=== PATIENT | female | born 1930 | race Caucasian/White ===

== ENCOUNTER 2016-09-09 14:30 | Emergency (ER) | payer BC, OTHER ==
--- NOTE | 2016-09-09 14:43 | PDOC ---
History of Present Illness - General History Source: Patient Exam Limitations: No Limitations - History of Present Illness Initial Comments: 09/09/16 16:03 The patient is a 85 year old female, with a significant past medical history of [facility] aortic valvue (2 stents placed in 05/2016), hypertension, hyperlipidemia, 6 months of dyspnea under the treatment of a news photographer and packager machine at [facility], and chronic cough with flare up of bronchitis periodically and chronic leg swelling, who presents to the emergency department with her with an exacerbation of her shortness of breath and chronic cough. The patient reports that she came into the ED today because she was concerned about her shortness of breath. She reports that she is experiencing shortness of breath at rest and a moist sounding non-productive cough. She denies chest pain, headache and dizziness. She denies fever, chills, nausea , vomit, diarrhea and constipation. She denies any history of asthma, or blood clots in her lungs or legs. The patient and her state that over the past 6 months she has had a weight loss of 20 pounds. Allergies:penicillins, quinidine Past surgical history: 2 stents placed in May <Kendra Anne - Last Filed: 09/09/16 17:11> <Eric Hernandez - Last Filed: 09/09/16 19:10> - General Chief Complaint: Respiratory Stated Complaint: COUGH Time Seen by Provider: 09/09/16 14:43 Past History <Kendra Anne - Last Filed: 09/09/16 17:11> <Eric Hernandez - Last Filed: 09/09/16 19:10> - Past Medical History Allergies/Adverse Reactions: Allergies Allergy/AdvReac Type Severity Reaction Status Date / Time Penicillins Allergy Verified 09/09/16 14:41 quinidine Allergy Verified 09/09/16 14:41 Home Medications: Ambulatory Orders Aspirin [Aspirin EC] 81 mg PO DAILY 09/09/16 Atorvastatin Ca [Lipitor] 40 mg PO HS 09/09/16 Famotidine [Pepcid] 20 mg PO DAILY 09/09/16 Furosemide [Lasix -] 40 mg PO DAILY 09/09/16 Levothyroxine [Synthroid -] 112 mcg PO DAILY 09/09/16 Losartan Potassium 50 mg PO DAILY 09/09/16 Metformin HCl 500 mg PO BID 09/09/16 Metoprolol Succinate [Toprol Xl -] 75 mg PO BID 09/09/16 Potassium Chloride [K-Dur -] 10 meq PO DAILY 09/09/16 Prasugrel Hydrochloride [Effient -] 5 mg PO DAILY 09/09/16 Warfarin Sodium [Coumadin] 2.5 mg PO ASDIR 09/09/16 Review of Systems - Review of Systems Able to Perform ROS?: Yes Comments:: 09/09/16 16:04 CONSTITUTIONAL: Absent: Fever, Chills, Diaphoresis, Generalized Weakness, Malaise, Loss of Appetite HEENT: Absent: Rhinorrhea, Nasal Congestion, Throat Pain, Throat Swelling, Difficulty Swallowing, Mouth Swelling, Ear Pain, Eye Pain, Visual Changes CARDIOVASCULAR: Absent: Chest Pain, Syncope, Palpitations, Irregular Heart Rate, Lightheadedness , Peripheral Edema RESPIRATORY: +Cough. +Shortness of breath. Absent: Wheezing, Stridor, Hemoptysis GASTROINTESTINAL: Absent: Abdominal pain, Abdominal Distension, Nausea, Vomiting, Diarrhea, Constipation, Melena, Hematochezia GENITOURINARY: Absent: Dysuria, Frequency, Urgency, Hesitancy, Flank Pain, Genital Pain MUSCULOSKELETAL: Absent: Myalgia, Arthralgia, Joint Swelling, Back pain, Neck Pain SKIN: Absent: Rash, Itching, PalloR HEMEATOLOGIC/IMMUNOLOGIC: Absent: Easy Bleeding, Easy Bruising, Lymphadenopathy, Frequent infections ENDOCRINE: Absent: Unexplained Weight Gain, Unexplained Weight Loss, Heat Intolerance, Cold Intolerance NEUROLOGIC: Absent: Headache, Focal Weakness, Paresthesias, Vertigo, Lightheadedness, Unsteady Gait, Seizure, Mental Status Changes, Incontinence PSYCHIATRIC: Absent: Anxiety, Depression <Kendra Anne - Last Filed: 09/09/16 17:11> *Physical Exam - Vital Signs Last Vital Signs Temp Pulse Resp BP Pulse Ox 99.7 F H 123 H 22 106/60 96 09/09/16 15:36 09/09/16 15:36 09/09/16 15:36 09/09/16 15:36 09/09/16 15:36 - Physical Exam Comments: 09/09/16 16:04 GENERAL: The patient is awake, alert, and fully oriented, in no acute distress. HEAD: Normal with no signs of trauma. EYES: Pupils equal, round and reactive to light, extraocular movements intact, sclera anicteric, conjunctiva clear. ENT: Ears normal, nares patent, oropharynx clear without exudates. Moist mucous membranes. NECK: Normal range of motion, supple without lymphadenopathy, JVD, or masses. LUNGS:+Bilateral crackles fpc up/ No wheezes. HEART: +Irregularly irregular tachycardic. No murmur, rub or gallop. ABDOMEN: Soft, nontender, normoactive bowel sounds. No guarding, no rebound. No masses. EXTREMITIES: Normal range of motion, no edema. No clubbing or cyanosis. No cords , erythema, or tenderness. NEUROLOGICAL: Cranial nerves II through XII grossly intact. Normal speech, normal gait. PSYCH: Normal mood, normal affect. SKIN: Warm, Dry, normal turgor, no rashes or lesions noted. <Kendra Anne - Last Filed: 09/09/16 17:11> Heart Score/ECG Review - ECG Impressions Comment:: 09/09/16 15:51 Abnormal EKG: Atrial Fibrillation with rapid ventricular response. Rate 143. Left bundle branch block. In comparison with EKG done on 02/03/2010 the Atrial Fibrillation and left bundle branch are new. <Kendra Anne - Last Filed: 09/09/16 17:11> ED Treatment Course - LABORATORY CBC & Chemistry Diagram: 09/09/16 15:14 09/09/16 15:14 - ADDITIONAL ORDERS Additional order review: Laboratory Results 09/09/16 15:14 Creatine Kinase 40 - Medications Given in the ED: ED Medications Discontinued Medications Generic Name Dose Route Start Last Admin Trade Name Alilson PRN Reason Stop Dose Admin Diltiazem HCl 10 mg 09/09/16 15:16 09/09/16 15:25 Cardizem Injection - IVPUSH 09/09/16 15:17 10 mg ONCE ONE Administration <Kendra Anne - Last Filed: 09/09/16 17:11> - LABORATORY CBC & Chemistry Diagram: 09/09/16 15:14 09/09/16 15:14 <Eric Hernandez - Last Filed: 09/09/16 19:10> Medical Decision Making - Medical Decision Making 09/09/16 16:[address] Sarkis Copeland at [phone], Dr. Crockett is well control instructor. Awaiting call back. 09/09/16 17:[address] Crockett who is covering for Dr. Copeland. The Patient [facility] be [facility] on Telemetry. <Kendra Anne - Last Filed: 09/09/16 17:11> - Critical Care Time Total Critical Care Time (minutes): 45 (AF RVR) Critical Care Statement: The care of this patient involved high complexity decision making to prevent further life threatening deterioration of the patient 's condition and/or to evalute & treat vital organ system(s) failure or risk of failure. - Medical Decision Making 09/09/16 17:57 Patient with history of hypertension and [facility] aortic valve replacement. She has been having chronic symptoms of cough and dyspnea for several months. She underwent an extensive workup at [facility] with both cardiology and pulmonary. She comes in now complaining of progressive shortness of breath, now at rest. She also continues to have a moist cough. She denies fever. On examination, she has a low-grade temperature, and tachypnea as well as a very moist sounding cough. On the monitor there is atrial fibrillation with a left bundle randall block, rapid ventricular response at 150 initially, coming down after IV and by mouth Cardizem. Lungs have crackles bilaterally, approximately one fpc up. Laboratory studies reviewed: White blood cell count is notable for elevation to 17.1. INR is 2.1 on Coumadin for the prosthetic valve. Creatinine is notable at 1.5, increased from prior baseline. Glucose is increased to 264. VBG is notable for no acidosis. Troponin is negative at 0.03. Chest x-ray reviewed by me on a preliminary basis shows increased interstitial markings, right greater than left, possibly consistent with atypical pneumonia versus pulmonary congestion. Patient treated for atrial fibrillation with rapid ventricular response. She already took metoprolol 75 mg at home. She was given 3 doses of IV Cardizem in the emergency Department and then given oral Cardizem. She is already anticoagulated on Coumadin. Patient also with likely pneumonia given low-grade fever and significant leukocytosis. Given her history of ALLERGY to both penicillin and cephalosporins, she has been started on Levaquin. Blood cultures and urine culture were sent prior to antibiotics. Patient endorsed to Dr. Crockett for admission. Dr. Steiner contacted for cardiology consultation and he will evaluate the patient. Patient will be transported by ALS from the [place] emergency department to the telemetry unit at [facility]. Laboratory Results - last 24 hr 09/09/16 09/09/16 09/09/16 15:14 15:14 15:14 WBC 17.1 H D RBC 4.51 Hgb 13.0 Hct 38.3 MCV 84.9 MCHC 34.0 RDW 13.3 Plt Count 248 D MPV 9.7 Neutrophils % Y Lymphocytes % Y INR 2.07 H D PTT (Actin FS) 29.6 VBG pH POC VBG pCO2 POC VBG pO2 Mixed VBG HCO3 Sodium 137 Potassium 4.0 Chloride 100 Carbon Dioxide 24 Anion Gap 13 BUN 23 H Creatinine 1.5 H D Creat Clearance w eGFR 33.16 Random Glucose 264 H D Calcium 9.6 Magnesium 1.6 L Total Bilirubin 1.5 H D AST 40 D ALT 25 Alkaline Phosphatase 122 H D Creatine Kinase Troponin I Total Protein 6.6 Albumin 3.2 L 09/09/16 09/09/16 15:14 15:30 WBC RBC Hgb Hct MCV MCHC RDW Plt Count MPV Neutrophils % Lymphocytes % INR PTT (Actin FS) VBG pH 7.45 H POC VBG pCO2 38.5 POC VBG pO2 89.4 H Mixed VBG HCO3 26.2 H Sodium Potassium Chloride Carbon Dioxide Anion Gap BUN Creatinine Creat Clearance w eGFR Random Glucose Calcium Magnesium Total Bilirubin AST ALT Alkaline Phosphatase Creatine Kinase 40 Troponin I 0.03 Total Protein Albumin 09/09/16 19:10 The scribe's documentation has been prepared under my direction and personally reviewed by me in its entirety. I have confirmed that the note above accurately reflects all work, treatment, procedures, and medical decision- making performed by me. <Eric Hernandez - Last Filed: 09/09/16 19:10> *DC/Admit/Observation/Transfer - Attestations Scribe Attestion: 09/09/16 16:04 Documentation prepared by ALANA Holley, acting as medical microbiologist for Eric Hernandez MD. <Kendra Anne - Last Filed: 09/09/16 17:11> - Discharge Dispostion Admit: Yes <Eric Hernandez - Last Filed: 09/09/16 19:10> Diagnosis at time of Disposition: Atrial fibrillation with rapid ventricular response, Atypical pneumonia - Discharge Dispostion Condition at time of disposition: Guarded
[2016-09-09 14:54] VITALS: BMI 32.4
[2016-09-09] MEDS ORDERED: dilTIAZem HCL 50 MG/10 ML - 10 ML VIAL IVPUSH ONE ×3 (15:16→16:52)
[2016-09-09] MEDS ORDERED: dilTIAZem HCL 50 MG/10 ML - 10 ML VIAL ONE (15:20)
[2016-09-09 15:31] LABS: MCH 28.8 pg (25.7-33.7); MEAN CELL VOLUME 84.9 fl (80-96); MEAN PLT VOLUME 9.7 fl (7.5-11.1); PLATELET COUNT 248 K/MM3 (134-434); RDW 13.3 % (11.6-15.6); WHITE BLOOD COUNT 17.1 K/mm3 (4.0-10.8)
[2016-09-09 15:48] LABS: ACTIVATED PTT 29.6 SECONDS (24.0-38.9)
[2016-09-09 15:50] LABS: ALBUMIN 3.2 g/dl (3.5-5.0); ALK PHOS 122 U/L (32-92); ANION GAP 13 (8-16); BILIRUBIN,TOTAL 1.5 mg/dl (0.2-1.0); CALCIUM 9.6 mg/dl (8.4-10.2); CO2 24 mmol/L (22-28); CREATININE 1.5 mg/dl (0.6-1.3); GLUCOSE,RANDOM 264 mg/dl (74-106); MAGNESIUM 1.6 mg/dL (1.8-2.4); SGOT/AST 40 U/L (10-42); SGPT/ALT 25 U/L (10-40); TOT PROT 6.6 g/dl (6.4-8.3)
[2016-09-09 15:52] LABS: INR 2.07 (0.82-1.09); PROTHROMBIN TIME (PATIENT) 22.8 SEC (10.2-13.0)
[2016-09-09] MEDS ORDERED: dilTIAZem HCL 30 MG TABLET (FP) PO ONE (16:11)
[2016-09-09] MEDS ORDERED: dilTIAZem HCL 30 MG TABLET (FP) ONE (16:12)
[2016-09-09 16:19] LABS: VENOUS BLOOD GAS HCO3 26.2 meq/L (19-25); VENOUS PH 7.45 (7.32-7.42)
[2016-09-09 16:51] LABS: TROPONIN I (DFP) 0.03 ng/ml (0.03-0.50)
[2016-09-09] MEDS ORDERED: ACETAMINOPHEN 325 MG TABLET (FP) PO ONE (16:52)
[2016-09-09] MEDS ORDERED: ACETAMINOPHEN 325 MG TABLET (FP) ONE (16:53)
[2016-09-09] MEDS ORDERED: LEVOFLOXACIN 500 MG IVPB 100 ML IVPB ONE ×2 (17:12→17:14)
[2016-09-09 17:32] LABS: URINE APPEARANCE Clear; URINE BILIRUBIN 1+ (NEGATIVE); URINE GLUCOSE (UA) Negative (NEGATIVE); URINE KETONE Trace (NEGATIVE); URINE NITRITE Negative (NEGATIVE); URINE UROBILINOGEN 1.0 E.U/dl (0.2-1.0)
[2016-09-09 19:09] VITALS: BP 105/64; TEMP 97.7
[2016-09-09 19:16] LABS: URINE BLOOD 1+ (NEGATIVE); URINE COLOR YELLOW; URINE LEUK ESTERASE 1+ (NEGATIVE); URINE PROTEIN 2+ (NEGATIVE)
[2016-09-09 20:11] VITALS: PULSE 107
[2016-09-09] MEDS ORDERED: ATORVASTATIN CA 40 MG TABLET (FP) PO SCH (22:00)
[2016-09-09 23:15] LABS: URINE BACTERIA 3+ /hpf (NEGATIVE); YEAST MODERATE
[2016-09-09 23:22] LABS: PLATELET ESTIMATE ADEQUATE (NORMAL)
[2016-09-10] MEDS ORDERED: dilTIAZem HCL 30 MG TABLET (FP) PO SCH
[2016-09-10] MEDS ORDERED: metFORMIN HCL 500 MG TABLET (FP) PO SCH (07:00)
[2016-09-10] MEDS ORDERED: LEVOTHYROXINE NA 112 MCG TABLET (FP) PO SCH (07:00)
[2016-09-10] MEDS ORDERED: LOSARTAN POTASSIUM 50 MG TABLET (FP) PO SCH (10:00)
[2016-09-10] MEDS ORDERED: PRASUGREL HCL 5 MG TAB PO SCH (10:00)
[2016-09-10] MEDS ORDERED: LEVOFLOXACIN 250 MG IVPB 50 ML IVPB SCH (10:00)
[2016-09-10] MEDS ORDERED: ASPIRIN COATED 81 MG TABLET.EC PO SCH (10:00)
[2016-09-10] MEDS ORDERED: FAMOTIDINE 20 MG TABLET PO SCH (10:00)
[2016-09-10 11:25] LABS: TROPONIN I < 0.02 ng/ml (0.00-0.05)
[2016-09-10] MEDS ORDERED: WARFARIN NA 2.5 MG TABLET (FP) PO SCH (18:00)
--- NOTE | 2016-09-11 18:19 | EKG ---
Test Reason : Blood Pressure : / mmHG Vent. Rate : 104 BPM Atrial Rate : 104 BPM P-R Int : 180 ms QRS Dur : 126 ms QT Int : 396 ms P-R-T Axes : 044 -47 091 degrees QTc Int : 520 ms SINUS TACHYCARDIA WITH PREMATURE ATRIAL COMPLEXES LEFT AXIS DEVIATION LEFT BUNDLE BRANCH BLOCK WHEN COMPARED WITH ECG OF 09-SEP-2016 14:53, SR more apparent Confirmed by MD SERGIO, LEXII ([id number]) on 09/11/2016 6:18:50 PM Referred By: SAIRA SHERWOOD Confirmed By:LEXII HILL MD
--- NOTE | 2016-09-11 18:21 | EKG ---
Test Reason : Blood Pressure : / mmHG Vent. Rate : 143 BPM Atrial Rate : 131 BPM P-R Int : 000 ms QRS Dur : 124 ms QT Int : 336 ms P-R-T Axes : 000 -49 116 degrees QTc Int : 518 ms UNDETERMINED RHYTHM -. apparent afib initially -. SR at end LEFT AXIS DEVIATION LEFT BUNDLE BRANCH BLOCK WHEN COMPARED WITH ECG OF 24-NOV-2009 19:27, SR not evident Confirmed by MD SERGIO, LEXII ([id number]) on 09/11/2016 6:20:39 PM Referred By: SAIRA SHERWOOD Confirmed By:LEXII HILL MD
== END 2016-09-09 19:55 | disposition home or self-care (01) ==
LOC: FER 14:30
PROC: 3E03329 Introduction of Other Anti-infective into Peripheral Vein, Percutaneous Approach (ICD-10-PCS; principal; 2016-09-09)
PROC: 3E033GC Introduction of Other Therapeutic Substance into Peripheral Vein, Percutaneous Approach (ICD-10-PCS; 2016-09-09)
DX: I48.91 Unspecified atrial fibrillation (principal); J18.9 Pneumonia, unspecified organism; Z95.5 Presence of coronary angioplasty implant and graft; I10 Essential (primary) hypertension; E78.5 Hyperlipidemia, unspecified
CPT/HCPCS: 36415; 71010-TC; 80053; 81003; 81015; 82550; 82803; 83605; 83735; 83880; 84443; 84480; 84484; 85025; 85610; 85730; 87040; 87077; 87086; 93005; 99285-25

== ENCOUNTER 2016-09-09 18:39 | Inpatient (IN) | payer BC, OTHER ==
[2016-09-09] MEDS ORDERED: ALBUTEROL SO4 0.083% IH SOL 2.5 MG/3 ML VIAL.NEB. NEB PRN (21:06)
[2016-09-09] MEDS ORDERED: guaiFENesin/D-M SUGAR-FREE/ACLHOL-FREE 118 ML BOTTLE PO PRN (21:06)
--- NOTE | 2016-09-09 21:32 | HP ---
Admitting History and Physical - Admission Chief Complaint: cough, shortness of breath History of Present Illness: 85 yo female, presents to ED with 1 week of feeling very poorly, with increased cough and shortness of breath. Feels weak, though no fevers. Prior to the past week, patient had been feeling not that well for past year. She has a history of an aortic valve replacement 20 years ago and has been following with a gericare aide teacher (Dr Cardenas at [facility]), with recent cath in 05/2016 with 2 cardiac stents placed. Patient notes that she had episode of "flash pulmonary edema" at that time following the procedure and was treated for CHF then. Notes that she has continued to feel poorly (same as she was prior to cath), seeing exhibit display representative for a chronic dry cough and exertional dyspnea. Notes that she was not given an inhaler previously. Currently no chest pain, but was in afib in 150's upon presentation to [facility] ED earlier today. CXR showed some infiltrative changes, so given Levaquin to cover for pneumonia/ bronchitis and cardizem for the afib History Source: Patient, Family Member Limitations to Obtaining History: No Limitations - Past Medical History Cardiovascular: Yes: Aortic Stenosis, CAD, CHF Endocrine: Yes: Diabetes Mellitus, Hypothyroidism - Past Surgical History Past Surgical History: Yes: Valve Replacement (Aortic valve replacement ([facility])) Additional Past Surgical History: s/p PTCA with 3 cardiac stents - Smoking History Smoking history: Never smoked - Alcohol/Substance Use Hx Alcohol Use: No - Social History Occupation: Retired 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) Home Medications - Allergies Allergies/Adverse Reactions: Allergies Allergy/AdvReac Type Severity Reaction Status Date / Time Penicillins Allergy Verified 09/09/16 14:41 quinidine Allergy Verified 09/09/16 14:41 - Home Medications Home Medications: Ambulatory Orders Aspirin [Aspirin EC] 81 mg PO DAILY 09/09/16 Atorvastatin Ca [Lipitor] 40 mg PO HS 09/09/16 Famotidine [Pepcid] 20 mg PO DAILY 09/09/16 Furosemide [Lasix -] 40 mg PO DAILY 09/09/16 Levothyroxine [Synthroid -] 112 mcg PO DAILY 09/09/16 Losartan Potassium 50 mg PO DAILY 09/09/16 Metformin HCl 500 mg PO BID 06/10/17 Metoprolol Succinate [Toprol Xl -] 75 mg PO BID 09/09/16 Potassium Chloride [K-Dur -] 10 meq PO DAILY 09/09/16 Prasugrel Hydrochloride [Effient -] 5 mg PO DAILY 09/09/16 Warfarin Sodium [Coumadin] 2.5 mg PO ASDIR 09/09/16 Family Disease History - Family Disease History Family Disease History: Heart Disease: Mother Review of Systems - Review of Systems Constitutional: reports: Loss of Appetite, Unintentional Wgt. Loss (20 lbs over past year). denies: Chills Eyes: reports: No Symptoms HENT: denies: Difficult Swallowing, Epistaxis Neck: denies: Stiffness, Tenderness Gastrointestinal: reports: Constipation. denies: Abdominal Pain, Dysphagia, Melena, Nausea, Vomiting Genitourinary: denies: Burning, Discharge, Dysuria Physical Examination Constitutional: Yes: No Distress, Calm Eyes: Yes: Conjunctiva Clear, EOM Intact, PERRL HENT: Yes: Atraumatic, Normocephalic Neck: Yes: Supple, Trachea Midline Cardiovascular: Yes: Pulse Irregular, Murmur, S1, S2 Respiratory: Yes: Rales, Rhonchi (bilaterally), Wheezes Gastrointestinal: Yes: Normal Bowel Sounds, Soft. No: Distention, Tenderness Edema: Yes Edema: LLE: Trace, RLE: Trace Neurological: Yes: Alert, Oriented Labs: (labs present from admission to [facility] ED from today -WBC 17,100, Creatinine 1.5, TSH 0.08) Imaging - Results Chest X-ray: Image Reviewed ((attached to ED visit from today -interstitial edema, prior sternotomy with wires, cardiomegaly)) Problem List - Problems (1) Atrial fibrillation with rapid ventricular response Assessment/Plan: -new onset afib -given cardizem IV with rate slowing -will start on PO cardizem -already on AC due to heart valve (INR therapeutic) -cardio to consult Code(s): I48.91 - UNSPECIFIED ATRIAL FIBRILLATION (2) Atypical pneumonia Assessment/Plan: -appears to be a bronchial process, based on exam of lungs (Crackles and rhonchi present), may be a combination of CHF with a bronchopneumonia or possibly underlying interstitial lung disease (will check CT chest) Code(s): J18.9 - PNEUMONIA, UNSPECIFIED ORGANISM (3) Coronary artery disease Assessment/Plan: -cont ASA, Bblocker on hold while starting cardizem, on statin Code(s): I25.10 - ATHSCL HEART DISEASE OF [place] CORONARY ARTERY W/O ANG PCTRS (4) Diabetes mellitus Assessment/Plan: -hold metformin given renal insufficiency, start RISS Code(s): E11.9 - TYPE 2 DIABETES MELLITUS WITHOUT COMPLICATIONS (5) History of aortic valve replacement Assessment/Plan: -cont coumadin Code(s): Z95.2 - PRESENCE OF PROSTHETIC HEART VALVE (6) Hypothyroid Assessment/Plan: TSH low -repeat with T4 and T3 to see if needs to adjust dose of Levothyroxine Code(s): E03.9 - HYPOTHYROIDISM, UNSPECIFIED (7) Hyperlipidemia Assessment/Plan: -on statin Code(s): E78.5 - HYPERLIPIDEMIA, UNSPECIFIED (8) Cough present for greater than 3 weeks Assessment/Plan: -cough appears chronic, but worsened -to get CT chest and pulm consult Code(s): R05 - COUGH
[2016-09-09] MEDS ORDERED: ALBUTEROL SO4 0.083% IH SOL 2.5 MG/3 ML VIAL.NEB. NEB ONE (21:49)
[2016-09-09] MEDS ORDERED: metFORMIN HCL 500 MG TABLET (FP) PO SCH (22:00)
[2016-09-09 22:30] LABS: TROPONIN I < 0.02 ng/ml (0.00-0.05)
[2016-09-09] MEDS: FUROSEMIDE 40 MG/4 ML INJECTABLE VIAL IVPUSH ONE ×2 (22:35→22:39)
[2016-09-09] MEDS: ATORVASTATIN CA 40 MG TABLET (FP) PO SCH (22:39)
[2016-09-09] MEDS: DOCUSATE SODIUM 100 MG CAPSULE (FP) PO SCH (22:40)
[2016-09-09] MEDS: INSULIN SLIDING SCALE (NOVOLOG) 1 VIAL SQ SCH (22:41)
[2016-09-09] MEDS: SENNOSIDES 8.6MG TABLET (FP) PO SCH (22:41)
[2016-09-09] MEDS ORDERED: WARFARIN NA 2.5 MG TABLET (FP) PO ONE (23:15)
[2016-09-09] MEDS: dilTIAZem HCL 30 MG TABLET (FP) PO SCH (23:21)
[2016-09-09] MEDS: ALBUTEROL SO4 0.083% IH SOL 2.5 MG/3 ML VIAL.NEB. NEB SCH (23:34)
[2016-09-10] MEDS: ALBUTEROL SO4 0.083% IH SOL 2.5 MG/3 ML VIAL.NEB. NEB SCH ×5 (06:02→23:22)
[2016-09-10] MEDS: dilTIAZem HCL 30 MG TABLET (FP) PO SCH ×3 (06:02→19:15)
[2016-09-10] MEDS: LEVOTHYROXINE NA 112 MCG TABLET (FP) PO SCH (06:02)
[2016-09-10] MEDS: INSULIN SLIDING SCALE (NOVOLOG) 1 VIAL SQ SCH ×4 (06:06→22:46)
[2016-09-10 07:42] LABS: INR 2.47 (0.82-1.09); PROTHROMBIN TIME (PATIENT) 27.7 SEC (9.98-11.88)
[2016-09-10 08:37] LABS: TROPONIN I < 0.02 ng/ml (0.00-0.05)
[2016-09-10] MEDS: RANITIDINE HCL 150 MG TABLET (FP) PO SCH (09:17)
[2016-09-10] MEDS: ASPIRIN COATED 81 MG TABLET.EC PO SCH (09:17)
[2016-09-10] MEDS: LOSARTAN POTASSIUM 50 MG TABLET (FP) PO SCH (09:17)
[2016-09-10] MEDS: PRASUGREL HCL 5 MG TAB PO SCH (09:22)
[2016-09-10] MEDS: LEVOFLOXACIN 250 MG IVPB 50 ML IVPB SCH (09:23)
[2016-09-10] MEDS ORDERED: FUROSEMIDE 40 MG/4 ML INJECTABLE VIAL IVPUSH SCH (10:00)
--- NOTE | 2016-09-10 10:01 | PN ---
Progress Note, Physician History of Present Illness: Patient feeling about the same as last night. Still with dyspnea on exertion. Denies any chest pain. Cough still present - Current Medication List Current Medications: Active Medications Albuterol Sulfate (Ventolin 0.083% Nebulizer Soln -) 1 amp NEB Q4H PRN PRN Reason: SHORT OF BREATH/WHEEZING Albuterol Sulfate (Ventolin 0.083% Nebulizer Soln -) 1 amp NEB QIDR [facility] Last Admin: 09/10/16 06:02 Dose: 1 amp Aspirin (Ecotrin -) 81 mg PO DAILY [facility] Last Admin: 09/10/16 09:17 Dose: 81 mg Atorvastatin Calcium (Lipitor -) 40 mg PO HS [facility] Last Admin: 09/09/16 22:39 Dose: 40 mg Diltiazem HCl (Cardizem -) 30 mg PO Q6HPO [facility] Last Admin: 09/10/16 06:02 Dose: 30 mg Docusate Sodium (Colace -) 300 mg PO HS [facility] Last Admin: 09/09/16 22:40 Dose: Not Given Furosemide (Lasix Injection -) 40 mg IVPUSH DAILY [facility] Last Admin: 09/10/16 09:17 Dose: 40 mg Guaifenesin (Diabetic Tussin Dm -) 10 ml PO Q6H PRN PRN Reason: COUGH Levofloxacin (Levaquin 250 Mg Premixed Ivpb -) 50 mls @ 50 mls/hr IVPB DAILY [facility] Last Admin: 09/10/16 09:23 Dose: 50 mls/hr Insulin Aspart (Novolog Vial Sliding Scale -) 1 vial SQ ACHS SASHA PRN Reason: Protocol Last Admin: 09/10/16 06:06 Dose: Not Given Levothyroxine Sodium (Synthroid -) 112 mcg PO AM [facility] Last Admin: 09/10/16 06:02 Dose: 112 mcg Losartan Potassium (Cozaar -) 50 mg PO DAILY [facility] Last Admin: 09/10/16 09:17 Dose: 50 mg Prasugrel (Effient -) 5 mg PO DAILY [facility] Last Admin: 09/10/16 09:22 Dose: 5 mg Ranitidine HCl (Zantac -) 150 mg PO DAILY [facility] Last Admin: 09/10/16 09:17 Dose: 150 mg Senna (Senna -) 2 tab PO HS [facility] Last Admin: 09/09/16 22:41 Dose: Not Given Warfarin Sodium (Coumadin -) 2.5 mg PO [id number]@1800 SASHA Warfarin Sodium (Coumadin -) 5 mg PO MoWeFr@1800 SASHA - Objective Vital Signs: Vital Signs Temperature 98 F 09/10/16 09:00 Pulse Rate 106 H 09/10/16 09:00 Respiratory Rate 20 09/10/16 09:00 Blood Pressure 122/66 09/10/16 09:00 O2 Sat by Pulse Oximetry (%) 99 09/10/16 09:00 Constitutional: Yes: No Distress, Calm Neck: Yes: Supple, Trachea Midline Cardiovascular: Yes: Pulse Irregular, Murmur, S1, S2 Respiratory: Yes: Regular, Rales, Rhonchi. No: Wheezes Gastrointestinal: Yes: Normal Bowel Sounds, Soft. No: Distention, Tenderness Edema: No Neurological: Yes: Alert, Oriented Labs: INR, PTT INR 2.47 (0.82-1.09) H 09/10/16 05:42 Problem List - Problems (1) Atrial fibrillation with rapid ventricular response Code(s): I48.91 - UNSPECIFIED ATRIAL FIBRILLATION (2) Atypical pneumonia Code(s): J18.9 - PNEUMONIA, UNSPECIFIED ORGANISM (3) Coronary artery disease Code(s): I25.10 - ATHSCL HEART DISEASE OF [place] CORONARY ARTERY W/O ANG PCTRS (4) Diabetes mellitus Code(s): E11.9 - TYPE 2 DIABETES MELLITUS WITHOUT COMPLICATIONS (5) History of aortic valve replacement Code(s): Z95.2 - PRESENCE OF PROSTHETIC HEART VALVE (6) Hypothyroid Code(s): E03.9 - HYPOTHYROIDISM, UNSPECIFIED (7) Hyperlipidemia Code(s): E78.5 - HYPERLIPIDEMIA, UNSPECIFIED (8) Cough present for greater than 3 weeks Code(s): R05 - COUGH Assessment/Plan Current Active Problems New Onset Afib with RVR Coronary artery disease (Acute) Bronchopneumonia CHF Cough present for greater than 3 weeks (Acute) Diabetes mellitus (Acute) History of aortic valve replacement (Acute) Hyperlipidemia (Acute) Hypothyroid (Acute) Diabetes mellitus -cardio to consult -on cardizem for rate control, coumadin for AC -repeat EKG -on levaquin/ Nebs for bronchopneumonia/ reactive airway disease -to get CT chest/ pulm eval -CHF (may be due to Afib currently) -on Lasix
--- NOTE | 2016-09-10 10:14 | CON.CARD ---
Consult Consult Specialty:: cardiology Referred by:: oswald Reason for Consultation:: sob, afib - History of Present Illness Chief Complaint: sob History of Present Illness: 85 yo female, presents to ED with worsening shortness of breath. Feels weak, generalized. also chronic dry cough--ongoing for 6+ months, not positional or exertional in nature. has had chronic sob with activity, but could walk around a small room at home without feeling breathless. recently prior to presenting to ER the sob worsened with any activity. was very severe on DOA, again with exertion--called [address] mahoney export packer and a pulmonary doc (both at [facility]) for long time for these sx's. s/p aortic valve replacement 20 years ago and has been following with a export packer (Dr Mahoney at [facility]). had cath with him 05/2016 with 2 stents placed. Patient reports episode of "flash pulmonary edema" following the cath--at that time BP went to 240 and echo showed LVEF 20%, vs normal prior. few days later EF was normal on rpt echo, and remains normal on office echo with erich. CXR in ER apparently showed some infiltrative changes, so given Levaquin-- report not available. she feels well at rest, only notes sob if gets up and does something. no orthopnea. no cp doesn't weigh herself regularly at home the labs and CXR reportedly done in ER at [facility] are not in pt's [facility] record here and cannot be reviewed--rpt labs ordered. - Past Medical History Cardio/Vascular: Yes: Aortic Stenosis, CAD, CHF Endocrine: Yes: Diabetes Mellitus, Hypothyroidism - Past Surgical History Past Surgical History: Yes: Valve Replacement (Aortic valve replacement ([facility])) - Alcohol/Substance Use Hx Alcohol Use: No - Smoking History Smoking history: Never smoked - Social History Occupation: Retired Home Medications - Allergies Allergies/Adverse Reactions: Allergies Allergy/AdvReac Type Severity Reaction Status Date / Time Penicillins Allergy Verified 09/09/16 14:41 quinidine Allergy Verified 09/09/16 14:41 - Home Medications Home Medications: Ambulatory Orders Aspirin [Aspirin EC] 81 mg PO DAILY 09/09/16 Atorvastatin Ca [Lipitor] 40 mg PO HS 09/09/16 Famotidine [Pepcid] 20 mg PO DAILY 09/09/16 Furosemide [Lasix -] 40 mg PO DAILY 09/09/16 Levothyroxine [Synthroid -] 112 mcg PO DAILY 09/09/16 Losartan Potassium 50 mg PO DAILY 09/09/16 Metformin HCl 500 mg PO BID 09/09/16 Metoprolol Succinate [Toprol Xl -] 75 mg PO BID 09/09/16 Potassium Chloride [K-Dur -] 10 meq PO DAILY 09/09/16 Prasugrel Hydrochloride [Effient -] 5 mg PO DAILY 09/09/16 Warfarin Sodium [Coumadin] 2.5 mg PO ASDIR 09/09/16 Family Disease History - Family Disease History Family Disease History: Heart Disease: Mother Review of Systems - Review of Systems Constitutional: denies: Chills, Fever Eyes: denies: Eye Pain HENT: denies: Nasal Congestion Neck: denies: Stiffness Cardiovascular: denies: Palpitations Respiratory: denies: Orthopnea, PND Gastrointestinal: denies: Diarrhea, Rectal Bleeding Genitourinary: denies: Burning, Hematuria Musculoskeletal: denies: Muscle Pain Integumentary: denies: Rash Neurological: denies: Numbness, Seizure, Syncope Endocrine: denies: Excessive Sweating Hematology/Lymphatic: denies: Excessive Bleeding Vital Signs: Vital Signs Temperature 98 F 09/10/16 09:00 Pulse Rate 106 H 09/10/16 09:00 Respiratory Rate 20 09/10/16 09:00 Blood Pressure 122/66 09/10/16 09:00 O2 Sat by Pulse Oximetry (%) 99 09/10/16 09:00 Constitutional: Yes: Well Nourished, No Distress Eyes: No: Sclera Icterus HENT: No: Nasal Congestion Neck: No: Decreased ROM Respiratory: Yes: CTA Bilaterally, Rales (lower 1/3 bilateral). No: Accessory Muscle Use, Wheezes Gastrointestinal: Yes: Normal Bowel Sounds. No: Distention, Hepatomegaly, Palpable Mass, Tenderness Cardiovascular: Yes: Regular Rate and Rhythm JVD: No Carotid Bruit: No PMI: Non-Displaced Heart Sounds: Yes: S1, S2. No: Gallop Murmur: No: Systolic Murmur, Diastolic Murmur Musculoskeletal: Yes: Other (No kyphosis) Extremities: No: Cold, Cyanosis Edema: No Peripheral Pulses: 2+ Left Carotid, 2+ Right Carotid, 2+ Left Doralis Pedis, 2+ Right Dorsalis Pedis Integumentary: No: Jaundice Neurological: Yes: Alert, Oriented (x3) Psychiatric: No: Agitated - Other Data Labs, Other Data: INR, PTT INR 2.47 (0.82-1.09) H 09/10/16 05:42 Troponin, BNP 09/09/16 09/10/16 21:40 05:42 Troponin I < 0.02 < 0.02 Troponin, BNP 09/09/16 09/10/16 21:40 05:42 Troponin I < 0.02 < 0.02 ekg x3: LBBB. 1 is AT/AFL. other 2 are sinus with APCs tele: sinus with APCs, frequent runs SVT probably PAT, ? AFL variable conduction (up to her 150-160). 1 run WCT 7b ? NSVT Imaging - Results Chest X-ray: Image Reviewed Assessment/Plan CAD: -reportedly had 2 stents 05/19 (cath done at [place], she follows with [facility]) -ECG here with LBBB which states is not new (no ECGs here since 2009) -trop neg x 2 -sob has not improved since PCI -cont home DAPT (ASA + Effient), metopr, statin h/o mech AVR -on coumadin -followed with echoes by [facility] -cont coumadin per home regimen/INR targets PSVT vs atrial flutter -tele shows frequent runs of SVT with HR 150-160. 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 conduction vs PAT -she is already anticoagulated (INR 2.4)--cont coumadin -she is already on high dose metoprolol (75 bid)--will incr to 100 bid trial -diltiazem 30mg q6h started here--cont same for now, observe tele -if sustained SVT, need adenosine IVP to define substrate -if remains frequent, will have to consider amio vs ablation acute on chronic sob, dry cough -BNP 2300 -CXR my review (09/09 and 09/10) with no effusions or vasc redistribution; + diffuse mild incr interstitial pattern bases > upper lung jiménez per (cardiac PA), RHC at time of procedure showed he thinks only mild incr'd wedge, with "moderate pulm HTN" -suspect at baseline she has diast chf, well-compensated--acute chf post-cath ? due to dye load. -recent worsening in sx's may be incr'd L sided filling pressures due to dietary Na changes, or possibly due to bronchitis exacerbating -r/o pulm dz including ILDz/pulm fibrosis--had chest CT, ? hi-res CT--per pulm -sx's not likely anginal in nature, did not improve after revascularization -rec trial of iv diuresis with daily wts and BMP labs f/u, with escalating doses until she is clinically dry to see if sob improves (doubt cough will improve, but not impossible) -received lasix 40 ivp this am, then mild LH sx with sbp 80s later after rec'd diltiazem--cont lasix 40 iv qd for now -f/u CT chest (done this am) D/W'D PT AND AND REC'D THIS WORKUP BE DONE INPT AT [facility], WHERE THE PHYSICIANS WHO KNOW HER WELL ARE LOCATED, AND WHERE THERE IS NURSERYPERSON IN CASE NEEDS REPEAT LEFT, OR POSSIBLY RIGHT HEART CATH--THEY AGREE. WILL MAKE ARRANGEMENTS Sunday
[2016-09-10 10:30] LABS: BASOPHIL 0.3 % (0-2.0); EOSINOPHIL 0.5 % (0-4.5); MCH 28.4 pg (25.7-33.7); MCHC 33.3 g/dl (32.0-36.0); MEAN CELL VOLUME 85.1 fl (80-96); MEAN PLT VOLUME 9.6 fl (7.5-11.1); NEUTROPHILS 75.2 % (42.8-82.8); PLATELET COUNT 219 K/MM3 (134-434); RDW 14.1 % (11.6-15.6); WHITE BLOOD COUNT 14.3 K/mm3 (4.0-10.0)
[2016-09-10 11:24] LABS: ANION GAP 16 (8-16); CALCIUM 9.5 mg/dL (8.5-10.1); CO2 25 mmol/L (21-32); COCKROFT - GAULT 0; CREATININE 1.4 mg/dL (0.55-1.02); GLUCOSE,RANDOM 185 mg/dL (74-106)
[2016-09-10] MEDS ORDERED: METOPROLOL SUCCINATE 100 MG TAB.SR.24H (FP) PO SCH (12:00)
[2016-09-10 12:07] LABS: FREE T4 1.89 ng/dl (0.76-1.46); THYROID STIMULATING HORMONE 0.07 uIU/ml (0.358-3.74)
--- NOTE | 2016-09-10 13:57 | CON.PULM ---
Consult Consult Specialty:: PULMONARY Referred by:: Dr. Crockett Reason for Consultation:: shortness of breath - History of Present Illness Chief Complaint: shortness of breath History of Present Illness: 85yo female with h/o DM, hypothyroidism, CAD s/p LAD stent, aortic stenosis s/p AVR who presents with worsening shortness of breath x 6 months, worse over 1 week. She reports a chronic cough for the past 6 months but without wheezing. No chest pain or discomfort. No fevers, chills or sweats. She had been worked up as an outpt including PFTs, cardiac cath with stent placement without improvement in her symptoms. Had not been on any trial of inhalers or steroids. She reports chronic leg swelling and sleeps in a recliner for comfort. 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 - History Source History Provided By: Patient, Significant Other Limitations to Obtaining History: No Limitations - Past Medical History Cardio/Vascular: Yes: Aortic Stenosis, CAD, CHF Endocrine: Yes: Diabetes Mellitus, Hypothyroidism - Past Surgical History Past Surgical History: Yes: Valve Replacement (Aortic valve replacement ([facility])) - Alcohol/Substance Use Hx Alcohol Use: No - Smoking History Smoking history: Never smoked - Social History Occupation: Retired Home Medications - Allergies Allergies/Adverse Reactions: Allergies Allergy/AdvReac Type Severity Reaction Status Date / Time Penicillins Allergy Verified 09/09/16 14:41 quinidine Allergy Verified 09/09/16 14:41 - Home Medications Home Medications: Ambulatory Orders Aspirin [Aspirin EC] 81 mg PO DAILY 09/09/16 Atorvastatin Ca [Lipitor] 40 mg PO HS 09/09/16 Famotidine [Pepcid] 20 mg PO DAILY 09/09/16 Furosemide [Lasix -] 40 mg PO DAILY 09/09/16 Levothyroxine [Synthroid -] 112 mcg PO DAILY 09/09/16 Losartan Potassium 50 mg PO DAILY 09/09/16 Metformin HCl 500 mg PO BID 09/09/16 Metoprolol Succinate [Toprol Xl -] 75 mg PO BID 09/09/16 Potassium Chloride [K-Dur -] 10 meq PO DAILY 09/09/16 Prasugrel Hydrochloride [Effient -] 5 mg PO DAILY 09/09/16 Warfarin Sodium [Coumadin] 2.5 mg PO ASDIR 09/09/16 Family Disease History - Family Disease History Family Disease History: Heart Disease: Mother Review of Systems - Review of Systems Constitutional: reports: Weakness. denies: Chills, Fever Eyes: denies: Recent Change in Vision HENT: denies: Nasal Congestion, Throat Pain Neck: denies: Stiffness, Tenderness Cardiovascular: reports: Edema, Shortness of Breath. denies: Chest Pain, Palpitations Respiratory: reports: Cough, SOB on Exertion. denies: Hemoptysis, Wheezing Gastrointestinal: denies: Abdominal Pain, Nausea, Vomiting Genitourinary: denies: Dysuria, Hematuria Neurological: denies: Dizziness, Headache Physical Exam Vital Sings: Vital Signs Temperature 98 F 09/10/16 12:56 Pulse Rate 100 H 09/10/16 12:56 Respiratory Rate 20 09/10/16 12:56 Blood Pressure 88/42 09/10/16 12:56 O2 Sat by Pulse Oximetry (%) 99 09/10/16 09:00 Constitutional: Yes: Calm Eyes: Yes: Conjunctiva Clear, EOM Intact HENT: Yes: Atraumatic, Normocephalic Neck: Yes: Supple, Trachea Midline Cardiovascular: Yes: Regular Rate and Rhythm Respiratory: Yes: Diminished (distant breath sounds) ...Clubbing: No Gastrointestinal: Yes: Normal Bowel Sounds, Soft. No: Tenderness Edema: Yes Labs: CBC, BMP 09/10/16 06:39 09/10/16 10:05 Imaging - Results Chest X-ray: Report Reviewed, Image Reviewed Cat Scan: Report Reviewed, Image Reviewed (mild atelectasis, thickened airways, mild bronchiectasis, no infiltrates (my read)) Problem List - Problems (1) Coronary artery disease Code(s): I25.10 - ATHSCL HEART DISEASE OF [place] CORONARY ARTERY W/O ANG PCTRS (2) Diabetes mellitus Code(s): E11.9 - TYPE 2 DIABETES MELLITUS WITHOUT COMPLICATIONS (3) History of aortic valve replacement Code(s): Z95.2 - PRESENCE OF PROSTHETIC HEART VALVE (4) Hyperlipidemia Code(s): E78.5 - HYPERLIPIDEMIA, UNSPECIFIED (5) Hypothyroid Code(s): E03.9 - HYPOTHYROIDISM, UNSPECIFIED (6) Atrial fibrillation with rapid ventricular response Code(s): I48.91 - UNSPECIFIED ATRIAL FIBRILLATION Assessment/Plan SVT vs Atrial Fibrillation r/o COPD Mild Bronchiectasis r/o Chronic Bronchitis CAD DM Hypothyroidism s/p AVR - will start trial of medrol x 48 hrs and then reassess - inhaled bronchodilators - LABA/ICS - O2 to keep SpO2 >90% - to obtain PFTs from parking garage manager - rate controlled - continue anticoagulation - telemetry monitoring Thank you for this consult Juan A Gillespie MD
[2016-09-10] MEDS ORDERED: FUROSEMIDE 40 MG/4 ML INJECTABLE VIAL IVPUSH ONE (16:00)
[2016-09-10] MEDS: methylPREDNISolone NA SUCC 40 MG/1 ML VIAL IVPB SCH ×2 (16:35→19:15)
[2016-09-10] MEDS: WARFARIN NA 2.5 MG TABLET (FP) PO SCH ×2 (16:36→19:15)
[2016-09-10] MEDS: METOPROLOL SUCCINATE 100 MG TAB.SR.24H (FP) PO SCH (22:45)
[2016-09-10] MEDS: ATORVASTATIN CA 40 MG TABLET (FP) PO SCH (22:45)
[2016-09-10] MEDS: DOCUSATE SODIUM 100 MG CAPSULE (FP) PO SCH (22:46)
[2016-09-10] MEDS: SENNOSIDES 8.6MG TABLET (FP) PO SCH (22:46)
[2016-09-11] MEDS: dilTIAZem HCL 30 MG TABLET (FP) PO SCH ×4 (00:53→17:13)
[2016-09-11] MEDS: methylPREDNISolone NA SUCC 40 MG/1 ML VIAL IVPB SCH ×3 (02:38→17:13)
[2016-09-11] MEDS: ALBUTEROL SO4 0.083% IH SOL 2.5 MG/3 ML VIAL.NEB. NEB SCH ×3 (05:43→17:50)
[2016-09-11] MEDS: INSULIN SLIDING SCALE (NOVOLOG) 1 VIAL SQ SCH ×4 (06:12→22:48)
[2016-09-11] MEDS: LEVOTHYROXINE NA 112 MCG TABLET (FP) PO SCH (06:13)
[2016-09-11 07:53] LABS: BASOPHIL 0.1 % (0-2.0); MCH 28.7 pg (25.7-33.7); MEAN CELL VOLUME 84.4 fl (80-96); MEAN PLT VOLUME 9.4 fl (7.5-11.1); NEUTROPHILS 87.2 % (42.8-82.8); PLATELET COUNT 244 K/MM3 (134-434); RDW 14.1 % (11.6-15.6); WHITE BLOOD COUNT 8.5 K/mm3 (4.0-10.0)
[2016-09-11 08:11] LABS: INR 2.6 (0.82-1.09); PROTHROMBIN TIME (PATIENT) 29.2 SEC (9.98-11.88)
[2016-09-11 08:23] LABS: CALCIUM 10.1 mg/dL (8.5-10.1); COCKROFT - GAULT 19.6775; CREATININE 2.5 mg/dL (0.55-1.02)
[2016-09-11] MEDS ORDERED: PT OWN MED DRAWER 7, Y5N ONE (08:55)
[2016-09-11] MEDS: LEVOFLOXACIN 250 MG IVPB 50 ML IVPB SCH (09:29)
[2016-09-11] MEDS: LOSARTAN POTASSIUM 50 MG TABLET (FP) PO SCH (09:30)
[2016-09-11] MEDS: RANITIDINE HCL 150 MG TABLET (FP) PO SCH (09:30)
[2016-09-11] MEDS: METOPROLOL SUCCINATE 100 MG TAB.SR.24H (FP) PO SCH ×2 (09:30→22:48)
[2016-09-11] MEDS: ASPIRIN COATED 81 MG TABLET.EC PO SCH (09:30)
[2016-09-11] MEDS: PRASUGREL HCL 5 MG TAB PO SCH (09:30)
[2016-09-11] MEDS ORDERED: FUROSEMIDE 40 MG/4 ML INJECTABLE VIAL IVPUSH SCH ×2 (10:00)
--- NOTE | 2016-09-11 11:27 | PN ---
Progress Note (short form) - Note Progress Note: CC: sob S: sob stable, no cp, palps, dizziness. Lead Burner Supervisor: dr mahoney Also sees pulmonary through [facility]. - Current Medication List Current Medications: Active Medications Albuterol Sulfate (Ventolin 0.083% Nebulizer Soln -) 1 amp NEB Q4H PRN PRN Reason: SHORT OF BREATH/WHEEZING Albuterol Sulfate (Ventolin 0.083% Nebulizer Soln -) 1 amp NEB QIDR SASHA Last Admin: 09/11/16 11:10 Dose: 1 amp Aspirin (Ecotrin -) 81 mg PO DAILY [facility] Last Admin: 09/11/16 09:30 Dose: 81 mg Atorvastatin Calcium (Lipitor -) 40 mg PO HS [facility] Last Admin: 09/10/16 22:45 Dose: 40 mg Diltiazem HCl (Cardizem -) 30 mg PO Q6HPO SASHA Last Admin: 09/11/16 12:19 Dose: Not Given Docusate Sodium (Colace -) 300 mg PO HS [facility] Last Admin: 09/10/16 22:46 Dose: Not Given Guaifenesin (Diabetic Tussin Dm -) 10 ml PO Q6H PRN PRN Reason: COUGH Levofloxacin (Levaquin 250 Mg Premixed Ivpb -) 50 mls @ 50 mls/hr IVPB DAILY [facility] Last Admin: 09/11/16 09:29 Dose: 50 mls/hr Insulin Aspart (Novolog Vial Sliding Scale -) 1 vial SQ ACHS SASHA PRN Reason: Protocol Last Admin: 09/11/16 12:19 Dose: 10 units Levothyroxine Sodium (Synthroid -) 112 mcg PO AM [facility] Last Admin: 09/11/16 06:13 Dose: 112 mcg Losartan Potassium (Cozaar -) 50 mg PO DAILY [facility] Last Admin: 09/11/16 09:30 Dose: 50 mg Methylprednisolone Sodium Succinate (Solu-Medrol -) 40 mg IVPB Q8H-IV [facility] Last Admin: 09/11/16 09:30 Dose: 40 mg Metoprolol Succinate (Toprol Xl -) 100 mg PO BID [facility] Last Admin: 09/11/16 09:30 Dose: 100 mg Prasugrel (Effient -) 5 mg PO DAILY [facility] Last Admin: 09/11/16 09:30 Dose: 5 mg Ranitidine HCl (Zantac -) 150 mg PO DAILY [facility] Last Admin: 09/11/16 09:30 Dose: 150 mg Senna (Senna -) 2 tab PO HS [facility] Last Admin: 09/10/16 22:46 Dose: Not Given Warfarin Sodium (Coumadin -) 2.5 mg PO SuTuThSa@1800 [facility] Last Admin: 09/10/16 19:15 Dose: Not Given Warfarin Sodium (Coumadin -) 5 mg PO MoWeFr@1800 [facility] - Objective Vital Signs: Vital Signs Temperature 97.6 F 09/11/16 14:17 Pulse Rate 74 09/11/16 14:17 Respiratory Rate 20 09/11/16 14:17 Blood Pressure 98/44 09/11/16 14:17 O2 Sat by Pulse Oximetry (%) 96 09/11/16 10:15 Constitutional: Yes: Well Nourished, No Distress Eyes: No: Sclera Icterus HENT: No: Nasal Congestion Neck: No: Decreased ROM Respiratory: Yes: bibasilar dry rales. No: Accessory Muscle Use, Wheezes Gastrointestinal: Yes: Normal Bowel Sounds. No: Distention, Hepatomegaly, Palpable Mass, Tenderness Cardiovascular: Yes: Regular Rate and Rhythm nl s1. mechanical s2 JVD: No Carotid Bruit: No PMI: Non-Displaced Murmur: No: Systolic Murmur, Diastolic Murmur Musculoskeletal: Yes: Other (No kyphosis) Extremities: No: Cold, Cyanosis Edema: No Peripheral Pulses: 2+ Left Carotid, 2+ Right Carotid, 2+ Left Doralis Pedis, 2+ Right Dorsalis Pedis Integumentary: No: Jaundice Neurological: Yes: Alert, Oriented (x3) Psychiatric: No: Agitated Laboratory Tests 09/10/16 09/11/16 09/11/16 05:42 06:05 06:05 WBC 8.5 D Hgb 12.0 Plt Count 244 INR 2.60 H Sodium Potassium Chloride Carbon Dioxide Anion Gap BUN Creatinine 1.4 H Calcium 09/11/16 06:05 WBC Hgb Plt Count INR Sodium 136 Potassium 4.2 Chloride 95 L Carbon Dioxide 22 Anion Gap 19 H BUN 45 H D Creatinine 2.5 H D Calcium 10.1 ekg x3: LBBB. 1 is AT/AFL. other 2 are sinus with APCs tele: sinus with APCs,intermittent SVT Imaging - Results Chest X-ray: Image Reviewed CT scan: small scattered mediastinal l. nodes. diffuse mild interstitial fibrotic changes, mostly peripheral. Diffuse B lower lobe posterior bronciectasis with wall thickening. Small calcified granuloma at right base. Assessment/Plan 85 yo with h/o s/p mech AVR, CAD s/p recent PCI x 2 - 05/2016, diastolic HF, DM, hypothyroidism p/w worsening, presents to ED with acute worsening chronic shortness of breath (dry cough, prog sob over many months). CAD: -reportedly had 2 stents 05/19 (cath done at [place], she follows with [facility] cardio) -ECG here with LBBB which states is not new (no ECGs here since 2009) -trop neg x 2 -sob has not improved since PCI -cont home DAPT (ASA + Effient), metopr, statin h/o mech AVR -on coumadin -followed with echoes by [facility] -cont coumadin per home regimen/INR targets PSVT vs atrial flutter -tele shows frequent runs of SVT with HR 150-160. 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 BP's slightly low today, will not uptitrate for now. -if sustained SVT, need adenosine IVP to define substrate -if remains frequent, will have to consider amio vs ablation acute on chronic sob, dry cough -BNP 2300 -CXR my review (09/09 and 09/10) with no effusions or vasc redistribution; + diffuse mild incr interstitial pattern bases > upper lung jiménez per (cardiac PA), RHC at time of procedure showed he thinks only mild incr'd wedge, with "moderate pulm HTN" -suspect at baseline she has diast chf, well-compensated--acute chf post-cath ? due to dye load. -sx's not likely anginal in nature, did not improve after revascularization - given trial of IV 40 mg IV lasix here with worsening of Cr this morning. Already received IV lasix dose this morning, will d/c. -CT c/w ILD, likely etiology of sx's. pulm following. D/W'D PT AND - now declining to be transferred to [facility]. Will remain here.
--- NOTE | 2016-09-11 13:10 | PN ---
Progress Note, Physician History of Present Illness: pulmonary alert,no distress,-cp,+ cough - Current Medication List Current Medications: Active Medications Albuterol Sulfate (Ventolin 0.083% Nebulizer Soln -) 1 amp NEB Q4H PRN PRN Reason: SHORT OF BREATH/WHEEZING Albuterol Sulfate (Ventolin 0.083% Nebulizer Soln -) 1 amp NEB QIDR REPLACED BY [facility] Last Admin: 09/11/16 05:43 Dose: 1 amp Aspirin (Ecotrin -) 81 mg PO DAILY REPLACED BY [facility] Last Admin: 09/11/16 09:30 Dose: 81 mg Atorvastatin Calcium (Lipitor -) 40 mg PO HS REPLACED BY [facility] Last Admin: 09/10/16 22:45 Dose: 40 mg Diltiazem HCl (Cardizem -) 30 mg PO Q6HPO REPLACED BY [facility] Last Admin: 09/11/16 12:19 Dose: Not Given Docusate Sodium (Colace -) 300 mg PO HS REPLACED BY [facility] Last Admin: 09/10/16 22:46 Dose: Not Given Guaifenesin (Diabetic Tussin Dm -) 10 ml PO Q6H PRN PRN Reason: COUGH Levofloxacin (Levaquin 250 Mg Premixed Ivpb -) 50 mls @ 50 mls/hr IVPB DAILY REPLACED BY [facility] Last Admin: 09/11/16 09:29 Dose: 50 mls/hr Insulin Aspart (Novolog Vial Sliding Scale -) 1 vial SQ ACHS SASHA PRN Reason: Protocol Last Admin: 09/11/16 12:19 Dose: 10 units Levothyroxine Sodium (Synthroid -) 112 mcg PO AM REPLACED BY [facility] Last Admin: 09/11/16 06:13 Dose: 112 mcg Losartan Potassium (Cozaar -) 50 mg PO DAILY REPLACED BY [facility] Last Admin: 09/11/16 09:30 Dose: 50 mg Methylprednisolone Sodium Succinate (Solu-Medrol -) 40 mg IVPB Q8H-IV REPLACED BY [facility] Last Admin: 09/11/16 09:30 Dose: 40 mg Metoprolol Succinate (Toprol Xl -) 100 mg PO BID REPLACED BY [facility] Last Admin: 09/11/16 09:30 Dose: 100 mg Prasugrel (Effient -) 5 mg PO DAILY REPLACED BY [facility] Last Admin: 09/11/16 09:30 Dose: 5 mg Ranitidine HCl (Zantac -) 150 mg PO DAILY REPLACED BY [facility] Last Admin: 09/11/16 09:30 Dose: 150 mg Senna (Senna -) 2 tab PO HS REPLACED BY [facility] Last Admin: 09/10/16 22:46 Dose: Not Given Warfarin Sodium (Coumadin -) 2.5 mg PO SuTuThSa@1800 REPLACED BY [facility] Last Admin: 09/10/16 19:15 Dose: Not Given Warfarin Sodium (Coumadin -) 5 mg PO MoWeFr@1800 REPLACED BY [facility] - Objective Vital Signs: Vital Signs Temperature 98 F 09/11/16 08:31 Pulse Rate 84 09/11/16 12:20 Respiratory Rate 20 09/11/16 12:20 Blood Pressure 98/35 09/11/16 12:20 O2 Sat by Pulse Oximetry (%) 97 09/11/16 08:00 Constitutional: Yes: Well Nourished, Calm Eyes: Yes: WNL HENT: Yes: WNL Neck: Yes: WNL Cardiovascular: Yes: Pulse Irregular, S1, S2 Respiratory: Yes: Rales (few bibasilar crackles) Gastrointestinal: Yes: Normal Bowel Sounds, Soft Extremities: Yes: WNL Edema: No Labs: CBC, BMP 09/11/16 06:05 09/11/16 06:05 INR, PTT INR 2.60 (0.82-1.09) H 09/11/16 06:05 - ....Imaging Cat Scan: Report Reviewed, Image Reviewed (+ fibrotic changes,bronchiectasis) Problem List - Problems (1) Interstitial lung disease Code(s): J84.9 - INTERSTITIAL PULMONARY DISEASE, UNSPECIFIED Assessment/Plan Problem List - Problems (1) Coronary artery disease Code(s): I25.10 - ATHSCL HEART DISEASE OF [place] CORONARY ARTERY W/O ANG PCTRS (2) Diabetes mellitus Code(s): E11.9 - TYPE 2 DIABETES MELLITUS WITHOUT COMPLICATIONS (3) History of aortic valve replacement Code(s): Z95.2 - PRESENCE OF PROSTHETIC HEART VALVE (4) Hyperlipidemia Code(s): E78.5 - HYPERLIPIDEMIA, UNSPECIFIED (5) Hypothyroid Code(s): E03.9 - HYPOTHYROIDISM, UNSPECIFIED (6) Atrial fibrillation with rapid ventricular response Code(s): I48.91 - UNSPECIFIED ATRIAL FIBRILLATION Assessment/Plan SVT vs Atrial Fibrillation r/o COPD ILD Mild Bronchiectasis CAD DM Hypothyroidism s/p AVR - continue medrol - inhaled bronchodilators - LABA/ICS - O2 to keep SpO2 >905 - obtain PFTs from leather leveler - anticoagulation DR DAVENPORT
--- NOTE | 2016-09-11 14:55 | CONSULT ---
Consultation: REQUESTING PROVIDER: CONSULT REQUEST: We have been asked to medically evaluate this patient for ( Nephrology). HISTORY OF PRESENT ILLNESS: 85 yo female, came to ED with 1 week of feeling weak, with increased cough and shortness of breath.Patient states that she has cough and difficulty in breathing from one year which is progressively increasing. Her sob has increased so much that she is unable to walk to her kitchen. Patient states that she has swelling in legs and which h was progressively increasing. States she takes over the counter cough syrup for cough. Denies chest pain, palpitations. Denies burning micturation, denies change in frequency, denies blood in urine. Patient had recieved 40mg of lasix on 09/09,, and PSH/; aortic valve replacement 20 years ago, cath in 05/2016 with 2 cardiac stents placed. REVIEW OF SYSTEMS: CONSTITUTIONAL: Absent: fever, chills, diaphoresis, generalized weakness, HEENT: Absent: rhinorrhea, nasal congestion, throat pain, throat swelling, CARDIOVASCULAR: Absent: chest pain, syncope, palpitations, irregular heart rate, lightheadedness , peripheral edema RESPIRATORY: Absent: cough, shortness of breath, dyspnea with exertion, orthopnea, wheezing, stridor, hemoptysis GASTROINTESTINAL: Absent: abdominal pain, abdominal distension, nausea, vomiting, diarrhea, constipation, GENITOURINARY: Absent: dysuria, frequency, urgency, hesitancy, hematuria, flank pain, genital pain PHYSICAL EXAMINATION Vital Signs - 24 hr 09/10/16 09/10/16 09/10/16 15:58 16:00 17:00 Temperature 97.8 F Pulse Rate 100 H 99 H 96 H Respiratory 20 20 20 Rate Blood Pressure 125/54 114/52 111/47 O2 Sat by Pulse Oximetry (%) 09/10/16 09/10/16 09/10/16 19:03 21:00 21:32 Temperature 97.6 F Pulse Rate 100 H 99 H Respiratory 20 20 Rate Blood Pressure 106/64 110/52 O2 Sat by Pulse 97 Oximetry (%) 09/11/16 09/11/16 09/11/16 02:18 06:00 08:00 Temperature 98.0 F Pulse Rate 79 92 H Respiratory 20 20 20 Rate Blood Pressure 106/63 114/55 O2 Sat by Pulse 97 Oximetry (%) 09/11/16 09/11/1617 08:31 10:15 12:20 Temperature 98 F Pulse Rate 115 H 88 84 Respiratory 20 20 Rate Blood Pressure 129/59 98/35 O2 Sat by Pulse 96 Oximetry (%) 09/11/16 14:17 Temperature 97.6 F Pulse Rate 74 Respiratory 20 Rate Blood Pressure 98/44 O2 Sat by Pulse Oximetry (%) CBCD WBC 8.5 K/mm3 (4.0-10.0) D 09/11/16 06:05 RBC 4.19 M/mm3 (3.60-5.2) 09/11/16 06:05 Hgb 12.0 GM/dL (10.7-15.3) 09/11/16 06:05 Hct 35.4 % (32.4-45.2) 09/11/16 06:05 MCV 84.4 fl (80-96) 09/11/16 06:05 MCHC 34.0 g/dl (32.0-36.0) 09/11/16 06:05 RDW 14.1 % (11.6-15.6) 09/11/16 06:05 Plt Count 244 K/MM3 (134-434) 09/11/16 06:05 MPV 9.4 fl (7.5-11.1) 09/11/16 06:05 CMP Sodium 136 mmol/L (136-145) 09/11/16 06:05 Potassium 4.2 mmol/L (3.5-5.1) 09/11/16 06:05 Chloride 95 mmol/L (98-107) L 09/11/16 06:05 Carbon Dioxide 22 mmol/L (21-32) 09/11/16 06:05 Anion Gap 19 (8-16) H 09/11/16 06:05 BUN 45 mg/dL (7-18) H D 09/11/16 06:05 Creatinine 2.5 mg/dL (0.55-1.02) H D 09/11/16 06:05 Random Glucose 288 mg/dL (74-106) H D 09/11/16 06:05 Calcium 10.1 mg/dL (8.5-10.1) 09/11/16 06:05 CARDIAC ENZYMES Creatine Kinase 53 IU/L (26-192) 09/10/16 05:42 Troponin I < 0.02 ng/ml (0.00-0.05) 09/10/16 05:42 Laboratory Tests 09/10/16 09/11/16 05:42 06:05 BUN 23 H 45 H D Creatinine 1.4 H 2.5 H D GENERAL: Awake, alert, and fully oriented, in no acute distress. HEAD: Normal with no signs of trauma. EARS, NOSE, THROAT: oropharynx clear without exudates. Moist mucous membranes. LUNGS: Breath sounds equal, clear to auscultation bilaterally. No wheezes, crackels present at bases HEART: s1s2 normal ABDOMEN: Soft, nontender, not distended, normoactive bowel sounds, no guarding, no rebound, no masses. UPPER EXTREMITIES: 2+ pulses, warm, well-perfused. No cyanosis. LOWER EXTREMITIES: warm, well-perfused. No calf tenderness. peripheral edema present, wrinkles appeared on skin NEUROLOGICAL: Cranial nerves II-XII intact. Normal speech. Normal gait. PSYCHIATRIC: Cooperative. Good eye contact. Appropriate mood and affect. SKIN: Warm, Laboratory Results - last 24 hr 09/10/16 09/10/16 09/11/16 16:33 22:37 05:46 WBC RBC Hgb Hct MCV MCHC RDW Plt Count MPV Neutrophils % Lymphocytes % Monocytes % Eosinophils % Basophils % INR Sodium Potassium Chloride Carbon Dioxide Anion Gap BUN Creatinine POC Glucometer 188 346 293 Random Glucose Calcium 09/11/16 09/11/16 09/11/16 06:05 06:05 06:05 WBC 8.5 D RBC 4.19 Hgb 12.0 Hct 35.4 MCV 84.4 MCHC 34.0 RDW 14.1 Plt Count 244 MPV 9.4 Neutrophils % 87.2 H Lymphocytes % 10.5 Monocytes % 2.2 L D Eosinophils % 0.0 D Basophils % 0.1 INR 2.60 H Sodium 136 Potassium 4.2 Chloride 95 L Carbon Dioxide 22 Anion Gap 19 H BUN 45 H D Creatinine 2.5 H D POC Glucometer Random Glucose 288 H D Calcium 10.1 09/11/16 12:11 WBC RBC Hgb Hct MCV MCHC RDW Plt Count MPV Neutrophils % Lymphocytes % Monocytes % Eosinophils % Basophils % INR Sodium Potassium Chloride Carbon Dioxide Anion Gap BUN Creatinine POC Glucometer 408 Random Glucose Calcium Active Medications Generic Name Dose Route Start Last Admin Trade Name Freq PRN Reason Stop Dose Admin Albuterol Sulfate 1 amp 09/09/16 21:06 Ventolin 0.083% Nebulizer Soln - NEB Q4H PRN SHORT OF BREATH/WHEEZING Albuterol Sulfate 1 amp 09/10/16 00:00 09/11/16 11:10 Ventolin 0.083% Nebulizer Soln - NEB 1 amp QIDR SASHA Administration Aspirin 81 mg 09/10/16 10:00 09/11/16 09:30 Ecotrin - PO 81 mg DAILY SASHA Administration Atorvastatin Calcium 40 mg 09/09/16 22:00 09/10/16 22:45 Lipitor - PO 40 mg HS SASHA Administration Diltiazem HCl 30 mg 09/10/16 13:00 09/11/16 12:19 Cardizem - PO Not Given Q6HPO SASHA Docusate Sodium 300 mg 09/09/16 22:00 09/10/16 22:46 Colace - PO Not Given HS SASHA Guaifenesin 10 ml 09/09/16 21:06 Diabetic Tussin Dm - PO Q6H PRN COUGH Levofloxacin 50 mls @ 50 mls/hr 09/10/16 10:00 09/11/16 09:29 Levaquin 250 Mg Premixed Ivpb - IVPB 50 mls/hr DAILY SASHA Administration Insulin Aspart 1 vial 09/09/16 22:00 09/11/16 12:19 Novolog Vial Sliding Scale - SQ 10 units ACHS SASHA Administration Protocol Levothyroxine Sodium 112 mcg 09/10/16 07:00 09/11/16 06:13 Synthroid - PO 112 mcg AM SASHA Administration Losartan Potassium 50 mg 09/10/16 10:00 09/11/16 09:30 Cozaar - PO 50 mg DAILY SASHA Administration Methylprednisolone Sodium Succinate 40 mg 09/10/16 14:15 09/11/16 09:30 Solu-Medrol - IVPB 40 mg Q8H-IV SASHA Administration Metoprolol Succinate 100 mg 09/10/16 13:01 09/11/16 09:30 Toprol Xl - PO 100 mg BID SASHA Administration Prasugrel 5 mg 09/10/16 10:00 09/11/16 09:30 Effient - PO 5 mg DAILY SASHA Administration Ranitidine HCl 150 mg 09/10/16 10:00 09/11/16 09:30 Zantac - PO 150 mg DAILY SASHA Administration Senna 2 tab 09/09/16 22:00 09/10/16 22:46 Senna - PO Not Given HS [facility] Warfarin Sodium 2.5 mg 09/10/16 18:00 09/10/16 19:15 Coumadin - PO Not Given [email or web address] [facility] Warfarin Sodium 5 mg 09/11/16 18:00 Coumadin - PO [email or web address] [facility] ASSESSMENT/PLAN: (1) Atrial fibrillation with rapid ventricular respons (2) Interstial lung Ds (3) Coronary artery disease (4) Diabetes mellitus (5) History of aortic valve replacement (6) Hypothyroid (7) Hyperlipidemia (8) Cough present for greater than 3 weeks (9) ALEIDA Plan Get Ua, urine electrolytes, cr: protein ratio, renal and bladder usg Avoid nephrotoxic drugs. Monitor Renal function. Monitor intake and output. Monitor vitals. Adjust levothyroxine dose. Hold losartan for now. Hold lasix for now. Repeat BMP in morning. Dispo: We will continue to follow the patient. Thank you for this consultative opportunity. Visit type - Emergency Visit Emergency Visit: Yes ED Registration Date: 09/09/16 Care time: The patient presented to the Emergency Department on the above date and was hospitalized for further evaluation of their emergent condition. - New Patient This patient is new to me today: Yes Date on this admission: 09/11/16 - Critical Care Critical Care patient: No
--- NOTE | 2016-09-11 16:00 | PN ---
Progress Note, Physician Chief Complaint: Mrs Simon says she is feeling better today. States her breathing is much improved but she is still requiring oxygen. No cp or n/v. - Current Medication List Current Medications: Active Medications Albuterol Sulfate (Ventolin 0.083% Nebulizer Soln -) 1 amp NEB Q4H PRN PRN Reason: SHORT OF BREATH/WHEEZING Albuterol Sulfate (Ventolin 0.083% Nebulizer Soln -) 1 amp NEB QIDR SASHA Last Admin: 09/11/16 11:10 Dose: 1 amp Aspirin (Ecotrin -) 81 mg PO DAILY [facility] Last Admin: 09/11/16 09:30 Dose: 81 mg Atorvastatin Calcium (Lipitor -) 40 mg PO HS [facility]HA Last Admin: 09/10/16 22:45 Dose: 40 mg Diltiazem HCl (Cardizem -) 30 mg PO Q6HPO [facility] Last Admin: 09/11/16 12:19 Dose: Not Given Docusate Sodium (Colace -) 300 mg PO HS [facility] Last Admin: 09/10/16 22:46 Dose: Not Given Guaifenesin (Diabetic Tussin Dm -) 10 ml PO Q6H PRN PRN Reason: COUGH Levofloxacin (Levaquin 250 Mg Premixed Ivpb -) 50 mls @ 50 mls/hr IVPB DAILY [facility] Last Admin: 09/11/16 09:29 Dose: 50 mls/hr Insulin Aspart (Novolog Vial Sliding Scale -) 1 vial SQ ACHS SASHA PRN Reason: Protocol Last Admin: 09/11/16 12:19 Dose: 10 units Levothyroxine Sodium (Synthroid -) 112 mcg PO AM [facility]HA Last Admin: 09/11/16 06:13 Dose: 112 mcg Losartan Potassium (Cozaar -) 50 mg PO DAILY [facility] Last Admin: 09/11/16 09:30 Dose: 50 mg Methylprednisolone Sodium Succinate (Solu-Medrol -) 40 mg IVPB Q8H-IV [facility] Last Admin: 09/11/16 09:30 Dose: 40 mg Metoprolol Succinate (Toprol Xl -) 100 mg PO BID [facility] Last Admin: 09/11/16 09:30 Dose: 100 mg Prasugrel (Effient -) 5 mg PO DAILY [facility] Last Admin: 09/11/16 09:30 Dose: 5 mg Ranitidine HCl (Zantac -) 150 mg PO DAILY [facility] Last Admin: 09/11/16 09:30 Dose: 150 mg Senna (Senna -) 2 tab PO HS [facility] Last Admin: 09/10/16 22:46 Dose: Not Given Warfarin Sodium (Coumadin -) 2.5 mg PO [email or web address] [facility] Last Admin: 09/10/16 19:15 Dose: Not Given Warfarin Sodium (Coumadin -) 5 mg PO [email or web address] [facility] - Objective Vital Signs: Vital Signs Temperature 97.6 F 09/11/16 14:17 Pulse Rate 74 09/11/16 14:17 Respiratory Rate 20 09/11/16 14:17 Blood Pressure 98/44 09/11/16 14:17 O2 Sat by Pulse Oximetry (%) 96 09/11/16 10:15 Constitutional: Yes: No Distress, Calm, Obese Cardiovascular: Yes: Pulse Irregular. No: Tachycardia, Gallop, Murmur, Rub Respiratory: Yes: Regular, On Nasal O2, Rhonchi, Wheezes. No: Rales Gastrointestinal: Yes: Normal Bowel Sounds, Soft. No: Distention, Tenderness Extremities: Yes: WNL Edema: No Labs: CBC, BMP 09/11/16 06:05 09/11/16 06:05 INR, PTT INR 2.60 (0.82-1.09) H 09/11/16 06:05 Problem List - Problems (1) Interstitial lung disease Assessment/Plan: -still with shortness of breath but improving -appreciate pulmonary assistance -continue steroids -continue albuterol -continue levaquin Code(s): J84.9 - INTERSTITIAL PULMONARY DISEASE, UNSPECIFIED (2) Coronary artery disease Assessment/Plan: -quiescent -cardiology following -continue current regimen Code(s): I25.10 - ATHSCL HEART DISEASE OF [place] CORONARY ARTERY W/O ANG PCTRS (3) Diabetes mellitus Assessment/Plan: -elevated secondary to steroids -continue FSBS and SSI -if needs long period of time on IV steroids, will start low dose levemir but she will not need to be discharged on this Code(s): E11.9 - TYPE 2 DIABETES MELLITUS WITHOUT COMPLICATIONS (4) Hyperlipidemia Assessment/Plan: -continue lipitor Code(s): E78.5 - HYPERLIPIDEMIA, UNSPECIFIED (5) Hypothyroid Assessment/Plan: -continue synthroid Code(s): E03.9 - HYPOTHYROIDISM, UNSPECIFIED (6) Atrial fibrillation Assessment/Plan: -rate controlled -continue coumadin Code(s): I48.91 - UNSPECIFIED ATRIAL FIBRILLATION Qualifiers: Atrial fibrillation type: chronic Qualified Code(s): I48.2 - Chronic atrial fibrillation (7) ALEIDA (acute kidney injury) Assessment/Plan: -nephrology consulted and case discussed -stop diuretics -monitor for improvement Code(s): N17.9 - ACUTE KIDNEY FAILURE, UNSPECIFIED
[2016-09-11] MEDS: WARFARIN NA 5 MG TABLET (UD) PO SCH (17:13)
--- NOTE | 2016-09-11 18:07 | PN ---
Teaching Attending Note Name of Resident: Kodi Haddad (Nephrology) ATTENDING PHYSICIAN STATEMENT I saw and evaluated the patient. I reviewed the resident's note and discussed the case with the resident. I agree with the resident's findings and plan as documented. Nephrology Consult Please see note written by resident. Pt is an 85 year old female who presented with shortness of breath. She received several days of lasix. Her creatinine has been rising. She denies history of CKD. She denies nsaid use. She denies dysuria or hematuria. Current Medications Generic Name Dose Route Start Last Admin Trade Name Freq PRN Reason Stop Dose Admin Albuterol Sulfate 1 amp 09/09/16 21:06 Ventolin 0.083% Nebulizer Soln - NEB Q4H PRN SHORT OF BREATH/WHEEZING Albuterol Sulfate 1 amp 09/10/16 00:00 09/11/16 11:10 Ventolin 0.083% Nebulizer Soln - NEB 1 amp QIDR SASHA Administration Aspirin 81 mg 09/10/16 10:00 09/11/16 09:30 Ecotrin - PO 81 mg DAILY SASHA Administration Atorvastatin Calcium 40 mg 09/09/16 22:00 09/10/16 22:45 Lipitor - PO 40 mg HS SASHA Administration Diltiazem HCl 30 mg 09/10/16 13:00 09/11/16 17:13 Cardizem - PO Not Given Q6HPO SASHA Docusate Sodium 300 mg 09/09/16 22:00 09/10/16 22:46 Colace - PO Not Given HS SASHA Guaifenesin 10 ml 09/09/16 21:06 Diabetic Tussin Dm - PO Q6H PRN COUGH Levofloxacin 50 mls @ 50 mls/hr 09/10/16 10:00 09/11/16 09:29 Levaquin 250 Mg Premixed Ivpb - IVPB 50 mls/hr DAILY SASHA Administration Insulin Aspart 1 vial 09/09/16 22:00 09/11/16 17:12 Novolog Vial Sliding Scale - SQ 4 units ACHS SASHA Administration Protocol Levothyroxine Sodium 112 mcg 09/10/16 07:00 09/11/16 06:13 Synthroid - PO 112 mcg AM SASHA Administration Losartan Potassium 50 mg 09/10/16 10:00 09/11/16 09:30 Cozaar - PO 50 mg DAILY SASHA Administration Methylprednisolone Sodium Succinate 40 mg 09/10/16 14:15 09/11/16 17:13 Solu-Medrol - IVPB 40 mg Q8H-IV SASHA Administration Metoprolol Succinate 100 mg 09/10/16 13:01 09/11/16 09:30 Toprol Xl - PO 100 mg BID SASHA Administration Prasugrel 5 mg 09/10/16 10:00 09/11/16 09:30 Effient - PO 5 mg DAILY SASHA Administration Ranitidine HCl 150 mg 09/10/16 10:00 09/11/16 09:30 Zantac - PO 150 mg DAILY SASHA Administration Senna 2 tab 09/09/16 22:00 09/10/16 22:46 Senna - PO Not Given HS [facility]HA Warfarin Sodium 2.5 mg 09/10/16 18:00 09/10/16 19:15 Coumadin - PO Not Given [email or web address] [facility] Warfarin Sodium 5 mg 09/11/16 18:00 09/11/16 17:13 Coumadin - PO 5 mg [email or web address]@1800 SASHA Administration Current Active Problems ALEIDA (acute kidney injury) (Acute) Atrial fibrillation (Acute) Coronary artery disease (Acute) Cough present for greater than 3 weeks (Acute) Diabetes mellitus (Acute) History of aortic valve replacement (Acute) Hyperlipidemia (Acute) Hypothyroid (Acute) Interstitial lung disease (Acute) Last Vital Signs Temp Pulse Resp BP Pulse Ox 97.6 F 74 20 98/44 96 09/11/16 14:17 09/11/16 14:17 09/11/16 14:17 09/11/16 14:17 09/11/16 10:15 cardio s1s2 pulm scattered wheeze GI soft ext trace edema, venous stasis changes neuro awake and alert skin neg rash psych calm Impression 1. ALEIDA 2. Interstitial lung disease 3. a-fib 4. CAD 5. DM 6. chol Plan - check ua - send urine change coordinator urea and sodium - send for ultrasound of the kidneys - hold thuy for now - hold charisma as she is hypotensive as well - will follow Dr Alvarado
[2016-09-11 19:49] LABS: URINE APPEARANCE CLOUDY; URINE BILIRUBIN NEGATIVE (NEGATIVE); URINE COLOR YELLOW; URINE GLUCOSE (UA) NEGATIVE (NEGATIVE); URINE KETONE NEGATIVE (NEGATIVE); URINE NITRITE NEGATIVE (NEGATIVE); URINE PROTEIN NEGATIVE (NEGATIVE); URINE UROBILINOGEN NEGATIVE E.U./dl (0.2-1.0)
[2016-09-11 20:05] LABS: URINE BLOOD 1+ (NEGATIVE); URINE LEUK ESTERASE 3+ (NEGATIVE)
[2016-09-11 20:25] LABS: URINE BACTERIA MANY /hpf (NONE SEEN); URINE MUCUS RARE; URINE RBC 444 /hpf (0-3); URINE WBC 191 /hpf (3-5); YEAST MANY
[2016-09-11 20:40] LABS: SODIUM,RANDOM URINE 11 MMOL/L
[2016-09-11 20:44] LABS: SODIUM,RANDOM URINE 11 MMOL/L
[2016-09-11] MEDS: SENNOSIDES 8.6MG TABLET (FP) PO SCH (22:48)
[2016-09-11] MEDS: DOCUSATE SODIUM 100 MG CAPSULE (FP) PO SCH (22:48)
[2016-09-11] MEDS: ATORVASTATIN CA 40 MG TABLET (FP) PO SCH (22:48)
[2016-09-12] MEDS: dilTIAZem HCL 30 MG TABLET (FP) PO SCH ×4 (00:05→17:27)
[2016-09-12] MEDS: methylPREDNISolone NA SUCC 40 MG/1 ML VIAL IVPB SCH ×4 (01:54→22:53)
[2016-09-12] MEDS: ALBUTEROL SO4 0.083% IH SOL 2.5 MG/3 ML VIAL.NEB. NEB SCH ×4 (06:15→17:15)
[2016-09-12] MEDS: INSULIN SLIDING SCALE (NOVOLOG) 1 VIAL SQ SCH ×4 (06:23→22:55)
[2016-09-12 06:57] LABS: BASOPHIL 0.2 % (0-2.0); MCH 28.3 pg (25.7-33.7); MCHC 33.2 g/dl (32.0-36.0); MEAN CELL VOLUME 85.3 fl (80-96); MEAN PLT VOLUME 9.7 fl (7.5-11.1); NEUTROPHILS 88.7 % (42.8-82.8); PLATELET COUNT 273 K/MM3 (134-434); RDW 13.9 % (11.6-15.6); WHITE BLOOD COUNT 16.1 K/mm3 (4.0-10.0)
[2016-09-12 07:19] LABS: INR 3.53 (0.82-1.09); PROTHROMBIN TIME (PATIENT) 39.8 SEC (9.98-11.88)
[2016-09-12 07:34] LABS: CALCIUM 9.8 mg/dL (8.5-10.1); COCKROFT - GAULT 17.5695; CREATININE 2.8 mg/dL (0.55-1.02); MAGNESIUM 2.3 mg/dL (1.8-2.4); PHOSPHOROUS 5.1 mg/dL (2.5-4.9)
[2016-09-12] MEDS: METOPROLOL SUCCINATE 100 MG TAB.SR.24H (FP) PO SCH ×2 (10:03→22:54)
[2016-09-12] MEDS: ASPIRIN COATED 81 MG TABLET.EC PO SCH (10:03)
[2016-09-12] MEDS: LEVOFLOXACIN 250 MG IVPB 50 ML IVPB SCH (10:03)
[2016-09-12] MEDS: RANITIDINE HCL 150 MG TABLET (FP) PO SCH (10:03)
[2016-09-12] MEDS: PRASUGREL HCL 5 MG TAB PO SCH (10:04)
--- NOTE | 2016-09-12 11:09 | PN ---
Progress Note, Physician History of Present Illness: pulmonary alert,no distress,-cough - Current Medication List Current Medications: Active Medications Albuterol Sulfate (Ventolin 0.083% Nebulizer Soln -) 1 amp NEB Q4H PRN PRN Reason: SHORT OF BREATH/WHEEZING Albuterol Sulfate (Ventolin 0.083% Nebulizer Soln -) 1 amp NEB QIDR [facility] Last Admin: 09/12/16 06:15 Dose: 1 amp Aspirin (Ecotrin -) 81 mg PO DAILY [facility] Last Admin: 09/12/16 10:03 Dose: 81 mg Atorvastatin Calcium (Lipitor -) 40 mg PO HS [facility] Last Admin: 09/11/16 22:48 Dose: 40 mg Diltiazem HCl (Cardizem -) 30 mg PO Q6HPO [facility] Last Admin: 09/12/16 05:27 Dose: Not Given Docusate Sodium (Colace -) 300 mg PO HS [facility] Last Admin: 09/11/16 22:48 Dose: Not Given Guaifenesin (Diabetic Tussin Dm -) 10 ml PO Q6H PRN PRN Reason: COUGH Levofloxacin (Levaquin 250 Mg Premixed Ivpb -) 50 mls @ 50 mls/hr IVPB DAILY [facility] Last Admin: 09/12/16 10:03 Dose: 50 mls/hr Insulin Aspart (Novolog Vial Sliding Scale -) 1 vial SQ ACHS SASHA PRN Reason: Protocol Last Admin: 09/12/16 10:03 Dose: 10 units Losartan Potassium (Cozaar -) 50 mg PO DAILY [facility] Last Admin: 09/11/16 09:30 Dose: 50 mg Methylprednisolone Sodium Succinate (Solu-Medrol -) 40 mg IVPB Q8H-IV [facility] Last Admin: 09/12/16 10:03 Dose: 40 mg Metoprolol Succinate (Toprol Xl -) 100 mg PO BID [facility] Last Admin: 09/12/16 10:03 Dose: 100 mg Prasugrel (Effient -) 5 mg PO DAILY [facility] Last Admin: 09/12/16 10:04 Dose: 5 mg Ranitidine HCl (Zantac -) 150 mg PO DAILY [facility] Last Admin: 09/12/16 10:03 Dose: 150 mg Senna (Senna -) 2 tab PO HS [facility] Last Admin: 09/11/16 22:48 Dose: Not Given Warfarin Sodium (Coumadin -) 2.5 mg PO [email or web address]@1800 [facility] Last Admin: 09/10/16 19:15 Dose: Not Given Warfarin Sodium (Coumadin -) 5 mg PO [email or web address]@1800 [facility] Last Admin: 09/11/16 17:13 Dose: 5 mg - Objective Vital Signs: Vital Signs Temperature 98.1 F 09/12/16 08:08 Pulse Rate 66 09/12/16 08:08 Respiratory Rate 20 09/12/16 08:08 Blood Pressure 96/38 09/12/16 08:08 O2 Sat by Pulse Oximetry (%) 100 09/12/16 08:00 Constitutional: Yes: Well Nourished, Calm Eyes: Yes: WNL HENT: Yes: WNL Neck: Yes: WNL Cardiovascular: Yes: Pulse Irregular, S1, S2 Respiratory: Yes: Rales (bibasilar crackles) Gastrointestinal: Yes: Normal Bowel Sounds, Soft Extremities: Yes: WNL Edema: Yes Labs: CBC, BMP 09/12/16 05:35 09/12/16 05:35 INR, PTT INR 3.53 (0.82-1.09) H D 09/12/16 05:35 Problem List - Problems (1) Interstitial lung disease Code(s): J84.9 - INTERSTITIAL PULMONARY DISEASE, UNSPECIFIED Assessment/Plan Problem List - Problems (1) Coronary artery disease Code(s): I25.10 - ATHSCL HEART DISEASE OF [place] CORONARY ARTERY W/O ANG PCTRS (2) Diabetes mellitus Code(s): E11.9 - TYPE 2 DIABETES MELLITUS WITHOUT COMPLICATIONS (3) History of aortic valve replacement Code(s): Z95.2 - PRESENCE OF PROSTHETIC HEART VALVE (4) Hyperlipidemia Code(s): E78.5 - HYPERLIPIDEMIA, UNSPECIFIED (5) Hypothyroid Code(s): E03.9 - HYPOTHYROIDISM, UNSPECIFIED (6) Atrial fibrillation with rapid ventricular response Code(s): I48.91 - UNSPECIFIED ATRIAL FIBRILLATION Assessment/Plan SVT vs Atrial Fibrillation r/o COPD ILD Mild Bronchiectasis CAD DM Hypothyroidism s/p AVR - medrol taper - inhaled bronchodilators - LABA/ICS - O2 to keep SpO2 >90% - PFTs outpatient - anticoagulation DR DAVENPORT
--- NOTE | 2016-09-12 11:51 | PN ---
Progress Note (short form) - Note Progress Note: CC: sob S: sob stable, no cp, palps, dizziness. Behavioral Health Tech: dr mahoney Also sees pulmonary through [facility]. - Current Medication List Current Medications: Active Medications Albuterol Sulfate (Ventolin 0.083% Nebulizer Soln -) 1 amp NEB Q4H PRN PRN Reason: SHORT OF BREATH/WHEEZING Albuterol Sulfate (Ventolin 0.083% Nebulizer Soln -) 1 amp NEB QIDR [facility] Last Admin: 09/11/16 11:10 Dose: 1 amp Aspirin (Ecotrin -) 81 mg PO DAILY [facility] Last Admin: 09/11/16 09:30 Dose: 81 mg Atorvastatin Calcium (Lipitor -) 40 mg PO HS [facility] Last Admin: 09/10/16 22:45 Dose: 40 mg Diltiazem HCl (Cardizem -) 30 mg PO Q6HPO [facility] Last Admin: 09/11/16 12:19 Dose: Not Given Docusate Sodium (Colace -) 300 mg PO HS [facility] Last Admin: 09/10/16 22:46 Dose: Not Given Guaifenesin (Diabetic Tussin Dm -) 10 ml PO Q6H PRN PRN Reason: COUGH Levofloxacin (Levaquin 250 Mg Premixed Ivpb -) 50 mls @ 50 mls/hr IVPB DAILY [facility] Last Admin: 09/11/16 09:29 Dose: 50 mls/hr Insulin Aspart (Novolog Vial Sliding Scale -) 1 vial SQ ACHS [facility] PRN Reason: Protocol Last Admin: 09/11/16 12:19 Dose: 10 units Levothyroxine Sodium (Synthroid -) 112 mcg PO AM [facility] Last Admin: 09/11/16 06:13 Dose: 112 mcg Losartan Potassium (Cozaar -) 50 mg PO DAILY [facility] Last Admin: 09/11/16 09:30 Dose: 50 mg Methylprednisolone Sodium Succinate (Solu-Medrol -) 40 mg IVPB Q8H-IV [facility] Last Admin: 09/11/16 09:30 Dose: 40 mg Metoprolol Succinate (Toprol Xl -) 100 mg PO BID [facility] Last Admin: 09/11/16 09:30 Dose: 100 mg Prasugrel (Effient -) 5 mg PO DAILY [facility] Last Admin: 09/11/16 09:30 Dose: 5 mg Ranitidine HCl (Zantac -) 150 mg PO DAILY [facility] Last Admin: 09/11/16 09:30 Dose: 150 mg Senna (Senna -) 2 tab PO HS [facility] Last Admin: 09/10/16 22:46 Dose: Not Given Warfarin Sodium (Coumadin -) 2.5 mg PO SuTuThSa@1800 [facility] Last Admin: 09/10/16 19:15 Dose: Not Given Warfarin Sodium (Coumadin -) 5 mg PO MoWeFr@1800 [facility] - Objective Vital Signs: Vital Signs Temperature 97.6 F 09/11/16 14:17 Pulse Rate 74 09/11/16 14:17 Respiratory Rate 20 09/11/16 14:17 Blood Pressure 98/44 09/11/16 14:17 O2 Sat by Pulse Oximetry (%) 96 09/11/16 10:15 Constitutional: Yes: Well Nourished, No Distress Eyes: No: Sclera Icterus HENT: No: Nasal Congestion Neck: No: Decreased ROM Respiratory: Yes: bibasilar dry rales. No: Accessory Muscle Use, Wheezes Gastrointestinal: Yes: Normal Bowel Sounds. No: Distention, Hepatomegaly, Palpable Mass, Tenderness Cardiovascular: Yes: Regular Rate and Rhythm nl s1. mechanical s2 JVD: No Carotid Bruit: No PMI: Non-Displaced Murmur: No: Systolic Murmur, Diastolic Murmur Musculoskeletal: Yes: Other (No kyphosis) Extremities: No: Cold, Cyanosis Edema: No Peripheral Pulses: 2+ Left Carotid, 2+ Right Carotid, 2+ Left Doralis Pedis, 2+ Right Dorsalis Pedis Integumentary: No: Jaundice Neurological: Yes: Alert, Oriented (x3) Psychiatric: No: Agitated Laboratory Tests 09/10/16 09/11/16 09/11/16 05:42 06:05 06:05 WBC 8.5 D Hgb 12.0 Plt Count 244 INR 2.60 H Sodium Potassium Chloride Carbon Dioxide Anion Gap BUN Creatinine 1.4 H Calcium 09/11/16 06:05 WBC Hgb Plt Count INR Sodium 136 Potassium 4.2 Chloride 95 L Carbon Dioxide 22 Anion Gap 19 H BUN 45 H D Creatinine 2.5 H D Calcium 10.1 ekg x3: LBBB. 1 is AT/AFL. other 2 are sinus with APCs tele: sinus with APCs,intermittent SVT Imaging - Results Chest X-ray: Image Reviewed CT scan: small scattered mediastinal l. nodes. diffuse mild interstitial fibrotic changes, mostly peripheral. Diffuse B lower lobe posterior bronciectasis with wall thickening. Small calcified granuloma at right base. Assessment/Plan 85 yo with h/o s/p [facility] AVR, CAD s/p recent PCI x 2 - 05/2016, diastolic HF, DM, hypothyroidism p/w worsening, presents to ED with acute worsening chronic shortness of breath (dry cough, prog sob over many months). CAD: -reportedly had 2 stents 05/19 (cath done at [place], she follows with [facility]) -ECG here with LBBB which states is not new (no ECGs here since 2009) -trop neg x 2 -sob has not improved since PCI -cont home DAPT (ASA + Effient), metopr, statin h/o [facility] AVR -on coumadin -followed with echoes by [facility] -cont coumadin per home regimen/INR targets PSVT vs atrial flutter -tele shows frequent runs of SVT with HR 150-160. 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 BP's slightly low today, will not uptitrate for now. -if sustained SVT, need adenosine IVP to define substrate -if remains frequent, will have to consider amio vs ablation acute on chronic sob, dry cough -BNP 2300 -CXR my review (09/09 and 09/10) with no effusions or vasc redistribution; + diffuse mild incr interstitial pattern bases > upper lung jiménez per (cardiac PA), RHC at time of procedure showed he thinks only mild incr'd wedge, with "moderate pulm HTN" -suspect at baseline she has diast chf, well-compensated--acute chf post-cath ? due to dye load. -sx's not likely anginal in nature, did not improve after revascularization - given trial of IV 40 mg IV lasix here with worsening of Cr this morning. Already received IV lasix dose this morning, will d/c. -CT c/w ILD, likely etiology of sx's. pulm following. D/W'D PT AND - now declining to be transferred to [facility]. Will remain here.
--- NOTE | 2016-09-12 11:54 | PN ---
Progress Note (short form) - Note Progress Note: CC: sob S: sob stable, no cp, palps, dizziness. dry cough persists Community Arts Officer: dr mahoney Also sees pulmonary through [facility]. Current Medications Albuterol Sulfate (Ventolin 0.083% Nebulizer Soln -) 1 amp NEB Q4H PRN PRN Reason: SHORT OF BREATH/WHEEZING Albuterol Sulfate (Ventolin 0.083% Nebulizer Soln -) 1 amp NEB QIDR [facility] Last Admin: 09/12/16 11:14 Dose: 1 amp Aspirin (Ecotrin -) 81 mg PO DAILY [facility] Last Admin: 09/12/16 10:03 Dose: 81 mg Atorvastatin Calcium (Lipitor -) 40 mg PO HS [facility] Last Admin: 09/11/16 22:48 Dose: 40 mg Diltiazem HCl (Cardizem -) 30 mg PO Q6HPO [facility] Last Admin: 09/12/16 05:27 Dose: Not Given Docusate Sodium (Colace -) 300 mg PO HS [facility] Last Admin: 09/11/16 22:48 Dose: Not Given Guaifenesin (Diabetic Tussin Dm -) 10 ml PO Q6H PRN PRN Reason: COUGH Levofloxacin (Levaquin 250 Mg Premixed Ivpb -) 50 mls @ 50 mls/hr IVPB DAILY [facility] Last Admin: 09/12/16 10:03 Dose: 50 mls/hr Insulin Aspart (Novolog Vial Sliding Scale -) 1 vial SQ ACHS [facility] PRN Reason: Protocol Last Admin: 09/12/16 10:03 Dose: 10 units Losartan Potassium (Cozaar -) 50 mg PO DAILY [facility] Last Admin: 09/11/16 09:30 Dose: 50 mg Methylprednisolone Sodium Succinate (Solu-Medrol -) 40 mg IVPB Q12H [facility] Metoprolol Succinate (Toprol Xl -) 100 mg PO BID [facility] Last Admin: 09/12/16 10:03 Dose: 100 mg Prasugrel (Effient -) 5 mg PO DAILY [facility] Last Admin: 09/12/16 10:04 Dose: 5 mg Ranitidine HCl (Zantac -) 150 mg PO DAILY [facility] Last Admin: 09/12/16 10:03 Dose: 150 mg Senna (Senna -) 2 tab PO [facility] Last Admin: 09/11/16 22:48 Dose: Not Given Warfarin Sodium (Coumadin -) 2.5 mg PO SuTuThSa@1800 [facility] Last Admin: 09/10/16 19:15 Dose: Not Given Warfarin Sodium (Coumadin -) 5 mg PO MoWeFr@1800 [facility] Last Admin: 09/11/16 17:13 Dose: 5 mg Vital Signs - 24 hr 09/11/16 09/11/16 09/11/16 12:20 14:17 18:00 Temperature 97.6 F 97.3 F L Pulse Rate 84 74 69 Respiratory 20 20 19 Rate Blood Pressure 98/35 98/44 104/42 O2 Sat by Pulse Oximetry (%) 09/11/16 09/12/16 09/12/16 21:00 00:06 02:00 Temperature 97.7 F 98.4 F Pulse Rate 75 90 79 Respiratory 19 18 20 Rate Blood Pressure 107/51 111/51 105/45 O2 Sat by Pulse 95 Oximetry (%) 09/12/16 09/12/16 09/12/16 06:00 08:00 08:08 Temperature 97.3 F L 98.1 F Pulse Rate 62 66 Respiratory 18 20 20 Rate Blood Pressure 99/40 96/38 O2 Sat by Pulse 98 100 Oximetry (%) 09/12/16 11:14 Temperature Pulse Rate 75 Respiratory Rate Blood Pressure O2 Sat by Pulse 97 Oximetry (%) Intake & Output 09/10/16 09/11/16 09/12/16 09/13/16 07:59 07:59 07:59 07:59 Intake Total 350 600 500 Balance 350 600 500 Weight 161 lb 3.2 oz 166 lb Constitutional: Yes: Well Nourished, No Distress Eyes: No: Sclera Icterus HENT: No: Nasal Congestion Neck: No: Decreased ROM Respiratory: Yes: bibasilar dry rales. No: Accessory Muscle Use, Wheezes Gastrointestinal: Yes: Normal Bowel Sounds. No: Distention, Hepatomegaly, Palpable Mass, Tenderness Cardiovascular: Yes: Regular Rate and Rhythm nl s1. mechanical s2 JVD: No Carotid Bruit: No PMI: Non-Displaced Murmur: No: Systolic Murmur, Diastolic Murmur Musculoskeletal: Yes: Other (No kyphosis) Extremities: No: Cold, Cyanosis Edema: No Peripheral Pulses: 2+ Left Carotid, 2+ Right Carotid, 2+ Left Doralis Pedis, 2+ Right Dorsalis Pedis Integumentary: No: Jaundice Neurological: Yes: Alert, Oriented (x3) Psychiatric: No: Agitated CBC, BMP 09/12/16 05:35 09/12/16 05:35 Laboratory Tests 09/12/16 05:35 INR 3.53 H D ekg x3: LBBB. 1 is AT/AFL. other 2 are sinus with APCs tele: sinus with APCs. 1 nsvt. Imaging - Results Chest X-ray: Image Reviewed CT scan: small scattered mediastinal l. nodes. diffuse mild interstitial fibrotic changes, mostly peripheral. Diffuse B lower lobe posterior bronciectasis with wall thickening. Small calcified granuloma at right base. Assessment/Plan 85 yo with h/o s/p [facility] AVR, CAD s/p recent PCI x 2 - 05/2016, diastolic HF, DM, hypothyroidism p/w worsening, presents to ED with acute worsening chronic shortness of breath (dry cough, prog sob over many months). CAD: -reportedly had 2 stents 05/19 (cath done at [place], she follows with [facility]) -ECG here with LBBB which states is not new (no ECGs here since 2009) -trop neg x 2 -sob has not improved since PCI -cont home DAPT (ASA + Effient), [facility] -followed with echoes by [facility] -cont coumadin per home regimen/INR targets. (INR elevated monitor for bleeding on AC and DAPT) PSVT vs atrial flutter -tele shows frequent runs of SVT with HR 150-160. 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 BP's slightly low today, will not uptitrate for now. -if sustained SVT, need adenosine IVP to define substrate -if remains frequent, will have to consider amio vs ablation acute on chronic sob, dry cough/ILD (new dx) -BNP 2300 -CXR my review (09/09 and 09/10) with no effusions or vasc redistribution; + diffuse mild incr interstitial pattern bases > upper lung jiménez per (cardiac PA), RHC at time of procedure showed he thinks only mild incr'd wedge, with "moderate pulm HTN" -suspect at baseline she has diast chf, well-compensated--acute chf post-cath ? due to dye load. -sx's not likely anginal in nature, did not improve after revascularization - 09/11 given trial of IV 40 mg IV lasix here with worsening of Cr this morning. Already received IV lasix dose this morning 09/11, will d/c. -CT c/w ILD, likely etiology of sx's. pulm following. - 09/12: BP running low and Cr trending up (last IV lasix dose before d/c was yesterday morning). Will d/w renal regarding need for gentle rehydration.
[2016-09-12] MEDS: INSULIN DETEMIR 100 UNITS/ML MDV SQ SCH ×2 (12:40→22:56)
--- NOTE | 2016-09-12 13:02 | PN ---
Progress Note, Physician Chief Complaint: Mrs Simon says she is doing well but still has a significant cough that causes shortness of breath. No cp or n/v. - Current Medication List Current Medications: Active Medications Albuterol Sulfate (Ventolin 0.083% Nebulizer Soln -) 1 amp NEB Q4H PRN PRN Reason: SHORT OF BREATH/WHEEZING Albuterol Sulfate (Ventolin 0.083% Nebulizer Soln -) 1 amp NEB QIDR [facility] Last Admin: 09/12/16 11:14 Dose: 1 amp Aspirin (Ecotrin -) 81 mg PO DAILY [facility] Last Admin: 09/12/16 10:03 Dose: 81 mg Atorvastatin Calcium (Lipitor -) 40 mg PO HS [facility] Last Admin: 09/11/16 22:48 Dose: 40 mg Diltiazem HCl (Cardizem -) 30 mg PO Q6HPO [facility] Last Admin: 09/12/16 12:40 Dose: 30 mg Docusate Sodium (Colace -) 300 mg PO HS [facility] Last Admin: 09/11/16 22:48 Dose: Not Given Guaifenesin (Diabetic Tussin Dm -) 10 ml PO Q6H PRN PRN Reason: COUGH Levofloxacin (Levaquin 250 Mg Premixed Ivpb -) 50 mls @ 50 mls/hr IVPB DAILY [facility] Last Admin: 09/12/16 10:03 Dose: 50 mls/hr Insulin Aspart (Novolog Vial Sliding Scale -) 1 vial SQ ACHS [facility] PRN Reason: Protocol Last Admin: 09/12/16 10:03 Dose: 10 units Insulin Detemir (Levemir Vial) 15 units SQ BID [facility] Last Admin: 09/12/16 12:40 Dose: 15 units Losartan Potassium (Cozaar -) 50 mg PO DAILY [facility] Last Admin: 09/11/16 09:30 Dose: 50 mg Methylprednisolone Sodium Succinate (Solu-Medrol -) 40 mg IVPB Q12H [facility] Last Admin: 09/12/16 12:40 Dose: 40 mg Metoprolol Succinate (Toprol Xl -) 100 mg PO BID [facility] Last Admin: 09/12/16 10:03 Dose: 100 mg Prasugrel (Effient -) 5 mg PO DAILY [facility] Last Admin: 09/12/16 10:04 Dose: 5 mg Ranitidine HCl (Zantac -) 150 mg PO DAILY [facility] Last Admin: 09/12/16 10:03 Dose: 150 mg Senna (Senna -) 2 tab PO HS [facility] Last Admin: 09/11/16 22:48 Dose: Not Given Warfarin Sodium (Coumadin -) 2.5 mg PO SuTuThSa@1800 [facility] Last Admin: 09/10/16 19:15 Dose: Not Given Warfarin Sodium (Coumadin -) 5 mg PO MoWeFr@1800 [facility] Last Admin: 09/11/16 17:13 Dose: 5 mg - Objective Vital Signs: Vital Signs Temperature 98.1 F 09/12/16 08:08 Pulse Rate 80 09/12/16 12:34 Respiratory Rate 20 09/12/16 12:34 Blood Pressure 122/54 09/12/16 12:34 O2 Sat by Pulse Oximetry (%) 97 09/12/16 11:14 Constitutional: Yes: No Distress, Calm, Obese Cardiovascular: Yes: Pulse Irregular. No: Gallop, Murmur, Rub Respiratory: Yes: Regular, Cough (non-productive), On Nasal O2, Rhonchi. No: Rales, Wheezes Gastrointestinal: Yes: Normal Bowel Sounds, Soft. No: Distention, Tenderness Musculoskeletal: Yes: Muscle Weakness Edema: No Labs: CBC, BMP 09/12/16 05:35 09/12/16 05:35 INR, PTT INR 3.53 (0.82-1.09) H D 09/12/16 05:35 Problem List - Problems (1) Interstitial lung disease Code(s): J84.9 - INTERSTITIAL PULMONARY DISEASE, UNSPECIFIED (2) Coronary artery disease Code(s): I25.10 - ATHSCL HEART DISEASE OF [place] CORONARY ARTERY W/O ANG PCTRS (3) Diabetes mellitus Code(s): E11.9 - TYPE 2 DIABETES MELLITUS WITHOUT COMPLICATIONS (4) Hyperlipidemia Code(s): E78.5 - HYPERLIPIDEMIA, UNSPECIFIED (5) Hypothyroid Code(s): E03.9 - HYPOTHYROIDISM, UNSPECIFIED (6) Atrial fibrillation Code(s): I48.91 - UNSPECIFIED ATRIAL FIBRILLATION Qualifiers: Atrial fibrillation type: chronic Qualified Code(s): I48.2 - Chronic atrial fibrillation (7) ALEIDA (acute kidney injury) Code(s): N17.9 - ACUTE KIDNEY FAILURE, UNSPECIFIED Assessment/Plan (1) Interstitial lung disease Assessment/Plan: -SOB with coughing -continue solumedrol, albuterol, and levaquin -pulmonary following Code(s): J84.9 - INTERSTITIAL PULMONARY DISEASE, UNSPECIFIED (2) Coronary artery disease Assessment/Plan: -quiescent -cardiology following -continue current regimen Code(s): I25.10 - ATHSCL HEART DISEASE OF [place] CORONARY ARTERY W/O ANG PCTRS (3) Diabetes mellitus Assessment/Plan: -with significant elevation -will start bid levemir dosing -solumedrol decreased, so may be able to taper down -continue to monitor Code(s): E11.9 - TYPE 2 DIABETES MELLITUS WITHOUT COMPLICATIONS (4) Hyperlipidemia Assessment/Plan: -continue lipitor Code(s): E78.5 - HYPERLIPIDEMIA, UNSPECIFIED (5) Hypothyroid Assessment/Plan: -with hyperthyroidism secondary to elevated dose -hold synthroid today -decrease dosing tomorrow Code(s): E03.9 - HYPOTHYROIDISM, UNSPECIFIED (6) Atrial fibrillation Assessment/Plan: -rate controlled -continue coumadin Code(s): I48.91 - UNSPECIFIED ATRIAL FIBRILLATION Qualifiers: Atrial fibrillation type: chronic Qualified Code(s): I48.2 - Chronic atrial fibrillation (7) ALEIDA (acute kidney injury) Assessment/Plan: -nephrology following -defer to nephrology for IVF Code(s): N17.9 - ACUTE KIDNEY FAILURE, UNSPECIFIED
--- NOTE | 2016-09-12 16:17 | PN ---
Physical Exam: SUBJECTIVE: Patient seen and examined Lying comfortably in bed. states has cough which makes her sob. Denies chest pain, palpitations, lightheadedness. OBJECTIVE: Vital Signs Period Temp Pulse Resp BP Sys/Price Pulse Ox Last 24 Hr 97.3 F-98.4 F 62-90 18-20 92-122/38-54 95-100 GENERAL: Awake, alert, and fully oriented, in no acute distress. HEAD: Normal with no signs of trauma. EARS, NOSE, THROAT: oropharynx clear without exudates. dry mucous membranes. LUNGS: Breath sounds equal, clear to auscultation bilaterally. no wheezes, crackels present at bases b/l HEART: s1s2 normal ABDOMEN: Soft, nontender, not distended, normoactive bowel sounds, no guarding, no rebound, no masses. UPPER EXTREMITIES: 2+ pulses, warm, well-perfused. No cyanosis. LOWER EXTREMITIES: warm, well-perfused. No calf tenderness. peripheral edema present, wrinkles appeared on skin SKIN: Warm, Laboratory Results - last 24 hr 09/11/16 09/11/16 09/11/16 17:08 19:15 19:15 WBC RBC Hgb Hct MCV MCHC RDW Plt Count MPV Neutrophils % Lymphocytes % Monocytes % Eosinophils % Basophils % INR Sodium Potassium Chloride Carbon Dioxide Anion Gap BUN Creatinine POC Glucometer 256 Random Glucose Calcium Phosphorus Magnesium Urine Color Urine Appearance Urine pH Ur Specific [place] Urine Protein Urine Glucose (UA) Urine Ketones Urine Blood Urine Nitrite Urine Bilirubin Urine Urobilinogen Ur Leukocyte Esterase Urine RBC Urine WBC Ur Epithelial Cells Urine Bacteria Urine Mucus Urine Yeast U Random Total Protein 24 H Ur Random Sodium 11 Ur Random Potassium 45.4 Ur Random Chloride < 10 Ur Random Urea Nitrogn 593 Urine Creatinine 150.0 Protein/Creatinin Ratio 0.16 09/11/16 09/11/16 09/11/16 19:15 19:15 19:15 WBC RBC Hgb Hct MCV MCHC RDW Plt Count MPV Neutrophils % Lymphocytes % Monocytes % Eosinophils % Basophils % INR Sodium Potassium Chloride Carbon Dioxide Anion Gap BUN Creatinine POC Glucometer Random Glucose Calcium Phosphorus Magnesium Urine Color Yellow Urine Appearance Cloudy Urine pH 5.0 Ur Specific [place] 1.025 Urine Protein Negative 24 Urine Glucose (UA) Negative Urine Ketones Negative Urine Blood 1+ H Urine Nitrite Negative Urine Bilirubin Negative Urine Urobilinogen Negative Ur Leukocyte Esterase 3+ H Urine RBC 444 Urine WBC 191 Ur Epithelial Cells Few Urine Bacteria Many Urine Mucus Rare Urine Yeast Many U Random Total Protein Ur Random Sodium 11 Ur Random Potassium 45.4 Ur Random Chloride < 10 Ur Random Urea Nitrogn Urine Creatinine Protein/Creatinin Ratio 09/11/16 09/12/16 09/12/16 22:10 05:25 05:35 WBC RBC Hgb Hct MCV MCHC RDW Plt Count MPV Neutrophils % Lymphocytes % Monocytes % Eosinophils % Basophils % INR 3.53 H D Sodium Potassium Chloride Carbon Dioxide Anion Gap BUN Creatinine POC Glucometer 424 524 Random Glucose Calcium Phosphorus Magnesium Urine Color Urine Appearance Urine pH Ur Specific [place] Urine Protein Urine Glucose (UA) Urine Ketones Urine Blood Urine Nitrite Urine Bilirubin Urine Urobilinogen Ur Leukocyte Esterase Urine RBC Urine WBC Ur Epithelial Cells Urine Bacteria Urine Mucus Urine Yeast U Random Total Protein Ur Random Sodium Ur Random Potassium Ur Random Chloride Ur Random Urea Nitrogn Urine Creatinine Protein/Creatinin Ratio 09/12/16 09/12/16 09/12/16 05:35 05:35 07:38 WBC 16.1 H D RBC 4.13 Hgb 11.7 Hct 35.2 MCV 85.3 MCHC 33.2 RDW 13.9 Plt Count 273 MPV 9.7 Neutrophils % 88.7 H Lymphocytes % 6.0 L D Monocytes % 5.1 D Eosinophils % 0.0 Basophils % 0.2 INR Sodium 135 L Potassium 3.8 Chloride 96 L Carbon Dioxide 22 Anion Gap 17 H BUN 72 H D Creatinine 2.8 H POC Glucometer 428 Random Glucose 495 H* D Calcium 9.8 Phosphorus 5.1 H Magnesium 2.3 D Urine Color Urine Appearance Urine pH Ur Specific [place] Urine Protein Urine Glucose (UA) Urine Ketones Urine Blood Urine Nitrite Urine Bilirubin Urine Urobilinogen Ur Leukocyte Esterase Urine RBC Urine WBC Ur Epithelial Cells Urine Bacteria Urine Mucus Urine Yeast U Random Total Protein Ur Random Sodium Ur Random Potassium Ur Random Chloride Ur Random Urea Nitrogn Urine Creatinine Protein/Creatinin Ratio 09/12/16 12:33 WBC RBC Hgb Hct MCV MCHC RDW Plt Count MPV Neutrophils % Lymphocytes % Monocytes % Eosinophils % Basophils % INR Sodium Potassium Chloride Carbon Dioxide Anion Gap BUN Creatinine POC Glucometer 284 Random Glucose Calcium Phosphorus Magnesium Urine Color Urine Appearance Urine pH Ur Specific [place] Urine Protein Urine Glucose (UA) Urine Ketones Urine Blood Urine Nitrite Urine Bilirubin Urine Urobilinogen Ur Leukocyte Esterase Urine RBC Urine WBC Ur Epithelial Cells Urine Bacteria Urine Mucus Urine Yeast U Random Total Protein Ur Random Sodium Ur Random Potassium Ur Random Chloride Ur Random Urea Nitrogn Urine Creatinine Protein/Creatinin Ratio Active Medications Generic Name Dose Route Start Last Admin Trade Name Freq PRN Reason Stop Dose Admin Albuterol Sulfate 1 amp 09/09/16 21:06 Ventolin 0.083% Nebulizer Soln - NEB Q4H PRN SHORT OF BREATH/WHEEZING Albuterol Sulfate 1 amp 09/10/16 00:00 09/12/16 11:14 Ventolin 0.083% Nebulizer Soln - NEB 1 amp QIDR SASHA Administration Aspirin 81 mg 09/10/16 10:00 09/12/16 10:03 Ecotrin - PO 81 mg DAILY SASHA Administration Atorvastatin Calcium 40 mg 09/09/16 22:00 09/11/16 22:48 Lipitor - PO 40 mg HS SASHA Administration Diltiazem HCl 30 mg 09/10/16 13:00 09/12/16 12:40 Cardizem - PO 30 mg Q6HPO SASHA Administration Docusate Sodium 300 mg 09/09/16 22:00 09/11/16 22:48 Colace - PO Not Given HS SASHA Guaifenesin 10 ml 09/09/16 21:06 Diabetic Tussin Dm - PO Q6H PRN COUGH Levofloxacin 50 mls @ 50 mls/hr 09/10/16 10:00 09/12/16 10:03 Levaquin 250 Mg Premixed Ivpb - IVPB 50 mls/hr DAILY SASHA Administration Insulin Aspart 1 vial 09/09/16 22:00 09/12/16 10:03 Novolog Vial Sliding Scale - SQ 10 units ACHS [facility] Administration Protocol Insulin Detemir 15 units 09/12/16 12:30 09/12/16 12:40 Levemir Vial SQ 15 units BID SASHA Administration Levothyroxine Sodium 100 mcg 09/13/16 07:00 Synthroid - PO DAILY@0700 [facility] Losartan Potassium 50 mg 09/10/16 10:00 09/11/16 09:30 Cozaar - PO 50 mg DAILY SASHA Administration Methylprednisolone Sodium Succinate 40 mg 09/12/16 11:15 09/12/16 12:40 Solu-Medrol - IVPB 40 mg Q12H SASHA Administration Metoprolol Succinate 100 mg 09/10/16 13:01 09/12/16 10:03 Toprol Xl - PO 100 mg BID SASHA Administration Prasugrel 5 mg 09/10/16 10:00 09/12/16 10:04 Effient - PO 5 mg DAILY SASHA Administration Ranitidine HCl 150 mg 09/10/16 10:00 09/12/16 10:03 Zantac - PO 150 mg DAILY SASHA Administration Senna 2 tab 09/09/16 22:00 09/11/16 22:48 Senna - PO Not Given HS SASHA Warfarin Sodium 2.5 mg 09/10/16 18:00 09/10/16 19:15 Coumadin - PO Not Given SuTuThSa@1800 SASHA Warfarin Sodium 5 mg 09/11/16 18:00 09/11/16 17:13 Coumadin - PO 5 mg MoWeFr@1800 SASHA Administration ASSESSMENT/PLAN: (1) Atrial fibrillation with rapid ventricular respons (2) Interstial lung Ds (3) Coronary artery disease (4) Diabetes mellitus (5) History of aortic valve replacement (6) Hypothyroid (7) Hyperlipidemia (8) Cough present for greater than 3 weeks (9) HANY Plan Renal function getting worse. FeNa 0.15, Hany ould be due to prerenal, will give her gentle hydration. watch for fluid overload. Repeat BMP in morning. Avoid nephrotoxic drugs. Monitor intake and output. Monitor vitals. losartan on hold, bp is on lower side. Lasix on hold Repeat BMP in morning. Visit type - Emergency Visit Emergency Visit: Yes ED Registration Date: 09/09/16 Care time: The patient presented to the Emergency Department on the above date and was hospitalized for further evaluation of their emergent condition. - New Patient This patient is new to me today: No - Critical Care Critical Care patient: No
[2016-09-12] MEDS: SODIUM CHLORIDE 1,000 ML IV SCH (16:58)
--- NOTE | 2016-09-12 17:01 | PN ---
Teaching Attending Note Name of Resident: Kodi Haddad (Nephrology) ATTENDING PHYSICIAN STATEMENT I saw and evaluated the patient. I reviewed the resident's note and discussed the case with the resident. I agree with the resident's findings and plan as documented. Laboratory Tests 05/21/13 12/04/13 07/29/15 10:00 08:00 09:15 WBC Sodium Potassium Chloride Anion Gap BUN Creatinine 1.1 D 1.0 1.0 Ur Random Sodium 09/09/16 09/10/16 09/10/16 15:14 05:42 06:39 WBC 14.3 H D Sodium Potassium Chloride Anion Gap BUN Creatinine 1.5 H D 1.4 H Ur Random Sodium 09/11/16 09/11/16 09/11/16 06:05 06:05 19:15 WBC 8.5 D Sodium 136 Potassium 4.2 Chloride 95 L Anion Gap 19 H BUN 45 H D Creatinine 2.5 H D Ur Random Sodium 11 cardio s1s2 pulm scattered wheeze GI soft ext trace edema, venous stasis changes neuro awake and alert skin neg rash psych calm Impression 1. ALEIDA 2. Interstitial lung disease 3. a-fib 4. CAD 5. DM 6. chol Plan - will start fluids - renal function is worse - discussed with pmd and with cardio - likely pre-renal disease - keep losartan on hold - will follow Dr Alvarado
[2016-09-12] MEDS: WARFARIN NA 2.5 MG TABLET (FP) PO SCH (17:27)
[2016-09-12] MEDS: ATORVASTATIN CA 40 MG TABLET (FP) PO SCH (22:54)
[2016-09-12] MEDS: SENNOSIDES 8.6MG TABLET (FP) PO SCH (22:55)
[2016-09-12] MEDS: DOCUSATE SODIUM 100 MG CAPSULE (FP) PO SCH (22:56)
[2016-09-13] MEDS: dilTIAZem HCL 30 MG TABLET (FP) PO SCH ×4 (00:52→17:18)
[2016-09-13] MEDS: ALBUTEROL SO4 0.083% IH SOL 2.5 MG/3 ML VIAL.NEB. NEB SCH ×4 (06:15→18:38)
[2016-09-13] MEDS: INSULIN SLIDING SCALE (NOVOLOG) 1 VIAL SQ SCH ×4 (07:02→23:02)
[2016-09-13] MEDS: LEVOTHYROXINE NA 100 MCG TABLET (FP) PO SCH (07:05)
[2016-09-13 07:29] LABS: MCH 28.2 pg (25.7-33.7); MCHC 33.3 g/dl (32.0-36.0); MEAN CELL VOLUME 84.7 fl (80-96); MEAN PLT VOLUME 9.3 fl (7.5-11.1); PLATELET COUNT 291 K/MM3 (134-434); RDW 13.9 % (11.6-15.6); WHITE BLOOD COUNT 19.1 K/mm3 (4.0-10.0)
[2016-09-13 07:53] LABS: PROTHROMBIN TIME (PATIENT) 57.7 SEC (9.98-11.88)
[2016-09-13 08:11] LABS: INR 5.07 (0.82-1.09)
[2016-09-13 08:41] LABS: CALCIUM 10.2 mg/dL (8.5-10.1); COCKROFT - GAULT 22.2275; CREATININE 2.3 mg/dL (0.55-1.02); MAGNESIUM 2.3 mg/dL (1.8-2.4)
[2016-09-13] MEDS: METOPROLOL SUCCINATE 100 MG TAB.SR.24H (FP) PO SCH ×2 (09:10→23:06)
[2016-09-13] MEDS: RANITIDINE HCL 150 MG TABLET (FP) PO SCH (09:10)
[2016-09-13] MEDS: ASPIRIN COATED 81 MG TABLET.EC PO SCH (09:11)
[2016-09-13] MEDS: LEVOFLOXACIN 250 MG IVPB 50 ML IVPB SCH (09:11)
[2016-09-13] MEDS: PRASUGREL HCL 5 MG TAB PO SCH (09:13)
[2016-09-13 09:38] LABS: PLATELET ESTIMATE ADEQUATE (NORMAL)
[2016-09-13] MEDS: INSULIN DETEMIR 100 UNITS/ML MDV SQ SCH ×2 (10:46→23:03)
--- NOTE | 2016-09-13 10:54 | PN ---
Progress Note, Physician History of Present Illness: pulmonary alert,feeling better,less dyspneic,+dry cough - Current Medication List Current Medications: Active Medications Albuterol Sulfate (Ventolin 0.083% Nebulizer Soln -) 1 amp NEB Q4H PRN PRN Reason: SHORT OF BREATH/WHEEZING Albuterol Sulfate (Ventolin 0.083% Nebulizer Soln -) 1 amp NEB QIDR [facility] Last Admin: 09/13/16 06:15 Dose: 1 amp Aspirin (Ecotrin -) 81 mg PO DAILY [facility] Last Admin: 09/13/16 09:11 Dose: 81 mg Atorvastatin Calcium (Lipitor -) 40 mg PO HS [facility] Last Admin: 09/12/16 22:54 Dose: 40 mg Diltiazem HCl (Cardizem -) 30 mg PO Q6HPO [facility] Last Admin: 09/13/16 07:04 Dose: 30 mg Docusate Sodium (Colace -) 300 mg PO HS [facility] Last Admin: 09/12/16 22:56 Dose: Not Given Guaifenesin (Diabetic Tussin Dm -) 10 ml PO Q6H PRN PRN Reason: COUGH Levofloxacin (Levaquin 250 Mg Premixed Ivpb -) 50 mls @ 50 mls/hr IVPB DAILY [facility] Last Admin: 09/13/16 09:11 Dose: 50 mls/hr Sodium Chloride (Normal Saline -) 1,000 mls @ 65 mls/hr IV ASDIR [facility] Last Admin: 09/12/16 16:58 Dose: 65 mls/hr Insulin Aspart (Novolog Vial Sliding Scale -) 1 vial SQ ACHS [facility] PRN Reason: Protocol Last Admin: 09/13/16 07:02 Dose: 6 units Insulin Detemir (Levemir Vial) 15 units SQ BID [facility] Last Admin: 09/13/16 10:46 Dose: 15 units Levothyroxine Sodium (Synthroid -) 100 mcg PO DAILY@0700 [facility] Last Admin: 09/13/16 07:05 Dose: 100 mcg Losartan Potassium (Cozaar -) 50 mg PO DAILY [facility] Last Admin: 09/11/16 09:30 Dose: 50 mg Methylprednisolone Sodium Succinate (Solu-Medrol -) 40 mg IVPB Q12H [facility] Last Admin: 09/12/16 22:53 Dose: 40 mg Metoprolol Succinate (Toprol Xl -) 100 mg PO BID [facility] Last Admin: 09/13/16 09:10 Dose: 100 mg Prasugrel (Effient -) 5 mg PO DAILY [facility] Last Admin: 09/13/16 09:13 Dose: 5 mg Ranitidine HCl (Zantac -) 150 mg PO DAILY [facility] Last Admin: 09/13/16 09:10 Dose: 150 mg Senna (Senna -) 2 tab PO HS [facility] Last Admin: 09/12/16 22:55 Dose: Not Given Warfarin Sodium (Coumadin -) 2.5 mg PO SuTuThSa@1800 [facility] Last Admin: 09/12/16 17:27 Dose: Not Given Warfarin Sodium (Coumadin -) 5 mg PO [email or web address]@1800 [facility] Last Admin: 09/11/16 17:13 Dose: 5 mg - Objective Vital Signs: Vital Signs Temperature 97.4 F L 09/13/16 09:00 Pulse Rate 68 09/13/16 09:00 Respiratory Rate 19 09/13/16 09:00 Blood Pressure 121/58 09/13/16 09:00 O2 Sat by Pulse Oximetry (%) 93 L 09/13/16 09:00 Constitutional: Yes: Well Nourished, Calm Eyes: Yes: WNL HENT: Yes: WNL Neck: Yes: WNL Cardiovascular: Yes: Pulse Irregular, S1, S2 Respiratory: Yes: Rales (bilateral crackles 1/3 up) Gastrointestinal: Yes: Normal Bowel Sounds, Soft Extremities: Yes: WNL Edema: No Peripheral Pulses WNL: Yes Labs: CBC, BMP 09/13/16 05:10 09/13/16 05:10 INR, PTT INR 5.07 (0.82-1.09) H* D 09/13/16 05:10 Problem List - Problems (1) Interstitial lung disease Code(s): J84.9 - INTERSTITIAL PULMONARY DISEASE, UNSPECIFIED Assessment/Plan Problem List - Problems (1) Coronary artery disease Code(s): I25.10 - ATHSCL HEART DISEASE OF [place] CORONARY ARTERY W/O ANG PCTRS (2) Diabetes mellitus Code(s): E11.9 - TYPE 2 DIABETES MELLITUS WITHOUT COMPLICATIONS (3) History of aortic valve replacement Code(s): Z95.2 - PRESENCE OF PROSTHETIC HEART VALVE (4) Hyperlipidemia Code(s): E78.5 - HYPERLIPIDEMIA, UNSPECIFIED (5) Hypothyroid Code(s): E03.9 - HYPOTHYROIDISM, UNSPECIFIED (6) Atrial fibrillation with rapid ventricular response Code(s): I48.91 - UNSPECIFIED ATRIAL FIBRILLATION Assessment/Plan Atrial Fibrillation r/o COPD ILD Mild Bronchiectasis CAD DM Hypothyroidism s/p AVR - medrol taper - inhaled bronchodilators - LABA/ICS - O2 to keep SpO2 >90% - PFTs outpatient - anticoagulation DR DAVENPORT
--- NOTE | 2016-09-13 11:38 | PN ---
Progress Note (short form) - Note Progress Note: CC: sob S: sob stable/improved, no cp, palps, dizziness. Coiler: dr cardenas Current Medications Generic Name Dose Route Start Last Admin Trade Name Freq PRN Reason Stop Dose Admin Albuterol Sulfate 1 amp 09/09/16 21:06 Ventolin 0.083% Nebulizer Soln - NEB Q4H PRN SHORT OF BREATH/WHEEZING Albuterol Sulfate 1 amp 09/10/16 00:00 09/13/16 06:15 Ventolin 0.083% Nebulizer Soln - NEB 1 amp QIDR SASHA Administration Aspirin 81 mg 09/10/16 10:00 09/13/16 09:11 Ecotrin - PO 81 mg DAILY SASHA Administration Atorvastatin Calcium 40 mg 09/09/16 22:00 09/12/16 22:54 Lipitor - PO 40 mg HS SASHA Administration Diltiazem HCl 30 mg 09/10/16 13:00 09/13/16 07:04 Cardizem - PO 30 mg Q6HPO SASHA Administration Docusate Sodium 300 mg 09/09/16 22:00 09/12/16 22:56 Colace - PO Not Given HS SASHA Guaifenesin 10 ml 09/09/16 21:06 Diabetic Tussin Dm - PO Q6H PRN COUGH Levofloxacin 50 mls @ 50 mls/hr 09/10/16 10:00 09/13/16 09:11 Levaquin 250 Mg Premixed Ivpb - IVPB 50 mls/hr DAILY SASHA Administration Sodium Chloride 1,000 mls @ 65 mls/hr 09/12/16 16:30 09/12/16 16:58 Normal Saline - IV 65 mls/hr ASDIR SASHA Administration Insulin Aspart 1 vial 09/09/16 22:00 09/13/16 07:02 Novolog Vial Sliding Scale - SQ 6 units ACHS SASHA Administration Protocol Insulin Detemir 15 units 09/12/16 12:30 09/13/16 10:46 Levemir Vial SQ 15 units BID SASHA Administration Levothyroxine Sodium 100 mcg 09/13/16 07:00 09/13/16 07:05 Synthroid - PO 100 mcg DAILY@0700 SASHA Administration Losartan Potassium 50 mg 09/10/16 10:00 09/11/16 09:30 Cozaar - PO 50 mg DAILY SASHA Administration Methylprednisolone Sodium Succinate 40 mg 06/13/17 11:15 09/12/16 22:53 Solu-Medrol - IVPB 40 mg Q12H SASHA Administration Metoprolol Succinate 100 mg 09/10/16 13:01 09/13/16 09:10 Toprol Xl - PO 100 mg BID SASHA Administration Prasugrel 5 mg 09/10/16 10:00 09/13/16 09:13 Effient - PO 5 mg DAILY SASHA Administration Ranitidine HCl 150 mg 09/10/16 10:00 09/13/16 09:10 Zantac - PO 150 mg DAILY SASHA Administration Senna 2 tab 09/09/16 22:00 09/12/16 22:55 Senna - PO Not Given HS [facility] Warfarin Sodium 2.5 mg 09/10/16 18:00 09/12/16 17:27 Coumadin - PO Not Given SuTuThSa@1800 SASHA Warfarin Sodium 5 mg 09/11/16 18:00 09/11/16 17:13 Coumadin - PO 5 mg MoWeFr@1800 SASHA Administration Vital Signs Period Temp Pulse Resp BP Sys/Price Pulse Ox Last 24 Hr 97.4 F-98.9 F 67-84 18-20 92-135/47-74 93-95 Constitutional: Yes: Well Nourished, No Distress Eyes: No: Sclera Icterus Respiratory: Yes: bibasilar dry rales. No: Accessory Muscle Use, Wheezes Gastrointestinal: Yes: Normal Bowel Sounds. No: Distention, Hepatomegaly, Palpable Mass, Tenderness Cardiovascular: Yes: Regular Rate and Rhythm nl s1. mechanical s2 JVD: No Murmur: No: Systolic Murmur, Diastolic Murmur Musculoskeletal: Yes: Other (No kyphosis) Extremities: No: Cold, Cyanosis Edema: No Integumentary: No: Jaundice diaphoresis Neurological: Yes: Alert, Oriented (x3) Psychiatric: No: Agitated CBC, BMP 09/13/16 05:10 09/13/16 05:10 ekg x3: LBBB. 1 is AT/AFL. other 2 are sinus with APCs tele: sr Assessment/Plan 85 yo with h/o s/p mech AVR, CAD s/p recent PCI x 2 - 05/2016, diastolic HF, DM, hypothyroidism p/w worsening, presents to ED with acute worsening chronic shortness of breath (dry cough, prog sob over many months). CAD: -reportedly had 2 stents 05/19 (cath done at [place], she follows with Theresa rojas) -ECG here with LBBB which states is not new (no ECGs here since 2009) -trop neg x 2 -sob has not improved since PCI -cont home DAPT (ASA + Effient), metopr, statin h/o mech AVR -followed with echoes by Dr Cardenas -cont coumadin per home regimen/INR targets. PSVT vs atrial flutter -tele shows frequent runs of SVT with HR 150-160. 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 conduction vs PAT -she is already anticoagulated, cont coumadin per INR -she is already on high dose metoprolol (75 bid)-- incr to 100 bid trial -diltiazem 30mg q6h started here--cont same for now, observe tele, no significant svt recurrence acute on chronic sob, dry cough/ILD (new dx) -BNP 2300 -CXR my review (09/09 and 09/10) with no effusions or vasc redistribution; + diffuse mild incr interstitial pattern bases > upper lung jiménez per (cardiac PA), RHC at time of procedure showed he thinks only mild incr'd wedge, with "moderate pulm HTN" -suspect at baseline she has diast chf, well-compensated--acute chf post-cath ? due to dye load. -sx's not likely anginal in nature, did not improve after revascularization - 09/11 given trial of IV 40 mg IV lasix here with worsening of Cr this morning. Already received IV lasix dose this morning 09/11, will d/c. -CT c/w ILD, likely etiology of sx's. pulm following. - 09/12: BP running low and Cr trending up (last IV lasix dose before d/c was yesterday morning). Will d/w renal regarding need for gentle rehydration. -09/13: on ivfs, monitor cr trend
[2016-09-13] MEDS ORDERED: INSULIN DETEMIR 100 UNITS/ML MDV SQ ONE (12:32)
[2016-09-13] MEDS: methylPREDNISolone NA SUCC 40 MG/1 ML VIAL IVPB SCH ×2 (13:14→23:05)
--- NOTE | 2016-09-13 13:37 | PN ---
Physical Exam: SUBJECTIVE: Patient seen and examined lying comfortably in bed. denies sob, cough, fever, chills. OBJECTIVE: Vital Signs Period Temp Pulse Resp BP Sys/Price Pulse Ox Last 24 Hr 97.4 F-98.9 F 67-84 18-20 92-135/47-74 93-95 GENERAL: Awake, alert, and fully oriented, in no acute distress. HEAD: Normal with no signs of trauma. EARS, NOSE, THROAT: oropharynx clear without exudates. dry mucous membranes. LUNGS: Breath sounds equal, clear to auscultation bilaterally. no wheezes, crackels present at bases b/l HEART: s1s2 normal ABDOMEN: Soft, nontender, not distended, normoactive bowel sounds, no guarding, no rebound, no masses. UPPER EXTREMITIES: 2+ pulses, warm, well-perfused. No cyanosis. LOWER EXTREMITIES: warm, well-perfused. No calf tenderness. peripheral edema present, wrinkles appeared on skin SKIN: Warm, Laboratory Results - last 24 hr 09/12/16 09/12/16 09/13/16 16:46 22:53 05:10 WBC RBC Hgb Hct MCV MCHC RDW Plt Count MPV Neutrophils % Lymphocytes % Monocytes % Differential Comment Platelet Estimate INR 5.07 H* D Sodium Potassium Chloride Carbon Dioxide Anion Gap BUN Creatinine POC Glucometer 387 407 Random Glucose Calcium Phosphorus Magnesium 09/13/16 09/13/16 09/13/16 05:10 05:10 07:00 WBC 19.1 H RBC 4.28 Hgb 12.1 Hct 36.2 MCV 84.7 MCHC 33.3 RDW 13.9 Plt Count 291 MPV 9.3 Neutrophils % 90.0 H Lymphocytes % 8.0 D Monocytes % 2.0 L Differential Comment Manual diff done Platelet Estimate Adequate INR Sodium 139 Potassium 4.1 Chloride 101 Carbon Dioxide 22 Anion Gap 16 BUN 78 H Creatinine 2.3 H POC Glucometer 305 Random Glucose 285 H D Calcium 10.2 H Phosphorus 5.0 H Magnesium 2.3 09/13/16 09/13/16 10:42 11:53 WBC RBC Hgb Hct MCV MCHC RDW Plt Count MPV Neutrophils % Lymphocytes % Monocytes % Differential Comment Platelet Estimate INR Sodium Potassium Chloride Carbon Dioxide Anion Gap BUN Creatinine POC Glucometer 555 462 Random Glucose Calcium Phosphorus Magnesium Active Medications Generic Name Dose Route Start Last Admin Trade Name Freq PRN Reason Stop Dose Admin Albuterol Sulfate 1 amp 09/09/16 21:06 Ventolin 0.083% Nebulizer Soln - NEB Q4H PRN SHORT OF BREATH/WHEEZING Albuterol Sulfate 1 amp 09/10/16 00:00 09/13/16 11:37 Ventolin 0.083% Nebulizer Soln - NEB Not Given QIDR SASHA Aspirin 81 mg 09/10/16 10:00 09/13/16 09:11 Ecotrin - PO 81 mg DAILY SASHA Administration Atorvastatin Calcium 40 mg 09/09/16 22:00 09/12/16 22:54 Lipitor - PO 40 mg HS SASHA Administration Diltiazem HCl 30 mg 09/10/16 13:00 09/13/16 13:13 Cardizem - PO 30 mg Q6HPO SASHA Administration Docusate Sodium 300 mg 09/09/16 22:00 09/12/16 22:56 Colace - PO Not Given HS SASHA Guaifenesin 10 ml 09/09/16 21:06 Diabetic Tussin Dm - PO Q6H PRN COUGH Levofloxacin 50 mls @ 50 mls/hr 09/10/16 10:00 09/13/16 09:11 Levaquin 250 Mg Premixed Ivpb - IVPB 50 mls/hr DAILY SASHA Administration Sodium Chloride 1,000 mls @ 65 mls/hr 09/12/16 16:30 09/12/16 16:58 Normal Saline - IV 65 mls/hr ASDIR SASHA Administration Insulin Aspart 1 vial 09/09/16 22:00 09/13/16 12:21 Novolog Vial Sliding Scale - SQ 10 units ACHS SASHA Administration Protocol Insulin Detemir 15 units 09/12/16 12:30 09/13/16 10:46 Levemir Vial SQ 15 units BID SASHA Administration Levothyroxine Sodium 100 mcg 09/13/16 07:00 09/13/16 07:05 Synthroid - PO 100 mcg DAILY@0700 SASHA Administration Losartan Potassium 50 mg 09/10/16 10:00 09/11/16 09:30 Cozaar - PO 50 mg DAILY SASHA Administration Methylprednisolone Sodium Succinate 40 mg 09/12/16 11:15 09/13/16 13:14 Solu-Medrol - IVPB 40 mg Q12H SASHA Administration Metoprolol Succinate 100 mg 09/10/16 13:01 09/13/16 09:10 Toprol Xl - PO 100 mg BID SASHA Administration Prasugrel 5 mg 09/10/16 10:00 09/13/16 09:13 Effient - PO 5 mg DAILY SASHA Administration Ranitidine HCl 150 mg 09/10/16 10:00 09/13/16 09:10 Zantac - PO 150 mg DAILY SASHA Administration Senna 2 tab 09/09/16 22:00 09/12/16 22:55 Senna - PO Not Given HS SASHA Warfarin Sodium 2.5 mg 09/10/16 18:00 09/12/16 17:27 Coumadin - PO Not Given SuTuThSa@1800 SASHA Warfarin Sodium 5 mg 09/11/16 18:00 09/11/16 17:13 Coumadin - PO 5 mg MoWeFr@1800 SASHA Administration ASSESSMENT/PLAN: (1) Atrial fibrillation with rapid ventricular respons (2) Interstial lung Ds (3) Coronary artery disease (4) Diabetes mellitus (5) History of aortic valve replacement (6) Hypothyroid (7) Hyperlipidemia (8) Cough present for greater than 3 weeks (9) ALEIDA (10) supratheraputic INR Plan Renal function improved after gentle hydration. will continue with Iv fluid, watch for fluid overload Repeat BMP in morning. Avoid nephrotoxic drugs. Monitor intake and output. Monitor vitals. losartan on hold, bp is on lower side. Lasix on hold Repeat BMP in morning. Visit type - Emergency Visit Emergency Visit: Yes ED Registration Date: 09/09/16 Care time: The patient presented to the Emergency Department on the above date and was hospitalized for further evaluation of their emergent condition. - New Patient This patient is new to me today: No - Critical Care Critical Care patient: No
--- NOTE | 2016-09-13 15:12 | PN ---
Progress Note, Physician Chief Complaint: Mrs Simon states she is feeling fine. No cp, sob, n/v. Says cough is unchanged but chronic. Asking when she can go home. - Current Medication List Current Medications: Active Medications Albuterol Sulfate (Ventolin 0.083% Nebulizer Soln -) 1 amp NEB Q4H PRN PRN Reason: SHORT OF BREATH/WHEEZING Albuterol Sulfate (Ventolin 0.083% Nebulizer Soln -) 1 amp NEB QIDR [facility] Last Admin: 09/13/16 11:37 Dose: Not Given Aspirin (Ecotrin -) 81 mg PO DAILY [facility] Last Admin: 09/13/16 09:11 Dose: 81 mg Atorvastatin Calcium (Lipitor -) 40 mg PO HS [facility] Last Admin: 09/12/16 22:54 Dose: 40 mg Diltiazem HCl (Cardizem -) 30 mg PO Q6HPO [facility] Last Admin: 09/13/16 13:13 Dose: 30 mg Docusate Sodium (Colace -) 300 mg PO HS [facility] Last Admin: 09/12/16 22:56 Dose: Not Given Guaifenesin (Diabetic Tussin Dm -) 10 ml PO Q6H PRN PRN Reason: COUGH Levofloxacin (Levaquin 250 Mg Premixed Ivpb -) 50 mls @ 50 mls/hr IVPB DAILY [facility] Last Admin: 09/13/16 09:11 Dose: 50 mls/hr Sodium Chloride (Normal Saline -) 1,000 mls @ 65 mls/hr IV ASDIR [facility] Last Admin: 09/12/16 16:58 Dose: 65 mls/hr Insulin Aspart (Novolog Vial Sliding Scale -) 1 vial SQ ACHS [facility] PRN Reason: Protocol Last Admin: 09/13/16 12:21 Dose: 10 units Insulin Detemir (Levemir Vial) 20 units SQ BID@0700,2200 [facility] Levothyroxine Sodium (Synthroid -) 100 mcg PO DAILY@0700 [facility] Last Admin: 09/13/16 07:05 Dose: 100 mcg Losartan Potassium (Cozaar -) 50 mg PO DAILY [facility] Last Admin: 09/11/16 09:30 Dose: 50 mg Methylprednisolone Sodium Succinate (Solu-Medrol -) 40 mg IVPB Q12H [facility] Last Admin: 09/13/16 13:14 Dose: 40 mg Metoprolol Succinate (Toprol Xl -) 100 mg PO BID [facility] Last Admin: 09/13/16 09:10 Dose: 100 mg Prasugrel (Effient -) 5 mg PO DAILY [facility] Last Admin: 09/13/16 09:13 Dose: 5 mg Ranitidine HCl (Zantac -) 150 mg PO DAILY [facility] Last Admin: 09/13/16 09:10 Dose: 150 mg Senna (Senna -) 2 tab PO HS [facility] Last Admin: 09/12/16 22:55 Dose: Not Given Warfarin Sodium (Coumadin -) 2.5 mg PO SuTuThSa@1800 [facility] Last Admin: 09/12/16 17:27 Dose: Not Given Warfarin Sodium (Coumadin -) 5 mg PO MoWeFr@1800 [facility] Last Admin: 09/11/16 17:13 Dose: 5 mg - Objective Vital Signs: Vital Signs Temperature 98.7 F 09/13/16 15:03 Pulse Rate 77 09/13/16 15:03 Respiratory Rate 20 09/13/16 15:03 Blood Pressure 135/54 09/13/16 15:03 O2 Sat by Pulse Oximetry (%) 93 L 09/13/16 09:00 Constitutional: Yes: Well Nourished, No Distress, Calm Cardiovascular: Yes: Pulse Irregular. No: Gallop, Murmur, Rub Respiratory: Yes: Regular, Cough, On Nasal O2, Rhonchi. No: CTA Bilaterally, Rales, Wheezes Gastrointestinal: Yes: Normal Bowel Sounds, Soft. No: Distention, Tenderness Extremities: Yes: WNL Edema: No Labs: CBC, BMP 09/13/16 05:10 09/13/16 05:10 INR, PTT INR 5.07 (0.82-1.09) H* D 09/13/16 05:10 Problem List - Problems (1) Interstitial lung disease Code(s): J84.9 - INTERSTITIAL PULMONARY DISEASE, UNSPECIFIED (2) Coronary artery disease Code(s): I25.10 - ATHSCL HEART DISEASE OF [place] CORONARY ARTERY W/O ANG PCTRS (3) Diabetes mellitus Code(s): E11.9 - TYPE 2 DIABETES MELLITUS WITHOUT COMPLICATIONS (4) Hyperlipidemia Code(s): E78.5 - HYPERLIPIDEMIA, UNSPECIFIED (5) Hypothyroid Code(s): E03.9 - HYPOTHYROIDISM, UNSPECIFIED (6) Atrial fibrillation Code(s): I48.91 - UNSPECIFIED ATRIAL FIBRILLATION Qualifiers: Atrial fibrillation type: chronic Qualified Code(s): I48.2 - Chronic atrial fibrillation (7) ALEIDA (acute kidney injury) Code(s): N17.9 - ACUTE KIDNEY FAILURE, UNSPECIFIED Assessment/Plan (1) Interstitial lung disease Assessment/Plan: -improving -pulmonary following -will stop levaquin -continue solumedrol and bronchodilators Code(s): J84.9 - INTERSTITIAL PULMONARY DISEASE, UNSPECIFIED (2) Coronary artery disease Assessment/Plan: -quiescent -cardiology following -continue current regimen Code(s): I25.10 - ATHSCL HEART DISEASE OF [place] CORONARY ARTERY W/O ANG PCTRS (3) Diabetes mellitus Assessment/Plan: -with significant elevation -increase levemir to 20 units bid -continue SSI Code(s): E11.9 - TYPE 2 DIABETES MELLITUS WITHOUT COMPLICATIONS (4) Hyperlipidemia Assessment/Plan: -continue lipitor Code(s): E78.5 - HYPERLIPIDEMIA, UNSPECIFIED (5) Hypothyroid Assessment/Plan: -with hyperthyroidism secondary to elevated dose -synthroid dose decreased Code(s): E03.9 - HYPOTHYROIDISM, UNSPECIFIED (6) Atrial fibrillation Assessment/Plan: -rate controlled -hold coumadin secondary to elevated INR Code(s): I48.91 - UNSPECIFIED ATRIAL FIBRILLATION Qualifiers: Atrial fibrillation type: chronic Qualified Code(s): I48.2 - Chronic atrial fibrillation (7) ALEIDA (acute kidney injury) Assessment/Plan: -continue IVF -nephrology following -improving Code(s): N17.9 - ACUTE KIDNEY FAILURE, UNSPECIFIED
[2016-09-13] MEDS: SODIUM CHLORIDE 1,000 ML IV SCH (17:17)
--- NOTE | 2016-09-13 17:40 | PN ---
Teaching Attending Note Name of Resident: Kodi Haddad (Nephrology) ATTENDING PHYSICIAN STATEMENT I saw and evaluated the patient. I reviewed the resident's note and discussed the case with the resident. I agree with the resident's findings and plan as documented. cardio s1s2 pulm scattered wheeze GI soft ext trace edema, venous stasis changes neuro awake and alert skin neg rash psych calm Impression 1. ALEIDA 2. Interstitial lung disease 3. a-fib 4. CAD 5. DM 6. chol Plan - cont with fluids - renal function is improving - hold diuretics for now - repeat labs in am - will follow Dr Alvarado
[2016-09-13] MEDS: SENNOSIDES 8.6MG TABLET (FP) PO SCH (23:03)
[2016-09-13] MEDS: DOCUSATE SODIUM 100 MG CAPSULE (FP) PO SCH (23:04)
[2016-09-13] MEDS: ATORVASTATIN CA 40 MG TABLET (FP) PO SCH (23:06)
[2016-09-14] MEDS: dilTIAZem HCL 30 MG TABLET (FP) PO SCH ×5 (01:35→17:02)
[2016-09-14] MEDS: ALBUTEROL SO4 0.083% IH SOL 2.5 MG/3 ML VIAL.NEB. NEB SCH ×4 (05:59→18:10)
[2016-09-14] MEDS: LEVOTHYROXINE NA 100 MCG TABLET (FP) PO SCH (06:52)
[2016-09-14] MEDS: INSULIN SLIDING SCALE (NOVOLOG) 1 VIAL SQ SCH ×4 (06:52→22:25)
[2016-09-14] MEDS: INSULIN DETEMIR 100 UNITS/ML MDV SQ SCH ×2 (06:53→22:24)
[2016-09-14 08:16] LABS: MCHC 33.1 g/dl (32.0-36.0); MEAN CELL VOLUME 84.7 fl (80-96); MEAN PLT VOLUME 9.1 fl (7.5-11.1); PLATELET COUNT 209 K/MM3 (134-434); WHITE BLOOD COUNT 11.5 K/mm3 (4.0-10.0)
[2016-09-14 08:45] LABS: CALCIUM 9.6 mg/dL (8.5-10.1); COCKROFT - GAULT 324.394; CREATININE 1.6 mg/dL (0.55-1.02)
[2016-09-14 08:51] LABS: PROTHROMBIN TIME (PATIENT) 52.3 SEC (9.98-11.88)
[2016-09-14 09:29] LABS: INR 4.61 (0.82-1.09)
[2016-09-14 09:44] LABS: PLATELET ESTIMATE ADEQUATE (NORMAL)
[2016-09-14] MEDS: RANITIDINE HCL 150 MG TABLET (FP) PO SCH (09:59)
[2016-09-14] MEDS: METOPROLOL SUCCINATE 100 MG TAB.SR.24H (FP) PO SCH ×2 (09:59→22:23)
[2016-09-14] MEDS: ASPIRIN COATED 81 MG TABLET.EC PO SCH (09:59)
[2016-09-14] MEDS ORDERED: PT OWN MED DRAWER 7, Y5N ONE (09:59)
[2016-09-14] MEDS: methylPREDNISolone NA SUCC 40 MG/1 ML VIAL IVPB SCH ×3 (10:01→22:51)
[2016-09-14] MEDS: PRASUGREL HCL 5 MG TAB PO SCH (10:01)
[2016-09-14] MEDS ORDERED: INSULIN (NOVOLOG) ASPART 100 UNITS/ML 10ML VIAL ONE (11:21)
--- NOTE | 2016-09-14 12:02 | PN ---
Progress Note (short form) - Note Progress Note: CC: sob S: sob improved, no cp, palps, dizziness. [employer] Captain: dr mahoney Current Medications Generic Name Dose Route Start Last Admin Trade Name Freq PRN Reason Stop Dose Admin Albuterol Sulfate 1 amp 09/09/16 21:06 Ventolin 0.083% Nebulizer Soln - NEB Q4H PRN SHORT OF BREATH/WHEEZING Albuterol Sulfate 1 amp 09/10/16 00:00 09/14/16 05:59 Ventolin 0.083% Nebulizer Soln - NEB 1 amp QIDR [facility] Administration Aspirin 81 mg 09/10/16 10:00 09/14/16 09:59 Ecotrin - PO 81 mg DAILY [facility] Administration Atorvastatin Calcium 40 mg 09/09/16 22:00 09/13/16 23:06 Lipitor - PO 40 mg HS [facility] Administration Diltiazem HCl 30 mg 09/10/16 13:00 09/14/16 11:28 Cardizem - PO 30 mg Q6HPO [facility] Administration Docusate Sodium 300 mg 09/09/16 22:00 09/13/16 23:04 Colace - PO Not Given HS [facility] Guaifenesin 10 ml 09/09/16 21:06 Diabetic Tussin Dm - PO Q6H PRN COUGH Sodium Chloride 1,000 mls @ 65 mls/hr 09/12/16 16:30 09/13/16 17:17 Normal Saline - IV 65 mls/hr ASDIR [facility] Administration Insulin Aspart 1 vial 09/09/16 22:00 09/14/16 11:27 Novolog Vial Sliding Scale - SQ 8 units ACHS [facility] Administration Protocol Insulin Detemir 20 units 09/13/16 22:00 09/14/16 06:53 Levemir Vial SQ 20 units BID@0700,2200 [facility] Administration Levothyroxine Sodium 100 mcg 09/13/16 07:00 09/14/16 06:52 Synthroid - PO 100 mcg DAILY@0700 [facility] Administration Losartan Potassium 50 mg 09/10/16 10:00 09/11/16 09:30 Cozaar - PO 50 mg DAILY [facility] Administration Methylprednisolone Sodium Succinate 40 mg 09/12/16 11:15 09/14/16 10:20 Solu-Medrol - IVPB Not Given Q12H [facility] Metoprolol Succinate 100 mg 09/10/16 13:01 09/14/16 09:59 Toprol Xl - PO 100 mg BID [facility] Administration Prasugrel 5 mg 09/10/16 10:00 09/14/16 10:01 Effient - PO 5 mg DAILY [facility] Administration Ranitidine HCl 150 mg 09/10/16 10:00 09/14/16 09:59 Zantac - PO 150 mg DAILY [facility] Administration Senna 2 tab 09/09/16 22:00 09/13/16 23:03 Senna - PO Not Given HS [facility] Warfarin Sodium 2.5 mg 09/10/16 18:00 09/12/16 17:27 Coumadin - PO Not Given SuTuThSa@1800 [facility] Warfarin Sodium 5 mg 09/11/16 18:00 09/11/16 17:13 Coumadin - PO 5 mg MoWeFr@1800 [facility] Administration Vital Signs Period Temp Pulse Resp BP Sys/Price Pulse Ox Last 24 Hr 96.3 F-97.8 F 60-71 18-20 114-136/42-70 97-97 Constitutional: Yes: Well Nourished, No Distress Eyes: No: Sclera Icterus Respiratory: Yes: bibasilar dry rales (improving). No: Accessory Muscle Use, Wheezes Gastrointestinal: Yes: Normal Bowel Sounds. No: Distention, Hepatomegaly, Palpable Mass, Tenderness Cardiovascular: Yes: Regular Rate and Rhythm nl s1. mechanical s2 JVD: No Murmur: No: Systolic Murmur, Diastolic Murmur Musculoskeletal: Yes: Other (No kyphosis) Extremities: No: Cold, Cyanosis Edema: No Integumentary: No: Jaundice diaphoresis Neurological: Yes: Alert, Oriented (x3) Psychiatric: No: Agitated CBC, BMP 09/14/16 05:48 09/14/16 05:48 ekg x3: LBBB. 1 is AT/AFL. other 2 are sinus with APCs tele: sr Assessment/Plan 85 yo with h/o s/p mech AVR, CAD s/p recent PCI x 2 - 05/2016, diastolic HF, DM, hypothyroidism p/w worsening, presents to ED with acute worsening chronic shortness of breath (dry cough, prog sob over many months). CAD: -reportedly had 2 stents 05/19 (cath done at [place], she follows with [facility]) -ECG here with LBBB which states is not new (no ECGs here since 2009) -trop neg x 2 -sob has not improved since PCI -cont home DAPT (ASA + Effient), metopr, statin h/o mech AVR -followed with echoes by Dr Mahoney -cont coumadin per home regimen/INR targets. PSVT vs atrial flutter -tele shows frequent runs of SVT with HR 150-160. 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 conduction vs PAT -she is already anticoagulated, cont coumadin per INR -she is already on high dose metoprolol (75 bid)-- incr to 100 bid trial -diltiazem 30mg q6h started here--cont same for now, observe tele, no significant svt recurrence acute on chronic sob, dry cough/ILD (new dx) -BNP 2300 -CXR my review (09/09 and 09/10) with no effusions or vasc redistribution; + diffuse mild incr interstitial pattern bases > upper lung jiménez per (cardiac PA), RHC at time of procedure showed he thinks only mild incr'd wedge, with "moderate pulm HTN" -suspect at baseline she has diast chf, well-compensated--acute chf post-cath ? due to dye load. -sx's not likely anginal in nature, did not improve after revascularization - 09/11 given trial of IV 40 mg IV lasix here with worsening of Cr this morning. Already received IV lasix dose this morning 09/11, will d/c. -CT c/w ILD, likely etiology of sx's. pulm following. - 09/12: BP running low and Cr trending up (last IV lasix dose before d/c was yesterday morning). Will d/w renal regarding need for gentle rehydration. -09/13: on ivfs, monitor cr trend -09/14: cr improving with ivfs, cont to hold diuretics
--- NOTE | 2016-09-14 13:16 | PN ---
Progress Note (short form) - Note Progress Note: Breathing feels overall better. Less SOB. Still with some dry cough. Intake & Output 09/11/16 09/12/16 09/13/16 09/14/16 23:59 23:59 23:59 23:59 Intake Total 653 516 5763 780 Balance 654 787 5487 780 Weight 161 lb 3.2 oz 166 lb 167 lb 8 oz 170 lb 8 oz Last Vital Signs Temp Pulse Resp BP Pulse Ox 97.4 F L 71 22 124/59 97 09/14/16 08:30 09/14/16 11:13 09/14/16 08:30 09/14/16 08:30 09/14/16 11:13 Active Medications Albuterol Sulfate (Ventolin 0.083% Nebulizer Soln -) 1 amp NEB Q4H PRN PRN Reason: SHORT OF BREATH/WHEEZING Albuterol Sulfate (Ventolin 0.083% Nebulizer Soln -) 1 amp NEB QIDR [facility] Last Admin: 09/14/16 11:20 Dose: 1 amp Aspirin (Ecotrin -) 81 mg PO DAILY [facility] Last Admin: 09/14/16 09:59 Dose: 81 mg Atorvastatin Calcium (Lipitor -) 40 mg PO [facility] Last Admin: 09/13/16 23:06 Dose: 40 mg Diltiazem HCl (Cardizem -) 30 mg PO Q6HPO [facility] Last Admin: 09/14/16 11:28 Dose: 30 mg Docusate Sodium (Colace -) 300 mg PO [facility] Last Admin: 09/13/16 23:04 Dose: Not Given Guaifenesin (Diabetic Tussin Dm -) 10 ml PO Q6H PRN PRN Reason: COUGH Sodium Chloride (Normal Saline -) 1,000 mls @ 65 mls/hr IV ASDIR [facility] Last Admin: 09/13/16 17:17 Dose: 65 mls/hr Insulin Aspart (Novolog Vial Sliding Scale -) 1 vial SQ ACHS [facility] PRN Reason: Protocol Last Admin: 09/14/16 11:27 Dose: 8 units Insulin Detemir (Levemir Vial) 20 units SQ BID@0700,2200 [facility] Last Admin: 09/14/16 06:53 Dose: 20 units Levothyroxine Sodium (Synthroid -) 100 mcg PO DAILY@0700 [facility] Last Admin: 09/14/16 06:52 Dose: 100 mcg Losartan Potassium (Cozaar -) 50 mg PO DAILY [facility] Last Admin: 09/11/16 09:30 Dose: 50 mg Methylprednisolone Sodium Succinate (Solu-Medrol -) 40 mg IVPB Q12H [facility] Last Admin: 09/14/16 10:20 Dose: Not Given Metoprolol Succinate (Toprol Xl -) 100 mg PO BID [facility] Last Admin: 09/14/16 09:59 Dose: 100 mg Prasugrel (Effient -) 5 mg PO DAILY [facility] Last Admin: 09/14/16 10:01 Dose: 5 mg Ranitidine HCl (Zantac -) 150 mg PO DAILY [facility] Last Admin: 09/14/16 09:59 Dose: 150 mg Senna (Senna -) 2 tab PO HS [facility] Last Admin: 09/13/16 23:03 Dose: Not Given Warfarin Sodium (Coumadin -) 2.5 mg PO SuTuThSa@1800 [facility] Last Admin: 09/12/16 17:27 Dose: Not Given Warfarin Sodium (Coumadin -) 5 mg PO MoWeFr@1800 [facility] Last Admin: 09/11/16 17:13 Dose: 5 mg Constitutional: Yes: NAD Eyes: Yes: WNL HENT: Yes: WNL Neck: Yes: WNL Cardiovascular: Yes: Pulse Irregular, S1, S2 Respiratory: Yes: Bibasilar Rales/crackles Gastrointestinal: Yes: Normal Bowel Sounds, Soft Extremities: Yes: WNL Edema: No Peripheral Pulses WNL: Yes Labs: Laboratory Results - last 24 hr 09/13/16 09/13/16 09/14/16 15:43 22:59 05:43 WBC RBC Hgb Hct MCV MCHC RDW Plt Count MPV Neutrophils % Lymphocytes % Monocytes % Differential Comment Platelet Estimate INR Sodium Potassium Chloride Carbon Dioxide Anion Gap BUN Creatinine POC Glucometer 453 265 214 Random Glucose Calcium 09/14/16 09/14/16 09/14/16 05:48 05:48 05:48 WBC 11.5 H D RBC 4.00 Hgb 11.2 Hct 33.9 MCV 84.7 MCHC 33.1 RDW 14.0 Plt Count 209 D MPV 9.1 Neutrophils % 92.0 H Lymphocytes % 4.0 L D Monocytes % 4.0 D Differential Comment Manual diff done Platelet Estimate Adequate INR 4.61 H* Sodium 142 Potassium 4.4 Chloride 107 Carbon Dioxide 26 Anion Gap 9 BUN 68 H Creatinine 1.6 H D POC Glucometer Random Glucose 227 H D Calcium 9.6 09/14/16 11:16 WBC RBC Hgb Hct MCV MCHC RDW Plt Count MPV Neutrophils % Lymphocytes % Monocytes % Differential Comment Platelet Estimate INR Sodium Potassium Chloride Carbon Dioxide Anion Gap BUN Creatinine POC Glucometer 359 Random Glucose Calcium Assessment/Plan Problem List - Problems (1) Coronary artery disease Code(s): I25.10 - ATHSCL HEART DISEASE OF [place] CORONARY ARTERY W/O ANG PCTRS (2) Diabetes mellitus Code(s): E11.9 - TYPE 2 DIABETES MELLITUS WITHOUT COMPLICATIONS (3) History of aortic valve replacement Code(s): Z95.2 - PRESENCE OF PROSTHETIC HEART VALVE (4) Hyperlipidemia Code(s): E78.5 - HYPERLIPIDEMIA, UNSPECIFIED (5) Hypothyroid Code(s): E03.9 - HYPOTHYROIDISM, UNSPECIFIED (6) Atrial fibrillation with rapid ventricular response Code(s): I48.91 - UNSPECIFIED ATRIAL FIBRILLATION (7) Interstitial lung disease Code(s): J84.9 - INTERSTITIAL PULMONARY DISEASE, UNSPECIFIED Assessment/Plan Atrial Fibrillation Suspected COPD ILD Mild Bronchiectasis CAD DM Hypothyroidism s/p AVR - Medrol taper - inhaled bronchodilators - LABA/ICS - O2 to keep SpO2 >90% - PFTs outpatient - anticoagulation Dr Jones
--- NOTE | 2016-09-14 16:14 | PN ---
Progress Note, Physician History of Present Illness: Pt seen and examined at bedside. She is awake and alert. She denies any worsening in SOB. - Current Medication List Current Medications: Active Medications Albuterol Sulfate (Ventolin 0.083% Nebulizer Soln -) 1 amp NEB Q4H PRN PRN Reason: SHORT OF BREATH/WHEEZING Albuterol Sulfate (Ventolin 0.083% Nebulizer Soln -) 1 amp NEB QIDR [facility] Last Admin: 09/14/16 11:20 Dose: 1 amp Aspirin (Ecotrin -) 81 mg PO DAILY [facility] Last Admin: 09/14/16 09:59 Dose: 81 mg Atorvastatin Calcium (Lipitor -) 40 mg PO HS [facility] Last Admin: 09/13/16 23:06 Dose: 40 mg Diltiazem HCl (Cardizem -) 30 mg PO Q6HPO [facility] Last Admin: 09/14/16 11:28 Dose: 30 mg Docusate Sodium (Colace -) 300 mg PO HS [facility] Last Admin: 09/13/16 23:04 Dose: Not Given Guaifenesin (Diabetic Tussin Dm -) 10 ml PO Q6H PRN PRN Reason: COUGH Sodium Chloride (Normal Saline -) 1,000 mls @ 65 mls/hr IV ASDIR [facility] Last Admin: 09/13/16 17:17 Dose: 65 mls/hr Insulin Aspart (Novolog Vial Sliding Scale -) 1 vial SQ ACHS [facility] PRN Reason: Protocol Last Admin: 09/14/16 11:27 Dose: 8 units Insulin Detemir (Levemir Vial) 20 units SQ BID@0700,2200 [facility] Last Admin: 09/14/16 06:53 Dose: 20 units Levothyroxine Sodium (Synthroid -) 100 mcg PO DAILY@0700 [facility] Last Admin: 09/14/16 06:52 Dose: 100 mcg Losartan Potassium (Cozaar -) 50 mg PO DAILY [facility] Last Admin: 09/11/16 09:30 Dose: 50 mg Methylprednisolone Sodium Succinate (Solu-Medrol -) 40 mg IVPB Q12H [facility] Last Admin: 09/14/16 10:20 Dose: Not Given Metoprolol Succinate (Toprol Xl -) 100 mg PO BID [facility] Last Admin: 09/14/16 09:59 Dose: 100 mg Prasugrel (Effient -) 5 mg PO DAILY [facility] Last Admin: 09/14/16 10:01 Dose: 5 mg Ranitidine HCl (Zantac -) 150 mg PO DAILY [facility] Last Admin: 09/14/16 09:59 Dose: 150 mg Senna (Senna -) 2 tab PO HS [facility] Last Admin: 09/13/16 23:03 Dose: Not Given Warfarin Sodium (Coumadin -) 2.5 mg PO SuTuThSa@1800 [facility] Last Admin: 09/12/16 17:27 Dose: Not Given Warfarin Sodium (Coumadin -) 5 mg PO MoWeFr@1800 [facility] Last Admin: 09/11/16 17:13 Dose: 5 mg - Objective Vital Signs: Vital Signs Temperature 97.6 F 09/14/16 14:35 Pulse Rate 53 L 09/14/16 14:35 Respiratory Rate 20 09/14/16 14:35 Blood Pressure 122/49 09/14/16 14:35 O2 Sat by Pulse Oximetry (%) 97 09/14/16 11:13 Constitutional: Yes: Calm Eyes: Yes: Conjunctiva Clear HENT: Yes: Atraumatic Neck: Yes: Supple Cardiovascular: Yes: S1, S2 Respiratory: Yes: On Nasal O2 Gastrointestinal: Yes: Soft Genitourinary: Yes: WNL Edema: Yes Edema: LLE: Trace, RLE: Trace Neurological: Yes: Oriented Psychiatric: Yes: Oriented Labs: CBC, BMP 09/14/16 05:48 09/14/16 05:48 INR, PTT INR 4.61 (0.82-1.09) H* 09/14/16 05:48 Problem List - Problems (1) ALEIDA (acute kidney injury) Code(s): N17.9 - ACUTE KIDNEY FAILURE, UNSPECIFIED (2) Atrial fibrillation Code(s): I48.91 - UNSPECIFIED ATRIAL FIBRILLATION Qualifiers: Atrial fibrillation type: chronic Qualified Code(s): I48.2 - Chronic atrial fibrillation (3) Diabetes mellitus Code(s): E11.9 - TYPE 2 DIABETES MELLITUS WITHOUT COMPLICATIONS Assessment/Plan Current Medications Generic Name Dose Route Start Last Admin Trade Name Freq PRN Reason Stop Dose Admin Albuterol Sulfate 1 amp 09/09/16 21:06 Ventolin 0.083% Nebulizer Soln - NEB Q4H PRN SHORT OF BREATH/WHEEZING Albuterol Sulfate 1 amp 09/10/16 00:00 09/14/16 11:20 Ventolin 0.083% Nebulizer Soln - NEB 1 amp QIDR [facility] Administration Aspirin 81 mg 09/10/16 10:00 09/14/16 09:59 Ecotrin - PO 81 mg DAILY [facility] Administration Atorvastatin Calcium 40 mg 09/09/16 22:00 09/13/16 23:06 Lipitor - PO 40 mg HS [facility] Administration Diltiazem HCl 30 mg 09/10/16 13:00 09/14/16 11:28 Cardizem - PO 30 mg Q6HPO [facility] Administration Docusate Sodium 300 mg 09/09/16 22:00 09/13/16 23:04 Colace - PO Not Given HS [facility] Guaifenesin 10 ml 09/09/16 21:06 Diabetic Tussin Dm - PO Q6H PRN COUGH Sodium Chloride 1,000 mls @ 65 mls/hr 09/12/16 16:30 09/13/16 17:17 Normal Saline - IV 65 mls/hr ASDIR [facility] Administration Insulin Aspart 1 vial 09/09/16 22:00 09/14/16 11:27 Novolog Vial Sliding Scale - SQ 8 units ACHS [facility] Administration Protocol Insulin Detemir 20 units 09/13/16 22:00 09/14/16 06:53 Levemir Vial SQ 20 units BID@0700,2200 [facility] Administration Levothyroxine Sodium 100 mcg 09/13/16 07:00 09/14/16 06:52 Synthroid - PO 100 mcg DAILY@0700 [facility] Administration Losartan Potassium 50 mg 09/10/16 10:00 09/11/16 09:30 Cozaar - PO 50 mg DAILY [facility] Administration Methylprednisolone Sodium Succinate 40 mg 09/12/16 11:15 09/14/16 10:20 Solu-Medrol - IVPB Not Given Q12H [facility] Metoprolol Succinate 100 mg 09/10/16 13:01 09/14/16 09:59 Toprol Xl - PO 100 mg BID [facility] Administration Prasugrel 5 mg 09/10/16 10:00 09/14/16 10:01 Effient - PO 5 mg DAILY [facility] Administration Ranitidine HCl 150 mg 09/10/16 10:00 09/14/16 09:59 Zantac - PO 150 mg DAILY [facility] Administration Senna 2 tab 09/09/16 22:00 09/13/16 23:03 Senna - PO Not Given HS [facility] Warfarin Sodium 2.5 mg 09/10/16 18:00 09/12/16 17:27 Coumadin - PO Not Given SuTuThSa@1800 [facility] Warfarin Sodium 5 mg 09/11/16 18:00 09/11/16 17:13 Coumadin - PO 5 mg MoWeFr@1800 [facility] Administration Impression 1. ALEIDA 2. Interstitial lung disease 3. a-fib 4. CAD 5. DM 6. chol Plan - renal function is improving - will decrease rate of fluids - repeat labs in am - diuretics on hold for now - monitor pulse ox - will follow Dr Alvarado
[2016-09-14] MEDS: SODIUM CHLORIDE 1,000 ML IV SCH ×2 (16:18→22:52)
--- NOTE | 2016-09-14 17:11 | PN ---
Progress Note, Physician Chief Complaint: Mrs Simon has no new complaints. No cp, sob, n/v. - Current Medication List Current Medications: Active Medications Albuterol Sulfate (Ventolin 0.083% Nebulizer Soln -) 1 amp NEB Q4H PRN PRN Reason: SHORT OF BREATH/WHEEZING Albuterol Sulfate (Ventolin 0.083% Nebulizer Soln -) 1 amp NEB QIDR [facility] Last Admin: 09/14/16 11:20 Dose: 1 amp Aspirin (Ecotrin -) 81 mg PO DAILY [facility] Last Admin: 09/14/16 09:59 Dose: 81 mg Atorvastatin Calcium (Lipitor -) 40 mg PO HS [facility] Last Admin: 09/13/16 23:06 Dose: 40 mg Diltiazem HCl (Cardizem -) 30 mg PO Q6HPO [facility] Last Admin: 09/14/16 17:02 Dose: Not Given Docusate Sodium (Colace -) 300 mg PO HS [facility] Last Admin: 09/13/16 23:04 Dose: Not Given Guaifenesin (Diabetic Tussin Dm -) 10 ml PO Q6H PRN PRN Reason: COUGH Sodium Chloride (Normal Saline -) 1,000 mls @ 35 mls/hr IV ASDIR [facility] Last Admin: 09/14/16 16:18 Dose: Not Given Insulin Aspart (Novolog Vial Sliding Scale -) 1 vial SQ ACHS [facility] PRN Reason: Protocol Last Admin: 09/14/16 16:35 Dose: 6 units Insulin Detemir (Levemir Vial) 20 units SQ BID@0700,2200 [facility] Last Admin: 09/14/16 06:53 Dose: 20 units Levothyroxine Sodium (Synthroid -) 100 mcg PO DAILY@0700 [facility] Last Admin: 09/14/16 06:52 Dose: 100 mcg Losartan Potassium (Cozaar -) 50 mg PO DAILY [facility] Last Admin: 09/11/16 09:30 Dose: 50 mg Methylprednisolone Sodium Succinate (Solu-Medrol -) 40 mg IVPB Q12H [facility] Last Admin: 09/14/16 10:20 Dose: Not Given Metoprolol Succinate (Toprol Xl -) 100 mg PO BID [facility] Last Admin: 09/14/16 09:59 Dose: 100 mg Prasugrel (Effient -) 5 mg PO DAILY [facility] Last Admin: 09/14/16 10:01 Dose: 5 mg Ranitidine HCl (Zantac -) 150 mg PO DAILY [facility] Last Admin: 09/14/16 09:59 Dose: 150 mg Senna (Senna -) 2 tab PO HS [facility] Last Admin: 09/13/16 23:03 Dose: Not Given Warfarin Sodium (Coumadin -) 2.5 mg PO SuTuThSa@1800 [facility] Last Admin: 09/12/16 17:27 Dose: Not Given Warfarin Sodium (Coumadin -) 5 mg PO MoWeFr@1800 [facility] Last Admin: 09/11/16 17:13 Dose: 5 mg - Objective Vital Signs: Vital Signs Temperature 97.6 F 09/14/16 14:35 Pulse Rate 53 L 09/14/16 14:35 Respiratory Rate 20 09/14/16 14:35 Blood Pressure 122/49 09/14/16 14:35 O2 Sat by Pulse Oximetry (%) 97 09/14/16 11:13 Constitutional: Yes: No Distress, Calm, Obese Cardiovascular: Yes: Regular Rate and Rhythm. No: Gallop, Murmur, Rub Respiratory: Yes: Regular, On Nasal O2, Rhonchi. No: Rales, Wheezes Gastrointestinal: Yes: Normal Bowel Sounds, Soft. No: Distention, Tenderness Extremities: Yes: WNL Edema: No Labs: CBC, BMP 09/14/16 05:48 09/14/16 05:48 INR, PTT INR 4.61 (0.82-1.09) H* 09/14/16 05:48 Problem List - Problems (1) Interstitial lung disease Code(s): J84.9 - INTERSTITIAL PULMONARY DISEASE, UNSPECIFIED (2) Coronary artery disease Code(s): I25.10 - ATHSCL HEART DISEASE OF [place] CORONARY ARTERY W/O ANG PCTRS (3) Diabetes mellitus Code(s): E11.9 - TYPE 2 DIABETES MELLITUS WITHOUT COMPLICATIONS (4) Hyperlipidemia Code(s): E78.5 - HYPERLIPIDEMIA, UNSPECIFIED (5) Hypothyroid Code(s): E03.9 - HYPOTHYROIDISM, UNSPECIFIED (6) Atrial fibrillation Code(s): I48.91 - UNSPECIFIED ATRIAL FIBRILLATION Qualifiers: Atrial fibrillation type: chronic Qualified Code(s): I48.2 - Chronic atrial fibrillation (7) ALEIDA (acute kidney injury) Code(s): N17.9 - ACUTE KIDNEY FAILURE, UNSPECIFIED Assessment/Plan (1) Interstitial lung disease Assessment/Plan: -continues to improve -pulmonary following -continue bronchodilators -receiving solumedrol bid, pulmonary titrating -when placed on oral steroid taper, begin discharge planning -will need pre and post as might need home oxygen Code(s): J84.9 - INTERSTITIAL PULMONARY DISEASE, UNSPECIFIED (2) Coronary artery disease Assessment/Plan: -quiescent -cardiology following -continue current regimen Code(s): I25.10 - ATHSCL HEART DISEASE OF [place] CORONARY ARTERY W/O ANG PCTRS (3) Diabetes mellitus Assessment/Plan: -with significant elevation -continue levemir 20 units bid -will check HgbA1c, patient says runs around 120 at home and is not on insulin Code(s): E11.9 - TYPE 2 DIABETES MELLITUS WITHOUT COMPLICATIONS (4) Hyperlipidemia Assessment/Plan: -continue lipitor Code(s): E78.5 - HYPERLIPIDEMIA, UNSPECIFIED (5) Hypothyroid Assessment/Plan: -with hyperthyroidism secondary to elevated dose -synthroid dose decreased Code(s): E03.9 - HYPOTHYROIDISM, UNSPECIFIED (6) Atrial fibrillation Assessment/Plan: -rate controlled -hold coumadin secondary to elevated INR -monitor INR Code(s): I48.91 - UNSPECIFIED ATRIAL FIBRILLATION Qualifiers: Atrial fibrillation type: chronic Qualified Code(s): I48.2 - Chronic atrial fibrillation (7) ALEIDA (acute kidney injury) Assessment/Plan: -continue IVF -nephrology following and case discussed -improving Code(s): N17.9 - ACUTE KIDNEY FAILURE, UNSPECIFIED
[2016-09-14] MEDS: ATORVASTATIN CA 40 MG TABLET (FP) PO SCH (22:23)
[2016-09-14] MEDS: SENNOSIDES 8.6MG TABLET (FP) PO SCH (22:51)
[2016-09-14] MEDS: DOCUSATE SODIUM 100 MG CAPSULE (FP) PO SCH (22:51)
[2016-09-15] MEDS: ALBUTEROL SO4 0.083% IH SOL 2.5 MG/3 ML VIAL.NEB. NEB SCH (00:35)
[2016-09-15] MEDS: dilTIAZem HCL 30 MG TABLET (FP) PO SCH ×3 (00:36→11:47)
[2016-09-15] MEDS: LEVOTHYROXINE NA 100 MCG TABLET (FP) PO SCH (06:19)
[2016-09-15] MEDS: INSULIN SLIDING SCALE (NOVOLOG) 1 VIAL SQ SCH ×4 (06:21→21:42)
[2016-09-15] MEDS: INSULIN DETEMIR 100 UNITS/ML MDV SQ SCH ×2 (06:22→21:40)
[2016-09-15 07:26] LABS: MCH 28.1 pg (25.7-33.7); MCHC 33.3 g/dl (32.0-36.0); MEAN CELL VOLUME 84.5 fl (80-96); MEAN PLT VOLUME 8.9 fl (7.5-11.1); PLATELET COUNT 211 K/MM3 (134-434); WHITE BLOOD COUNT 12.9 K/mm3 (4.0-10.0)
[2016-09-15 07:35] LABS: INR 3.82 (0.82-1.09); PROTHROMBIN TIME (PATIENT) 43.2 SEC (9.98-11.88)
[2016-09-15 07:51] LABS: ANION GAP 9 (8-16); CALCIUM 9.6 mg/dL (8.5-10.1); CO2 26 mmol/L (21-32); CREATININE 1.6 mg/dL (0.55-1.02); GLUCOSE,RANDOM 200 mg/dL (74-106); MAGNESIUM 2.4 mg/dL (1.8-2.4); PHOSPHOROUS 3.2 mg/dL (2.5-4.9)
[2016-09-15] MEDS ORDERED: PT OWN MED DRAWER 7, Y5N ONE (09:11)
[2016-09-15] MEDS: ASPIRIN COATED 81 MG TABLET.EC PO SCH (09:13)
[2016-09-15] MEDS: RANITIDINE HCL 150 MG TABLET (FP) PO SCH (09:13)
[2016-09-15] MEDS: METOPROLOL SUCCINATE 100 MG TAB.SR.24H (FP) PO SCH ×2 (09:13→21:41)
[2016-09-15] MEDS: PRASUGREL HCL 5 MG TAB PO SCH (09:13)
[2016-09-15 09:53] LABS: PLATELET ESTIMATE ADEQUATE (NORMAL)
[2016-09-15] MEDS: methylPREDNISolone NA SUCC 40 MG/1 ML VIAL IVPB SCH ×3 (10:34→23:30)
--- NOTE | 2016-09-15 11:18 | PN ---
Progress Note, Physician History of Present Illness: pulmonary alert,feeling better,less dyspneic,-cp,+ dry cough - Current Medication List Current Medications: Active Medications Aspirin (Ecotrin -) 81 mg PO DAILY [facility] Last Admin: 09/15/16 09:13 Dose: 81 mg Atorvastatin Calcium (Lipitor -) 40 mg PO HS [facility] Last Admin: 09/14/16 22:23 Dose: 40 mg Diltiazem HCl (Cardizem -) 30 mg PO Q6HPO [facility] Last Admin: 09/15/16 06:19 Dose: 30 mg Docusate Sodium (Colace -) 300 mg PO HS [facility] Last Admin: 09/14/16 22:51 Dose: Not Given Guaifenesin (Diabetic Tussin Dm -) 10 ml PO Q6H PRN PRN Reason: COUGH Sodium Chloride (Normal Saline -) 1,000 mls @ 35 mls/hr IV ASDIR [facility] Last Admin: 09/14/16 22:52 Dose: 35 mls/hr Insulin Aspart (Novolog Vial Sliding Scale -) 1 vial SQ [facility] PRN Reason: Protocol Last Admin: 09/15/16 06:21 Dose: Not Given Insulin Detemir (Levemir Vial) 20 units SQ BID@0700,2200 [facility] Last Admin: 09/15/16 06:22 Dose: 20 units Levothyroxine Sodium (Synthroid -) 100 mcg PO DAILY@0700 [facility] Last Admin: 09/15/16 06:19 Dose: 100 mcg Losartan Potassium (Cozaar -) 50 mg PO DAILY [facility] Last Admin: 09/11/16 09:30 Dose: 50 mg Methylprednisolone Sodium Succinate (Solu-Medrol -) 40 mg IVPB Q12H [facility] Last Admin: 09/15/16 10:34 Dose: 40 mg Metoprolol Succinate (Toprol Xl -) 100 mg PO BID [facility] Last Admin: 09/15/16 09:13 Dose: 100 mg Prasugrel (Effient -) 5 mg PO DAILY [facility] Last Admin: 09/15/16 09:13 Dose: 5 mg Ranitidine HCl (Zantac -) 150 mg PO DAILY [facility] Last Admin: 09/15/16 09:13 Dose: 150 mg Senna (Senna -) 2 tab PO [facility] Last Admin: 09/14/16 22:51 Dose: Not Given Warfarin Sodium (Coumadin -) 2.5 mg PO SuTuThSa@1800 [facility] Last Admin: 09/12/16 17:27 Dose: Not Given Warfarin Sodium (Coumadin -) 5 mg PO MoWeFr@1800 [facility] Last Admin: 09/11/16 17:13 Dose: 5 mg - Objective Vital Signs: Vital Signs Temperature 97.8 F 09/15/16 09:00 Pulse Rate 65 09/15/16 09:00 Respiratory Rate 20 09/15/16 06:00 Blood Pressure 131/56 09/15/16 09:00 O2 Sat by Pulse Oximetry (%) 94 L 09/15/16 09:00 Constitutional: Yes: Well Nourished, Calm Eyes: Yes: WNL HENT: Yes: WNL Neck: Yes: WNL Cardiovascular: Yes: Pulse Irregular, S1, S2 Respiratory: Yes: Rales (bibasilar crackles) Gastrointestinal: Yes: Normal Bowel Sounds, Soft Extremities: Yes: WNL Edema: Yes Labs: CBC, BMP 09/15/16 05:35 09/15/16 05:35 INR, PTT INR 3.82 (0.82-1.09) H 09/15/16 05:35 Problem List - Problems (1) Interstitial lung disease Code(s): J84.9 - INTERSTITIAL PULMONARY DISEASE, UNSPECIFIED Assessment/Plan Problem List - Problems (1) Coronary artery disease Code(s): I25.10 - ATHSCL HEART DISEASE OF [place] CORONARY ARTERY W/O ANG PCTRS (2) Diabetes mellitus Code(s): E11.9 - TYPE 2 DIABETES MELLITUS WITHOUT COMPLICATIONS (3) History of aortic valve replacement Code(s): Z95.2 - PRESENCE OF PROSTHETIC HEART VALVE (4) Hyperlipidemia Code(s): E78.5 - HYPERLIPIDEMIA, UNSPECIFIED (5) Hypothyroid Code(s): E03.9 - HYPOTHYROIDISM, UNSPECIFIED (6) Atrial fibrillation with rapid ventricular response Code(s): I48.91 - UNSPECIFIED ATRIAL FIBRILLATION Assessment/Plan Atrial Fibrillation r/o COPD ILD Mild Bronchiectasis CAD DM Hypothyroidism s/p AVR - continue medrol - inhaled bronchodilators - LABA/ICS - O2 to keep SpO2 >90% - PFTs outpatient - anticoagulation DR DAVENPORT
--- NOTE | 2016-09-15 11:47 | PN ---
Progress Note, Physician Chief Complaint: Less SOB , tamiko any chest pain History of Present Illness: 85 yrs old F with HTN, COPD, CHF, Afib DM admitted with COPD/CHF exacerbation - Current Medication List Current Medications: Active Medications Aspirin (Ecotrin -) 81 mg PO DAILY [facility] Last Admin: 09/15/16 09:13 Dose: 81 mg Atorvastatin Calcium (Lipitor -) 40 mg PO HS [facility] Last Admin: 09/14/16 22:23 Dose: 40 mg Diltiazem HCl (Cardizem -) 30 mg PO Q6HPO [facility] Last Admin: 09/15/16 06:19 Dose: 30 mg Docusate Sodium (Colace -) 300 mg PO HS [facility] Last Admin: 09/14/16 22:51 Dose: Not Given Guaifenesin (Diabetic Tussin Dm -) 10 ml PO Q6H PRN PRN Reason: COUGH Sodium Chloride (Normal Saline -) 1,000 mls @ 35 mls/hr IV ASDIR [facility] Last Admin: 09/14/16 22:52 Dose: 35 mls/hr Insulin Aspart (Novolog Vial Sliding Scale -) 1 vial SQ ACHS [facility] PRN Reason: Protocol Last Admin: 09/15/16 06:21 Dose: Not Given Insulin Detemir (Levemir Vial) 20 units SQ BID@0700,2200 [facility] Last Admin: 09/15/16 06:22 Dose: 20 units Levothyroxine Sodium (Synthroid -) 100 mcg PO DAILY@0700 [facility] Last Admin: 09/15/16 06:19 Dose: 100 mcg Losartan Potassium (Cozaar -) 50 mg PO DAILY [facility] Last Admin: 09/11/16 09:30 Dose: 50 mg Methylprednisolone Sodium Succinate (Solu-Medrol -) 30 mg IVPB Q12H [facility] Metoprolol Succinate (Toprol Xl -) 100 mg PO BID [facility] Last Admin: 09/15/16 09:13 Dose: 100 mg Prasugrel (Effient -) 5 mg PO DAILY [facility] Last Admin: 09/15/16 09:13 Dose: 5 mg Ranitidine HCl (Zantac -) 150 mg PO DAILY [facility] Last Admin: 09/15/16 09:13 Dose: 150 mg Senna (Senna -) 2 tab PO [facility] Last Admin: 09/14/16 22:51 Dose: Not Given Warfarin Sodium (Coumadin -) 2.5 mg PO SuTuThSa@1800 [facility] Last Admin: 09/12/16 17:27 Dose: Not Given Warfarin Sodium (Coumadin -) 5 mg PO MoWeFr@1800 [facility] Last Admin: 09/11/16 17:13 Dose: 5 mg - Objective Vital Signs: Vital Signs Temperature 97.8 F 09/15/16 09:00 Pulse Rate 65 09/15/16 09:00 Respiratory Rate 20 09/15/16 06:00 Blood Pressure 131/56 09/15/16 09:00 O2 Sat by Pulse Oximetry (%) 94 L 09/15/16 09:00 P Exam: General: Elderly f less SOB denies any chest pain. 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 No: Regular Rate and Rhythm Respiratory: Yes: Regular, Rales Gastrointestinal: Yes: Normal Bowel Sounds, Soft Musculoskeletal: Yes: WNL. No: Back Pain Extremities: Yes: WNL. No: Calf Tenderness Edema: LLE: Trace, RLE: Trace Peripheral Pulses: Left Doralis Pedis: 1+, Right Dorsalis Pedis: 1+ Neurological: Yes: WNL, Alert, Oriented ...Motor Strength: WNL, LUE, LLE, RUE, RLE Labs: CBC, BMP 09/15/16 05:35 09/15/16 05:35 INR, PTT INR 3.82 (0.82-1.09) H 09/15/16 05:35 Problem List - Problems (1) Atrial fibrillation Assessment/Plan: Rate controlled on AC , INR is trending down F/U INR in am Code(s): I48.91 - UNSPECIFIED ATRIAL FIBRILLATION Qualifiers: Atrial fibrillation type: chronic Qualified Code(s): I48.2 - Chronic atrial fibrillation (2) Hypothyroid Assessment/Plan: Cont Levothyroxine dose adjusted Code(s): E03.9 - HYPOTHYROIDISM, UNSPECIFIED (3) Diabetes mellitus Assessment/Plan: F/U accucheck optimize Glycemic control Code(s): E11.9 - TYPE 2 DIABETES MELLITUS WITHOUT COMPLICATIONS (4) Coronary artery disease Assessment/Plan: At present denies any chest pain , cardiology on the case cont current management Code(s): I25.10 - ATHSCL HEART DISEASE OF [place] CORONARY ARTERY W/O ANG PCTRS (5) ALEIDA (acute kidney injury) Assessment/Plan: Improving on IV Hydration nephrology on the case. Code(s): N17.9 - ACUTE KIDNEY FAILURE, UNSPECIFIED (6) History of aortic valve replacement Assessment/Plan: No active issue Code(s): Z95.2 - PRESENCE OF PROSTHETIC HEART VALVE
--- NOTE | 2016-09-15 12:12 | PN ---
Progress Note (short form) - Note Progress Note: CC: sob S: sob improved, no cp, palps, dizziness. Event Representative: dr cardenas Current Medications Generic Name Dose Route Start Last Admin Trade Name Allison PRN Reason Stop Dose Admin Aspirin 81 mg 09/10/16 10:00 09/15/16 09:13 Ecotrin - PO 81 mg DAILY [facility] Administration Atorvastatin Calcium 40 mg 09/09/16 22:00 09/14/16 22:23 Lipitor - PO 40 mg HS [facility] Administration Docusate Sodium 300 mg 09/09/16 22:00 09/14/16 22:51 Colace - PO Not Given HS [facility] Guaifenesin 10 ml 09/09/16 21:06 Diabetic Tussin Dm - PO Q6H PRN COUGH Sodium Chloride 1,000 mls @ 35 mls/hr 09/14/16 16:16 09/14/16 22:52 Normal Saline - IV 35 mls/hr ASDIR [facility] Administration Insulin Aspart 1 vial 09/09/16 22:00 09/15/16 06:21 Novolog Vial Sliding Scale - SQ Not Given ACHS [facility] Protocol Insulin Detemir 20 units 09/13/16 22:00 09/15/16 06:22 Levemir Vial SQ 20 units BID@0700,2200 [facility] Administration Levothyroxine Sodium 100 mcg 09/13/16 07:00 09/15/16 06:19 Synthroid - PO 100 mcg DAILY@0700 [facility] Administration Losartan Potassium 50 mg 09/10/16 10:00 09/11/16 09:30 Cozaar - PO 50 mg DAILY [facility] Administration Methylprednisolone Sodium Succinate 30 mg 09/15/16 11:19 09/15/16 11:47 Solu-Medrol - IVPB Not Given Q12H [facility] Metoprolol Succinate 100 mg 09/10/16 13:01 09/15/16 09:13 Toprol Xl - PO 100 mg BID [facility] Administration Prasugrel 5 mg 09/10/16 10:00 09/15/16 09:13 Effient - PO 5 mg DAILY [facility] Administration Ranitidine HCl 150 mg 09/10/16 10:00 09/15/16 09:13 Zantac - PO 150 mg DAILY [facility] Administration Senna 2 tab 09/09/16 22:00 09/14/16 22:51 Senna - PO Not Given HS [facility] Warfarin Sodium 2.5 mg 09/10/16 18:00 09/12/16 17:27 Coumadin - PO Not Given [email or web address] [facility] Warfarin Sodium 5 mg 09/11/16 18:00 09/11/16 17:13 Coumadin - PO 5 mg [email or web address] [facility] Administration Vital Signs Period Temp Pulse Resp BP Sys/Price Pulse Ox Last 24 Hr 97.4 F-98.4 F 53-69 20-20 122-134/49-67 94-98 Constitutional: Yes: Well Nourished, No Distress Eyes: No: Sclera Icterus Respiratory: Yes: bibasilar dry rales (improving). No: Accessory Muscle Use, Wheezes Gastrointestinal: Yes: Normal Bowel Sounds. No: Distention, Hepatomegaly, Palpable Mass, Tenderness Cardiovascular: Yes: Regular Rate and Rhythm nl s1. mechanical s2 JVD: No Murmur: No: Systolic Murmur, Diastolic Murmur Musculoskeletal: Yes: Other (No kyphosis) Extremities: No: Cold, Cyanosis Edema: No Integumentary: No: Jaundice diaphoresis Neurological: Yes: Alert, Oriented (x3) Psychiatric: No: Agitated CBC, BMP 09/15/16 05:35 09/15/16 05:35 ekg x3: LBBB. 1 is AT/AFL. other 2 are sinus with APCs tele: sr Assessment/Plan 85 yo with h/o s/p [facility] AVR, CAD s/p recent PCI x 2 - 05/2016, diastolic HF, DM, hypothyroidism p/w worsening, presents to ED with acute worsening chronic shortness of breath (dry cough, prog sob over many months). CAD: -reportedly had 2 stents 05/19 (cath done at [place], she follows with Theresa rojas) -ECG here with LBBB which states is not new (no ECGs here since 2009) -trop neg x 2 -sob has not improved since PCI -cont home DAPT (ASA + Effient), metopr, statin h/o [facility] AVR -followed with echoes by Dr Cardenas -cont coumadin per home regimen/INR targets. PSVT vs atrial flutter -tele shows frequent runs of SVT with HR 150-160. 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 conduction vs PAT -she is already anticoagulated, cont coumadin per INR -she is already on high dose metoprolol (75 bid)-- incr to 100 bid here -diltiazem 30mg q6h also started here but has been held frequently due to low HR so will dc -no recent svt issues on tele acute on chronic sob, dry cough/ILD (new dx) -BNP 2300 -CXR my review (09/09 and 09/10) with no effusions or vasc redistribution; + diffuse mild incr interstitial pattern bases > upper lung jiménez per (cardiac PA), RHC at time of procedure showed he thinks only mild incr'd wedge, with "moderate pulm HTN" -suspect at baseline she has diast chf, well-compensated--acute chf post-cath ? due to dye load. -sx's not likely anginal in nature, did not improve after revascularization - 09/11 given trial of IV 40 mg IV lasix here with worsening of Cr this morning. Already received IV lasix dose this morning 09/11, will d/c. -CT c/w ILD, likely etiology of sx's. pulm following. - 09/12: BP running low and Cr trending up (last IV lasix dose before d/c was yesterday morning). Will d/w renal regarding need for gentle rehydration. -09/13: on ivfs, monitor cr trend -09/14-16: cr improving with ivfs, cont to hold diuretics
--- NOTE | 2016-09-15 16:37 | PN ---
Progress Note, Physician History of Present Illness: Pt seen and examined at bedside. She is awake and alert. She is now off of oxygen. - Current Medication List Current Medications: Active Medications Aspirin (Ecotrin -) 81 mg PO DAILY [facility] Last Admin: 09/15/16 09:13 Dose: 81 mg Atorvastatin Calcium (Lipitor -) 40 mg PO HS [facility] Last Admin: 09/14/16 22:23 Dose: 40 mg Docusate Sodium (Colace -) 300 mg PO HS [facility] Last Admin: 09/14/16 22:51 Dose: Not Given Guaifenesin (Diabetic Tussin Dm -) 10 ml PO Q6H PRN PRN Reason: COUGH Sodium Chloride (Normal Saline -) 1,000 mls @ 35 mls/hr IV ASDIR [facility] Last Admin: 09/14/16 22:52 Dose: 35 mls/hr Insulin Aspart (Novolog Vial Sliding Scale -) 1 vial SQ ACHS [facility] PRN Reason: Protocol Last Admin: 09/15/16 16:13 Dose: 6 units Insulin Detemir (Levemir Vial) 20 units SQ BID@0700,2200 [facility] Last Admin: 09/15/16 06:22 Dose: 20 units Levothyroxine Sodium (Synthroid -) 100 mcg PO DAILY@0700 [facility] Last Admin: 09/15/16 06:19 Dose: 100 mcg Losartan Potassium (Cozaar -) 50 mg PO DAILY [facility] Last Admin: 09/11/16 09:30 Dose: 50 mg Methylprednisolone Sodium Succinate (Solu-Medrol -) 30 mg IVPB Q12H [facility] Last Admin: 09/15/16 11:47 Dose: Not Given Metoprolol Succinate (Toprol Xl -) 100 mg PO BID [facility] Last Admin: 09/15/16 09:13 Dose: 100 mg Prasugrel (Effient -) 5 mg PO DAILY [facility] Last Admin: 09/15/16 09:13 Dose: 5 mg Ranitidine HCl (Zantac -) 150 mg PO DAILY [facility] Last Admin: 09/15/16 09:13 Dose: 150 mg Senna (Senna -) 2 tab PO HS [facility] Last Admin: 09/14/16 22:51 Dose: Not Given Warfarin Sodium (Coumadin -) 2.5 mg PO SuTuThSa@1800 [facility] Last Admin: 09/12/16 17:27 Dose: Not Given Warfarin Sodium (Coumadin -) 5 mg PO MoWeFr@1800 [facility] Last Admin: 09/11/16 17:13 Dose: 5 mg - Objective Vital Signs: Vital Signs Temperature 98 F 09/15/16 14:15 Pulse Rate 67 09/15/16 14:15 Respiratory Rate 20 09/15/16 14:15 Blood Pressure 142/67 09/15/16 14:15 O2 Sat by Pulse Oximetry (%) 94 L 09/15/16 09:00 Constitutional: Yes: Calm Eyes: Yes: Conjunctiva Clear HENT: Yes: Atraumatic Neck: Yes: Supple Cardiovascular: Yes: S1, S2 Respiratory: Yes: CTA Bilaterally Gastrointestinal: Yes: WNL, Soft, Abdomen, Obese Genitourinary: Yes: WNL Edema: Yes Edema: LLE: Trace, RLE: Trace Neurological: Yes: Oriented Psychiatric: Yes: Oriented Labs: CBC, BMP 09/15/16 05:35 09/15/16 05:35 INR, PTT INR 3.82 (0.82-1.09) H 09/15/16 05:35 Problem List - Problems (1) ALEIDA (acute kidney injury) Code(s): N17.9 - ACUTE KIDNEY FAILURE, UNSPECIFIED (2) Atrial fibrillation Code(s): I48.91 - UNSPECIFIED ATRIAL FIBRILLATION Qualifiers: Atrial fibrillation type: chronic Qualified Code(s): I48.2 - Chronic atrial fibrillation (3) Diabetes mellitus Code(s): E11.9 - TYPE 2 DIABETES MELLITUS WITHOUT COMPLICATIONS Assessment/Plan Current Medications Generic Name Dose Route Start Last Admin Trade Name Freq PRN Reason Stop Dose Admin Aspirin 81 mg 09/10/16 10:00 09/15/16 09:13 Ecotrin - PO 81 mg DAILY [facility] Administration Atorvastatin Calcium 40 mg 09/09/16 22:00 09/14/16 22:23 Lipitor - PO 40 mg HS [facility] Administration Docusate Sodium 300 mg 09/09/16 22:00 09/14/16 22:51 Colace - PO Not Given [facility] Guaifenesin 10 ml 09/09/16 21:06 Diabetic Tussin Dm - PO Q6H PRN COUGH Sodium Chloride 1,000 mls @ 35 mls/hr 09/14/16 16:16 09/14/16 22:52 Normal Saline - IV 35 mls/hr ASDIR [facility] Administration Insulin Aspart 1 vial 09/09/16 22:00 09/15/16 16:13 Novolog Vial Sliding Scale - SQ 6 units ACHS [facility] Administration Protocol Insulin Detemir 20 units 09/13/16 22:00 09/15/16 06:22 Levemir Vial SQ 20 units BID@0700,2200 [facility] Administration Levothyroxine Sodium 100 mcg 09/13/16 07:00 09/15/16 06:19 Synthroid - PO 100 mcg DAILY@0700 [facility] Administration Losartan Potassium 50 mg 09/10/16 10:00 09/11/16 09:30 Cozaar - PO 50 mg DAILY [facility] Administration Methylprednisolone Sodium Succinate 30 mg 09/15/16 11:19 09/15/16 11:47 Solu-Medrol - IVPB Not Given Q12H [facility] Metoprolol Succinate 100 mg 09/10/16 13:01 09/15/16 09:13 Toprol Xl - PO 100 mg BID [facility] Administration Prasugrel 5 mg 09/10/16 10:00 09/15/16 09:13 Effient - PO 5 mg DAILY [facility] Administration Ranitidine HCl 150 mg 09/10/16 10:00 09/15/16 09:13 Zantac - PO 150 mg DAILY [facility] Administration Senna 2 tab 09/09/16 22:00 09/14/16 22:51 Senna - PO Not Given [facility] Warfarin Sodium 2.5 mg 09/10/16 18:00 09/12/16 17:27 Coumadin - PO Not Given [email or web address] [facility] Warfarin Sodium 5 mg 09/11/16 18:00 09/11/16 17:13 Coumadin - PO 5 mg [email or web address] [facility] Administration Impression 1. ALEIDA 2. Interstitial lung disease 3. a-fib 4. CAD 5. DM 6. chol Plan - renal function is slowly stabilizing - repeat labs in am - discussed case with her Alejo [phone] - hold diuretics for now - monitor pulse ox - will follow Dr Alvarado
[2016-09-15] MEDS: WARFARIN NA 5 MG TABLET (UD) PO SCH (21:39)
[2016-09-15] MEDS: DOCUSATE SODIUM 100 MG CAPSULE (FP) PO SCH (21:40)
[2016-09-15] MEDS: ATORVASTATIN CA 40 MG TABLET (FP) PO SCH (21:41)
[2016-09-15] MEDS: SENNOSIDES 8.6MG TABLET (FP) PO SCH (21:41)
[2016-09-16] MEDS: INSULIN SLIDING SCALE (NOVOLOG) 1 VIAL SQ SCH ×4 (06:20→22:00)
[2016-09-16] MEDS: LEVOTHYROXINE NA 100 MCG TABLET (FP) PO SCH (06:29)
[2016-09-16] MEDS: INSULIN DETEMIR 100 UNITS/ML MDV SQ SCH ×3 (07:11→22:00)
[2016-09-16 08:01] LABS: MCH 27.9 pg (25.7-33.7); MEAN CELL VOLUME 84.7 fl (80-96); PLATELET COUNT 257 K/MM3 (134-434); RDW 14.3 % (11.6-15.6); WHITE BLOOD COUNT 18.2 K/mm3 (4.0-10.0)
[2016-09-16 08:07] LABS: INR 2.97 (0.82-1.09); PROTHROMBIN TIME (PATIENT) 33.4 SEC (9.98-11.88)
[2016-09-16 08:46] LABS: ALBUMIN 2.8 g/dl (3.4-5.0); ALK PHOS 112 U/L (45-117); ANION GAP 10 (8-16); BILIRUBIN,TOTAL 0.9 mg/dL (0.2-1.0); CALCIUM 9.6 mg/dL (8.5-10.1); CO2 24 mmol/L (21-32); CREATININE 1.3 mg/dL (0.55-1.02); GLUCOSE,RANDOM 141 mg/dL (74-106); SGOT/AST 100 U/L (15-37); SGPT/ALT 154 U/L (12-78); TOT PROT 5.9 g/dl (6.4-8.2)
[2016-09-16 09:52] LABS: METAMYELOCYTE 6 % (0-2); PLATELET ESTIMATE ADEQUATE (NORMAL)
[2016-09-16] MEDS: RANITIDINE HCL 150 MG TABLET (FP) PO SCH (10:44)
[2016-09-16] MEDS: METOPROLOL SUCCINATE 100 MG TAB.SR.24H (FP) PO SCH (10:44)
[2016-09-16] MEDS: LOSARTAN POTASSIUM 50 MG TABLET (FP) PO SCH (10:45)
[2016-09-16] MEDS: ASPIRIN COATED 81 MG TABLET.EC PO SCH (10:45)
[2016-09-16] MEDS: methylPREDNISolone NA SUCC 40 MG/1 ML VIAL IVPB SCH ×2 (10:45→22:18)
[2016-09-16] MEDS ORDERED: PT OWN MED DRAWER 7, Y5N ONE (10:49)
[2016-09-16] MEDS: PRASUGREL HCL 5 MG TAB PO SCH (10:55)
--- NOTE | 2016-09-16 11:01 | PN ---
Progress Note, Physician History of Present Illness: pulmonary alert,nad,+ cough. - Current Medication List Current Medications: Active Medications Aspirin (Ecotrin -) 81 mg PO DAILY [facility] Last Admin: 09/16/16 10:45 Dose: 81 mg Atorvastatin Calcium (Lipitor -) 40 mg PO HS [facility] Last Admin: 09/15/16 21:41 Dose: 40 mg Docusate Sodium (Colace -) 300 mg PO HS [facility] Last Admin: 09/15/16 21:40 Dose: Not Given Guaifenesin (Diabetic Tussin Dm -) 10 ml PO Q6H PRN PRN Reason: COUGH Sodium Chloride (Normal Saline -) 1,000 mls @ 35 mls/hr IV ASDIR [facility] Last Admin: 09/14/16 22:52 Dose: 35 mls/hr Insulin Aspart (Novolog Vial Sliding Scale -) 1 vial SQ ACHS [facility] PRN Reason: Protocol Last Admin: 09/16/16 06:20 Dose: Not Given Insulin Detemir (Levemir Vial) 20 units SQ BID@0700,2200 [facility] Last Admin: 09/16/16 07:11 Dose: Not Given Levothyroxine Sodium (Synthroid -) 100 mcg PO DAILY@0700 [facility] Last Admin: 09/16/16 06:29 Dose: 100 mcg Losartan Potassium (Cozaar -) 50 mg PO DAILY [facility] Last Admin: 09/16/16 10:45 Dose: 50 mg Methylprednisolone Sodium Succinate (Solu-Medrol -) 30 mg IVPB Q12H [facility] Last Admin: 09/16/16 10:45 Dose: 30 mg Metoprolol Succinate (Toprol Xl -) 100 mg PO BID [facility] Last Admin: 09/16/16 10:44 Dose: Not Given Prasugrel (Effient -) 5 mg PO DAILY [facility] Last Admin: 09/16/16 10:55 Dose: 5 mg Ranitidine HCl (Zantac -) 150 mg PO DAILY [facility] Last Admin: 09/16/16 10:44 Dose: 150 mg Senna (Senna -) 2 tab PO [facility] Last Admin: 09/15/16 21:41 Dose: Not Given Warfarin Sodium (Coumadin -) 2.5 mg PO [email or web address] [facility] Last Admin: 09/12/16 17:27 Dose: Not Given Warfarin Sodium (Coumadin -) 5 mg PO [email or web address] [facility] Last Admin: 09/15/16 21:39 Dose: Not Given - Objective Vital Signs: Vital Signs Temperature 96.8 F L 09/16/16 08:23 Pulse Rate 64 09/16/16 08:23 Respiratory Rate 24 09/16/16 08:23 Blood Pressure 142/58 09/16/16 08:23 O2 Sat by Pulse Oximetry (%) 96 09/16/16 06:00 Constitutional: Yes: Well Nourished, Calm Eyes: Yes: WNL HENT: Yes: WNL Neck: Yes: WNL Cardiovascular: Yes: Pulse Irregular, S1, S2 Respiratory: Yes: Rales (bilateral crackles 1/3 up) Gastrointestinal: Yes: Normal Bowel Sounds, Soft Extremities: Yes: WNL Edema: Yes Labs: CBC, BMP 09/16/16 05:35 09/16/16 06:00 INR, PTT INR 2.97 (0.82-1.09) H 09/16/16 05:35 Problem List - Problems (1) Interstitial lung disease Code(s): J84.9 - INTERSTITIAL PULMONARY DISEASE, UNSPECIFIED Assessment/Plan Problem List - Problems (1) Coronary artery disease Code(s): I25.10 - ATHSCL HEART DISEASE OF [place] CORONARY ARTERY W/O ANG PCTRS (2) Diabetes mellitus Code(s): E11.9 - TYPE 2 DIABETES MELLITUS WITHOUT COMPLICATIONS (3) History of aortic valve replacement Code(s): Z95.2 - PRESENCE OF PROSTHETIC HEART VALVE (4) Hyperlipidemia Code(s): E78.5 - HYPERLIPIDEMIA, UNSPECIFIED (5) Hypothyroid Code(s): E03.9 - HYPOTHYROIDISM, UNSPECIFIED (6) Atrial fibrillation with rapid ventricular response Code(s): I48.91 - UNSPECIFIED ATRIAL FIBRILLATION Assessment/Plan Atrial Fibrillation r/o COPD ILD Mild Bronchiectasis CAD DM Hypothyroidism s/p AVR - continue medrol - inhaled bronchodilators - LABA/ICS - O2 to keep SpO2 >90% - PFTs outpatient - anticoagulation - check O2 sat at rest and post exercise on RA DR DAVENPORT
--- NOTE | 2016-09-16 11:26 | PN ---
Progress Note (short form) - Note Progress Note: Patient seen and examined. Chart reviewed at length. Currently sitting up in bed, lethargic but alert and appropriate. Denies new chest discomfort or increase in chronic cough and dyspnea. Medications, labs, radiologic testing and distributor sales consultant notes reviewed. Currently on nasal O2 and tapering doses of iv corticosteroids Medications Guaifenesin (Diabetic Tussin Dm -) 10 ml PO Q6H PRN PRN Reason: COUGH Sodium Chloride (Normal Saline -) 1,000 mls @ 35 mls/hr IV ASDIR [facility] Last Admin: 09/14/16 22:52 Dose: 35 mls/hr Warfarin Sodium (Coumadin -) 2.5 mg PO [email or web address] [facility] Last Admin: 09/12/16 17:27 Dose: Not Given Atorvastatin Calcium (Lipitor -) 40 mg PO HS [facility] Last Admin: 09/15/16 21:41 Dose: 40 mg Warfarin Sodium (Coumadin -) 5 mg PO [email or web address] [facility] Last Admin: 09/15/16 21:39 Dose: Not Given Methylprednisolone Sodium Succinate (Solu-Medrol -) 30 mg IVPB Q12H [facility] Last Admin: 09/15/16 23:30 Dose: 30 mg Losartan Potassium (Cozaar -) 50 mg PO DAILY [facility] Last Admin: 09/11/16 09:30 Dose: 50 mg Metoprolol Succinate (Toprol Xl -) 100 mg PO BID [facility] Last Admin: 09/15/16 21:41 Dose: 100 mg Docusate Sodium (Colace -) 300 mg PO HS [facility] Last Admin: 09/15/16 21:40 Dose: Not Given Senna (Senna -) 2 tab PO [facility] Last Admin: 09/15/16 21:41 Dose: Not Given Ranitidine HCl (Zantac -) 150 mg PO DAILY [facility] Last Admin: 09/15/16 09:13 Dose: 150 mg Insulin Aspart (Novolog Vial Sliding Scale -) 1 vial SQ ACHS [facility] PRN Reason: Protocol Last Admin: 09/16/16 06:20 Dose: Not Given Insulin Detemir (Levemir Vial) 20 units SQ BID@0700,2200 [facility] Last Admin: 09/16/16 07:11 Dose: Not Given Aspirin (Ecotrin -) 81 mg PO DAILY [facility] Last Admin: 09/15/16 09:13 Dose: 81 mg Prasugrel (Effient -) 5 mg PO DAILY [facility] Last Admin: 09/15/16 09:13 Dose: 5 mg Levothyroxine Sodium (Synthroid -) 100 mcg PO DAILY@0700 [facility] Last Admin: 09/16/16 06:29 Dose: 100 mcg Selected Entries 09/16/16 09/16/16 06:00 08:23 Temperature 96.8 F L Pulse Rate 64 Respiratory 24 Rate Blood Pressure 142/58 O2 Sat by Pulse 96 Oximetry (%) Oxygen Delivery Nasal Cannula Method Oxygen Flow 2 Rate Weight 171 lb 9.6 oz Laboratory Tests 09/16/16 09/16/16 09/16/16 05:35 05:35 06:00 WBC 18.2 H D Hgb 12.3 Hct 37.3 Plt Count 257 D INR 2.97 H Sodium 142 Potassium 4.6 Chloride 108 H BUN 56 H Creatinine 1.3 H Random Glucose 141 H D Calcium 9.6 Total Bilirubin 0.9 AST 100 H ALT 154 H Alkaline Phosphatase 112 Total Protein 5.9 L Albumin 2.8 L Chest Bibasilar dry rales Cor Irregular with ectopic beats Telemetry Sinus with periods of bradycardia (one 2 second pause) and ectopic beats with underlying LBBB complexes Abd Soft Obese Non-tender No mass Ext No phlebitis Non-pitting edema Neuro No focal deficit Assessment and Plan Interstitial Lung Disease CXR and CT reviewed Case discussed with Dr Cruz Etiology unclear On tapering corticosteroids Test O2 saturation on RA pre/ post exertion to check the extent of desaturation ASHD Stable Cardiologic follow-up Recent cardiac cath at [facility] Chronic LBBB Tachyarrhythmia Possible Afib vs PSVT or Flutter Diltiazem discontinued Telemetry reviewed as above AVR Mechanical valve On Warfarin Elevated INR Had been on Levofloxacin which can increase the INR Monitor closely Therapeutic range of 2.5 - 3.5 DM Monitor on tapering steroids CRI/ALEIDA Follow labs BUN/Cr 72/2.8>>56/1.3 Monitor fluid volume status Diastolic CHF Stable Hypothyroid TSH initially low on admission Thyroid dose decreased to 100mcg daily HPL Stable Continue close monitoring Taper steroids Evaluate O2 saturation with increased activity
--- NOTE | 2016-09-16 11:39 | PN ---
Progress Note (short form) - Note Progress Note: RENAL Pt is awake and alert comfortable Last Vital Signs Temp Pulse Resp BP Pulse Ox 96.8 F L 64 24 142/58 96 09/16/16 08:23 09/16/16 08:23 09/16/16 08:23 09/16/16 08:23 09/16/16 06:00 sitting up in bed lungs with crackles at right base cvs s1s2 irreg abd soft ext +edema neuro a+ox3 CBC, BMP 09/16/16 05:35 09/16/16 06:00 Current Medications Generic Name Dose Route Start Last Admin Trade Name Freq PRN Reason Stop Dose Admin Aspirin 81 mg 09/10/16 10:00 09/16/16 10:45 Ecotrin - PO 81 mg DAILY [facility] Administration Atorvastatin Calcium 40 mg 09/09/16 22:00 09/15/16 21:41 Lipitor - PO 40 mg HS [facility] Administration Docusate Sodium 300 mg 09/09/16 22:00 09/15/16 21:40 Colace - PO Not Given HS [facility]HA Guaifenesin 10 ml 09/09/16 21:06 Diabetic Tussin Dm - PO Q6H PRN COUGH Sodium Chloride 1,000 mls @ 35 mls/hr 09/14/16 16:16 09/14/16 22:52 Normal Saline - IV 35 mls/hr ASDIR [facility] Administration Insulin Aspart 1 vial 09/09/16 22:00 09/16/16 06:20 Novolog Vial Sliding Scale - SQ Not Given ACHS [facility] Protocol Insulin Detemir 12 units 09/16/16 11:45 Levemir Vial SQ BID@0700,2200 [facility] Levothyroxine Sodium 100 mcg 09/13/16 07:00 09/16/16 06:29 Synthroid - PO 100 mcg DAILY@0700 [facility] Administration Losartan Potassium 50 mg 09/10/16 10:00 09/16/16 10:45 Cozaar - PO 50 mg DAILY [facility] Administration Methylprednisolone Sodium Succinate 30 mg 09/15/16 11:19 09/16/16 10:45 Solu-Medrol - IVPB 30 mg Q12H [facility] Administration Metoprolol Succinate 100 mg 09/10/16 13:01 09/16/16 10:44 Toprol Xl - PO Not Given BID [facility] Prasugrel 5 mg 09/10/16 10:00 09/16/16 10:55 Effient - PO 5 mg DAILY [facility] Administration Ranitidine HCl 150 mg 09/10/16 10:00 09/16/16 10:44 Zantac - PO 150 mg DAILY [facility] Administration Senna 2 tab 09/09/16 22:00 09/15/16 21:41 Senna - PO Not Given HS [facility] Warfarin Sodium 2.5 mg 09/10/16 18:00 09/12/16 17:27 Coumadin - PO Not Given [email or web address] [facility] Warfarin Sodium 5 mg 09/11/16 18:00 09/15/16 21:39 Coumadin - PO Not Given [email or web address] [facility] Impression 1. ALEIDA, high bun in part from steroids 2. Interstitial lung disease 3. a-fib 4. CAD 5. DM 6. chol 7. may have dry crackles from interstitial lung disease Plan -dc ivf - continue to hold diuretics and monitor MV
--- NOTE | 2016-09-16 12:01 | PN ---
Progress Note (short form) - Note Progress Note: CC: sob S: sob a little worse this AM, no cp, palps, dizziness. Spud Grader: dr cardenas Current Medications Generic Name Dose Route Start Last Admin Trade Name Allison PRN Reason Stop Dose Admin Aspirin 81 mg 09/10/16 10:00 09/16/16 10:45 Ecotrin - PO 81 mg DAILY [facility] Administration Atorvastatin Calcium 40 mg 09/09/16 22:00 09/15/16 21:41 Lipitor - PO 40 mg HS [facility] Administration Docusate Sodium 300 mg 09/09/16 22:00 09/15/16 21:40 Colace - PO Not Given HS [facility] Guaifenesin 10 ml 09/09/16 21:06 Diabetic Tussin Dm - PO Q6H PRN COUGH Insulin Aspart 1 vial 09/09/16 22:00 09/16/16 11:41 Novolog Vial Sliding Scale - SQ 4 units ACHS [facility] Administration Protocol Insulin Detemir 12 units 09/16/16 11:45 09/16/16 11:41 Levemir Vial SQ 12 units BID@0700,2200 [facility] Administration Levothyroxine Sodium 100 mcg 09/13/16 07:00 09/16/16 06:29 Synthroid - PO 100 mcg DAILY@0700 [facility] Administration Losartan Potassium 50 mg 09/10/16 10:00 09/16/16 10:45 Cozaar - PO 50 mg DAILY [facility] Administration Methylprednisolone Sodium Succinate 30 mg 09/15/16 11:19 09/16/16 10:45 Solu-Medrol - IVPB 30 mg Q12H [facility] Administration Metoprolol Succinate 75 mg 09/16/16 11:58 Toprol Xl - PO BID [facility] Prasugrel 5 mg 09/10/16 10:00 09/16/16 10:55 Effient - PO 5 mg DAILY [facility] Administration Ranitidine HCl 150 mg 09/10/16 10:00 09/16/16 10:44 Zantac - PO 150 mg DAILY [facility] Administration Senna 2 tab 09/09/16 22:00 09/15/16 21:41 Senna - PO Not Given HS [facility] Warfarin Sodium 2.5 mg 09/10/16 18:00 09/12/16 17:27 Coumadin - PO Not Given [email or web address] [facility] Warfarin Sodium 5 mg 09/11/16 18:00 09/15/16 21:39 Coumadin - PO Not Given [email or web address] [facility] Vital Signs Period Temp Pulse Resp BP Sys/Price Pulse Ox Last 24 Hr 96.8 F-98 F 61-68 18-24 142-153/58-74 96-96 Constitutional: Yes: Well Nourished, No Distress Eyes: No: Sclera Icterus Respiratory: Yes: mild wheezing. No: Accessory Muscle Use, Wheezes Gastrointestinal: Yes: Normal Bowel Sounds. No: Distention, Hepatomegaly, Palpable Mass, Tenderness Cardiovascular: Yes: Regular Rate and Rhythm nl s1. mechanical s2 JVD: No Murmur: No: Systolic Murmur, Diastolic Murmur Musculoskeletal: Yes: Other (No kyphosis) Extremities: No: Cold, Cyanosis Edema: No Integumentary: No: Jaundice diaphoresis Neurological: Yes: Alert, Oriented (x3) Psychiatric: No: Agitated CBC, BMP 09/16/16 05:35 09/16/16 06:00 ekg x3: LBBB. 1 is AT/AFL. other 2 are sinus with APCs tele: sr Assessment/Plan 85 yo with h/o s/p [facility] AVR, CAD s/p recent PCI x 2 - 05/2016, diastolic HF, DM, hypothyroidism p/w worsening, presents to ED with acute worsening chronic shortness of breath (dry cough, prog sob over many months). CAD: -reportedly had 2 stents 05/19 (cath done at [place], she follows with Theresa rojas) -ECG here with LBBB which states is not new (no ECGs here since 2009) -trop neg x 2 -sob has not improved since PCI -cont home DAPT (ASA + Effient), metopr, statin h/o [facility] AVR -followed with echoes by Dr Cardenas -cont coumadin per home regimen/INR targets. PSVT vs atrial flutter -tele shows frequent runs of SVT with HR 150-160. 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 conduction vs PAT -she is already anticoagulated, cont coumadin per INR -dilt started and bb increased here but has been too bradycardic to get these doses so dilt was stopped and will now decrease toprol to 75 bid -no recent svt on tele acute on chronic sob, dry cough/ILD (new dx) -BNP 2300 -CXR my review (09/09 and 09/10) with no effusions or vasc redistribution; + diffuse mild incr interstitial pattern bases > upper lung jiménez per (cardiac PA), RHC at time of procedure showed he thinks only mild incr'd wedge, with "moderate pulm HTN" -suspect at baseline she has diast chf, well-compensated--acute chf post-cath ? due to dye load. -sx's not likely anginal in nature, did not improve after revascularization - 09/11 given trial of IV 40 mg IV lasix here with worsening of Cr this morning. Already received IV lasix dose this morning 09/11, will d/c. -CT c/w ILD, likely etiology of sx's. pulm following. - 09/12: BP running low and Cr trending up (last IV lasix dose before d/c was yesterday morning). Will d/w renal regarding need for gentle rehydration. -09/13: on ivfs, monitor cr trend -09/16: cr improving with ivfs, can likely dc now, will resume home dose lasix tomorrow if cr stable
[2016-09-16] MEDS: METOPROLOL SUCCINATE 25 MG TAB.SR.24H (FP) PO SCH ×2 (13:31→21:55)
[2016-09-16] MEDS: WARFARIN NA 2.5 MG TABLET (FP) PO SCH (17:22)
[2016-09-16] MEDS: ATORVASTATIN CA 40 MG TABLET (FP) PO SCH (21:55)
[2016-09-16] MEDS: SENNOSIDES 8.6MG TABLET (FP) PO SCH (22:02)
[2016-09-16] MEDS: DOCUSATE SODIUM 100 MG CAPSULE (FP) PO SCH (22:03)
[2016-09-17] MEDS: LEVOTHYROXINE NA 100 MCG TABLET (FP) PO SCH (06:16)
[2016-09-17] MEDS: INSULIN DETEMIR 100 UNITS/ML MDV SQ SCH ×2 (06:17→21:56)
[2016-09-17] MEDS: INSULIN SLIDING SCALE (NOVOLOG) 1 VIAL SQ SCH ×4 (06:18→21:56)
[2016-09-17 07:28] LABS: INR 2.41 (0.82-1.09)
[2016-09-17 07:46] LABS: ALBUMIN 2.8 g/dl (3.4-5.0); ANION GAP 9 (8-16); CALCIUM 9.3 mg/dL (8.5-10.1); CO2 25 mmol/L (21-32); CREATININE 1.5 mg/dL (0.55-1.02); GLUCOSE,RANDOM 170 mg/dL (74-106); SGOT/AST 93 U/L (15-37); SGPT/ALT 166 U/L (12-78)
[2016-09-17 07:48] LABS: ALK PHOS 121 U/L (45-117); BILIRUBIN,TOTAL 1.1 mg/dL (0.2-1.0); TOT PROT 5.9 g/dl (6.4-8.2)
[2016-09-17 08:10] LABS: MCH 28.4 pg (25.7-33.7); MCHC 33.5 g/dl (32.0-36.0); MEAN CELL VOLUME 84.6 fl (80-96); MEAN PLT VOLUME 8.9 fl (7.5-11.1); PLATELET COUNT 237 K/MM3 (134-434); RDW 14.1 % (11.6-15.6)
[2016-09-17] MEDS ORDERED: PT OWN MED DRAWER 7, Y5N ONE (09:17)
[2016-09-17 09:39] LABS: METAMYELOCYTE 2 % (0-2); PLATELET ESTIMATE ADEQUATE (NORMAL)
[2016-09-17] MEDS: PRASUGREL HCL 5 MG TAB PO SCH (09:50)
[2016-09-17] MEDS: methylPREDNISolone NA SUCC 40 MG/1 ML VIAL IVPB SCH ×2 (09:50→21:57)
[2016-09-17] MEDS: RANITIDINE HCL 150 MG TABLET (FP) PO SCH (09:50)
[2016-09-17] MEDS: METOPROLOL SUCCINATE 25 MG TAB.SR.24H (FP) PO SCH ×2 (09:50→21:57)
[2016-09-17] MEDS: LOSARTAN POTASSIUM 50 MG TABLET (FP) PO SCH (09:50)
[2016-09-17] MEDS: ASPIRIN COATED 81 MG TABLET.EC PO SCH (09:50)
--- NOTE | 2016-09-17 11:02 | PN ---
Progress Note (short form) - Note Progress Note: Patient seen and examined. Chart reviewed at length. Currently sitting up in bed, lethargic but alert and appropriate. Denies new chest discomfort or increase in chronic cough and dyspnea. Medications, labs, radiologic testing and workday consultant notes reviewed. Currently off of nasal O2 without distress. To check O2 saturation on room air pre/post exertion Selected Entries 09/17/16 09/17/16 05:52 06:00 Temperature 97.6 F Pulse Rate 59 L Respiratory 18 Rate Blood Pressure 164/64 Weight 170 lb 9.6 oz Laboratory Tests 09/17/16 09/17/16 09/17/16 05:35 05:35 05:35 WBC 17.0 H Hgb 12.6 Hct 37.5 Plt Count 237 INR 2.41 H Sodium 144 Potassium 4.7 Chloride 110 H Carbon Dioxide 25 BUN 59 H Creatinine 1.5 H Random Glucose 170 H D Calcium 9.3 Total Bilirubin 1.1 H D AST 93 H ALT 166 H Alkaline Phosphatase 121 H Total Protein 5.9 L Albumin 2.8 L Chest Bibasilar dry rales Otherwise clear Cor Irregular with ectopic beats Telemetry Sinus with periods of bradycardia (one 2 second pause) and ectopic beats with underlying LBBB complexes Abd Soft Obese Non-tender No mass Ext No phlebitis Non-pitting edema Neuro No focal deficit Assessment and Plan Interstitial Lung Disease CXR and CT reviewed Case discussed with Dr Cruz Etiology unclear On tapering corticosteroids Test O2 saturation on RA pre/ post exertion to check the extent of desaturation Weakness/Deconditioning Physical therapy for ambulation Home PT post discharge ASHD Stable Cardiologic follow-up Recent cardiac cath at [facility] [place] Chronic LBBB Tachyarrhythmia Possible Afib vs PSVT or Flutter Diltiazem discontinued Telemetry reviewed as above AVR Mechanical valve On Warfarin INR 2.41 Elevated INR Had been on Levofloxacin which can increase the INR Monitor closely Therapeutic range of 2.5 - 3.5 DM Monitor on tapering steroids CRI/ALEIDA Follow labs BUN/Cr 72/2.8>>56/1.3>>59/1.5 Monitor fluid volume status Diastolic CHF Stable Hypothyroid TSH initially low on admission Thyroid dose decreased to 100mcg daily Recheck as outpatient HPL Stable Abnormal LFTs AST/ALT 100/154>>166/121 Alk Phos 112>>121 Etiology unclear Likely underlying NAFLD, with posible drug reaction and/or passive congestion from Right sided CHF Continue close monitoring Taper steroids Evaluate O2 saturation with increased activity
--- NOTE | 2016-09-17 11:23 | PN ---
Progress Note (short form) - Note Progress Note: CC: sob S: sob better, feels at baseline now. no cp, palps, dizziness. Slab Tripper: dr cardenas Current Medications Generic Name Dose Route Start Last Admin Trade Name Allison PRN Reason Stop Dose Admin Aspirin 81 mg 09/10/16 10:00 09/17/16 09:50 Ecotrin - PO 81 mg DAILY [facility] Administration Docusate Sodium 300 mg 09/09/16 22:00 09/16/16 22:03 Colace - PO Not Given HS [facility]HA Guaifenesin 10 ml 09/09/16 21:06 Diabetic Tussin Dm - PO Q6H PRN COUGH Insulin Aspart 1 vial 09/09/16 22:00 09/17/16 06:18 Novolog Vial Sliding Scale - SQ Not Given ACHS [facility] Protocol Insulin Detemir 12 units 09/16/16 11:45 09/17/16 06:17 Levemir Vial SQ 12 units BID@0700,2200 [facility] Administration Levothyroxine Sodium 100 mcg 09/13/16 07:00 09/17/16 06:16 Synthroid - PO 100 mcg DAILY@0700 [facility] Administration Losartan Potassium 50 mg 09/10/16 10:00 09/17/16 09:50 Cozaar - PO 50 mg DAILY [facility] Administration Methylprednisolone Sodium Succinate 30 mg 09/16/16 22:00 09/17/16 09:50 Solu-Medrol - IVPB 30 mg Q12H [facility] Administration Metoprolol Succinate 75 mg 09/16/16 12:15 09/17/16 09:50 Toprol Xl - PO 75 mg BID [facility] Administration Prasugrel 5 mg 09/10/16 10:00 09/17/16 09:50 Effient - PO 5 mg DAILY [facility] Administration Ranitidine HCl 150 mg 09/10/16 10:00 09/17/16 09:50 Zantac - PO 150 mg DAILY [facility] Administration Senna 2 tab 09/09/16 22:00 09/16/16 22:02 Senna - PO Not Given HS [facility] Warfarin Sodium 2.5 mg 09/10/16 18:00 09/16/16 17:22 Coumadin - PO Not Given [email or web address] [facility] Warfarin Sodium 5 mg 09/11/16 18:00 09/15/16 21:39 Coumadin - PO Not Given [email or web address] [facility] Vital Signs Period Temp Pulse Resp BP Sys/Price Pulse Ox Last 24 Hr 97.5 F-98.5 F 59-68 18-21 133-164/64-91 94 Constitutional: Yes: Well Nourished, No Distress Eyes: No: Sclera Icterus Respiratory: Yes: mild wheezing. No: Accessory Muscle Use, Wheezes Gastrointestinal: Yes: Normal Bowel Sounds. No: Distention, Hepatomegaly, Palpable Mass, Tenderness Cardiovascular: Yes: Regular Rate and Rhythm nl s1. mechanical s2 JVD: No Murmur: No: Systolic Murmur, Diastolic Murmur Musculoskeletal: Yes: Other (No kyphosis) Extremities: No: Cold, Cyanosis Edema: No Integumentary: No: Jaundice diaphoresis Neurological: Yes: Alert, Oriented (x3) Psychiatric: No: Agitated CBC, BMP 09/17/16 05:35 09/17/16 05:35 ekg x3: LBBB. 1 is AT/AFL. other 2 are sinus with APCs tele: sr Assessment/Plan 85 yo with h/o s/p [facility] AVR, CAD s/p recent PCI x 2 - 05/2016, diastolic HF, DM, hypothyroidism p/w worsening, presents to ED with acute worsening chronic shortness of breath (dry cough, prog sob over many months). CAD: -reportedly had 2 stents 05/19 (cath done at [place], she follows with Theresa rojas) -ECG here with LBBB which states is not new (no ECGs here since 2009) -trop neg x 2 -sob has not improved since PCI -cont home DAPT (ASA + Effient), metopr, statin h/o [facility] AVR -followed with echoes by Dr Cardenas -cont coumadin per home regimen/INR targets. PSVT vs atrial flutter -tele shows frequent runs of SVT with HR 150-160. 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 conduction vs PAT -she is already anticoagulated, cont coumadin per INR -dilt started and bb increased here but has been too bradycardic to get these doses so dilt was stopped and toprol decreased back to 75 bid -no recent svt on tele acute on chronic sob, dry cough/ILD (new dx) -BNP 2300 -CXR my review (09/09 and 09/10) with no effusions or vasc redistribution; + diffuse mild incr interstitial pattern bases > upper lung jiménez per (cardiac PA), RHC at time of procedure showed he thinks only mild incr'd wedge, with "moderate pulm HTN" -suspect at baseline she has diast chf, well-compensated--acute chf post-cath ? due to dye load. -sx's not likely anginal in nature, did not improve after revascularization - 09/11 given trial of IV 40 mg IV lasix here with worsening of Cr this morning. Already received IV lasix dose this morning 09/11, will d/c. -CT c/w ILD, likely etiology of sx's. pulm following. - 09/12: BP running low and Cr trending up (last IV lasix dose before d/c was yesterday morning). Will d/w renal regarding need for gentle rehydration. -09/13: on ivfs, monitor cr trend -09/16: cr improving with ivfs, can likely dc now, will resume home dose lasix tomorrow if cr stable -09/17: cr improved, off ivfs now. resume home lasix 40 po qd tomorrow.
--- NOTE | 2016-09-17 11:28 | PN ---
Progress Note, Physician History of Present Illness: PULMONARY ALERT,LESS COUGH,-SOB AT REST,-CP - Current Medication List Current Medications: Active Medications Aspirin (Ecotrin -) 81 mg PO DAILY [facility] Last Admin: 09/17/16 09:50 Dose: 81 mg Docusate Sodium (Colace -) 300 mg PO HS [facility] Last Admin: 09/16/16 22:03 Dose: Not Given Furosemide (Lasix -) 40 mg PO DAILY [facility] Guaifenesin (Diabetic Tussin Dm -) 10 ml PO Q6H PRN PRN Reason: COUGH Insulin Aspart (Novolog Vial Sliding Scale -) 1 vial SQ ACHS [facility] PRN Reason: Protocol Last Admin: 09/17/16 06:18 Dose: Not Given Insulin Detemir (Levemir Vial) 12 units SQ BID@0700,2200 [facility] Last Admin: 09/17/16 06:17 Dose: 12 units Levothyroxine Sodium (Synthroid -) 100 mcg PO DAILY@0700 [facility] Last Admin: 09/17/16 06:16 Dose: 100 mcg Losartan Potassium (Cozaar -) 50 mg PO DAILY [facility] Last Admin: 09/17/16 09:50 Dose: 50 mg Methylprednisolone Sodium Succinate (Solu-Medrol -) 30 mg IVPB Q12H [facility] Last Admin: 09/17/16 09:50 Dose: 30 mg Metoprolol Succinate (Toprol Xl -) 75 mg PO BID [facility] Last Admin: 09/17/16 09:50 Dose: 75 mg Prasugrel (Effient -) 5 mg PO DAILY [facility] Last Admin: 09/17/16 09:50 Dose: 5 mg Ranitidine HCl (Zantac -) 150 mg PO DAILY [facility] Last Admin: 09/17/16 09:50 Dose: 150 mg Senna (Senna -) 2 tab PO [facility] Last Admin: 09/16/16 22:02 Dose: Not Given Warfarin Sodium (Coumadin -) 2.5 mg PO SuTuThSa@1800 [facility] Last Admin: 09/16/16 17:22 Dose: Not Given Warfarin Sodium (Coumadin -) 5 mg PO MoWeFr@1800 [facility] Last Admin: 09/15/16 21:39 Dose: Not Given - Objective Vital Signs: Vital Signs Temperature 97.6 F 09/17/16 05:52 Pulse Rate 59 L 09/17/16 05:52 Respiratory Rate 18 09/17/16 05:52 Blood Pressure 164/64 09/17/16 05:52 O2 Sat by Pulse Oximetry (%) 94 L 09/16/16 21:00 Constitutional: Yes: Well Nourished, Calm Eyes: Yes: WNL HENT: Yes: WNL Neck: Yes: WNL Cardiovascular: Yes: Pulse Irregular, S1, S2 Respiratory: Yes: Rales (BILATERAL CRACKLES 1/3 UP) Gastrointestinal: Yes: Normal Bowel Sounds, Soft Extremities: Yes: WNL Edema: Yes Labs: CBC, BMP 09/17/16 05:35 09/17/16 05:35 INR, PTT INR 2.41 (0.82-1.09) H 09/17/16 05:35 Problem List - Problems (1) Interstitial lung disease Code(s): J84.9 - INTERSTITIAL PULMONARY DISEASE, UNSPECIFIED Assessment/Plan Problem List - Problems (1) Coronary artery disease Code(s): I25.10 - ATHSCL HEART DISEASE OF [place] CORONARY ARTERY W/O ANG PCTRS (2) Diabetes mellitus Code(s): E11.9 - TYPE 2 DIABETES MELLITUS WITHOUT COMPLICATIONS (3) History of aortic valve replacement Code(s): Z95.2 - PRESENCE OF PROSTHETIC HEART VALVE (4) Hyperlipidemia Code(s): E78.5 - HYPERLIPIDEMIA, UNSPECIFIED (5) Hypothyroid Code(s): E03.9 - HYPOTHYROIDISM, UNSPECIFIED (6) Atrial fibrillation with rapid ventricular response Code(s): I48.91 - UNSPECIFIED ATRIAL FIBRILLATION Assessment/Plan Atrial Fibrillation r/o COPD ILD Mild Bronchiectasis CAD DM Hypothyroidism s/p AVR - medrol taper - inhaled bronchodilators - LABA/ICS - O2 to keep SpO2 >90% - PFTs outpatient - anticoagulation - check O2 sat at rest and post exercise on RA - chest x-ray pa and lateral today - outpatient pulmonary rehab DR DAVENPORT
--- NOTE | 2016-09-17 11:37 | PN ---
Progress Note (short form) - Note Progress Note: RENAL Pt is awake and alert comfortable Last Vital Signs Temp Pulse Resp BP Pulse Ox 97.6 F 59 L 18 164/64 94 L 09/17/16 05:52 09/17/16 05:52 09/17/16 05:52 09/17/16 05:52 09/16/16 21:00 sitting up in bed lungs with crackles at right base cvs s1s2 irreg abd soft ext +edema neuro a+ox3 CBC, BMP 09/17/16 05:35 09/17/16 05:35 Current Medications Generic Name Dose Route Start Last Admin Trade Name Freq PRN Reason Stop Dose Admin Aspirin 81 mg 09/10/16 10:00 09/17/16 09:50 Ecotrin - PO 81 mg DAILY [facility] Administration Docusate Sodium 300 mg 09/09/16 22:00 09/16/16 22:03 Colace - PO Not Given HS [facility] Furosemide 40 mg 09/18/16 10:00 Lasix - PO DAILY [facility] Guaifenesin 10 ml 09/09/16 21:06 Diabetic Tussin Dm - PO Q6H PRN COUGH Insulin Aspart 1 vial 09/09/16 22:00 09/17/16 06:18 Novolog Vial Sliding Scale - SQ Not Given ACHS [facility] Protocol Insulin Detemir 12 units 09/16/16 11:45 09/17/16 06:17 Levemir Vial SQ 12 units BID@0700,2200 [facility] Administration Levothyroxine Sodium 100 mcg 09/13/16 07:00 09/17/16 06:16 Synthroid - PO 100 mcg DAILY@0700 [facility] Administration Losartan Potassium 50 mg 09/10/16 10:00 09/17/16 09:50 Cozaar - PO 50 mg DAILY [facility] Administration Methylprednisolone Sodium Succinate 30 mg 09/16/16 22:00 09/17/16 09:50 Solu-Medrol - IVPB 30 mg Q12H [facility] Administration Metoprolol Succinate 75 mg 09/16/16 12:15 09/17/16 09:50 Toprol Xl - PO 75 mg BID [facility] Administration Prasugrel 5 mg 09/10/16 10:00 09/17/16 09:50 Effient - PO 5 mg DAILY [facility] Administration Ranitidine HCl 150 mg 09/10/16 10:00 09/17/16 09:50 Zantac - PO 150 mg DAILY [facility] Administration Senna 2 tab 09/09/16 22:00 09/16/16 22:02 Senna - PO Not Given [facility] Warfarin Sodium 2.5 mg 09/10/16 18:00 09/16/16 17:22 Coumadin - PO Not Given SuTuThSa@1800 [facility] Warfarin Sodium 5 mg 09/11/16 18:00 09/15/16 21:39 Coumadin - PO Not Given MoWeFr@1800 [facility] Impression 1. ALEIDA, high bun in part from steroids 2. Interstitial lung disease 3. a-fib 4. CAD 5. DM 6. chol 7. may have dry crackles from interstitial lung disease Plan - keep off fluids and observe - repeat urine sodium and creatinine - continue to hold diuretics and monitor MV
[2016-09-17] MEDS: WARFARIN NA 2.5 MG TABLET (FP) PO SCH (17:01)
[2016-09-17] MEDS ORDERED: INSULIN (NOVOLOG) ASPART 100 UNITS/ML 10ML VIAL ONE (21:50)
[2016-09-17] MEDS: SENNOSIDES 8.6MG TABLET (FP) PO SCH (21:57)
[2016-09-17] MEDS: DOCUSATE SODIUM 100 MG CAPSULE (FP) PO SCH (21:57)
[2016-09-18] MEDS: INSULIN SLIDING SCALE (NOVOLOG) 1 VIAL SQ SCH ×2 (06:33→11:44)
[2016-09-18] MEDS: INSULIN DETEMIR 100 UNITS/ML MDV SQ SCH (06:33)
[2016-09-18] MEDS: LEVOTHYROXINE NA 100 MCG TABLET (FP) PO SCH (06:34)
[2016-09-18 07:38] LABS: MCHC 33.2 g/dl (32.0-36.0); MEAN CELL VOLUME 84.5 fl (80-96); MEAN PLT VOLUME 8.9 fl (7.5-11.1); PLATELET COUNT 210 K/MM3 (134-434); RDW 14.4 % (11.6-15.6); WHITE BLOOD COUNT 14.1 K/mm3 (4.0-10.0)
[2016-09-18 07:43] LABS: INR 1.88 (0.82-1.09); PROTHROMBIN TIME (PATIENT) 20.9 SEC (9.98-11.88)
[2016-09-18 08:09] LABS: ALBUMIN 2.8 g/dl (3.4-5.0); ALK PHOS 117 U/L (45-117); ANION GAP 10 (8-16); BILIRUBIN,DIRECT 0.3 mg/dL (0.0-0.2); BILIRUBIN,TOTAL 1.1 mg/dL (0.2-1.0); CALCIUM 9.3 mg/dL (8.5-10.1); CO2 26 mmol/L (21-32); CREATININE 1.3 mg/dL (0.55-1.02); GLUCOSE,RANDOM 195 mg/dL (74-106); SGOT/AST 57 U/L (15-37); SGPT/ALT 140 U/L (12-78); TOT PROT 5.6 g/dl (6.4-8.2)
--- NOTE | 2016-09-18 08:15 | DS ---
Physical Examination Vital Signs: Vital Signs Temperature 97.8 F 09/18/16 05:39 Pulse Rate 59 L 09/18/16 05:39 Respiratory Rate 16 09/18/16 05:39 Blood Pressure 160/77 09/18/16 05:39 O2 Sat by Pulse Oximetry (%) 94 L 09/17/16 20:31 Constitutional: Yes: No Distress, Calm Eyes: No: Sclera Icterus Cardiovascular: Yes: Bradycardia, Pulse Irregular Respiratory: Yes: Other (Dry rales at bases) Gastrointestinal: Yes: Normal Bowel Sounds, Soft, Abdomen, Obese Neurological: Yes: Alert, Oriented Labs: CBC, BMP 09/18/16 05:35 Discharge Summary Reason For Visit: RAPID AFIB, PNEUNIOMA Current Active Problems ALEIDA (acute kidney injury) (Acute) Atrial fibrillation (Acute) Coronary artery disease (Acute) Cough present for greater than 3 weeks (Acute) Diabetes mellitus (Acute) History of aortic valve replacement (Acute) Hyperlipidemia (Acute) Hypothyroid (Acute) Interstitial lung disease (Acute) Hospital Course: Please refer to daily notes and problem list. Likely underlying chronic interstitial lung disease exacerbation with concurrent cardiac disease diastolic CHF and tachy-arrhythmia, now with bradycardia, AVR DM exacerbated by steroids and initial ALEIDA related to dehydration/volume depletion Close follow- up with cardiology and pulmonary specialists is necessary. Condition: Fair - Instructions Diet, Activity, Other Instructions: Low Na+ diabetic diet Disposition: HOME - Home Medications Comprehensive Discharge Medication List: Ambulatory Orders Aspirin [Aspirin EC] 81 mg PO DAILY 09/09/16 Famotidine [Pepcid] 20 mg PO DAILY 09/09/16 Furosemide [Lasix -] 40 mg PO DAILY 09/09/16 Losartan Potassium 50 mg PO DAILY 09/09/16 Metformin HCl 500 mg PO BID 09/09/16 Metoprolol Succinate [Toprol XL -] 75 mg PO BID 09/09/16 Potassium Chloride [K-Dur -] 10 meq PO DAILY 09/09/16 Prasugrel Hydrochloride [Effient -] 5 mg PO DAILY 09/09/16 Warfarin Sodium [Coumadin] 2.5 mg PO ASDIR 09/09/16 Docusate Sodium [Colace -] 300 mg PO HS #30 cap 09/18/16 Guaifenesin/D-Methorphan Hb [Diabetic Tussin Dm -] 10 ml PO Q6H PRN #0 ml Levothyroxine [Synthroid -] 100 mcg PO DAILY@0700 #30 tablet 09/18/16 Prednisone [Deltasone -] 10 mg PO UTDICT #60 tablet 09/18/16 Warfarin Na [Coumadin -] 5 mg PO MoWeFr@1800 tablet 09/18/16
[2016-09-18] MEDS ORDERED: FUROSEMIDE 40 MG TABLET (FP) PO SCH (10:00)
[2016-09-18] MEDS ORDERED: predniSONE 20 MG TABLET (UD) PO SCH (10:00)
--- NOTE | 2016-09-18 10:02 | PN ---
Progress Note, Physician Chief Complaint: sob History of Present Illness: sob signif improved with steroids she says--no longer sob with small distances walking no orthopnea no cp, palpit no cigs - Current Medication List Current Medications: Active Medications Aspirin (Ecotrin -) 81 mg PO DAILY [facility] Last Admin: 09/17/16 09:50 Dose: 81 mg Docusate Sodium (Colace -) 300 mg PO HS [facility] Last Admin: 09/17/16 21:57 Dose: 300 mg Furosemide (Lasix -) 40 mg PO DAILY [facility] Guaifenesin (Diabetic Tussin Dm -) 10 ml PO Q6H PRN PRN Reason: COUGH Insulin Aspart (Novolog Vial Sliding Scale -) 1 vial SQ ACHS [facility] PRN Reason: Protocol Last Admin: 09/18/16 06:33 Dose: 2 units Insulin Detemir (Levemir Vial) 12 units SQ BID@0700,2200 [facility] Last Admin: 09/18/16 06:33 Dose: 12 units Levothyroxine Sodium (Synthroid -) 100 mcg PO DAILY@0700 [facility] Last Admin: 09/18/16 06:34 Dose: 100 mcg Losartan Potassium (Cozaar -) 50 mg PO DAILY [facility] Last Admin: 09/17/16 09:50 Dose: 50 mg Metoprolol Succinate (Toprol Xl -) 75 mg PO BID [facility] Last Admin: 09/17/16 21:57 Dose: 75 mg Prasugrel (Effient -) 5 mg PO DAILY [facility] Last Admin: 09/17/16 09:50 Dose: 5 mg Prednisone (Deltasone -) 20 mg PO BID [facility] Ranitidine HCl (Zantac -) 150 mg PO DAILY [facility] Last Admin: 09/17/16 09:50 Dose: 150 mg Senna (Senna -) 2 tab PO HS [facility] Last Admin: 09/17/16 21:57 Dose: 2 tab Warfarin Sodium (Coumadin -) 2.5 mg PO SuTuThSa@1800 [facility] Last Admin: 09/17/16 17:01 Dose: 2.5 mg Warfarin Sodium (Coumadin -) 5 mg PO MoWeFr@1800 [facility] Last Admin: 09/15/16 21:39 Dose: Not Given - Objective Vital Signs: Vital Signs Temperature 97.8 F 09/18/16 05:39 Pulse Rate 59 L 09/18/16 05:39 Respiratory Rate 16 09/18/16 05:39 Blood Pressure 160/77 09/18/16 05:39 O2 Sat by Pulse Oximetry (%) 94 L 09/17/16 20:31 Constitutional: Yes: No Distress, Calm Eyes: No: Sclera Icterus HENT: No: Nasal Congestion Cardiovascular: Yes: Regular Rate and Rhythm, S1, S2, Other (PMI non diplaced). No: JVD, Gallop, Murmur Respiratory: Yes: CTA Bilaterally, Rales (faint at bases), Wheezes (one brief wheeze R base). No: Accessory Muscle Use Gastrointestinal: Yes: Normal Bowel Sounds, Soft. No: Tenderness Musculoskeletal: Yes: Other (No kyphosis) Extremities: No: Cold Edema: No Integumentary: No: Jaundice Neurological: Yes: Alert, Oriented (x3) Psychiatric: No: Agitated Labs: CBC, BMP 09/18/16 05:35 09/18/16 05:35 INR, PTT INR 1.88 (0.82-1.09) H 09/18/16 05:35 - ....Imaging EKG: Other (tele: NSR with sinus arrhythmia to 50s at night) Assessment/Plan 85 yo with h/o s/p [facility] AVR, CAD s/p recent PCI x 2 - 05/2016, diastolic HF, DM, hypothyroidism p/w worsening, presents to ED with acute worsening chronic shortness of breath (dry cough, prog sob over many months). CAD: -reportedly had 2 stents 05/19 (cath done at [facility], she follows with Theresa rojas) -ECG here with LBBB which states is not new (no ECGs here since 2009) -trop neg x 2 -sob has not improved since PCI -cont home DAPT (ASA + Effient), metopr, statin h/o [facility] AVR -followed with echoes by Dr Cardenas -cont coumadin per home regimen/INR targets--outpt INR f/u per dr zamarripa PSVT vs atrial flutter -tele shows frequent runs of SVT with HR 150-160. 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 hypoxia) has improved -outpt f/u --consider ablation if cannot control with meds acute on chronic sob, dry cough/ILD (new dx) -BNP 2300 -CXR (09/09 and 09/10) with no effusions or vasc redistribution; + diffuse mild incr interstitial pattern bases > upper lung jiménez per (cardiac PA), RHC at time of procedure showed he thinks only mild incr'd wedge, with "moderate pulm HTN" -suspect at baseline she has diast chf, well-compensated--acute chf post-cath ? due to dye load. -sx's not likely anginal in nature, did not improve after revascularization - 09/11 given trial of IV 40 mg IV lasix here with worsening of Cr this morning. Already received IV lasix dose this morning 09/11, will d/c. - CT c/w ILD, likely etiology of sx's. pulm following (steroids, etc) - 09/12: BP running low and Cr trending up (last IV lasix dose before d/c was yesterday morning). Will d/w renal regarding need for gentle rehydration. -09/13: on ivfs, monitor cr trend -09/16: cr improving with ivfs, can likely dc now, will resume home dose lasix tomorrow if cr stable -09/17: cr improved, off ivfs now. resume home lasix 40 po qd tomorrow. -09/18: wt initially 161 (? accurate)--up to 166 the next day. has remains 169- 172 for several days, likely some component of diast chf and vol retention sec to steroids and IVF. if sob remains improved with pulm tx, will tolerate mild volume up (she was clearly not overloaded on admit given how hi her creat jumped after 1-2 doses IV lasix). -pt states she intends to f/u with us after hospital stay, will obtain prior RHC report -likely euvolemic at present but suspect diast chf tendencies based on rapidity of wt gain here with IVF and steroids--rec cont lasix 40 qd, she will start home wts and call if 4lb up in 7d time -she will make f/u with us in 3 wks HTN: -bp mildly elevated, cont current meds, observe trend
[2016-09-18] MEDS: RANITIDINE HCL 150 MG TABLET (FP) PO SCH (10:06)
[2016-09-18] MEDS: METOPROLOL SUCCINATE 25 MG TAB.SR.24H (FP) PO SCH (10:06)
[2016-09-18] MEDS: ASPIRIN COATED 81 MG TABLET.EC PO SCH (10:06)
[2016-09-18] MEDS: LOSARTAN POTASSIUM 50 MG TABLET (FP) PO SCH (10:07)
[2016-09-18] MEDS ORDERED: PT OWN MED DRAWER 7, Y5N ONE (10:07)
[2016-09-18] MEDS: PRASUGREL HCL 5 MG TAB PO SCH (10:08)
[2016-09-18 11:28] LABS: PLATELET COMMENT2 NO CLOTTING DETECTED; PLATELET ESTIMATE ADEQUATE (NORMAL)
--- NOTE | 2016-09-18 14:03 | PN ---
Progress Note, Physician History of Present Illness: Pt seen and examined at bedside. She is awake and alert. She denies shortness of breath. - Current Medication List Current Medications: Active Medications Aspirin (Ecotrin -) 81 mg PO DAILY [facility] Last Admin: 09/18/16 10:06 Dose: 81 mg Docusate Sodium (Colace -) 300 mg PO HS [facility] Last Admin: 09/17/16 21:57 Dose: 300 mg Furosemide (Lasix -) 40 mg PO DAILY [facility] Last Admin: 09/18/16 10:06 Dose: 40 mg Guaifenesin (Diabetic Tussin Dm -) 10 ml PO Q6H PRN PRN Reason: COUGH Insulin Aspart (Novolog Vial Sliding Scale -) 1 vial SQ ACHS [facility] PRN Reason: Protocol Last Admin: 09/18/16 11:44 Dose: 4 units Insulin Detemir (Levemir Vial) 12 units SQ BID@0700,2200 [facility] Last Admin: 09/18/16 06:33 Dose: 12 units Levothyroxine Sodium (Synthroid -) 100 mcg PO DAILY@0700 [facility] Last Admin: 09/18/16 06:34 Dose: 100 mcg Losartan Potassium (Cozaar -) 50 mg PO DAILY [facility] Last Admin: 09/18/16 10:07 Dose: 50 mg Metoprolol Succinate (Toprol Xl -) 75 mg PO BID [facility] Last Admin: 09/18/16 10:06 Dose: 75 mg Prasugrel (Effient -) 5 mg PO DAILY [facility] Last Admin: 09/18/16 10:08 Dose: 5 mg Prednisone (Deltasone -) 20 mg PO BID [facility] Last Admin: 09/18/16 10:06 Dose: 20 mg Ranitidine HCl (Zantac -) 150 mg PO DAILY [facility] Last Admin: 09/18/16 10:06 Dose: 150 mg Senna (Senna -) 2 tab PO HS [facility] Last Admin: 09/17/16 21:57 Dose: 2 tab Warfarin Sodium (Coumadin -) 2.5 mg PO SuTuThSa@1800 [facility] Last Admin: 09/17/16 17:01 Dose: 2.5 mg Warfarin Sodium (Coumadin -) 5 mg PO MoWeFr@1800 [facility] Last Admin: 09/15/16 21:39 Dose: Not Given - Objective Vital Signs: Vital Signs Temperature 98.5 F 09/18/16 10:00 Pulse Rate 61 06/19/17 10:00 Respiratory Rate 16 09/18/16 10:00 Blood Pressure 149/65 09/18/16 10:00 O2 Sat by Pulse Oximetry (%) 94 L 09/17/16 20:31 Constitutional: Yes: Calm Eyes: Yes: Conjunctiva Clear HENT: Yes: Atraumatic Neck: Yes: Supple Cardiovascular: Yes: S1, S2 Respiratory: Yes: CTA Bilaterally Gastrointestinal: Yes: Soft, Abdomen, Obese Genitourinary: Yes: WNL Musculoskeletal: Yes: WNL Edema: Yes Edema: LLE: Trace, RLE: Trace Neurological: Yes: Oriented Psychiatric: Yes: Oriented Labs: CBC, BMP 09/18/16 05:35 09/18/16 05:35 INR, PTT INR 1.88 (0.82-1.09) H 09/18/16 05:35 Problem List - Problems (1) ALEIDA (acute kidney injury) Code(s): N17.9 - ACUTE KIDNEY FAILURE, UNSPECIFIED (2) Atrial fibrillation Code(s): I48.91 - UNSPECIFIED ATRIAL FIBRILLATION Qualifiers: Qualified Code(s): I48.2 - Chronic atrial fibrillation (3) Diabetes mellitus Code(s): E11.9 - TYPE 2 DIABETES MELLITUS WITHOUT COMPLICATIONS Assessment/Plan Current Medications Generic Name Dose Route Start Last Admin Trade Name Freq PRN Reason Stop Dose Admin Aspirin 81 mg 09/10/16 10:00 09/18/16 10:06 Ecotrin - PO 81 mg DAILY [facility] Administration Docusate Sodium 300 mg 09/09/16 22:00 09/17/16 21:57 Colace - PO 300 mg HS [facility] Administration Furosemide 40 mg 09/18/16 10:00 09/18/16 10:06 Lasix - PO 40 mg DAILY [facility] Administration Guaifenesin 10 ml 09/09/16 21:06 Diabetic Tussin Dm - PO Q6H PRN COUGH Insulin Aspart 1 vial 09/09/16 22:00 09/18/16 11:44 Novolog Vial Sliding Scale - SQ 4 units ACHS [facility] Administration Protocol Insulin Detemir 12 units 09/16/16 11:45 09/18/16 06:33 Levemir Vial SQ 12 units BID@0700,2200 [facility] Administration Levothyroxine Sodium 100 mcg 09/13/16 07:00 09/18/16 06:34 Synthroid - PO 100 mcg DAILY@0700 [facility] Administration Losartan Potassium 50 mg 09/10/16 10:00 09/18/16 10:07 Cozaar - PO 50 mg DAILY [facility] Administration Metoprolol Succinate 75 mg 09/16/16 12:15 09/18/16 10:06 Toprol Xl - PO 75 mg BID [facility] Administration Prasugrel 5 mg 09/10/16 10:00 09/18/16 10:08 Effient - PO 5 mg DAILY [facility] Administration Prednisone 20 mg 09/18/16 10:00 09/18/16 10:06 Deltasone - PO 20 mg BID [facility] Administration Ranitidine HCl 150 mg 09/10/16 10:00 09/18/16 10:06 Zantac - PO 150 mg DAILY [facility] Administration Senna 2 tab 09/09/16 22:00 09/17/16 21:57 Senna - PO 2 tab HS [facility] Administration Warfarin Sodium 2.5 mg 09/10/16 18:00 09/17/16 17:01 Coumadin - PO 2.5 mg SuTuThSa@1800 [facility] Administration Warfarin Sodium 5 mg 09/11/16 18:00 09/15/16 21:39 Coumadin - PO Not Given MoWeFr@1800 [facility] Impression 1. ALEIDA 2. Interstitial lung disease 3. a-fib 4. CAD 5. DM 6. chol Plan - renal function is stabilizing - can resume home dose of diuretics - pt can follow with me in office - cardio input appreciated - pt is now off of oxygen Dr Alvarado
[2016-09-18 16:03] VITALS: BP 154/86; PULSE 66; TEMP 97.4
== END 2016-09-18 17:22 | disposition home or self-care (01) | DRG 197 ==
LOC: J4W 18:39
PROVIDERS: ADMIT Specialist; ATTEND Nurse Practitioner Family
DX: J84.9 Interstitial pulmonary disease, unspecified (principal); I50.30 Unspecified diastolic (congestive) heart failure; N17.9 Acute kidney failure, unspecified; I47.1 Supraventricular tachycardia; I48.2 Chronic atrial fibrillation; I25.10 Atherosclerotic heart disease of native coronary artery without angina pectoris; Z95.5 Presence of coronary angioplasty implant and graft; Z95.2 Presence of prosthetic heart valve; E03.9 Hypothyroidism, unspecified; E78.5 Hyperlipidemia, unspecified; E11.9 Type 2 diabetes mellitus without complications; I44.7 Left bundle-branch block, unspecified; R05 Cough; R00.1 Bradycardia, unspecified; Z79.4 Long term (current) use of insulin
CPT/HCPCS: 36415; 71010-TC; 71020-TC; 71250-TC; 76705-TC; 76775-TC; 80048; 80053; 80076; 81003; 81015; 82436; 82550; 82570; 82803; 83036; 83605; 83735; 83880; 84100; 84133; 84156; 84300; 84439; 84443; 84480; 84484; 84540; 85025; 85610; 85730; 87040; 87077; 87086; 93005; 93010; 94640; 94761; 99285-25

== ENCOUNTER 2016-10-09 13:03 | Inpatient (IN) | payer BC, OTHER ==
--- NOTE | 2016-10-09 14:39 | PDOC ---
History of Present Illness - General History Source: Patient Exam Limitations: No Limitations - History of Present Illness Initial Comments: CHIEF COMPLAINT: 85 y/o afebrile female with PMH [facility] [facility] aortic valve (20 years ago), CAD with 2 stents placed 05/2016), HTN, HLD, NIDDM, 7 months of dyspnea under treatment of wad impregnator and board catcher at [facility] c /o cough and weakness. HISTORY OF PRESENT ILLNESS: The patient states she has a chronic dry cough and dyspnea on exertion for many months. She states the cough is causing her to lose sleep and she states she is so weak she cannot walk. She was admitted to the ER in August for pneumonia and new onset rapid afib. She has been worked up by pulmonology and cardiology for her chronic cough and dyspnea. She states she was so weak today that Dr. Copeland suggested she come in for a chest xray. She denies f/c, productive cough, MADRIGAL, dizziness, n/v/d, CP, abd pain, back pain , leg swelling. Vital signs on arrival are within normal limits. REVIEW OF SYSTEMS: GENERAL/CONSTITUTIONAL: No fever/chills. +weakness. No weight change. HEAD, EYES, EARS, NOSE AND THROAT: No change in vision. No ear pain or discharge. No sore throat. CARDIOVASCULAR: No chest pain or shortness of breath. RESPIRATORY: +cough. No wheezing, or hemoptysis. GASTROINTESTINAL: No abd pain, nausea, vomiting, diarrhea. GENITOURINARY: No dysuria, frequency, or change in urination. MUSCULOSKELETAL: No joint or muscle swelling or pain. No neck or back pain. SKIN: No rash or easy bruising. NEUROLOGIC: No headache, vertigo, loss of consciousness, or loss of sensation. PHYSICAL EXAM: GENERAL: The patient is awake, alert, and fully oriented, in no acute distress. she is in wheelchair. HEAD: Normal with no signs of trauma. ENT: Pupils equal, round and reactive to light, extraocular movements intact, sclera anicteric, conjunctiva clear. Neck supple. LUNGS: Clear to auscultation bilaterally. Normal excursion. No respiratory distress or use of accessory muscles. dry cough with deep inspiration. CV: RRR, S1/S2, no MRG. Cap refill < 2 sec. ABDOMEN: Soft, non-distended, non-tender even to deep palpation, no hepatomegaly or splenomegaly, no masses. EXTREMITIES: Normal range of motion, no edema. NEUROLOGICAL: Normal speech, normal gait. CN II-XII grossly intact. PSYCH: Normal mood, normal affect. SKIN: Warm, dry, normal turgor, no rashes or lesions noted. <Flora Lynch - Last Filed: 10/09/16 16:35> <Rosa Phillips - Last Filed: 10/13/16 08:42> - General Chief Complaint: Shortness of Breath Stated Complaint: SOB Time Seen by Provider: 10/09/16 14:16 Past History - Past Medical History Cancer: Yes (H/O RT BREAST) Cardiac Disorders: Yes (CAD, STENT) Diabetes: Yes HTN: Yes Hypercholesterolemia: Yes - Surgical History Cardiac Surgery: Yes (CABG, STENTS) - Psycho/Social/Smoking Cessation Hx Anxiety: No Suicidal Ideation: No Smoking History: Never smoked Have you smoked in the past 12 months: No Information on smoking cessation initiated: No Hx Alcohol Use: No Drug/Substance Use Hx: No Substance Use Type: None <Flora Lynch - Last Filed: 10/09/16 16:35> <Rosa Phillips - Last Filed: 10/13/16 08:42> - Past Medical History Allergies/Adverse Reactions: Allergies Allergy/AdvReac Type Severity Reaction Status Date / Time clopidogrel bisulfate Allergy Rash Verified 10/10/16 11:19 [From Plavix] Penicillins Allergy Swelling Verified 10/10/16 11:19 quinidine Allergy Verified 10/10/16 11:19 Home Medications: Ambulatory Orders Aspirin [Aspirin EC] 81 mg PO DAILY 09/09/16 Famotidine [Pepcid] 20 mg PO DAILY 09/09/16 Furosemide [Lasix -] 40 mg PO DAILY 09/09/16 Metformin HCl 500 mg PO DAILY 09/09/16 Metoprolol Succinate [Toprol XL -] 75 mg PO BID 09/09/16 Potassium Chloride [K-Dur -] 10 meq PO DAILY 09/09/16 Prasugrel Hydrochloride [Effient -] 5 mg PO DAILY 09/09/16 Warfarin Sodium [Coumadin] 2.5 mg PO SUTUTHSA 09/09/16 Levothyroxine [Synthroid -] 100 mcg PO DAILY@0700 #30 tablet 09/18/16 Warfarin Na [Coumadin -] 5 mg PO MoWeFr@1800 tablet 09/18/16 *Physical Exam - Vital Signs Last Vital Signs Temp Pulse Resp BP Pulse Ox 97.5 F L 83 18 136/69 95 10/09/16 13:05 10/09/16 13:05 10/09/16 13:05 10/09/16 13:05 10/09/16 13:05 <Flora Lynch - Last Filed: 10/09/16 16:35> - Vital Signs Last Vital Signs Temp Pulse Resp BP Pulse Ox 97.5 F L 85 20 119/56 97 10/13/16 06:00 10/13/16 06:00 10/13/16 06:00 10/13/16 06:00 10/12/16 21:00 <Rosa Phillips - Last Filed: 10/13/16 08:42> Heart Score/ECG Review - History History: Slightly suspicious - Electrocardiogram EKG: Normal - Age Age: >/= 65 - Risk Factors Risk Factors Heart Score: Yes Hx Hypertension, Yes Hx Diabetes, Yes Positive family hx of cardiac disease Based on the list above the patient has:: >/=3 risk factors or Hx atherosclerotic disease - Troponin Troponin: </= normal limit - Score Heart Score - Total: 4 - ECG Intrepretation Comment:: Twelve-lead EKG was performed and reviewed by Dr. Phillips. Atrial fibrillation with rapid ventricular response. left axis deviation. The intervals are normal. There are no ST or T wave abnormalities. Impression: Abnormal twelve-lead EKG Similar to EKG taken at 3:16pm on 09/09/16 <Flora Lynch - Last Filed: 10/09/16 16:35> ED Treatment Course - LABORATORY CBC & Chemistry Diagram: 10/09/16 14:34 10/09/16 14:34 - RADIOLOGY Radiology Studies Ordered: Category Date Time Status CHEST PA & LAT [RAD] Stat Radiology 10/09/16 14:29 Ordered <Flora Lynch - Last Filed: 10/09/16 16:35> - LABORATORY CBC & Chemistry Diagram: 10/13/16 05:35 10/13/16 05:35 - ADDITIONAL ORDERS Additional order review: 10/09/16 07:00 Urine Culture - Final Urine - Urine Clean Catch Yeast Like Organism 10/09/16 14:34 RBC 4.76 MCV 85.7 MCHC 33.0 RDW 15.6 MPV 9.4 Neutrophils % 67.9 D Lymphocytes % 17.2 D Monocytes % 12.6 H D Eosinophils % 1.4 D Basophils % 0.9 D - Medications Given in the ED: ED Medications Discontinued Medications Generic Name Dose Route Start Last Admin Trade Name Allison PRN Reason Stop Dose Admin Enoxaparin Sodium 70 mg 10/10/16 22:00 10/10/16 21:43 Lovenox - SQ 10/10/16 22:01 70 mg ONCE ONE Administration Sodium Chloride 1,000 mls @ 42 mls/hr 10/09/16 17:15 10/10/16 18:14 Normal Saline - IV Not Given ASDIR [facility] Insulin Aspart 12 units 10/10/16 00:30 10/10/16 00:30 Novolog Vial SQ 10/10/16 00:31 12 units ONCE ONE Administration Levothyroxine Sodium 100 mcg 10/10/16 07:00 10/11/16 06:23 Synthroid - PO 100 mcg DAILY@0700 [facility] Administration Levothyroxine Sodium 88 mcg 10/12/16 07:00 10/12/16 06:06 Synthroid - PO 88 mcg DAILY@0700 [facility] Administration Magnesium Sulfate 2 gm 10/10/16 13:45 10/10/16 13:30 Magnesium Sulfate IVPB 10/10/16 13:46 2 gm ONCE ONE Administration Methylprednisolone Sodium Succinate 40 mg 10/12/16 16:02 10/12/16 16:12 Solu-Medrol - IVPB 10/12/16 16:03 40 mg ONCE ONE Administration Metoprolol Succinate 100 mg 10/09/16 22:00 10/09/16 21:13 Toprol Xl - PO 100 mg BID SASHA Administration Warfarin Sodium 5 mg 10/09/16 18:00 10/09/16 19:19 Coumadin - PO 5 mg DAILY@1800 [facility] Administration Warfarin Sodium 5 mg/ Warfarin 8 mg 10/10/16 09:15 10/10/16 09:31 Sodium 3 mg PO 10/10/16 09:16 8 mg ONCE ONE Administration Warfarin Sodium 4 mg 10/11/16 11:30 10/11/16 11:37 Coumadin - PO 10/11/16 11:31 4 mg NOW ONE Administration <Rosa Phillips - Last Filed: 10/13/16 08:42> Medical Decision Making - Medical Decision Making A/P: 85 y/o female with chronic dry cough and complaints of progressive weakness. Plan is as follows: 1. Labs 2. CXR 3. EKG EKG shows a-fib with rapid ventricular response. CXR IMPRESSION: S/P cardiothoracic surgery. No evidence of CHF, pulmonary consolidations. No pneumothorax or pleural effusion is seen. Spoke with Dr. Copeland. He would like her admitted to Dr. Kim and put on tele. He would also like an ABG and Dr. Schneider and Dr. Cruz consulted. Spoke with Dr. Schneider and she will be in to see the patient. The patient and her family were made aware of the plan for admission. <Flora Lynch - Last Filed: 10/09/16 16:35> *DC/Admit/Observation/Transfer - Discharge Dispostion Admit: Yes <Flora Lynch - Last Filed: 10/09/16 16:35> - Attestations Physician Attestion: I reviewed the case with the mid-level practitioner and agree with the mid- level practitioner's assessment, diagnosis and disposition. <Rosa Phillips - Last Filed: 10/13/16 08:42> Diagnosis at time of Disposition: Cough present for greater than 3 weeks, Atrial fibrillation with rapid ventricular response, Weakness, Dyspnea on exertion - Referrals
[2016-10-09 15:23] LABS: BASOPHIL 0.9 % (0-2.0); EOSINOPHIL 1.4 % (0-4.5); MCH 28.3 pg (25.7-33.7); MEAN CELL VOLUME 85.7 fl (80-96); MEAN PLT VOLUME 9.4 fl (7.5-11.1); NEUTROPHILS 67.9 % (42.8-82.8); PLATELET COUNT 180 K/MM3 (134-434); RDW 15.6 % (11.6-15.6); WHITE BLOOD COUNT 8.3 K/mm3 (4.0-10.0)
--- NOTE | 2016-10-09 15:27 | EKG ---
Test Reason : Blood Pressure : / mmHG Vent. Rate : 125 BPM Atrial Rate : 120 BPM P-R Int : 000 ms QRS Dur : 130 ms QT Int : 372 ms P-R-T Axes : 000 -47 141 degrees QTc Int : 536 ms ATRIAL FIBRILLATION WITH RAPID VENTRICULAR RESPONSE LEFT AXIS DEVIATION LEFT BUNDLE BRANCH BLOCK ABNORMAL ECG WHEN COMPARED WITH ECG OF 09-SEP-2016 19:17, ATRIAL FIBRILLATION HAS REPLACED SINUS RHYTHM Confirmed by TASHIA KEITH, PARK ([id number]) on 10/09/2016 3:26:32 PM Referred By: Confirmed By:PARK LAO MD
[2016-10-09 15:44] LABS: INR 1.97 (0.82-1.09)
[2016-10-09 15:47] LABS: ALBUMIN 3.2 g/dl (3.4-5.0); ANION GAP 12 (8-16); BILIRUBIN,TOTAL 1.1 mg/dL (0.2-1.0); CALCIUM 9.5 mg/dL (8.5-10.1); CO2 24 mmol/L (21-32); CREATININE 1.8 mg/dL (0.55-1.02); GLUCOSE,RANDOM 247 mg/dL (74-106); SGPT/ALT 35 U/L (12-78); TOT PROT 6.7 g/dl (6.4-8.2)
[2016-10-09 15:50] LABS: ALK PHOS 157 U/L (45-117); SGOT/AST 35 U/L (15-37)
[2016-10-09] MEDS ORDERED: guaiFENesin/D-M SUGAR-FREE/ACLHOL-FREE 118 ML BOTTLE PO PRN (17:01)
[2016-10-09] MEDS ORDERED: ACETAMINOPHEN 325 MG TABLET (FP) PO PRN (17:03)
--- NOTE | 2016-10-09 17:16 | HP ---
Admitting History and Physical - Primary Care Physician PCP: Luis Copeland - Admission Chief Complaint: I am weak History of Present Illness: Ms Simon is a pleasant 85 year old female who comes in with complaints of weakness and shortness of breath. She is not a good historian so difficult to establish a timeline. However her family is at the bedside and assisted. They stated that she never "bounced back" after the last admission and since that time she has gotten progressively weaker. She gets very short of breath with minimal exertion. With the shortness of breath she gets weak. She is at the point where she cannot walk secondary to this and has been using a wheelchair. She says she is not lightheaded, dizzy, passing out, feverish, chest pain, diarrhea, constipation, difficulty or pain on urination, or swelling. She says she had palpitations yesterday with exertion. She says she had abdominal pain yesterday but that was fleeting. She says she was nauseous today but that has resolved as well. Currently she is feeling weak. History Source: Patient, Family Member Limitations to Obtaining History: Poor Historian - Past Medical History Cardiovascular: Yes: Aortic Stenosis, CAD, CHF Endocrine: Yes: Diabetes Mellitus, Hypothyroidism - Past Surgical History Past Surgical History: Yes: Valve Replacement (Aortic valve replacement ([facility])) - Smoking History Smoking history: Never smoked Have you smoked in the past 12 months: No - Alcohol/Substance Use Hx Alcohol Use: No History of Substance Use: reports: None - Social History Usual Living Arrangement: Yes: With Child ADL: Family Assistance Occupation: Retired History of Recent Travel: No Home Medications - Allergies Allergies/Adverse Reactions: Allergies Allergy/AdvReac Type Severity Reaction Status Date / Time clopidogrel bisulfate Allergy Rash Verified 10/10/16 11:19 [From Plavix] Penicillins Allergy Swelling Verified 10/10/16 11:19 quinidine Allergy Verified 10/10/16 11:19 - Home Medications Home Medications: Ambulatory Orders Aspirin [Aspirin EC] 81 mg PO DAILY 09/09/16 Famotidine [Pepcid] 20 mg PO DAILY 09/09/16 Furosemide [Lasix -] 40 mg PO DAILY 09/09/16 Metformin HCl 500 mg PO DAILY 09/09/16 Metoprolol Succinate [Toprol XL -] 75 mg PO BID 09/09/16 Potassium Chloride [K-Dur -] 10 meq PO DAILY 09/09/16 Prasugrel Hydrochloride [Effient -] 5 mg PO DAILY 09/09/16 Warfarin Sodium [Coumadin] 2.5 mg PO SUTUTHSA 09/09/16 Levothyroxine [Synthroid -] 100 mcg PO DAILY@0700 #30 tablet 09/18/16 Warfarin Na [Coumadin -] 5 mg PO MoWeFr@1800 tablet 09/18/16 Family Disease History - Family Disease History Family Disease History: Heart Disease: Mother, Other: Brother (TB) Review of Systems Findings/Remarks: Full review of systems obtained, as per HPI and otherwise negative Physical Examination Vital Signs: Vital Signs Temperature 97.5 F L 10/09/16 13:05 Pulse Rate 114 H 10/09/16 15:41 Respiratory Rate 24 10/09/16 15:41 Blood Pressure 104/73 10/09/16 15:41 O2 Sat by Pulse Oximetry (%) 98 10/09/16 15:41 Constitutional: Yes: Well Nourished, No Distress, Calm Eyes: Yes: Conjunctiva Clear, EOM Intact, PERRL HENT: Yes: Atraumatic, Normocephalic Cardiovascular: Yes: Tachycardia, Pulse Irregular. No: Gallop, Murmur, Rub Respiratory: Yes: Regular, CTA Bilaterally. No: Rales, Rhonchi, Wheezes Gastrointestinal: Yes: Normal Bowel Sounds, Soft. No: Distention, Tenderness Extremities: Yes: WNL Edema: No Labs: CBC, BMP 10/09/16 14:34 10/09/16 14:34 Imaging - Results Chest X-ray: Report Reviewed, Image Reviewed EKG: Report Reviewed, Image Reviewed Problem List - Problems (1) Atrial fibrillation with rapid ventricular response Code(s): I48.91 - UNSPECIFIED ATRIAL FIBRILLATION (2) Dyspnea on exertion Code(s): R06.09 - OTHER FORMS OF DYSPNEA (3) ALEIDA (acute kidney injury) Code(s): N17.9 - ACUTE KIDNEY FAILURE, UNSPECIFIED (4) Coronary artery disease Code(s): I25.10 - ATHSCL HEART DISEASE OF [place] CORONARY ARTERY W/O ANG PCTRS (5) Diabetes mellitus Code(s): E11.9 - TYPE 2 DIABETES MELLITUS WITHOUT COMPLICATIONS (6) History of aortic valve replacement Code(s): Z95.2 - PRESENCE OF PROSTHETIC HEART VALVE (7) Hypothyroid Code(s): E03.9 - HYPOTHYROIDISM, UNSPECIFIED Assessment/Plan 1. Atrial fibrillation with RVR -suspect cause of dyspnea on exertion -admit to telemetry -toprol xl increased to 100mg bid recently -will continue this dose -cardiology to see and adjust as needed 2. Dyspnea on exertion -suspect more cardiac than pulmonary -cardiology consulted to evaluate afib -consult pulmonary as well 3. Hypertension -continue toprol 4. Mechanical valve with subtherapeutic INR -family says was lower as an outpatient -not 2.5-3.5 -will await cardiology to see, may want a lower range -defer heparin gtt to cardiology 5. CAD with stents -no chest pain -continue home regimen 6. Diabetes -diabetic diet 7. ARF on CKD -hydrate -recheck in am 8. Hypothyroid -continue synthroid
--- NOTE | 2016-10-09 17:17 | CON.CARD ---
Cardiology Consult (text) - Consultation Consultation Note: cc: afib with rvr 85 yo with h/o s/p mech AVR, CAD s/p recent PCI x 2 - 05/2016, diastolic HF, DM, hypothyroidism p/w worsening, presents to ED with afib with RVR. On discharge had improved energy and was able to ambulate. 1-2 weeks ago, progressive decline in strength with worsening sob. now unable to ambulate from one room to next. + palps. persistent cough has returned. no other infectious symptoms. Ongoing weight loss on current lasix dose with sig improvement in le edema poor appetite with decreased po intake but no early satiety. no orthopnea, pnd, dizziness, bleeding, claudication, transient neurologic sx's no f/c/s, n/v/d, rashes, visual disturbances, headache cards: dioni - Past Medical History Cardio/Vascular: Yes: Aortic Stenosis, CAD, CHF Endocrine: Yes: Diabetes Mellitus, Hypothyroidism - Past Surgical History Past Surgical History: Yes: Valve Replacement (Aortic valve replacement ([facility])) - Alcohol/Substance Use Hx Alcohol Use: No - Smoking History Smoking history: Never smoked - Social History Occupation: Retired fam hx: mother with heart disease ROS: per hpi Ambulatory Orders Aspirin [Aspirin EC] 81 mg PO DAILY 09/09/16 Famotidine [Pepcid] 20 mg PO DAILY 09/09/16 Furosemide [Lasix -] 40 mg PO DAILY 09/09/16 Losartan Potassium 50 mg PO DAILY 09/09/16 Metformin HCl 500 mg PO BID 09/09/16 Metoprolol Succinate [Toprol XL -] 75 mg PO BID 09/09/16 Potassium Chloride [K-Dur -] 10 meq PO DAILY 09/09/16 Prasugrel Hydrochloride [Effient -] 5 mg PO DAILY 09/09/16 Warfarin Sodium [Coumadin] 2.5 mg PO ASDIR 09/09/16 Docusate Sodium [Colace -] 300 mg PO HS #30 cap 09/18/16 Guaifenesin/D-Methorphan Hb [Diabetic Tussin Dm -] 10 ml PO Q6H PRN #0 ml Levothyroxine [Synthroid -] 100 mcg PO DAILY@0700 #30 tablet 09/18/16 Prednisone [Deltasone -] 10 mg PO UTDICT #60 tablet 09/18/16 Warfarin Na [Coumadin -] 5 mg PO MoWeFr@1800 tablet 09/18/16 Current Medications Acetaminophen (Tylenol -) 650 mg PO Q4H PRN PRN Reason: FEVER OR PAIN Aspirin (Ecotrin -) 81 mg PO DAILY [facility] Atorvastatin Calcium (Lipitor -) 40 mg PO HS SASHA Docusate Sodium (Colace -) 300 mg PO HS SASHA Guaifenesin (Diabetic Tussin Dm -) 10 ml PO Q6H PRN PRN Reason: COUGH Sodium Chloride (Normal Saline -) 1,000 mls @ 42 mls/hr IV ASDIR [facility] Levothyroxine Sodium (Synthroid -) 100 mcg PO DAILY@0700 [facility] Metoprolol Succinate (Toprol Xl -) 100 mg PO BID SASHA Prasugrel (Effient -) 5 mg PO DAILY [facility] Ranitidine HCl (Zantac -) 150 mg PO DAILY [facility] Warfarin Sodium (Coumadin -) 5 mg PO DAILY@1800 [facility] Vital Signs - 24 hr 10/09/16 10/09/16 13:05 15:41 Temperature 97.5 F L Pulse Rate 83 Pulse Rate [ 114 H Apical] Respiratory 18 24 Rate Blood Pressure 136/69 Blood Pressure 104/73 [Left Arm] O2 Sat by Pulse 95 98 Oximetry (%) Intake & Output 10/07/16 10/08/16 10/09/16 10/10/16 07:59 07:59 07:59 07:59 Weight 158 lb nad, calm jvd flat, neck supple dry rales, nl effort irregularly irregular nl s1, s2 2/6 murmur at lsb + bs soft nt nd ext without e/c/c + dp/pt aaox3 no jaundice, diaphoreiss no carotid bruits CBC, BMP 10/09/16 14:34 10/09/16 14:34 Laboratory Tests 09/18/16 10/09/16 10/09/16 05:35 14:34 14:39 INR 1.97 H BUN 51 H Creatinine 1.3 H Total Bilirubin 1.1 H AST 35 D ALT 140 H 35 D Alkaline Phosphatase 157 H D Troponin I 0.02 Albumin 3.2 L EKG afib with rvr, lbbb tele: afib hr's 90's-100's with occasional increases to 130's cxr clear 85 yo with h/o s/p mech AVR, CAD s/p recent PCI x 2 - 05/2016, diastolic HF, DM, hypothyroidism p/w worsening, presents to ED with afib with RVR. afib, new dx last month - con't AC with coumadin per inr -on prior admit last month dilt started and bb increased but --> bradycardic -- > so dilt was stopped and toprol decreased back to 75 bid. Last week at outpatient cardiology visit developed RVR to 130's with ambulation --> toprol increased to 100 mg bid still with no improvement in heart rate. - Will start metoprolol tartrate 75 tid. can add short acting dilt if needed. Slow uptitration with close bp monitoring. - discussed option of CV with patient and family but they would like to defer. - tsh - orthostatic vitals to r/o hypovolemia contributing to rapid rate. - had plan for outpatient echo today, but cancelled b/c came to ER. can reschedule as outpatient ILD, new dx last month - likely contributing to cough and worsened sob. mgm't per pm/pulm CAD: -had 2 stents 05/19 con't home DAPT (ASA + Effient), metopr, statin -ECG here with LBBB not new -trop neg x 1 h/o [facility] AVR -cont coumadin per home regimen/INR targets--outpt INR f/u per dr zamarripa diastolic HF - Cr worse, ongoing weight loss/presumed net neg since discharge. will get orthostatic vitals. hold lasix dose tomorrow. consider half dose depending on direction of creatinine - daily weights, i/o's, bmp HTN: -bp running low, con't to monitor.
[2016-10-09] MEDS ORDERED: WARFARIN NA 5 MG TABLET (UD) PO SCH (18:00)
[2016-10-09] MEDS ORDERED: WARFARIN NA 5 MG TABLET (UD) ONE (19:11)
[2016-10-09 19:38] LABS: TROPONIN I < 0.02 ng/ml (0.00-0.05)
[2016-10-09] MEDS ORDERED: PT OWN MED DRAWER 7, Y5N ONE (21:10)
[2016-10-09] MEDS: SODIUM CHLORIDE 1,000 ML IV SCH (21:12)
[2016-10-09] MEDS: DOCUSATE SODIUM 100 MG CAPSULE (FP) PO SCH ×2 (21:12→21:17)
[2016-10-09] MEDS: ATORVASTATIN CA 40 MG TABLET (FP) PO SCH (21:13)
[2016-10-09] MEDS ORDERED: METOPROLOL SUCCINATE 100 MG TAB.SR.24H (FP) PO SCH (22:00)
[2016-10-10] MEDS ORDERED: INSULIN (NOVOLOG) ASPART 100 UNITS/ML 10ML VIAL SQ ONE (00:30)
[2016-10-10] MEDS: LEVOTHYROXINE NA 100 MCG TABLET (FP) PO SCH (06:46)
[2016-10-10] MEDS: METOPROLOL TARTRATE 50 MG TABLET (FP) PO SCH ×3 (06:46→21:32)
[2016-10-10 08:04] LABS: ANION GAP 8 (8-16); CALCIUM 9.1 mg/dL (8.5-10.1); CO2 29 mmol/L (21-32); GLUCOSE,RANDOM 108 mg/dL (74-106); MAGNESIUM 1.7 mg/dL (1.8-2.4)
[2016-10-10 08:05] LABS: BASOPHIL 0.4 % (0-2.0); EOSINOPHIL 4.4 % (0-4.5); MCH 28.7 pg (25.7-33.7); MCHC 33.5 g/dl (32.0-36.0); MEAN CELL VOLUME 85.8 fl (80-96); MEAN PLT VOLUME 9.2 fl (7.5-11.1); NEUTROPHILS 57.6 % (42.8-82.8); PLATELET COUNT 146 K/MM3 (134-434); RDW 15.5 % (11.6-15.6); WHITE BLOOD COUNT 7.3 K/mm3 (4.0-10.0)
[2016-10-10 08:06] LABS: CREATININE 1.7 mg/dL (0.55-1.02); PHOSPHOROUS 2.8 mg/dL (2.5-4.9)
[2016-10-10 08:25] LABS: INR 1.88 (0.82-1.09)
[2016-10-10] MEDS ORDERED: WARFARIN NA 5 MG TABLET (UD) PO ONE (08:44)
[2016-10-10] MEDS ORDERED: WARFARIN NA 5 MG TABLET (UD) ONE (09:15)
[2016-10-10] MEDS ORDERED: WARFARIN NA 5 MG, WARFARIN NA 3 MG PO ONE (09:15)
[2016-10-10] MEDS ORDERED: WARFARIN NA 3 MG TABLET ONE (09:16)
[2016-10-10] MEDS ORDERED: PT OWN MED DRAWER 7, Y5N ONE (09:20)
[2016-10-10] MEDS: RANITIDINE HCL 150 MG TABLET (FP) PO SCH (09:30)
[2016-10-10] MEDS: ASPIRIN COATED 81 MG TABLET.EC PO SCH (09:31)
--- NOTE | 2016-10-10 11:17 | CONSULT ---
Consult Consult Specialty:: Pulmonology Reason for Consultation:: Chronic cough and SOB - History of Present Illness Chief Complaint: "cough and weakness" History of Present Illness: 85 yo woman w/ pmh of CAD s/p PCI x2 (2017), s/p mech AVR, diastolic HF, DM and hypothyroidism who presents with worsening of chronic cough/SOB and decreased exercise tolerance of 1-2 weeks duration following recent hospital admission, in the setting of aFib w/ RVR. At baseline, pt has a chronic non- productive cough of 1 year duration, poor exercise tolerance and chronic BL LE edema. She was recently discharge roughly 2 weeks ago (admitted for similar symptoms) with improvement in fatigue and ambulation. However, she now endorses worsening fatigue, exercise tolerance and SOB on ambulation and states she can barely get out of bed. States she can barely ambulate without becoming SOB and fatigued and endorses that her non-productive cough has worsened over the last two weeks. Endorses palpitations and decreased appetite. Denies any lightheadness, dizziness, fever, PND, orthopnea, chest pain, N/V, change in bowel or bladder habits, claudications, nasal congestion, sore throat or change in weight. Pt denies any recent travel, sick contacts, major changes in diet/routine. She states she has never been evaluated by an outpatient business management analyst, but endorses that she was diagnosed with an interstitial lung disease by her PMD, Dr. Copeland. No major occupational exposure risks. No hx of AI disorders or chronic infections. Previously managed for similar episode on steroids, inhaled brochodilators, O2 on admission with improvement in symptoms. - History Source History Provided By: Patient Limitations to Obtaining History: No Limitations - Past Medical History Cardio/Vascular: Yes: Aortic Stenosis, CAD, CHF Endocrine: Yes: Diabetes Mellitus, Hypothyroidism Additional Medical History: Breast Ca, s/p mastectomy - Past Surgical History Past Surgical History: Yes: Valve Replacement (Aortic valve replacement ([facility])) Additional Surgical History: PCI x 2 (05/2016) - Alcohol/Substance Use Hx Alcohol Use: No History of Substance Use: reports: None - Smoking History Smoking history: Never smoked Have you smoked in the past 12 months: No - Social History Usual Living Arrangement: With Spouse ADL: Family Assistance 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 History of Recent Travel: No Home Medications - Allergies Allergies/Adverse Reactions: Allergies Allergy/AdvReac Type Severity Reaction Status Date / Time clopidogrel bisulfate Allergy Rash Verified 10/10/16 11:19 [From Plavix] Penicillins Allergy Swelling Verified 10/10/16 11:19 quinidine Allergy Verified 10/10/16 11:19 - Home Medications Home Medications: Ambulatory Orders Aspirin [Aspirin EC] 81 mg PO DAILY 09/09/16 Famotidine [Pepcid] 20 mg PO DAILY 09/09/16 Furosemide [Lasix -] 40 mg PO DAILY 09/09/16 Metformin HCl 500 mg PO DAILY 09/09/16 Metoprolol Succinate [Toprol XL -] 75 mg PO BID 09/09/16 Potassium Chloride [K-Dur -] 10 meq PO DAILY 09/09/16 Prasugrel Hydrochloride [Effient -] 5 mg PO DAILY 09/09/16 Warfarin Sodium [Coumadin] 2.5 mg PO SUTUTHSA 09/09/16 Levothyroxine [Synthroid -] 100 mcg PO DAILY@0700 #30 tablet 09/18/16 Warfarin Na [Coumadin -] 5 mg PO MoWeFr@1800 tablet 09/18/16 Family Disease History - Family Disease History Family Disease History: Diabetes: Brother (TB), Heart Disease: Grandparent ( Grandmother w/ heart disease), Mother, CA: Father (Esophageal cancer), Other: Brother Review of Systems - Review of Systems Constitutional: reports: Weakness. denies: Chills, Diaphoresis, Fever, Lethargy Eyes: reports: No Symptoms HENT: denies: Difficult Swallowing, Ear Pain, Mouth Swelling, Throat Pain Neck: denies: Lumps, Swollen Glands, Tenderness Cardiovascular: reports: Edema, Palpitations, Shortness of Breath. denies: Chest Pain Respiratory: reports: Cough, Exercise Intolerance, SOB, SOB on Exertion. denies : Hemoptysis, Orthopnea, PND, Wheezing Gastrointestinal: reports: No Symptoms. denies: Abdominal Pain, Constipation, Diarrhea, Indigestion, Vomiting Genitourinary: reports: No Symptoms. denies: Burning, Dysuria, Flank Pain, Frequency, Incontinence Breasts: reports: No Symptoms Reported Musculoskeletal: reports: No Symptoms Endocrine: reports: No Symptoms Physical Exam Vital Signs: Vital Signs Temperature 98.7 F 10/10/16 09:34 Pulse Rate 88 10/10/16 09:34 Respiratory Rate 20 07/11/17 09:34 Blood Pressure 100/52 10/10/16 09:34 O2 Sat by Pulse Oximetry (%) 97 10/09/16 21:00 Constitutional: Yes: No Distress, Calm, Obese Eyes: Yes: WNL, Conjunctiva Clear, EOM Intact, PERRL. No: Sclera Icterus HENT: Yes: WNL, Atraumatic, Normocephalic. No: Nasal Congestion, Pharyngeal Erythema, Rhinnorhea, Tonsillar Exudate Neck: Yes: WNL, Trachea Midline. No: Lymphadenopathy, Tenderness, Thyromegaly Cardiovascular: Yes: Pulse Irregular, Murmur (3/6 murmur at LUSB), S1, S2. No: JVD Respiratory: Yes: Cough, Rales (BL rales in LL jiménez), SOB on Exertion. No: Wheezes Gastrointestinal: Yes: Normal Bowel Sounds, Soft, Abdomen, Obese. No: Palpable Mass, Splenomegaly, Tenderness, Tenderness, Rebound ...Rectal Exam: Yes: Deferred Musculoskeletal: No: Back Pain Edema: Yes (BL 2+ pitting edema in LE) Edema: LLE: 1+, RLE: 1+ Integumentary: Yes: WNL Neurological: Yes: Cran Nerves II-XII Intact ...Motor Strength: LUE (5/5 grossly in BL UEs. 4/5 flexion and extension at knee BL in lower extremities.), LLE, RUE, RLE Psychiatric: Yes: Alert, Oriented Labs: CBC, BMP 10/10/16 05:35 10/10/16 05:35 Laboratory Tests 10/09/16 10/09/16 10/09/16 14:34 14:34 14:39 WBC 8.3 D RBC 4.76 Hgb 13.4 Hct 40.8 MCV 85.7 MCH 28.3 MCHC 33.0 RDW 15.6 Plt Count 180 MPV 9.4 Neutrophils % 67.9 D Lymphocytes % 17.2 D Monocytes % 12.6 H D Eosinophils % 1.4 D Basophils % 0.9 D INR 1.97 H Sodium 138 Potassium 4.7 Chloride 102 Carbon Dioxide 24 Anion Gap 12 BUN 26 H D Creatinine 1.8 H D Creat Clearance w eGFR 26.87 POC Glucometer Random Glucose 247 H D Calcium 9.5 Phosphorus Magnesium Total Bilirubin 1.1 H AST 35 D ALT 35 D Alkaline Phosphatase 157 H D Creatine Kinase Cancelled Troponin I Cancelled B-Natriuretic Peptide 6514.85 H Total Protein 6.7 Albumin 3.2 L 10/09/16 10/09/16 10/10/16 18:55 23:43 05:19 WBC RBC Hgb Hct MCV MCH MCHC RDW Plt Count MPV Neutrophils % Lymphocytes % Monocytes % Eosinophils % Basophils % INR Sodium Potassium Chloride Carbon Dioxide Anion Gap BUN Creatinine Creat Clearance w eGFR POC Glucometer 289 114 Random Glucose Calcium Phosphorus Magnesium Total Bilirubin AST ALT Alkaline Phosphatase Creatine Kinase 41 Troponin I < 0.02 B-Natriuretic Peptide Total Protein Albumin 10/10/16 10/10/16 10/10/16 05:35 05:35 05:35 WBC 7.3 RBC 4.09 Hgb 11.7 D Hct 35.1 MCV 85.8 MCH 28.7 MCHC 33.5 RDW 15.5 Plt Count 146 MPV 9.2 Neutrophils % 57.6 Lymphocytes % 24.8 D Monocytes % 12.8 H Eosinophils % 4.4 D Basophils % 0.4 INR 1.88 H Sodium 141 Potassium 3.5 D Chloride 104 Carbon Dioxide 29 D Anion Gap 8 BUN 34 H D Creatinine 1.7 H Creat Clearance w eGFR POC Glucometer Random Glucose 108 H D Calcium 9.1 Phosphorus 2.8 Magnesium 1.7 L D Total Bilirubin AST ALT Alkaline Phosphatase Creatine Kinase Troponin I B-Natriuretic Peptide Total Protein Albumin Imaging - Results Chest X-ray: Report Reviewed EKG: Report Reviewed (afib w/ RVR, LBBB.) Problem List - Problems (1) Atrial fibrillation with rapid ventricular response Code(s): I48.91 - UNSPECIFIED ATRIAL FIBRILLATION (2) Cough present for greater than 3 weeks Code(s): R05 - COUGH (3) Dyspnea on exertion Code(s): R06.09 - OTHER FORMS OF DYSPNEA (4) Weakness Code(s): R53.1 - WEAKNESS (5) ALEIDA (acute kidney injury) Code(s): N17.9 - ACUTE KIDNEY FAILURE, UNSPECIFIED (6) Atrial fibrillation Code(s): I48.91 - UNSPECIFIED ATRIAL FIBRILLATION Qualifiers: Atrial fibrillation type: chronic Qualified Code(s): I48.2 - Chronic atrial fibrillation (7) Coronary artery disease Code(s): I25.10 - ATHSCL HEART DISEASE OF [place] CORONARY ARTERY W/O ANG PCTRS Assessment/Plan Assessment: 85 yo woman w/ pmh of s/p mech avr, CAD w/ PCI x2 (2017), diastolic HF, DM, and hypothyoidism presented to ED in aFIb w/ RVR in the setting of 1-2 weeks of worsening cough/SOB and decreased exercise tolerance. Prior dx of ILD on past admission with similar symptoms, however has not received extensive work-up. Physical exam notable for irregularly irregular pulse, crackles in lower lung jiménez. Labs notable for elevated BNP ~6500 and no WBC or left shift. Prior chest CT notable for diffuse fibrotic lung parenchymal changes and peripheral bibasilar brochietasis, more prominent posteriorly. Decreased exercise tolerance and worsening SOB over last year likely due to combination of worsening cardiovascular status and ILD of unknown pathology. Will require work- up for ILD and cardiac evaluation. Problem list: Afib w/ RVR ILD, unspecified etiology HTN Dyspnea on exertion CAD CKD Stage III Hypothyroid Plan: #Worsening SOB - Monitor for signs of infection - Inhaled Brochodilators. Confirm with Cards team before initiating, given possible CHF. - Solumedrol 40mg - O2 PRN. Titrate 92%> #ILD - Full ILD work-up - OSEAS, RF, CCP, CRP, P-ANCA, C-ANCA, Anti-GBM - PFTs - Consider BAL - F/u outpatient management with business management analyst, Dr. Cruz #Afib - Defer to cardiology recs - Continue AC with goal INR>2 - Serial EKGs, daily weights, I&0s - Echo - Rate control Tomasz Osuna MD, PGY1 Plan to be discussed with attending Visit type - Emergency Visit Emergency Visit: No - New Patient This patient is new to me today: Yes Date on this admission: 10/10/16 - Critical Care Critical Care patient: No
[2016-10-10] MEDS: PRASUGREL HCL 5 MG TAB PO SCH (12:00)
--- NOTE | 2016-10-10 12:02 | PN ---
Progress Note (short form) - Note Progress Note: cc: afib with rvr S: cough persists. decreased po intake persists. sob stable. no cp, palps, dizziness. on maintenance fluids overnight. Current Medications Acetaminophen (Tylenol -) 650 mg PO Q4H PRN PRN Reason: FEVER OR PAIN Aspirin (Ecotrin -) 81 mg PO DAILY [facility] Last Admin: 10/10/16 09:31 Dose: 81 mg Atorvastatin Calcium (Lipitor -) 40 mg PO HS [facility] Last Admin: 10/09/16 21:13 Dose: 40 mg Docusate Sodium (Colace -) 300 mg PO HS [facility] Last Admin: 10/09/16 21:17 Dose: Not Given Guaifenesin (Diabetic Tussin Dm -) 10 ml PO Q6H PRN PRN Reason: COUGH Sodium Chloride (Normal Saline -) 1,000 mls @ 42 mls/hr IV ASDIR [facility] Last Admin: 10/09/16 21:12 Dose: 42 mls/hr Levothyroxine Sodium (Synthroid -) 100 mcg PO DAILY@0700 [facility] Last Admin: 10/10/16 06:46 Dose: 100 mcg Metoprolol Tartrate (Lopressor -) 75 mg PO TID [facility] Last Admin: 10/10/16 06:46 Dose: 75 mg Prasugrel (Effient -) 5 mg PO DAILY [facility] Ranitidine HCl (Zantac -) 150 mg PO DAILY [facility] Last Admin: 10/10/16 09:30 Dose: 150 mg Vital Signs - 24 hr 10/09/16 10/09/16 10/09/16 13:05 15:41 17:46 Temperature 97.5 F L Pulse Rate 83 Pulse Rate [ 114 H 114 H Apical] Respiratory 18 24 24 Rate Blood Pressure 136/69 Blood Pressure 104/73 [Left Arm] O2 Sat by Pulse 95 98 95 Oximetry (%) 10/09/16 10/09/16 10/09/16 19:02 19:10 21:00 Temperature Pulse Rate 110 H Pulse Rate [ 112 H Apical] Respiratory 24 20 20 Rate Blood Pressure 101/90 Blood Pressure 112/83 [Left Arm] O2 Sat by Pulse 97 97 97 Oximetry (%) 10/10/16 10/10/16 10/10/16 02:58 06:00 09:00 Temperature 97.8 F 98 F Pulse Rate 92 H 98 H Pulse Rate [ Apical] Respiratory 20 20 Rate Blood Pressure 101/59 131/64 Blood Pressure [Left Arm] O2 Sat by Pulse 98 Oximetry (%) 10/10/16 09:34 Temperature 98.7 F Pulse Rate 88 Pulse Rate [ Apical] Respiratory 20 Rate Blood Pressure 100/52 Blood Pressure [Left Arm] O2 Sat by Pulse Oximetry (%) Intake & Output 10/08/16 10/09/16 10/10/16 10/11/16 07:59 07:59 07:59 07:59 Intake Total 700 Balance 700 Weight 158 lb nad, calm jvd flat, neck supple dry rales, nl effort irregularly irregular nl s1, s2 2/6 murmur at lsb + bs soft nt nd ext without e/c/c + dp/pt aaox3 no jaundice, diaphoreiss no carotid bruits CBC, BMP 10/10/16 05:35 10/10/16 05:35 Laboratory Tests 10/10/16 10/10/16 05:35 05:35 INR 1.88 H Calcium 9.1 Phosphorus 2.8 Magnesium 1.7 L D EKG afib with rvr, lbbb tele: afib hr's 90's-100's with occasional increases to 130's with ambulation cxr clear 85 yo with h/o s/p mech AVR, CAD s/p recent PCI x 2 - 05/2016, diastolic HF, CKD, DM, hypothyroidism p/w worsening, presents to ED with afib with RVR. afib, new dx last month - con't AC with coumadin per inr -on prior admit last month dilt started and bb increased but --> bradycardic -- > so dilt was stopped and toprol decreased back to 75 bid. Last week at outpatient cardiology visit developed RVR to 130's with ambulation --> toprol increased to 100 mg bid still with no improvement in heart rate. - ? whether overdiuresis contributing, + orthstatics. --> con't IVF today and evaluate for improvement in bp and rate. - Started metoprolol tartrate 75 tid. Will add short acting dilt QID and stop IVF if no significant improvement in HR today with IVF. Slow uptitration of av cate blockade with close bp monitoring. - discussed option of CV with patient and family but they would like to defer. - tsh - had plan for outpatient can reschedule as outpatient unless hypotension persists ILD, new dx last month - likely contributing to cough and worsened sob. mgm't per pm/pulm CAD: -had 2 stents 05/19 con't home DAPT (ASA + Effient), metopr, statin -ECG here with LBBB not new -trop neg x 1 h/o mech AVR -cont coumadin per INR - now that patient has afb, need to address adjusting INR target to 2.5-3.5 with family. Patient also on DAPT so could consider monotherapy if dose adjustment is made. In the meanwhile today INR remains borderline therapeutic for the second day in a row. Will give one dose of lovenox this evening. diastolic HF - Cr worse, ongoing weight loss/presumed net neg since discharge. currently on maintenance fluids with improvement in creatinine. Consider resuming half dose of lasix tomorrow. - daily weights, i/o's, bmp CKD - cr improving, con't to monitor HTN: -bp running low, con't to monitor.
[2016-10-10] MEDS: INSULIN SLIDING SCALE (NOVOLOG) 1 VIAL SQ SCH ×3 (13:30→21:45)
--- NOTE | 2016-10-10 13:33 | PN ---
Progress Note, Physician Chief Complaint: Ms Simon says she feels about the same today, however she says she was not short of breath with minimal activity like she said she was yesterday. She says she felt some palpitations when she was in the bathroom and RN came in and said her heart rate was elevated. No cp or n/v. - Current Medication List Current Medications: Active Medications Acetaminophen (Tylenol -) 650 mg PO Q4H PRN PRN Reason: FEVER OR PAIN Aspirin (Ecotrin -) 81 mg PO DAILY [facility] Last Admin: 10/10/16 09:31 Dose: 81 mg Atorvastatin Calcium (Lipitor -) 40 mg PO HS [facility] Last Admin: 10/09/16 21:13 Dose: 40 mg Docusate Sodium (Colace -) 300 mg PO [facility] Last Admin: 10/09/16 21:17 Dose: Not Given Glipizide (Glucotrol -) 2.5 mg PO BID@0700,1630 [facility] Guaifenesin (Diabetic Tussin Dm -) 10 ml PO Q6H PRN PRN Reason: COUGH Sodium Chloride (Normal Saline -) 1,000 mls @ 42 mls/hr IV ASDIR [facility] Last Admin: 10/09/16 21:12 Dose: 42 mls/hr Insulin Aspart (Novolog Vial Sliding Scale -) 1 vial SQ ACHS [facility] PRN Reason: Protocol Levothyroxine Sodium (Synthroid -) 100 mcg PO DAILY@0700 [facility] Last Admin: 10/10/16 06:46 Dose: 100 mcg Magnesium Sulfate (Magnesium Sulfate) 2 gm IVPB ONCE ONE Stop: 10/10/16 13:46 Metoprolol Tartrate (Lopressor -) 75 mg PO TID [facility] Last Admin: 10/10/16 06:46 Dose: 75 mg Prasugrel (Effient -) 5 mg PO DAILY [facility] Ranitidine HCl (Zantac -) 150 mg PO DAILY [facility] Last Admin: 10/10/16 09:30 Dose: 150 mg - Objective Vital Signs: Vital Signs Temperature 98.7 F 10/10/16 09:34 Pulse Rate 88 10/10/16 09:34 Respiratory Rate 20 10/10/16 09:34 Blood Pressure 100/52 10/10/16 09:34 O2 Sat by Pulse Oximetry (%) 98 10/10/16 09:00 Constitutional: Yes: Well Nourished, No Distress, Calm Cardiovascular: Yes: Pulse Irregular. No: Tachycardia, Gallop, Murmur, Rub Respiratory: Yes: Regular, CTA Bilaterally. No: Rales, Rhonchi, Wheezes Gastrointestinal: Yes: Normal Bowel Sounds, Soft. No: Distention, Tenderness Extremities: Yes: WNL Edema: No Labs: CBC, BMP 10/10/16 05:35 10/10/16 05:35 INR, PTT INR 1.88 (0.82-1.09) H 10/10/16 05:35 Problem List - Problems (1) Atrial fibrillation with rapid ventricular response Code(s): I48.91 - UNSPECIFIED ATRIAL FIBRILLATION (2) Dyspnea on exertion Code(s): R06.09 - OTHER FORMS OF DYSPNEA (3) ALEIDA (acute kidney injury) Code(s): N17.9 - ACUTE KIDNEY FAILURE, UNSPECIFIED (4) Coronary artery disease Code(s): I25.10 - ATHSCL HEART DISEASE OF [place] CORONARY ARTERY W/O ANG PCTRS (5) Diabetes mellitus Code(s): E11.9 - TYPE 2 DIABETES MELLITUS WITHOUT COMPLICATIONS (6) History of aortic valve replacement Code(s): Z95.2 - PRESENCE OF PROSTHETIC HEART VALVE (7) Hypothyroid Code(s): E03.9 - HYPOTHYROIDISM, UNSPECIFIED Assessment/Plan 1. Atrial fibrillation with RVR -appreciate cardiology assistance -toprol xl increased to 50mg tid -still with some exertional tachycardia per patient -cardiology to further adjust or add second agent 2. Dyspnea on exertion -lungs remain clear -follow up pulmonary note 3. Hypertension -continue toprol 4. Mechanical valve with subtherapeutic INR -not therapeutic -given coumadin 8mg today -recheck in am 5. CAD with stents -no chest pain -continue home regimen 6. Diabetes -diabetic diet 7. ARF on CKD -continue hydration -slightly improved 8. Hypothyroid -previously checked TFTs show patient was hyperthyroid -this was checked one month ago -since 4 weeks, will recheck -may be cause of afib with RVR and needs further adjustment 9. Diabetes -hyperglycemia with holding metformin -holding metformin secondary to renal function -FSBS and SSI -add low dose glipizide
[2016-10-10] MEDS ORDERED: MAGNESIUM SULF 50% (8.12 MEQ/2 ML-1 GM VIAL) IVPB ONE (13:45)
[2016-10-10] MEDS: glipiZIDE 5 MG TABLET (FP) PO SCH (17:00)
[2016-10-10] MEDS: SODIUM CHLORIDE 1,000 ML IV SCH (18:14)
[2016-10-10] MEDS: ATORVASTATIN CA 40 MG TABLET (FP) PO SCH (21:32)
[2016-10-10] MEDS: dilTIAZem HCL 30 MG TABLET (FP) PO SCH (21:32)
[2016-10-10] MEDS: DOCUSATE SODIUM 100 MG CAPSULE (FP) PO SCH (21:36)
[2016-10-10] MEDS ORDERED: INSULIN (NOVOLOG) ASPART 100 UNITS/ML 10ML VIAL ONE (21:38)
[2016-10-10] MEDS ORDERED: ENOXAPARIN NA (PORCINE) 60 MG/0.6 ML DISP.SYRIN SQ ONE (22:00)
[2016-10-11] MEDS: LEVOTHYROXINE NA 100 MCG TABLET (FP) PO SCH (06:23)
[2016-10-11] MEDS: glipiZIDE 5 MG TABLET (FP) PO SCH ×2 (06:24→17:05)
[2016-10-11] MEDS: METOPROLOL TARTRATE 50 MG TABLET (FP) PO SCH ×3 (06:24→21:09)
[2016-10-11] MEDS: INSULIN SLIDING SCALE (NOVOLOG) 1 VIAL SQ SCH ×4 (06:25→21:11)
[2016-10-11 08:31] LABS: BASOPHIL 0.9 % (0-2.0); EOSINOPHIL 4.3 % (0-4.5); MCH 28.4 pg (25.7-33.7); MCHC 33.1 g/dl (32.0-36.0); MEAN PLT VOLUME 9.1 fl (7.5-11.1); NEUTROPHILS 65.5 % (42.8-82.8); PLATELET COUNT 147 K/MM3 (134-434); RDW 15.9 % (11.6-15.6); WHITE BLOOD COUNT 5.7 K/mm3 (4.0-10.0)
[2016-10-11] MEDS ORDERED: PT OWN MED DRAWER 7, Y5N ONE ×2 (08:54→18:54)
[2016-10-11] MEDS: RANITIDINE HCL 150 MG TABLET (FP) PO SCH (09:01)
[2016-10-11] MEDS: FUROSEMIDE 20 MG TABLET (FP) PO SCH (09:01)
[2016-10-11] MEDS: dilTIAZem HCL 30 MG TABLET (FP) PO SCH ×4 (09:01→21:09)
[2016-10-11] MEDS: PRASUGREL HCL 5 MG TAB PO SCH (09:01)
[2016-10-11] MEDS: ASPIRIN COATED 81 MG TABLET.EC PO SCH (09:01)
[2016-10-11 09:05] LABS: INR 3.48 (0.82-1.09); PROTHROMBIN TIME (PATIENT) 39.3 SEC (9.98-11.88)
[2016-10-11 09:37] LABS: ANION GAP 11 (8-16); CO2 26 mmol/L (21-32); CREATININE 1.3 mg/dL (0.55-1.02); GLUCOSE,RANDOM 166 mg/dL (74-106); MAGNESIUM 2.2 mg/dL (1.8-2.4); PHOSPHOROUS 2.9 mg/dL (2.5-4.9)
--- NOTE | 2016-10-11 10:40 | PN ---
Progress Note (short form) - Note Progress Note: cc: afib with rvr S: no cp, palps, dizziness. still feels sob Current Medications Generic Name Dose Route Start Last Admin Trade Name Allison PRN Reason Stop Dose Admin Acetaminophen 650 mg 10/09/16 17:03 Tylenol - PO Q4H PRN FEVER OR PAIN Aspirin 81 mg 10/10/16 10:00 10/11/16 09:01 Ecotrin - PO 81 mg DAILY [facility] Administration Atorvastatin Calcium 40 mg 10/09/16 22:00 10/10/16 21:32 Lipitor - PO 40 mg HS [facility] Administration Diltiazem HCl 30 mg 10/10/16 21:00 10/11/16 09:01 Cardizem - PO 30 mg QID [facility] Administration Docusate Sodium 300 mg 10/09/16 22:00 10/10/16 21:36 Colace - PO Not Given HS [facility] Furosemide 20 mg 10/11/16 10:00 10/11/16 09:01 Lasix - PO 20 mg DAILY [facility] Administration Glipizide 2.5 mg 10/10/16 16:30 10/11/16 06:24 Glucotrol - PO 2.5 mg BID@0700,1630 [facility] Administration Guaifenesin 10 ml 10/09/16 17:01 Diabetic Tussin Dm - PO Q6H PRN COUGH Insulin Aspart 1 vial 10/10/16 16:30 10/11/16 06:25 Novolog Vial Sliding Scale - SQ Not Given ACHS [facility] Protocol Levothyroxine Sodium 100 mcg 10/10/16 07:00 10/11/16 06:23 Synthroid - PO 100 mcg DAILY@0700 [facility] Administration Metoprolol Tartrate 75 mg 10/10/16 06:00 10/11/16 06:24 Lopressor - PO 75 mg TID [facility] Administration Prasugrel 5 mg 10/10/16 10:00 10/11/16 09:01 Effient - PO 5 mg DAILY [facility] Administration Ranitidine HCl 150 mg 10/10/16 10:00 10/11/16 09:01 Zantac - PO 150 mg DAILY [facility] Administration Vital Signs Period Temp Pulse Resp BP Sys/Price Pulse Ox Last 24 Hr 97.9 F-98.6 F 79-102 18-20 108-133/40-66 93-100 nad, calm jvd flat, neck supple cta bl nl effort irregularly irregular nl s1, s2 2/6 murmur at lsb + bs soft nt nd ext without e/c/c aaox3 no jaundice, diaphoreiss CBC, BMP 10/11/16 05:48 10/11/16 05:48 tele: afib, rate controlled at rest a/p: 85 yo with h/o s/p mech AVR, CAD s/p recent PCI x 2 - 05/2016, diastolic HF, CKD, DM, hypothyroidism p/w worsening, presents to ED with afib with RVR. afib, new dx last month -con't AC with coumadin per inr -on prior admit last month dilt started and bb increased but --> bradycardic -- > so dilt was stopped and toprol decreased back to 75 bid. Last week at outpatient cardiology visit developed RVR to 130's with ambulation --> toprol increased to 100 mg bid still with no improvement in heart rate. - ? whether overdiuresis contributing, + orthstatics. --> got ivfs here - Also now started metoprolol tartrate 75 tid and short acting dilt QID - currently HR controlled at rest, would plan for PT here and monitor HR response to exertion - discussed option of CV with patient and family but they would like to defer. ILD, new dx last month - likely contributing to cough and worsened sob. mgm't per pmd/pulm CAD: -had 2 stents 05/19 con't home DAPT (ASA + Effient), metopr, statin -ECG here with LBBB not new -no signs acs h/o mech AVR -cont coumadin per INR - now that patient has afb, need to address adjusting INR target to 2.5-3.5 with family. Patient also on DAPT so could consider monotherapy if dose adjustment is made. diastolic HF - lasix resumed at lower dose 20 mg qd CKD - cr improved, back to baseline after ivfs HTN: -stable on current meds
--- NOTE | 2016-10-11 11:23 | PN ---
Progress Note, Physician Chief Complaint: Ms Simon says she feels about the same today, says her breathing is unchanged. No cp or n/v. Refused to walk for pre and post yesterday. - Current Medication List Current Medications: Active Medications Acetaminophen (Tylenol -) 650 mg PO Q4H PRN PRN Reason: FEVER OR PAIN Aspirin (Ecotrin -) 81 mg PO DAILY [facility] Last Admin: 10/11/16 09:01 Dose: 81 mg Atorvastatin Calcium (Lipitor -) 40 mg PO [facility] Last Admin: 10/10/16 21:32 Dose: 40 mg Diltiazem HCl (Cardizem -) 30 mg PO QID [facility] Last Admin: 10/11/16 09:01 Dose: 30 mg Docusate Sodium (Colace -) 300 mg PO [facility] Last Admin: 10/10/16 21:36 Dose: Not Given Furosemide (Lasix -) 20 mg PO DAILY [facility] Last Admin: 10/11/16 09:01 Dose: 20 mg Glipizide (Glucotrol -) 2.5 mg PO BID@0700,1630 [facility] Last Admin: 10/11/16 06:24 Dose: 2.5 mg Guaifenesin (Diabetic Tussin Dm -) 10 ml PO Q6H PRN PRN Reason: COUGH Insulin Aspart (Novolog Vial Sliding Scale -) 1 vial SQ ACHS [facility] PRN Reason: Protocol Last Admin: 10/11/16 06:25 Dose: Not Given Levothyroxine Sodium (Synthroid -) 100 mcg PO DAILY@0700 [facility] Last Admin: 10/11/16 06:23 Dose: 100 mcg Metoprolol Tartrate (Lopressor -) 75 mg PO TID [facility] Last Admin: 10/11/16 06:24 Dose: 75 mg Prasugrel (Effient -) 5 mg PO DAILY [facility] Last Admin: 10/11/16 09:01 Dose: 5 mg Ranitidine HCl (Zantac -) 150 mg PO DAILY [facility] Last Admin: 10/11/16 09:01 Dose: 150 mg Warfarin Sodium (Coumadin -) 4 mg PO NOW ONE Stop: 10/11/16 11:31 - Objective Vital Signs: Vital Signs Temperature 98.1 F 10/11/16 07:59 Pulse Rate 81 10/11/16 07:59 Respiratory Rate 20 10/11/16 08:00 Blood Pressure 121/66 10/11/16 07:59 O2 Sat by Pulse Oximetry (%) 100 10/11/16 08:00 Constitutional: Yes: No Distress, Calm, Obese Cardiovascular: Yes: Pulse Irregular. No: Tachycardia, Gallop, Murmur, Rub Respiratory: Yes: Regular, On Nasal O2, Rhonchi, Wheezes. No: CTA Bilaterally, Rales Gastrointestinal: Yes: Normal Bowel Sounds, Soft. No: Distention, Tenderness Extremities: Yes: WNL Edema: No Labs: CBC, BMP 10/11/16 05:48 10/11/16 05:48 INR, PTT INR 3.48 (0.82-1.09) H D 10/11/16 05:48 Problem List - Problems (1) Atrial fibrillation with rapid ventricular response Code(s): I48.91 - UNSPECIFIED ATRIAL FIBRILLATION (2) Dyspnea on exertion Code(s): R06.09 - OTHER FORMS OF DYSPNEA (3) ALEIDA (acute kidney injury) Code(s): N17.9 - ACUTE KIDNEY FAILURE, UNSPECIFIED (4) Coronary artery disease Code(s): I25.10 - ATHSCL HEART DISEASE OF [place] CORONARY ARTERY W/O ANG PCTRS (5) Diabetes mellitus Code(s): E11.9 - TYPE 2 DIABETES MELLITUS WITHOUT COMPLICATIONS (6) History of aortic valve replacement Code(s): Z95.2 - PRESENCE OF PROSTHETIC HEART VALVE (7) Hypothyroid Code(s): E03.9 - HYPOTHYROIDISM, UNSPECIFIED (8) CHF (congestive heart failure) Code(s): I50.9 - HEART FAILURE, UNSPECIFIED Qualifiers: Congestive heart failure type: diastolic Congestive heart failure chronicity: chronic Qualified Code(s): I50.32 - Chronic diastolic ( congestive) heart failure Assessment/Plan 1. Atrial fibrillation with RVR -appreciate cardiology assistance -cardiology note reviewed -toprol xl increased to 75mg tid -diltiazem 30mg q6h added 2. Dyspnea on exertion -lung sounds heard on exam today -? steroids, awaiting pulmonary recommendations -now on oxygen 3. Hypertension -continue toprol 4. Mechanical valve with subtherapeutic INR -therapeutic -maintain 2.5-3.5 -received 8mg yesterday with significant increase -will give coumadin 4mg today and recheck in am 5. CAD with stents -no chest pain -continue home regimen 6. Diabetes -diabetic diet -metformin held secondary to renal function -low dose glipizide added -monitor today 7. ARF on CKD -improved with hydration 8. Hypothyroid -case d/w Dr Copeland -synthroid decreased last admission -TSH and FT4 levels pending 9. Chronic diastolic CHF without exacerbation -cardiology note reviewed -lasix restarted at lower dose of 20mg daily -monitor renal function
--- NOTE | 2016-10-11 11:24 | PN ---
Teaching Attending Note Name of Resident: Tomasz Osuna ATTENDING PHYSICIAN STATEMENT I saw and evaluated the patient. I reviewed the resident's note and discussed the case with the resident. I agree with the resident's findings and plan as documented. PULMONARY IMP ILD AFIB CHF S/P AVR ASHD S/P STENTS HTN ALEIDA PLAN INHALED BRONCHODILATORS LASIX O2 AC MONITOR LYTES PFTS OUTPATIENT DAILY WTS SLEEP SCREEN DR DAVENPORT Problem List - Problems (1) Atrial fibrillation with rapid ventricular response Code(s): I48.91 - UNSPECIFIED ATRIAL FIBRILLATION (2) CHF (congestive heart failure) Code(s): I50.9 - HEART FAILURE, UNSPECIFIED Qualifiers: Congestive heart failure type: diastolic Congestive heart failure chronicity: chronic Qualified Code(s): I50.32 - Chronic diastolic ( congestive) heart failure (3) Cough present for greater than 3 weeks Code(s): R05 - COUGH (4) Dyspnea on exertion Code(s): R06.09 - OTHER FORMS OF DYSPNEA (5) Weakness Code(s): R53.1 - WEAKNESS (6) ALEIDA (acute kidney injury) Code(s): N17.9 - ACUTE KIDNEY FAILURE, UNSPECIFIED (7) Atrial fibrillation Code(s): I48.91 - UNSPECIFIED ATRIAL FIBRILLATION Qualifiers: Atrial fibrillation type: chronic Qualified Code(s): I48.2 - Chronic atrial fibrillation (8) Coronary artery disease Code(s): I25.10 - ATHSCL HEART DISEASE OF [place] CORONARY ARTERY W/O ANG PCTRS (9) Diabetes mellitus Code(s): E11.9 - TYPE 2 DIABETES MELLITUS WITHOUT COMPLICATIONS (10) History of aortic valve replacement Code(s): Z95.2 - PRESENCE OF PROSTHETIC HEART VALVE (11) Hypothyroid Code(s): E03.9 - HYPOTHYROIDISM, UNSPECIFIED (12) Interstitial lung disease Code(s): J84.9 - INTERSTITIAL PULMONARY DISEASE, UNSPECIFIED
[2016-10-11] MEDS ORDERED: WARFARIN NA 2 MG TABLET (UD) PO ONE (11:30)
[2016-10-11 11:59] LABS: FREE T4 1.52 ng/dl (0.76-1.46); THYROID STIMULATING HORMONE 0.69 uIU/ml (0.358-3.74)
[2016-10-11] MEDS ORDERED: INSULIN (NOVOLOG) ASPART 100 UNITS/ML 10ML VIAL ONE (20:36)
[2016-10-11] MEDS: DOCUSATE SODIUM 100 MG CAPSULE (FP) PO SCH (21:08)
[2016-10-11] MEDS: ATORVASTATIN CA 40 MG TABLET (FP) PO SCH (21:09)
[2016-10-12] MEDS: METOPROLOL TARTRATE 50 MG TABLET (FP) PO SCH ×3 (06:05→22:16)
[2016-10-12] MEDS: glipiZIDE 5 MG TABLET (FP) PO SCH ×2 (06:06→16:35)
[2016-10-12] MEDS: INSULIN SLIDING SCALE (NOVOLOG) 1 VIAL SQ SCH ×4 (06:08→22:17)
[2016-10-12] MEDS ORDERED: LEVOTHYROXINE NA 100 MCG TABLET (FP) PO SCH (07:00)
[2016-10-12 07:58] LABS: BASOPHIL 0.5 % (0-2.0); EOSINOPHIL 4.6 % (0-4.5); MCH 28.7 pg (25.7-33.7); MCHC 33.3 g/dl (32.0-36.0); MEAN CELL VOLUME 86.3 fl (80-96); MEAN PLT VOLUME 8.9 fl (7.5-11.1); NEUTROPHILS 70.6 % (42.8-82.8); PLATELET COUNT 138 K/MM3 (134-434); RDW 15.4 % (11.6-15.6); WHITE BLOOD COUNT 5.3 K/mm3 (4.0-10.0)
[2016-10-12 08:14] LABS: PROTHROMBIN TIME (PATIENT) 54.2 SEC (9.98-11.88)
[2016-10-12 08:32] LABS: INR 4.77 (0.82-1.09)
[2016-10-12 09:17] LABS: ANION GAP 12 (8-16); CALCIUM 8.7 mg/dL (8.5-10.1); CO2 27 mmol/L (21-32); CREATININE 1.2 mg/dL (0.55-1.02); GLUCOSE,RANDOM 164 mg/dL (74-106); MAGNESIUM 1.9 mg/dL (1.8-2.4); PHOSPHOROUS 2.9 mg/dL (2.5-4.9)
[2016-10-12] MEDS ORDERED: PT OWN MED DRAWER 7, Y5N ONE ×2 (09:53→12:25)
[2016-10-12] MEDS: PRASUGREL HCL 5 MG TAB PO SCH (10:08)
[2016-10-12] MEDS: FUROSEMIDE 20 MG TABLET (FP) PO SCH (10:08)
[2016-10-12] MEDS: RANITIDINE HCL 150 MG TABLET (FP) PO SCH (10:08)
[2016-10-12] MEDS: dilTIAZem HCL 30 MG TABLET (FP) PO SCH ×4 (10:08→22:16)
[2016-10-12] MEDS: ASPIRIN COATED 81 MG TABLET.EC PO SCH (10:08)
--- NOTE | 2016-10-12 11:28 | PN ---
Progress Note (short form) - Note Progress Note: cc: afib with rvr S: no cp, palps, dizziness. walked with pt yesterday and felt no palps and better sob, just feels weak still Current Medications Generic Name Dose Route Start Last Admin Trade Name Freq PRN Reason Stop Dose Admin Acetaminophen 650 mg 10/09/16 17:03 Tylenol - PO Q4H PRN FEVER OR PAIN Aspirin 81 mg 10/10/16 10:00 10/12/16 10:08 Ecotrin - PO 81 mg DAILY [facility] Administration Atorvastatin Calcium 40 mg 10/09/16 22:00 10/11/16 21:09 Lipitor - PO 40 mg HS [facility] Administration Diltiazem HCl 30 mg 10/10/16 21:00 10/12/16 10:08 Cardizem - PO 30 mg QID [facility] Administration Docusate Sodium 300 mg 10/09/16 22:00 10/11/16 21:08 Colace - PO Not Given HS [facility] Furosemide 20 mg 10/11/16 10:00 10/12/16 10:08 Lasix - PO 20 mg DAILY [facility] Administration Glipizide 2.5 mg 10/10/16 16:30 10/12/16 06:06 Glucotrol - PO 2.5 mg BID@0700,1630 [facility] Administration Guaifenesin 10 ml 10/09/16 17:01 Diabetic Tussin Dm - PO Q6H PRN COUGH Insulin Aspart 1 vial 10/10/16 16:30 10/12/16 06:08 Novolog Vial Sliding Scale - SQ Not Given ACHS [facility] Protocol Levothyroxine Sodium 88 mcg 10/12/16 07:00 10/12/16 06:06 Synthroid - PO 88 mcg DAILY@0700 [facility] Administration Metformin HCl 500 mg 10/12/16 11:30 Glucophage - PO DAILY [facility] Metoprolol Tartrate 75 mg 10/10/16 06:00 10/12/16 06:05 Lopressor - PO 75 mg TID [facility] Administration Prasugrel 5 mg 10/10/16 10:00 10/12/16 10:08 Effient - PO 5 mg DAILY [facility] Administration Ranitidine HCl 150 mg 10/10/16 10:00 10/12/16 10:08 Zantac - PO 150 mg DAILY [facility] Administration Vital Signs Period Temp Pulse Resp BP Sys/Price Pulse Ox Last 24 Hr 98.0 F-99.0 F 82-100 19-22 100-133/40-65 95-97 nad, calm jvd flat, neck supple cta bl nl effort irregularly irregular nl s1, s2 2/6 murmur at lsb + bs soft nt nd ext without e/c/c aaox3 no jaundice, diaphoreiss CBC, BMP 10/12/16 05:45 10/12/16 05:45 tele: afib, rate controlled a/p: 85 yo with h/o s/p mech AVR, CAD s/p recent PCI x 2 - 05/2016, diastolic HF, CKD, DM, hypothyroidism p/w worsening, presents to ED with afib with RVR. afib, new dx last month -con't AC with coumadin per inr -on prior admit last month dilt started and bb increased but --> bradycardic -- > so dilt was stopped and toprol decreased back to 75 bid. Last week at outpatient cardiology visit developed RVR to 130's with ambulation --> toprol increased to 100 mg bid still with no improvement in heart rate. - ? whether overdiuresis contributing, + orthstatics. --> got ivfs here - Also now started metoprolol tartrate 75 tid and short acting dilt QID - currently HR controlled at rest and with PT yesterday so would continue same regimen - discussed option of CV with patient and family but they would like to defer. ILD, new dx last month - likely contributing to cough and worsened sob. mgm't per pmd/pulm CAD: -had 2 stents 05/19 con't home DAPT (ASA + Effient), metopr, statin -ECG here with LBBB not new -no signs acs h/o mech AVR -cont coumadin per INR diastolic HF -lasix resumed at lower dose 20 mg qd CKD - cr improved, back to baseline after ivfs HTN: -stable on current meds cardiac corea stable
--- NOTE | 2016-10-12 11:33 | PN ---
Progress Note, Physician Chief Complaint: Ms Simon is off oxygen but saying she feels short of breath. No cp or n/v. - Current Medication List Current Medications: Active Medications Acetaminophen (Tylenol -) 650 mg PO Q4H PRN PRN Reason: FEVER OR PAIN Aspirin (Ecotrin -) 81 mg PO DAILY [facility] Last Admin: 10/12/16 10:08 Dose: 81 mg Atorvastatin Calcium (Lipitor -) 40 mg PO HS [facility] Last Admin: 10/11/16 21:09 Dose: 40 mg Diltiazem HCl (Cardizem -) 30 mg PO QID [facility] Last Admin: 10/12/16 10:08 Dose: 30 mg Docusate Sodium (Colace -) 300 mg PO HS [facility] Last Admin: 10/11/16 21:08 Dose: Not Given Furosemide (Lasix -) 20 mg PO DAILY [facility] Last Admin: 10/12/16 10:08 Dose: 20 mg Glipizide (Glucotrol -) 2.5 mg PO BID@0700,1630 [facility] Last Admin: 10/12/16 06:06 Dose: 2.5 mg Guaifenesin (Diabetic Tussin Dm -) 10 ml PO Q6H PRN PRN Reason: COUGH Insulin Aspart (Novolog Vial Sliding Scale -) 1 vial SQ ACHS [facility] PRN Reason: Protocol Last Admin: 10/12/16 11:27 Dose: Not Given Levothyroxine Sodium (Synthroid -) 88 mcg PO DAILY@0700 [facility] Last Admin: 10/12/16 06:06 Dose: 88 mcg Metformin HCl (Glucophage -) 500 mg PO DAILY [facility] Metoprolol Tartrate (Lopressor -) 75 mg PO TID [facility] Last Admin: 10/12/16 06:05 Dose: 75 mg Prasugrel (Effient -) 5 mg PO DAILY [facility] Last Admin: 10/12/16 10:08 Dose: 5 mg Ranitidine HCl (Zantac -) 150 mg PO DAILY [facility] Last Admin: 10/12/16 10:08 Dose: 150 mg - Objective Vital Signs: Vital Signs Temperature 98.0 F 10/12/16 06:00 Pulse Rate 82 10/12/16 08:30 Respiratory Rate 22 10/12/16 08:30 Blood Pressure 123/56 10/12/16 08:30 O2 Sat by Pulse Oximetry (%) 97 10/12/16 09:00 Constitutional: Yes: No Distress, Calm, Obese Cardiovascular: Yes: Pulse Irregular. No: Tachycardia, Gallop, Murmur, Rub Respiratory: Yes: Regular, CTA Bilaterally, Cough (dry). No: Rales, Rhonchi, Wheezes Gastrointestinal: Yes: Normal Bowel Sounds, Soft. No: Distention, Tenderness Extremities: Yes: WNL Edema: No Labs: CBC, BMP 10/12/16 05:45 10/12/16 05:45 INR, PTT INR 4.77 (0.82-1.09) H* D 10/12/16 05:45 Problem List - Problems (1) Atrial fibrillation with rapid ventricular response Code(s): I48.91 - UNSPECIFIED ATRIAL FIBRILLATION (2) Dyspnea on exertion Code(s): R06.09 - OTHER FORMS OF DYSPNEA (3) ALEIDA (acute kidney injury) Code(s): N17.9 - ACUTE KIDNEY FAILURE, UNSPECIFIED (4) Coronary artery disease Code(s): I25.10 - ATHSCL HEART DISEASE OF [place] CORONARY ARTERY W/O ANG PCTRS (5) Diabetes mellitus Code(s): E11.9 - TYPE 2 DIABETES MELLITUS WITHOUT COMPLICATIONS (6) History of aortic valve replacement Code(s): Z95.2 - PRESENCE OF PROSTHETIC HEART VALVE (7) Hypothyroid Code(s): E03.9 - HYPOTHYROIDISM, UNSPECIFIED (8) CHF (congestive heart failure) Code(s): I50.9 - HEART FAILURE, UNSPECIFIED Qualifiers: Congestive heart failure type: diastolic Congestive heart failure chronicity: chronic Qualified Code(s): I50.32 - Chronic diastolic ( congestive) heart failure Assessment/Plan 1. Atrial fibrillation with RVR -appreciate cardiology assistance -cardiology note reviewed -toprol xl increased to 75mg tid -diltiazem 30mg q6h added -now controlled, continue regimen per Dr Herr 2. ILD -lung exam sounds clear but with dry cough -SOB at rest, checked oxygen and was 83-85% -pulmonary following and managing -patient may need home oxygen 3. Hypertension -continue toprol and diltiazem 4. Mechanical valve with subtherapeutic INR -supratherapeutic today -hold coumadin -recheck in am 5. CAD with stents -no chest pain -continue home regimen 6. Diabetes -elevated today -can restart metformin since renal function normalized -continue glipizide -diabetic diet 7. ARF on CKD -at baseline 8. Hypothyroid -decreased synthroid to 88mcg -recheck as outpatient in 4-6 weeks 9. Chronic diastolic CHF without exacerbation -continue lasix 20mg daily
[2016-10-12] MEDS: metFORMIN HCL 500 MG TABLET (FP) PO SCH (11:45)
[2016-10-12] MEDS ORDERED: ALBUTEROL SO4 0.083% IH SOL 2.5 MG/3 ML VIAL.NEB. NEB PRN (12:10)
[2016-10-12] MEDS ORDERED: methylPREDNISolone NA SUCC 40 MG/1 ML VIAL IVPB SCH (12:25)
--- NOTE | 2016-10-12 12:25 | PN ---
Physical Exam: SUBJECTIVE: Patient seen and examined by me - Still w/ SOB and chronic dry cough. In mild distress 2/2 respiratory status - Desatted to mid-80s off O2 in AM per nursing, placed back on O2 with return to mid-90s - Ambulated bed to door w/ nursing. Maintained sat 95% but significant cough and SOB - Denies any fever, N/V, chest pain, lightheadness. Endorses loss of appetite and weakness Other updates: - Urinary yeast infection resulted - INR supratherapeutic OBJECTIVE: Vital Signs Period Temp Pulse Resp BP Sys/Price Pulse Ox Last 24 Hr 98.0 F-99.0 F 82-100 19-22 100-133/40-65 95-97 GENERAL: The patient is awake, alert, and fully oriented, in no acute distress. HEAD: Normal with no signs of trauma. EYES: sclera anicteric, conjunctiva clear. No ptosis. NECK: Trachea midline, supple. LUNGS: Bilateral trace rales across lower lung jiménez, no wheezes. No accessory muscle use. HEART: IRR, S1, S2. 3/6 blowing murmur LUSB ABDOMEN: Soft, nontender, globular, normoactive bowel sounds, no guarding, no rebound EXTREMITIES: 2+ pulses, warm, well-perfused. 2+ edema in LEs. NEUROLOGICAL: Normal speech, Slow, kyphotic gait observed. PSYCH: Normal affect. Appears exasperated with clinical condition Laboratory Results - last 24 hr 10/11/16 10/11/16 10/12/16 15:47 20:44 05:45 WBC 5.3 RBC 3.76 Hgb 10.8 Hct 32.4 MCV 86.3 MCH 28.7 MCHC 33.3 RDW 15.4 Plt Count 138 MPV 8.9 Neutrophils % 70.6 Lymphocytes % 12.9 D Monocytes % 11.4 H Eosinophils % 4.6 H Basophils % 0.5 INR Sodium Potassium Chloride Carbon Dioxide Anion Gap BUN Creatinine POC Glucometer 198 189 Random Glucose Calcium Phosphorus Magnesium 10/12/16 10/12/16 10/12/16 05:45 05:45 05:53 WBC RBC Hgb Hct MCV MCH MCHC RDW Plt Count MPV Neutrophils % Lymphocytes % Monocytes % Eosinophils % Basophils % INR 4.77 H* D Sodium 143 Potassium 3.7 Chloride 104 Carbon Dioxide 27 Anion Gap 12 BUN 26 H Creatinine 1.2 H POC Glucometer 196 Random Glucose 164 H Calcium 8.7 Phosphorus 2.9 Magnesium 1.9 10/12/16 11:26 WBC RBC Hgb Hct MCV MCH MCHC RDW Plt Count MPV Neutrophils % Lymphocytes % Monocytes % Eosinophils % Basophils % INR Sodium Potassium Chloride Carbon Dioxide Anion Gap BUN Creatinine POC Glucometer 242 Random Glucose Calcium Phosphorus Magnesium Active Medications Generic Name Dose Route Start Last Admin Trade Name Freq PRN Reason Stop Dose Admin Acetaminophen 650 mg 10/09/16 17:03 Tylenol - PO Q4H PRN FEVER OR PAIN Albuterol Sulfate 1 amp 10/12/16 12:10 Ventolin 0.083% Nebulizer Soln - NEB Q4H PRN SHORT OF BREATH/WHEEZING Aspirin 81 mg 10/10/16 10:00 10/12/16 10:08 Ecotrin - PO 81 mg DAILY [facility] Administration Atorvastatin Calcium 40 mg 10/09/16 22:00 10/11/16 21:09 Lipitor - PO 40 mg HS [facility] Administration Diltiazem HCl 30 mg 10/10/16 21:00 10/12/16 10:08 Cardizem - PO 30 mg QID [facility] Administration Docusate Sodium 300 mg 10/09/16 22:00 10/11/16 21:08 Colace - PO Not Given HS [facility] Furosemide 20 mg 10/11/16 10:00 10/12/16 10:08 Lasix - PO 20 mg DAILY [facility] Administration Glipizide 2.5 mg 10/10/16 16:30 10/12/16 06:06 Glucotrol - PO 2.5 mg BID@0700,1630 [facility] Administration Guaifenesin 10 ml 10/09/16 17:01 Diabetic Tussin Dm - PO Q6H PRN COUGH Insulin Aspart 1 vial 10/10/16 16:30 10/12/16 11:27 Novolog Vial Sliding Scale - SQ Not Given ACHS [facility] Protocol Levothyroxine Sodium 88 mcg 10/12/16 07:00 10/12/16 06:06 Synthroid - PO 88 mcg DAILY@0700 [facility] Administration Metformin HCl 500 mg 10/12/16 11:30 10/12/16 11:45 Glucophage - PO 500 mg DAILY@0700 [facility] Administration Methylprednisolone Sodium Succinate 40 mg 10/13/16 10:00 Solu-Medrol - IVPB DAILY [facility] Metoprolol Tartrate 75 mg 07/11/17 06:00 10/12/16 06:05 Lopressor - PO 75 mg TID [facility] Administration Prasugrel 5 mg 10/10/16 10:00 10/12/16 10:08 Effient - PO 5 mg DAILY [facility] Administration Ranitidine HCl 150 mg 10/10/16 10:00 10/12/16 10:08 Zantac - PO 150 mg DAILY [facility] Administration ASSESSMENT/PLAN: 85 yo woman w/ pmh of s/p mech avr, CAD w/ PCI x2 (2017), diastolic HF, DM, and hypothyoidism presented to ED in aFIb w/ RVR in the setting of 1-2 weeks of worsening cough/SOB and decreased exercise tolerance. Prior dx of ILD on past admission with similar symptoms, however has not received extensive work-up. Physical exam notable for irregularly irregular pulse, crackles in lower lung jiménez. New labs notable for supratherapeutic INR (4.7) and Urine cx growing yeast. Prior chest CT notable for diffuse fibrotic lung parenchymal changes and peripheral bibasilar brochietasis, more prominent posteriorly. Little clinical improvement with desatting on RA, persistent dry cough and SOB w/ minimal exertion. Will require work-up for ILD and cardiac evaluation. Problem list: Afib w/ RVR ILD, unspecified etiology HTN Dyspnea on exertion CAD CKD Stage III Hypothyroid Plan: #Worsening SOB - Continue to monitor for signs of infection - Started Albuterol 1 puff PRN Q4h - Started Solumedrol 40mg IV daily - O2 PRN. Titrate 92%> #ILD - Full ILD work-up - OSEAS, RF, CCP, CRP, P-ANCA, C-ANCA, Anti-GBM - PFTs - Consider BAL - F/u outpatient management with [employer] executive, Dr. Cruz #Afib - Defer to cardiology recs - INR supratherapeutic (4.7). Hold coumadin with serial INR checks - Serial EKGs, daily weights, I&0s - Rate control with beta-tre Tomasz Osuna MD, PGY1 Plan to be discussed with attending Problem List - Problems (1) Atrial fibrillation with rapid ventricular response Code(s): I48.91 - UNSPECIFIED ATRIAL FIBRILLATION (2) Cough present for greater than 3 weeks Code(s): R05 - COUGH (3) Dyspnea on exertion Code(s): R06.09 - OTHER FORMS OF DYSPNEA (4) Weakness Code(s): R53.1 - WEAKNESS (5) ALEIDA (acute kidney injury) Code(s): N17.9 - ACUTE KIDNEY FAILURE, UNSPECIFIED (6) Atrial fibrillation Code(s): I48.91 - UNSPECIFIED ATRIAL FIBRILLATION Qualifiers: Atrial fibrillation type: chronic Qualified Code(s): I48.2 - Chronic atrial fibrillation (7) Coronary artery disease Code(s): I25.10 - ATHSCL HEART DISEASE OF [place] CORONARY ARTERY W/O ANG PCTRS (8) Interstitial lung disease Code(s): J84.9 - INTERSTITIAL PULMONARY DISEASE, UNSPECIFIED Visit type - Emergency Visit Emergency Visit: No - New Patient This patient is new to me today: No - Critical Care Critical Care patient: No
--- NOTE | 2016-10-12 15:17 | PN ---
Teaching Attending Note Name of Resident: Tomasz Osuna ATTENDING PHYSICIAN STATEMENT I saw and evaluated the patient. I reviewed the resident's note and discussed the case with the resident. I agree with the resident's findings and plan as documented. SUBJECTIVE: Still with some SWANSON and dry cough. Apparently desaturated to mid 80's off NC O2. Saturation 96% on 2 L NC. No CP. Intake & Output 10/09/16 10/10/16 10/11/16 10/12/16 23:59 23:59 23:59 23:59 Intake Total 300 1704 1100 620 Balance 300 1704 1100 620 Weight 158 lb 159 lb 4 oz 160 lb 2 oz Last Vital Signs Temp Pulse Resp BP Pulse Ox 98.8 F 88 20 118/59 97 10/12/16 14:48 10/12/16 14:48 10/12/16 14:48 10/12/16 14:48 10/12/16 09:00 Home Medication List Medication Instructions Recorded Confirmed Type Aspirin [Aspirin EC] 81 mg PO DAILY 09/09/16 10/09/16 History Famotidine [Pepcid] 20 mg PO DAILY 09/09/16 10/09/16 History Furosemide [Lasix -] 40 mg PO DAILY 09/09/16 10/09/16 History Metformin HCl 500 mg PO DAILY 09/09/16 10/09/16 History Metoprolol Succinate [Toprol XL -] 75 mg PO BID 09/09/16 10/09/16 History Potassium Chloride [K-Dur -] 10 meq PO DAILY 09/09/16 10/09/16 History Prasugrel Hydrochloride [Effient -] 5 mg PO DAILY 09/09/16 10/09/16 History Warfarin Sodium [Coumadin] 2.5 mg PO SUTUTHSA 09/09/16 10/09/16 History Active Medications Generic Name Dose Route Start Last Admin Trade Name Freq PRN Reason Stop Dose Admin Acetaminophen 650 mg 10/09/16 17:03 Tylenol - PO Q4H PRN FEVER OR PAIN Albuterol Sulfate 1 amp 10/12/16 12:10 Ventolin 0.083% Nebulizer Soln - NEB Q4H PRN SHORT OF BREATH/WHEEZING Aspirin 81 mg 10/10/16 10:00 10/12/16 10:08 Ecotrin - PO 81 mg DAILY SASHA Administration Atorvastatin Calcium 40 mg 10/09/16 22:00 07/12/17 21:09 Lipitor - PO 40 mg HS SASHA Administration Diltiazem HCl 30 mg 10/10/16 21:00 10/12/16 13:18 Cardizem - PO 30 mg QID SASHA Administration Docusate Sodium 300 mg 10/09/16 22:00 10/11/16 21:08 Colace - PO Not Given HS SASHA Furosemide 20 mg 10/11/16 10:00 10/12/16 10:08 Lasix - PO 20 mg DAILY SASHA Administration Glipizide 2.5 mg 10/10/16 16:30 10/12/16 06:06 Glucotrol - PO 2.5 mg BID@0700,1630 SASHA Administration Guaifenesin 10 ml 10/09/16 17:01 Diabetic Tussin Dm - PO Q6H PRN COUGH Insulin Aspart 1 vial 10/10/16 16:30 10/12/16 11:27 Novolog Vial Sliding Scale - SQ Not Given ACHS [facility] Protocol Levothyroxine Sodium 88 mcg 10/12/16 07:00 10/12/16 06:06 Synthroid - PO 88 mcg DAILY@0700 SASHA Administration Metformin HCl 500 mg 10/12/16 11:30 10/12/16 11:45 Glucophage - PO 500 mg DAILY@0700 [facility] Administration Methylprednisolone Sodium Succinate 40 mg 10/12/16 12:25 Solu-Medrol - IVPB DAILY [facility] Metoprolol Tartrate 75 mg 10/10/16 06:00 10/12/16 13:18 Lopressor - PO 75 mg TID SASHA Administration Prasugrel 5 mg 10/10/16 10:00 10/12/16 10:08 Effient - PO 5 mg DAILY SASHA Administration Ranitidine HCl 150 mg 10/10/16 10:00 10/12/16 10:08 Zantac - PO 150 mg DAILY SASHA Administration GENERAL: The patient is awake, alert, and fully oriented, mildly tachypneic at rest HEAD: Normal with no signs of trauma. EYES: sclera anicteric, conjunctiva clear. No ptosis. NECK: Trachea midline, supple. LUNGS: Bibasilar rhonchi, no wheezes. No accessory muscle use. HEART: IRR, S1, S2. 3/6 murmur LUSB ABDOMEN: Soft, nontender, globular, normoactive bowel sounds, no guarding, no rebound EXTREMITIES: 2+ pulses, warm, well-perfused. 2+ edema in LEs. NEUROLOGICAL: Non-focal Laboratory Results - last 24 hr 10/11/16 10/11/16 10/12/16 15:47 20:44 05:45 WBC 5.3 RBC 3.76 Hgb 10.8 Hct 32.4 MCV 86.3 MCH 28.7 MCHC 33.3 RDW 15.4 Plt Count 138 MPV 8.9 Neutrophils % 70.6 Lymphocytes % 12.9 D Monocytes % 11.4 H Eosinophils % 4.6 H Basophils % 0.5 INR Sodium Potassium Chloride Carbon Dioxide Anion Gap BUN Creatinine POC Glucometer 198 189 Random Glucose Calcium Phosphorus Magnesium 10/12/16 10/12/16 10/12/16 05:45 05:45 05:53 WBC RBC Hgb Hct MCV MCH MCHC RDW Plt Count MPV Neutrophils % Lymphocytes % Monocytes % Eosinophils % Basophils % INR 4.77 H* D Sodium 143 Potassium 3.7 Chloride 104 Carbon Dioxide 27 Anion Gap 12 BUN 26 H Creatinine 1.2 H POC Glucometer 196 Random Glucose 164 H Calcium 8.7 Phosphorus 2.9 Magnesium 1.9 10/12/16 11:26 WBC RBC Hgb Hct MCV MCH MCHC RDW Plt Count MPV Neutrophils % Lymphocytes % Monocytes % Eosinophils % Basophils % INR Sodium Potassium Chloride Carbon Dioxide Anion Gap BUN Creatinine POC Glucometer 242 Random Glucose Calcium Phosphorus Magnesium Problem List - Problems (1) Atrial fibrillation with rapid ventricular response Code(s): I48.91 - UNSPECIFIED ATRIAL FIBRILLATION (2) Cough present for greater than 3 weeks Code(s): R05 - COUGH (3) Dyspnea on exertion Code(s): R06.09 - OTHER FORMS OF DYSPNEA (4) Weakness Code(s): R53.1 - WEAKNESS (5) ALEIDA (acute kidney injury) Code(s): N17.9 - ACUTE KIDNEY FAILURE, UNSPECIFIED (6) Atrial fibrillation Code(s): I48.91 - UNSPECIFIED ATRIAL FIBRILLATION Qualifiers: Atrial fibrillation type: chronic Qualified Code(s): I48.2 - Chronic atrial fibrillation (7) Coronary artery disease Code(s): I25.10 - ATHSCL HEART DISEASE OF [place] CORONARY ARTERY W/O ANG PCTRS (8) Interstitial lung disease Code(s): J84.9 - INTERSTITIAL PULMONARY DISEASE, UNSPECIFIED ASSESSMENT/PLAN: Afib w/ RVR ILD, (?) ILD HTN Dyspnea on exertion CAD CKD Stage III Hypothyroid O2 to maintain saturation BD TX IV Medrol Follow serology AC / follow INR Dr Jones
[2016-10-12] MEDS ORDERED: methylPREDNISolone NA SUCC 40 MG/1 ML VIAL IVPB ONE (16:02)
[2016-10-12] MEDS: methylPREDNISolone NA SUCC 40 MG/1 ML VIAL IVPB SCH (17:27)
[2016-10-12] MEDS: ATORVASTATIN CA 40 MG TABLET (FP) PO SCH (22:16)
[2016-10-12] MEDS: DOCUSATE SODIUM 100 MG CAPSULE (FP) PO SCH (22:17)
[2016-10-13] MEDS: methylPREDNISolone NA SUCC 40 MG/1 ML VIAL IVPB SCH ×3 (01:32→18:10)
[2016-10-13] MEDS: INSULIN SLIDING SCALE (NOVOLOG) 1 VIAL SQ SCH ×4 (06:28→21:19)
[2016-10-13] MEDS: METOPROLOL TARTRATE 50 MG TABLET (FP) PO SCH ×3 (06:31→21:19)
[2016-10-13] MEDS: metFORMIN HCL 500 MG TABLET (FP) PO SCH (06:34)
[2016-10-13] MEDS: glipiZIDE 5 MG TABLET (FP) PO SCH ×2 (06:34→17:09)
[2016-10-13] MEDS: LEVOTHYROXINE NA 88 MCG TABLET (FP) PO SCH (06:43)
[2016-10-13 07:20] LABS: BASOPHIL 0.2 % (0-2.0); MCH 28.7 pg (25.7-33.7); MCHC 33.6 g/dl (32.0-36.0); MEAN CELL VOLUME 85.4 fl (80-96); NEUTROPHILS 85.9 % (42.8-82.8); PLATELET COUNT 150 K/MM3 (134-434); RDW 15.3 % (11.6-15.6); WHITE BLOOD COUNT 4.9 K/mm3 (4.0-10.0)
[2016-10-13 07:35] LABS: PROTHROMBIN TIME (PATIENT) 46.8 SEC (9.98-11.88)
[2016-10-13 07:38] LABS: INR 4.13 (0.82-1.09)
[2016-10-13 07:51] LABS: ANION GAP 8 (8-16); CALCIUM 9.2 mg/dL (8.5-10.1); CO2 27 mmol/L (21-32); CREATININE 1.3 mg/dL (0.55-1.02); GLUCOSE,RANDOM 242 mg/dL (74-106); MAGNESIUM 2.1 mg/dL (1.8-2.4); PHOSPHOROUS 3.3 mg/dL (2.5-4.9)
[2016-10-13] MEDS: dilTIAZem HCL 30 MG TABLET (FP) PO SCH ×4 (09:58→21:19)
[2016-10-13] MEDS: ASPIRIN COATED 81 MG TABLET.EC PO SCH (09:58)
[2016-10-13] MEDS: RANITIDINE HCL 150 MG TABLET (FP) PO SCH (09:58)
[2016-10-13] MEDS: PRASUGREL HCL 5 MG TAB PO SCH (09:59)
[2016-10-13] MEDS: FUROSEMIDE 20 MG TABLET (FP) PO SCH (09:59)
[2016-10-13] MEDS ORDERED: methylPREDNISolone NA SUCC 40 MG/1 ML VIAL IVPB SCH (10:00)
--- NOTE | 2016-10-13 10:36 | PN ---
Teaching Attending Note Name of Resident: Tomasz Osuna ATTENDING PHYSICIAN STATEMENT I saw and evaluated the patient. I reviewed the resident's note and discussed the case with the resident. I agree with the resident's findings and plan as documented. PULMONARY FEELING BETTER ON STEROIDS LESS DYSPNEIC . SLEEP SCREEN + MODERATE-SEVERE JUAN AHI 21.5 IMP ILD AFIB CHF S/P AVR ASHD S/P STENTS HTN ALEIDA PLAN INHALED BRONCHODILATORS SOLUMEDROL 40 Q 8 LASIX O2 AC MONITOR LYTES PFTS OUTPATIENT DAILY WTS FULL SLEEP STUDIES OUTPATIENT DR DAVENPORT Problem List - Problems (1) Atrial fibrillation with rapid ventricular response Code(s): I48.91 - UNSPECIFIED ATRIAL FIBRILLATION (2) CHF (congestive heart failure) Code(s): I50.9 - HEART FAILURE, UNSPECIFIED Qualifiers: Congestive heart failure type: diastolic Congestive heart failure chronicity: chronic Qualified Code(s): I50.32 - Chronic diastolic ( congestive) heart failure (3) Cough present for greater than 3 weeks Code(s): R05 - COUGH (4) Dyspnea on exertion Code(s): R06.09 - OTHER FORMS OF DYSPNEA (5) Weakness Code(s): R53.1 - WEAKNESS (6) ALEIDA (acute kidney injury) Code(s): N17.9 - ACUTE KIDNEY FAILURE, UNSPECIFIED (7) Atrial fibrillation Code(s): I48.91 - UNSPECIFIED ATRIAL FIBRILLATION Qualifiers: Atrial fibrillation type: chronic Qualified Code(s): I48.2 - Chronic atrial fibrillation (8) Coronary artery disease Code(s): I25.10 - ATHSCL HEART DISEASE OF [place] CORONARY ARTERY W/O ANG PCTRS (9) Diabetes mellitus Code(s): E11.9 - TYPE 2 DIABETES MELLITUS WITHOUT COMPLICATIONS (10) History of aortic valve replacement Code(s): Z95.2 - PRESENCE OF PROSTHETIC HEART VALVE (11) Hypothyroid Code(s): E03.9 - HYPOTHYROIDISM, UNSPECIFIED (12) Interstitial lung disease Code(s): J84.9 - INTERSTITIAL PULMONARY DISEASE, UNSPECIFIED Problem List - Problems (1) Atrial fibrillation with rapid ventricular response Code(s): I48.91 - UNSPECIFIED ATRIAL FIBRILLATION (2) CHF (congestive heart failure) Code(s): I50.9 - HEART FAILURE, UNSPECIFIED Qualifiers: Congestive heart failure type: diastolic Congestive heart failure chronicity: chronic Qualified Code(s): I50.32 - Chronic diastolic ( congestive) heart failure (3) Cough present for greater than 3 weeks Code(s): R05 - COUGH (4) Dyspnea on exertion Code(s): R06.09 - OTHER FORMS OF DYSPNEA (5) Weakness Code(s): R53.1 - WEAKNESS (6) ALEIDA (acute kidney injury) Code(s): N17.9 - ACUTE KIDNEY FAILURE, UNSPECIFIED (7) Atrial fibrillation Code(s): I48.91 - UNSPECIFIED ATRIAL FIBRILLATION Qualifiers: Atrial fibrillation type: chronic Qualified Code(s): I48.2 - Chronic atrial fibrillation (8) Coronary artery disease Code(s): I25.10 - ATHSCL HEART DISEASE OF [place] CORONARY ARTERY W/O ANG PCTRS (9) Diabetes mellitus Code(s): E11.9 - TYPE 2 DIABETES MELLITUS WITHOUT COMPLICATIONS (10) History of aortic valve replacement Code(s): Z95.2 - PRESENCE OF PROSTHETIC HEART VALVE (11) Hypothyroid Code(s): E03.9 - HYPOTHYROIDISM, UNSPECIFIED (12) Interstitial lung disease Code(s): J84.9 - INTERSTITIAL PULMONARY DISEASE, UNSPECIFIED
--- NOTE | 2016-10-13 11:40 | PN ---
Progress Note (short form) - Note Progress Note: cc: afib with rvr S: no cp, palps, dizziness. started on iv steroids and now less sob today Current Medications Generic Name Dose Route Start Last Admin Trade Name Frec[place] PRN Reason Stop Dose Admin Acetaminophen 650 mg 10/09/16 17:03 Tylenol - PO Q4H PRN FEVER OR PAIN Albuterol Sulfate 1 amp 10/12/16 12:10 Ventolin 0.083% Nebulizer Soln - NEB Q4H PRN SHORT OF BREATH/WHEEZING Aspirin 81 mg 10/10/16 10:00 10/13/16 09:58 Ecotrin - PO 81 mg DAILY SASHA Administration Atorvastatin Calcium 40 mg 10/09/16 22:00 10/12/16 22:16 Lipitor - PO 40 mg HS SASHA Administration Diltiazem HCl 30 mg 10/10/16 21:00 10/13/16 09:58 Cardizem - PO 30 mg QID SASHA Administration Docusate Sodium 300 mg 10/09/16 22:00 10/12/16 22:17 Colace - PO Not Given HS SASHA Furosemide 20 mg 10/11/16 10:00 10/13/16 09:59 Lasix - PO 20 mg DAILY SASHA Administration Glipizide 2.5 mg 10/10/16 16:30 10/13/16 06:34 Glucotrol - PO 2.5 mg BID@0700,1630 SASHA Administration Guaifenesin 10 ml 10/09/16 17:01 Diabetic Tussin Dm - PO Q6H PRN COUGH Insulin Aspart 1 vial 10/10/16 16:30 10/13/16 06:28 Novolog Vial Sliding Scale - SQ 2 units ACHS SASHA Administration Protocol Levothyroxine Sodium 88 mcg 10/13/16 06:35 10/13/16 06:43 Synthroid - PO 88 mcg DAILY@0700 SASHA Administration Metformin HCl 500 mg 10/12/16 11:30 10/13/16 06:34 Glucophage - PO 500 mg DAILY@0700 SASHA Administration Methylprednisolone Sodium Succinate 40 mg 10/12/16 18:00 10/13/16 09:59 Solu-Medrol - IVPB 40 mg Q8H-IV SASHA Administration Metoprolol Tartrate 75 mg 10/10/16 06:00 10/13/16 06:31 Lopressor - PO 75 mg TID SASHA Administration Prasugrel 5 mg 10/10/16 10:00 10/13/16 09:59 Effient - PO 5 mg DAILY SASHA Administration Ranitidine HCl 150 mg 10/10/16 10:00 10/13/16 09:58 Zantac - PO 150 mg DAILY [facility] Administration Vital Signs Period Temp Pulse Resp BP Sys/Price Pulse Ox Last 24 Hr 97.5 F-98.8 F 81-89 20-20 109-141/53-68 97-100 nad, calm jvd flat, neck supple cta bl nl effort irregularly irregular nl s1, s2 2/6 murmur at lsb + bs soft nt nd ext without e/c/c aaox3 no jaundice, diaphoreiss CBC, BMP 10/13/16 05:35 10/13/16 05:35 tele: afib, rate controlled a/p: 85 yo with h/o s/p mech AVR, CAD s/p recent PCI x 2 - 05/2016, diastolic HF, CKD, DM, hypothyroidism p/w worsening, presents to ED with afib with RVR. afib, new dx last month -con't AC with coumadin per inr -on prior admit last month dilt started and bb increased but --> bradycardic -- > so dilt was stopped and toprol decreased back to 75 bid. Last week at outpatient cardiology visit developed RVR to 130's with ambulation --> toprol increased to 100 mg bid still with no improvement in heart rate. - ? whether overdiuresis contributing, + orthstatics. --> got ivfs here - now started metoprolol tartrate 75 tid and short acting dilt QID - currently HR controlled at rest and with PT so would continue same regimen - discussed option of CV with patient and family but they would like to defer. ILD, new dx last month - likely contributing to cough and worsened sob - now on iv steroids and feeling better - pulm following CAD: -had 2 stents 05/19 con't home DAPT (ASA + Effient), metopr, statin -ECG here with LBBB not new -no signs acs h/o mech AVR -cont coumadin per INR diastolic HF -lasix resumed at lower dose 20 mg qd CKD - cr improved, back to baseline after ivfs HTN: -stable on current meds
--- NOTE | 2016-10-13 12:23 | PN ---
Progress Note, Physician Chief Complaint: Ms Simon says she is feeling much better today, her breathing is much improved. She says she is going to walk after eating. No cp or n/v. - Current Medication List Current Medications: Active Medications Acetaminophen (Tylenol -) 650 mg PO Q4H PRN PRN Reason: FEVER OR PAIN Albuterol Sulfate (Ventolin 0.083% Nebulizer Soln -) 1 amp NEB Q4H PRN PRN Reason: SHORT OF BREATH/WHEEZING Aspirin (Ecotrin -) 81 mg PO DAILY [facility] Last Admin: 10/13/16 09:58 Dose: 81 mg Atorvastatin Calcium (Lipitor -) 40 mg PO HS [facility] Last Admin: 10/12/16 22:16 Dose: 40 mg Diltiazem HCl (Cardizem -) 30 mg PO QID [facility] Last Admin: 10/13/16 09:58 Dose: 30 mg Docusate Sodium (Colace -) 300 mg PO HS [facility] Last Admin: 10/12/16 22:17 Dose: Not Given Furosemide (Lasix -) 20 mg PO DAILY [facility] Last Admin: 10/13/16 09:59 Dose: 20 mg Glipizide (Glucotrol -) 5 mg PO BID@0700,1630 [facility] Guaifenesin (Diabetic Tussin Dm -) 10 ml PO Q6H PRN PRN Reason: COUGH Insulin Aspart (Novolog Vial Sliding Scale -) 1 vial SQ ACHS [facility] PRN Reason: Protocol Last Admin: 10/13/16 06:28 Dose: 2 units Levothyroxine Sodium (Synthroid -) 88 mcg PO DAILY@0700 [facility] Last Admin: 10/13/16 06:43 Dose: 88 mcg Metformin HCl (Glucophage -) 500 mg PO DAILY@0700 [facility] Last Admin: 10/13/16 06:34 Dose: 500 mg Methylprednisolone Sodium Succinate (Solu-Medrol -) 40 mg IVPB Q8H-IV [facility] Last Admin: 10/13/16 09:59 Dose: 40 mg Metoprolol Tartrate (Lopressor -) 75 mg PO TID [facility] Last Admin: 10/13/16 06:31 Dose: 75 mg Prasugrel (Effient -) 5 mg PO DAILY [facility] Last Admin: 10/13/16 09:59 Dose: 5 mg Ranitidine HCl (Zantac -) 150 mg PO DAILY [facility] Last Admin: 10/13/16 09:58 Dose: 150 mg - Objective Vital Signs: Vital Signs Temperature 98 F 10/13/16 09:35 Pulse Rate 84 10/13/16 09:35 Respiratory Rate 20 10/13/16 09:35 Blood Pressure 124/55 10/13/16 09:35 O2 Sat by Pulse Oximetry (%) 97 10/13/16 09:00 Constitutional: Yes: Well Nourished, No Distress, Calm Cardiovascular: Yes: Pulse Irregular. No: Tachycardia, Gallop, Murmur, Rub Respiratory: Yes: Regular, On Nasal O2, Rhonchi. No: CTA Bilaterally, Rales, Wheezes Gastrointestinal: Yes: Normal Bowel Sounds, Soft. No: Distention, Tenderness Extremities: Yes: WNL Edema: No Labs: CBC, BMP 10/13/16 05:35 10/13/16 05:35 INR, PTT INR 4.13 (0.82-1.09) H* 10/13/16 05:35 Problem List - Problems (1) Atrial fibrillation with rapid ventricular response Code(s): I48.91 - UNSPECIFIED ATRIAL FIBRILLATION (2) Dyspnea on exertion Code(s): R06.09 - OTHER FORMS OF DYSPNEA (3) ALEIDA (acute kidney injury) Code(s): N17.9 - ACUTE KIDNEY FAILURE, UNSPECIFIED (4) Coronary artery disease Code(s): I25.10 - ATHSCL HEART DISEASE OF [place] CORONARY ARTERY W/O ANG PCTRS (5) Diabetes mellitus Code(s): E11.9 - TYPE 2 DIABETES MELLITUS WITHOUT COMPLICATIONS (6) History of aortic valve replacement Code(s): Z95.2 - PRESENCE OF PROSTHETIC HEART VALVE (7) Hypothyroid Code(s): E03.9 - HYPOTHYROIDISM, UNSPECIFIED (8) CHF (congestive heart failure) Code(s): I50.9 - HEART FAILURE, UNSPECIFIED Qualifiers: Congestive heart failure type: diastolic Congestive heart failure chronicity: chronic Qualified Code(s): I50.32 - Chronic diastolic ( congestive) heart failure Assessment/Plan 1. Atrial fibrillation with RVR -cardiology note reviewed -rate controlled -continue toprol xl and diltiazem at current dose 2. ILD -appreciate pulmonary assistance -placed on solumedrol -breathing improved -continue currently -evaluate on Sunday if needs home oxygen 3. Hypertension -continue toprol and diltiazem 4. Mechanical valve with subtherapeutic INR -supratherapeutic today -hold coumadin -recheck in am 5. CAD with stents -no chest pain -continue home regimen 6. Diabetes -patient started on steroids, increasing glucose level -will continue metformin at home dose -increase glipizide to 5mg bid -will not need increased glipizide on discharge planning as when tapering steroids can cause hypoglycemia 7. ARF on CKD -at baseline 8. Hypothyroid -decreased synthroid to 88mcg -recheck as outpatient in 4-6 weeks 9. Chronic diastolic CHF without exacerbation -continue lasix 20mg daily
--- NOTE | 2016-10-13 18:59 | PN ---
Physical Exam: SUBJECTIVE: Patient seen and examined by me in AM - Respiratory status much improved. Improved SOB and exertional dyspnea. Started steroid gtt and nebs. - Feels much better w/ no major overnight events. - Sleep screen w/ moderate/severe JUAN. Will require Out-PT f/u -Other updates: - left shift noted on diff - No white count. No febrile OBJECTIVE: Vital Signs Period Temp Pulse Resp BP Sys/Price Pulse Ox Last 24 Hr 97.2 F-98.0 F 79-90 20-20 107-141/55-68 97-97 GENERAL: The patient is awake, alert, and fully oriented, in no acute distress. HEAD: Normal with no signs of trauma. EYES: sclera anicteric, conjunctiva clear. No ptosis. NECK: Trachea midline, supple. LUNGS: Bilateral trace rales across lower lung jiménez, no wheezes. No accessory muscle use. HEART: IRR, S1, S2. 3/6 blowing murmur LUSB ABDOMEN: Soft, nontender, globular, normoactive bowel sounds, no guarding, no rebound EXTREMITIES: 2+ pulses, warm, well-perfused. 2+ edema in LEs. NEUROLOGICAL: Normal speech, Slow, kyphotic gait observed. PSYCH: Normal affect. Much improved affect. Laboratory Results - last 24 hr 10/12/16 10/13/16 10/13/16 22:14 05:35 05:35 WBC 4.9 RBC 3.61 Hgb 10.4 L Hct 30.8 L MCV 85.4 MCH 28.7 MCHC 33.6 RDW 15.3 Plt Count 150 MPV 9.0 Neutrophils % 85.9 H D Lymphocytes % 11.7 Monocytes % 2.2 L D Eosinophils % 0.0 D Basophils % 0.2 INR 4.13 H* Sodium Potassium Chloride Carbon Dioxide Anion Gap BUN Creatinine POC Glucometer 292 Random Glucose Calcium Phosphorus Magnesium 10/13/16 10/13/16 10/13/16 05:35 05:55 12:01 WBC RBC Hgb Hct MCV MCH MCHC RDW Plt Count MPV Neutrophils % Lymphocytes % Monocytes % Eosinophils % Basophils % INR Sodium 138 Potassium 4.0 Chloride 103 Carbon Dioxide 27 Anion Gap 8 BUN 38 H D Creatinine 1.3 H POC Glucometer 250 251 Random Glucose 242 H D Calcium 9.2 Phosphorus 3.3 Magnesium 2.1 10/13/16 15:53 WBC RBC Hgb Hct MCV MCH MCHC RDW Plt Count MPV Neutrophils % Lymphocytes % Monocytes % Eosinophils % Basophils % INR Sodium Potassium Chloride Carbon Dioxide Anion Gap BUN Creatinine POC Glucometer 341 Random Glucose Calcium Phosphorus Magnesium Active Medications Generic Name Dose Route Start Last Admin Trade Name Freq PRN Reason Stop Dose Admin Acetaminophen 650 mg 10/09/16 17:03 Tylenol - PO Q4H PRN FEVER OR PAIN Albuterol Sulfate 1 amp 10/12/16 12:10 Ventolin 0.083% Nebulizer Soln - NEB Q4H PRN SHORT OF BREATH/WHEEZING Aspirin 81 mg 10/10/16 10:00 10/13/16 09:58 Ecotrin - PO 81 mg DAILY [facility] Administration Atorvastatin Calcium 40 mg 10/09/16 22:00 10/12/16 22:16 Lipitor - PO 40 mg HS [facility]HA Administration Diltiazem HCl 30 mg 10/10/16 21:00 10/13/16 18:10 Cardizem - PO 30 mg QID [facility]HA Administration Docusate Sodium 300 mg 10/09/16 22:00 10/12/16 22:17 Colace - PO Not Given HS SASHA Furosemide 20 mg 10/11/16 10:00 10/13/16 09:59 Lasix - PO 20 mg DAILY [facility] Administration Glipizide 5 mg 10/13/16 12:17 10/13/16 17:09 Glucotrol - PO 5 mg BID@0700,1630 [facility] Administration Guaifenesin 10 ml 10/09/16 17:01 Diabetic Tussin Dm - PO Q6H PRN COUGH Insulin Aspart 1 vial 10/10/16 16:30 10/13/16 17:09 Novolog Vial Sliding Scale - SQ 6 units ACHS [facility]HA Administration Protocol Levothyroxine Sodium 88 mcg 10/13/16 06:35 10/13/16 06:43 Synthroid - PO 88 mcg DAILY@0700 [facility] Administration Metformin HCl 500 mg 10/12/16 11:30 10/13/16 06:34 Glucophage - PO 500 mg DAILY@0700 [facility] Administration Methylprednisolone Sodium Succinate 40 mg 10/12/16 18:00 10/13/16 18:10 Solu-Medrol - IVPB 40 mg Q8H-IV [facility] Administration Metoprolol Tartrate 75 mg 10/10/16 06:00 10/13/16 15:04 Lopressor - PO 75 mg TID [facility]HA Administration Prasugrel 5 mg 10/10/16 10:00 10/13/16 09:59 Effient - PO 5 mg DAILY [facility] Administration Ranitidine HCl 150 mg 10/10/16 10:00 10/13/16 09:58 Zantac - PO 150 mg DAILY [facility] Administration ASSESSMENT/PLAN: 85 yo woman w/ pmh of s/p mech avr, CAD w/ PCI x2 (2017), diastolic HF, DM, and hypothyoidism presented to ED in aFIb w/ RVR in the setting of 1-2 weeks of worsening cough/SOB and decreased exercise tolerance. Prior dx of ILD on past admission with similar symptoms, however has not received extensive work-up. Much improvement with desatting initiation of steroids gtt. Will require work- up for ILD and cardiac evaluation. Problem list: Afib w/ RVR ILD, unspecified etiology HTN Dyspnea on exertion CAD CKD Stage III Hypothyroid Plan: #Worsening SOB - Continue to monitor for signs of infection - Albuterol 1 puff PRN Q4h - Solumedrol 40mg Q8h - O2 PRN. Titrate 92%> #ILD - Full ILD work-up - OSEAS, RF, CCP, CRP, P-ANCA, C-ANCA, Anti-GBM - PFTs outpatient - Consider BAL - F/u outpatient management with server administrator, Dr. Cruz #JUAN - Consider CPAP overnight - Outpatient full sleep evaluation #Afib - Defer to cardiology recs - INR supratherapeutic (4.1). Hold coumadin - Serial EKGs, daily weights, I&0s - Rate control with beta-tre Tomasz Osuna MD, PGY1 Plan to be discussed with attending Problem List - Problems (1) Atrial fibrillation with rapid ventricular response Code(s): I48.91 - UNSPECIFIED ATRIAL FIBRILLATION (2) Cough present for greater than 3 weeks Code(s): R05 - COUGH (3) Dyspnea on exertion Code(s): R06.09 - OTHER FORMS OF DYSPNEA (4) Weakness Code(s): R53.1 - WEAKNESS (5) ALEIDA (acute kidney injury) Code(s): N17.9 - ACUTE KIDNEY FAILURE, UNSPECIFIED (6) Atrial fibrillation Code(s): I48.91 - UNSPECIFIED ATRIAL FIBRILLATION Qualifiers: Atrial fibrillation type: chronic Qualified Code(s): I48.2 - Chronic atrial fibrillation (7) Coronary artery disease Code(s): I25.10 - ATHSCL HEART DISEASE OF [place] CORONARY ARTERY W/O ANG PCTRS (8) Interstitial lung disease Code(s): J84.9 - INTERSTITIAL PULMONARY DISEASE, UNSPECIFIED Visit type - Emergency Visit Emergency Visit: No - New Patient This patient is new to me today: No - Critical Care Critical Care patient: No
[2016-10-13] MEDS ORDERED: ATORVASTATIN CA 20 MG TABLET (FP) ONE (21:14)
[2016-10-13] MEDS: ATORVASTATIN CA 40 MG TABLET (FP) PO SCH (21:19)
[2016-10-13] MEDS: DOCUSATE SODIUM 100 MG CAPSULE (FP) PO SCH (21:22)
[2016-10-14] MEDS: methylPREDNISolone NA SUCC 40 MG/1 ML VIAL IVPB SCH ×4 (01:31→17:52)
[2016-10-14] MEDS: METOPROLOL TARTRATE 50 MG TABLET (FP) PO SCH ×3 (06:30→21:35)
[2016-10-14] MEDS: LEVOTHYROXINE NA 88 MCG TABLET (FP) PO SCH (06:30)
[2016-10-14] MEDS: metFORMIN HCL 500 MG TABLET (FP) PO SCH (06:30)
[2016-10-14] MEDS: INSULIN SLIDING SCALE (NOVOLOG) 1 VIAL SQ SCH ×5 (06:30→21:35)
[2016-10-14] MEDS: glipiZIDE 5 MG TABLET (FP) PO SCH ×2 (06:30→16:22)
[2016-10-14 06:57] LABS: BASOPHIL 0.1 % (0-2.0); MCH 28.7 pg (25.7-33.7); MCHC 33.5 g/dl (32.0-36.0); MEAN CELL VOLUME 85.7 fl (80-96); MEAN PLT VOLUME 9.1 fl (7.5-11.1); NEUTROPHILS 87.9 % (42.8-82.8); PLATELET COUNT 183 K/MM3 (134-434); RDW 15.6 % (11.6-15.6); WHITE BLOOD COUNT 8.9 K/mm3 (4.0-10.0)
[2016-10-14 07:06] LABS: PROTHROMBIN TIME (PATIENT) 57.5 SEC (9.98-11.88)
[2016-10-14 07:24] LABS: INR 5.06 (0.82-1.09)
[2016-10-14 07:27] LABS: ANION GAP 9 (8-16); CALCIUM 9.7 mg/dL (8.5-10.1); CO2 27 mmol/L (21-32); CREATININE 1.7 mg/dL (0.55-1.02); GLUCOSE,RANDOM 297 mg/dL (74-106); PHOSPHOROUS 4.2 mg/dL (2.5-4.9)
[2016-10-14] MEDS ORDERED: PT OWN MED DRAWER 7, Y5N ONE (09:07)
[2016-10-14] MEDS: FUROSEMIDE 20 MG TABLET (FP) PO SCH (09:13)
[2016-10-14] MEDS: ASPIRIN COATED 81 MG TABLET.EC PO SCH (09:13)
[2016-10-14] MEDS: dilTIAZem HCL 30 MG TABLET (FP) PO SCH ×4 (09:13→21:35)
[2016-10-14] MEDS: RANITIDINE HCL 150 MG TABLET (FP) PO SCH (09:13)
[2016-10-14] MEDS: PRASUGREL HCL 5 MG TAB PO SCH (09:14)
--- NOTE | 2016-10-14 09:16 | PN ---
Progress Note, Physician History of Present Illness: PULMONARY ALERT, FEELING BETTER,LESS DYSPNEIC - Current Medication List Current Medications: Active Medications Acetaminophen (Tylenol -) 650 mg PO Q4H PRN PRN Reason: FEVER OR PAIN Albuterol Sulfate (Ventolin 0.083% Nebulizer Soln -) 1 amp NEB Q4H PRN PRN Reason: SHORT OF BREATH/WHEEZING Aspirin (Ecotrin -) 81 mg PO DAILY [facility] Last Admin: 10/13/16 09:58 Dose: 81 mg Atorvastatin Calcium (Lipitor -) 40 mg PO HS [facility] Last Admin: 10/13/16 21:19 Dose: 40 mg Diltiazem HCl (Cardizem -) 30 mg PO QID [facility] Last Admin: 10/13/16 21:19 Dose: 30 mg Docusate Sodium (Colace -) 300 mg PO HS [facility] Last Admin: 10/13/16 21:22 Dose: Not Given Furosemide (Lasix -) 20 mg PO DAILY [facility] Last Admin: 10/13/16 09:59 Dose: 20 mg Glipizide (Glucotrol -) 5 mg PO BID@0700,1630 [facility] Last Admin: 10/14/16 06:30 Dose: 5 mg Guaifenesin (Diabetic Tussin Dm -) 10 ml PO Q6H PRN PRN Reason: COUGH Insulin Aspart (Novolog Vial Sliding Scale -) 1 vial SQ ACHS [facility] PRN Reason: Protocol Last Admin: 10/14/16 06:30 Dose: 6 units Levothyroxine Sodium (Synthroid -) 88 mcg PO DAILY@0700 [facility] Last Admin: 10/14/16 06:30 Dose: 88 mcg Metformin HCl (Glucophage -) 500 mg PO DAILY@0700 [facility] Last Admin: 10/14/16 06:30 Dose: 500 mg Methylprednisolone Sodium Succinate (Solu-Medrol -) 40 mg IVPB Q8H-IV [facility] Last Admin: 10/14/16 01:31 Dose: 40 mg Metoprolol Tartrate (Lopressor -) 75 mg PO TID [facility] Last Admin: 10/14/16 06:30 Dose: 75 mg Prasugrel (Effient -) 5 mg PO DAILY [facility] Last Admin: 10/13/16 09:59 Dose: 5 mg Ranitidine HCl (Zantac -) 150 mg PO DAILY [facility] Last Admin: 10/13/16 09:58 Dose: 150 mg - Objective Vital Signs: Vital Signs Temperature 97.8 F 10/14/16 06:00 Pulse Rate 74 10/14/16 06:00 Respiratory Rate 16 10/14/16 06:00 Blood Pressure 115/64 10/14/16 06:00 O2 Sat by Pulse Oximetry (%) 97 10/13/16 20:36 Constitutional: Yes: Well Nourished, Calm Eyes: Yes: WNL HENT: Yes: WNL Neck: Yes: WNL Cardiovascular: Yes: Pulse Irregular, S1, S2 Respiratory: Yes: Rales (BIBASILAR CRACKLES) Gastrointestinal: Yes: Normal Bowel Sounds, Soft Extremities: Yes: WNL Edema: Yes Labs: CBC, BMP 10/14/16 05:35 10/14/16 05:35 INR, PTT INR 5.06 (0.82-1.09) H* 10/14/16 05:35 Problem List - Problems (1) Atrial fibrillation with rapid ventricular response Code(s): I48.91 - UNSPECIFIED ATRIAL FIBRILLATION (2) CHF (congestive heart failure) Code(s): I50.9 - HEART FAILURE, UNSPECIFIED Qualifiers: Congestive heart failure type: diastolic Congestive heart failure chronicity: chronic Qualified Code(s): I50.32 - Chronic diastolic ( congestive) heart failure (3) Cough present for greater than 3 weeks Code(s): R05 - COUGH (4) Dyspnea on exertion Code(s): R06.09 - OTHER FORMS OF DYSPNEA (5) Weakness Code(s): R53.1 - WEAKNESS (6) ALEIDA (acute kidney injury) Code(s): N17.9 - ACUTE KIDNEY FAILURE, UNSPECIFIED (7) Atrial fibrillation Code(s): I48.91 - UNSPECIFIED ATRIAL FIBRILLATION Qualifiers: Atrial fibrillation type: chronic Qualified Code(s): I48.2 - Chronic atrial fibrillation (8) Coronary artery disease Code(s): I25.10 - ATHSCL HEART DISEASE OF [place] CORONARY ARTERY W/O ANG PCTRS (9) Diabetes mellitus Code(s): E11.9 - TYPE 2 DIABETES MELLITUS WITHOUT COMPLICATIONS (10) History of aortic valve replacement Code(s): Z95.2 - PRESENCE OF PROSTHETIC HEART VALVE (11) Hypothyroid Code(s): E03.9 - HYPOTHYROIDISM, UNSPECIFIED (12) Interstitial lung disease Code(s): J84.9 - INTERSTITIAL PULMONARY DISEASE, UNSPECIFIED Assessment/Plan IMP ILD AFIB CHF S/P AVR ASHD S/P STENTS HTN ALEIDA JUAN PLAN INHALED BRONCHODILATORS SOLUMEDROL TAPER LASIX O2 AC MONITOR LYTES PFTS OUTPATIENT DAILY WTS FULL SLEEP STUDIES OUTPATIENT DR DAVENPORT Problem List - Problems (1) Atrial fibrillation with rapid ventricular response Code(s): I48.91 - UNSPECIFIED ATRIAL FIBRILLATION (2) CHF (congestive heart failure) Code(s): I50.9 - HEART FAILURE, UNSPECIFIED Qualifiers: Congestive heart failure type: diastolic Congestive heart failure chronicity: chronic Qualified Code(s): I50.32 - Chronic diastolic ( congestive) heart failure (3) Cough present for greater than 3 weeks Code(s): R05 - COUGH (4) Dyspnea on exertion Code(s): R06.09 - OTHER FORMS OF DYSPNEA (5) Weakness Code(s): R53.1 - WEAKNESS (6) ALEIDA (acute kidney injury) Code(s): N17.9 - ACUTE KIDNEY FAILURE, UNSPECIFIED (7) Atrial fibrillation Code(s): I48.91 - UNSPECIFIED ATRIAL FIBRILLATION Qualifiers: Atrial fibrillation type: chronic Qualified Code(s): I48.2 - Chronic atrial fibrillation (8) Coronary artery disease Code(s): I25.10 - ATHSCL HEART DISEASE OF [place] CORONARY ARTERY W/O ANG PCTRS (9) Diabetes mellitus Code(s): E11.9 - TYPE 2 DIABETES MELLITUS WITHOUT COMPLICATIONS (10) History of aortic valve replacement Code(s): Z95.2 - PRESENCE OF PROSTHETIC HEART VALVE (11) Hypothyroid Code(s): E03.9 - HYPOTHYROIDISM, UNSPECIFIED (12) Interstitial lung disease Code(s): J84.9 - INTERSTITIAL PULMONARY DISEASE, UNSPECIFIED Problem List - Problems (1) Atrial fibrillation with rapid ventricular response Code(s): I48.91 - UNSPECIFIED ATRIAL FIBRILLATION (2) CHF (congestive heart failure) Code(s): I50.9 - HEART FAILURE, UNSPECIFIED Qualifiers: Congestive heart failure type: diastolic Congestive heart failure chronicity: chronic Qualified Code(s): I50.32 - Chronic diastolic ( congestive) heart failure (3) Cough present for greater than 3 weeks Code(s): R05 - COUGH (4) Dyspnea on exertion Code(s): R06.09 - OTHER FORMS OF DYSPNEA (5) Weakness Code(s): R53.1 - WEAKNESS (6) ALEIDA (acute kidney injury) Code(s): N17.9 - ACUTE KIDNEY FAILURE, UNSPECIFIED (7) Atrial fibrillation Code(s): I48.91 - UNSPECIFIED ATRIAL FIBRILLATION Qualifiers: Atrial fibrillation type: chronic Qualified Code(s): I48.2 - Chronic atrial fibrillation (8) Coronary artery disease Code(s): I25.10 - ATHSCL HEART DISEASE OF [place] CORONARY ARTERY W/O ANG PCTRS (9) Diabetes mellitus Code(s): E11.9 - TYPE 2 DIABETES MELLITUS WITHOUT COMPLICATIONS (10) History of aortic valve replacement Code(s): Z95.2 - PRESENCE OF PROSTHETIC HEART VALVE (11) Hypothyroid Code(s): E03.9 - HYPOTHYROIDISM, UNSPECIFIED (12) Interstitial lung disease Code(s): J84.9 - INTERSTITIAL PULMONARY DISEASE, UNSPECIFIED
--- NOTE | 2016-10-14 11:00 | PN ---
Progress Note, Physician Chief Complaint: Less SOB; appetite better. History of Present Illness: Patient with A. Fib, AVR, DM uncontrolled, Interstitial Lung Disease, CHF and worsening renal lab is feeling a little better with IV steroids but her BRGM's are 300-400 and renal and INR lab are still elevated. She has coverage for BGM but Dr. Cruz has agreed to lower IV Solumedrol frequency. Will follow INR and Profile and obtain Renal MD consult. - Current Medication List Current Medications: Active Medications Acetaminophen (Tylenol -) 650 mg PO Q4H PRN PRN Reason: FEVER OR PAIN Albuterol Sulfate (Ventolin 0.083% Nebulizer Soln -) 1 amp NEB Q4H PRN PRN Reason: SHORT OF BREATH/WHEEZING Aspirin (Ecotrin -) 81 mg PO DAILY [facility] Last Admin: 10/14/16 09:13 Dose: 81 mg Atorvastatin Calcium (Lipitor -) 40 mg PO HS [facility] Last Admin: 10/13/16 21:19 Dose: 40 mg Diltiazem HCl (Cardizem -) 30 mg PO QID [facility] Last Admin: 10/14/16 09:13 Dose: 30 mg Docusate Sodium (Colace -) 300 mg PO HS [facility] Last Admin: 10/13/16 21:22 Dose: Not Given Furosemide (Lasix -) 20 mg PO DAILY [facility] Last Admin: 10/14/16 09:13 Dose: 20 mg Glipizide (Glucotrol -) 5 mg PO BID@0700,1630 [facility] Last Admin: 10/14/16 06:30 Dose: 5 mg Guaifenesin (Diabetic Tussin Dm -) 10 ml PO Q6H PRN PRN Reason: COUGH Insulin Aspart (Novolog Vial Sliding Scale -) 1 vial SQ ACHS [facility] PRN Reason: Protocol Levothyroxine Sodium (Synthroid -) 88 mcg PO DAILY@0700 [facility] Last Admin: 10/14/16 06:30 Dose: 88 mcg Metformin HCl (Glucophage -) 500 mg PO DAILY@0700 [facility] Last Admin: 10/14/16 06:30 Dose: 500 mg Methylprednisolone Sodium Succinate (Solu-Medrol -) 40 mg IVPB Q8H [facility] Metoprolol Tartrate (Lopressor -) 75 mg PO TID [facility] Last Admin: 10/14/16 06:30 Dose: 75 mg Prasugrel (Effient -) 5 mg PO DAILY [facility] Last Admin: 10/14/16 09:14 Dose: 5 mg Ranitidine HCl (Zantac -) 150 mg PO DAILY [facility] Last Admin: 10/14/16 09:13 Dose: 150 mg - Objective Vital Signs: Vital Signs Temperature 97.7 F 10/14/16 10:17 Pulse Rate 75 10/14/16 10:17 Respiratory Rate 20 10/14/16 10:17 Blood Pressure 106/62 10/14/16 10:17 O2 Sat by Pulse Oximetry (%) 93 L 10/14/16 09:49 Constitutional: Yes: Calm, Pallor Cardiovascular: Yes: Pulse Irregular, Other (prosthetic valve sounds) Respiratory: Yes: Diminished, Rhonchi (few rhonchi at bases) Gastrointestinal: Yes: Soft Edema: LLE: 1+, RLE: 1+ Neurological: Yes: Alert Labs: CBC, BMP 10/14/16 05:35 10/14/16 05:35 INR, PTT INR 5.06 (0.82-1.09) H* 10/14/16 05:35 - ....Imaging Chest X-ray: Report Reviewed Problem List - Problems (1) Cough present for greater than 3 weeks Assessment/Plan: Improved on IV steroids Code(s): R05 - COUGH (2) ALEIDA (acute kidney injury) Assessment/Plan: Will get renal consult as values are rising. ? Hold metformin Code(s): N17.9 - ACUTE KIDNEY FAILURE, UNSPECIFIED (3) Diabetes mellitus Assessment/Plan: Uncontrolled due to steroids Glucose 444 : 12 u reg insulin Code(s): E11.9 - TYPE 2 DIABETES MELLITUS WITHOUT COMPLICATIONS (4) Interstitial lung disease Assessment/Plan: Followed by Pulmonary MD On IV steroids Code(s): J84.9 - INTERSTITIAL PULMONARY DISEASE, UNSPECIFIED (5) Atrial fibrillation with rapid ventricular response Assessment/Plan: INR still elevated; to follow. Code(s): I48.91 - UNSPECIFIED ATRIAL FIBRILLATION
--- NOTE | 2016-10-14 11:04 | PN ---
Progress Note (short form) - Note Progress Note: cc: afib with rvr S: no cp, palps, dizziness. sob improving Current Medications Generic Name Dose Route Start Last Admin Trade Name Allison PRN Reason Stop Dose Admin Acetaminophen 650 mg 10/09/16 17:03 Tylenol - PO Q4H PRN FEVER OR PAIN Albuterol Sulfate 1 amp 10/12/16 12:10 Ventolin 0.083% Nebulizer Soln - NEB Q4H PRN SHORT OF BREATH/WHEEZING Aspirin 81 mg 10/10/16 10:00 10/14/16 09:13 Ecotrin - PO 81 mg DAILY [facility] Administration Atorvastatin Calcium 40 mg 10/09/16 22:00 10/13/16 21:19 Lipitor - PO 40 mg HS [facility] Administration Diltiazem HCl 30 mg 10/10/16 21:00 10/14/16 09:13 Cardizem - PO 30 mg QID [facility] Administration Docusate Sodium 300 mg 10/09/16 22:00 10/13/16 21:22 Colace - PO Not Given HS [facility] Furosemide 20 mg 10/11/16 10:00 10/14/16 09:13 Lasix - PO 20 mg DAILY [facility] Administration Glipizide 5 mg 10/13/16 12:17 10/14/16 06:30 Glucotrol - PO 5 mg BID@0700,1630 [facility] Administration Guaifenesin 10 ml 10/09/16 17:01 Diabetic Tussin Dm - PO Q6H PRN COUGH Insulin Aspart 1 vial 10/14/16 10:52 10/14/16 10:59 Novolog Vial Sliding Scale - SQ 4 unit ACHS [facility] Administration Protocol Levothyroxine Sodium 88 mcg 10/13/16 06:35 10/14/16 06:30 Synthroid - PO 88 mcg DAILY@0700 [facility] Administration Metformin HCl 500 mg 10/12/16 11:30 10/14/16 06:30 Glucophage - PO 500 mg DAILY@0700 [facility] Administration Methylprednisolone Sodium Succinate 40 mg 10/14/16 11:00 Solu-Medrol - IVPB Q8H-IV [facility] Metoprolol Tartrate 75 mg 10/10/16 06:00 10/14/16 06:30 Lopressor - PO 75 mg TID [facility] Administration Prasugrel 5 mg 10/10/16 10:00 10/14/16 09:14 Effient - PO 5 mg DAILY [facility] Administration Ranitidine HCl 150 mg 10/10/16 10:00 10/14/16 09:13 Zantac - PO 150 mg DAILY [facility] Administration Vital Signs Period Temp Pulse Resp BP Sys/Price Pulse Ox Last 24 Hr 97.2 F-98.1 F 68-90 16-20 106-134/56-71 93-97 nad, calm jvd flat, neck supple cta bl nl effort irregularly irregular nl s1, s2 2/6 murmur at lsb + bs soft nt nd ext without e/c/c aaox3 no jaundice, diaphoreiss CBC, BMP 10/14/16 05:35 10/14/16 05:35 tele: afib, rate controlled a/p: 85 yo with h/o s/p mech AVR, CAD s/p recent PCI x 2 - 05/2016, diastolic HF, CKD, DM, hypothyroidism p/w worsening, presents to ED with afib with RVR. afib, new dx last month -con't AC with coumadin per inr -on prior admit last month dilt started and bb increased but --> bradycardic -- > so dilt was stopped and toprol decreased back to 75 bid. Last week at outpatient cardiology visit developed RVR to 130's with ambulation --> toprol increased to 100 mg bid still with no improvement in heart rate. - ? whether overdiuresis contributing, + orthstatics. --> got ivfs here - now started metoprolol tartrate 75 tid and short acting dilt QID - currently HR controlled at rest and with PT so would continue same regimen - discussed option of CV with patient and family but they would like to defer. ILD, new dx last month - likely contributing to cough and worsened sob - now on iv steroids and feeling better - pulm following CAD: -had 2 stents 05/19 con't home DAPT (ASA + Effient), metopr, statin -ECG here with LBBB not new -no signs acs h/o mech AVR -cont coumadin per INR diastolic HF -stable, lasix resumed at lower dose 20 mg qd CKD - cr improved, back to baseline after ivfs HTN: -stable on current meds
[2016-10-14 12:21] VITALS: BMI 31.7
--- NOTE | 2016-10-14 12:21 | CON.NEP ---
Consult Consult Specialty:: Nephrology (Jad/Yannick) Referred by:: Dr. Dewitt Reason for Consultation:: ALEIDA on CKD - History of Present Illness Chief Complaint: weakness History of Present Illness: 85 year old woman with PMhx of Aortic Stenosis s/o AVR, CAD, CHF, DM, Afib on Coumaidn, Hypothyrodism, CKD stage 3 (baseline Cr 1.3 based on [facility] labs [facility]) who presented with SOB and found to have AFib with RVR and ALEIDA with Cr 1.7 to 1.8. Pt denies CKD, Nephrolithiasis, recurrent UTI, Urinary retention , NSAID use in the past. Diuretic dose was reduced this admission to 20mg Daily. No recent Abx, contrast exposure. No fever, chills, N/V/D. Does not drink much fluids. - History Source History Provided By: Patient Limitations to Obtaining History: No Limitations - Past Medical History Cardio/Vascular: Yes: Aortic Stenosis, CAD, CHF Renal/: Yes: Renal Inusuff Endocrine: Yes: Diabetes Mellitus, Hypothyroidism Additional Medical History: Breast Ca, s/p mastectomy - Past Surgical History Past Surgical History: Yes: Valve Replacement (Aortic valve replacement ([facility])) Additional Surgical History: PCI x 2 (05/2016) - Alcohol/Substance Use Hx Alcohol Use: No History of Substance Use: reports: None - Smoking History Smoking history: Never smoked Have you smoked in the past 12 months: No - Social History Usual Living Arrangement: With Spouse ADL: Family Assistance 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 History of Recent Travel: No Home Medications - Allergies Allergies/Adverse Reactions: Allergies Allergy/AdvReac Type Severity Reaction Status Date / Time clopidogrel bisulfate Allergy Rash Verified 10/10/16 11:19 [From Plavix] Penicillins Allergy Swelling Verified 10/10/16 11:19 quinidine Allergy Verified 10/10/16 11:19 - Home Medications Home Medications: Ambulatory Orders Aspirin [Aspirin EC] 81 mg PO DAILY 09/09/16 Famotidine [Pepcid] 20 mg PO DAILY 09/09/16 Furosemide [Lasix -] 40 mg PO DAILY 09/09/16 Metformin HCl 500 mg PO DAILY 09/09/16 Metoprolol Succinate [Toprol XL -] 75 mg PO BID 09/09/16 Potassium Chloride [K-Dur -] 10 meq PO DAILY 09/09/16 Prasugrel Hydrochloride [Effient -] 5 mg PO DAILY 09/09/16 Warfarin Sodium [Coumadin] 2.5 mg PO SUTUTHSA 09/09/16 Levothyroxine [Synthroid -] 100 mcg PO DAILY@0700 #30 tablet 09/18/16 Warfarin Na [Coumadin -] 5 mg PO MoWeFr@1800 tablet 09/18/16 Family Disease History - Family Disease History Family Disease History: Diabetes: Brother (TB), Heart Disease: Grandparent ( Grandmother w/ heart disease), Mother, CA: Father (Esophageal cancer), Other: Brother Review of Systems - Review of Systems Constitutional: reports: Loss of Appetite, Weakness. denies: Chills, Fever Eyes: reports: No Symptoms HENT: reports: No Symptoms Respiratory: denies: Cough, SOB, SOB on Exertion, Wheezing Gastrointestinal: reports: No Symptoms Genitourinary: reports: No Symptoms Musculoskeletal: reports: No Symptoms Integumentary: reports: No Symptoms Nephrology Consult - Height Height: 5 ft - Weight Weight: 162 lb 6.4 oz - BMI Body Mass Index (BMI): 31.7 - Lab Results CBC,BMP: CBC, BMP 10/14/16 05:35 10/14/16 05:35 Anion Gap: Anion Gap Anion Gap 9 (8-16) 10/14/16 05:35 - Imaging Chest X-ray: Report Reviewed Ultrasound: Report Reviewed - Physical Examination Vital Signs: Vital Signs Temperature 97.7 F 10/14/16 10:17 Pulse Rate 75 10/14/16 10:17 Respiratory Rate 20 10/14/16 10:17 Blood Pressure 106/62 10/14/16 10:17 O2 Sat by Pulse Oximetry (%) 93 L 10/14/16 09:49 Constitutional: Yes: No Distress, Calm Eyes: Yes: Conjunctiva Clear HENT: Yes: Atraumatic, Normocephalic Neck: Yes: Supple Cardiovascular: Yes: Pulse Irregular. No: JVD, Murmur, Rub Respiratory: Yes: Regular, CTA Bilaterally. No: Rales, Rhonchi, SOB, Wheezes Gastrointestinal: Yes: Normal Bowel Sounds, Soft, Abdomen, Obese Renal/: No: Bladder Distention, CVA Tenderness - Left, CVA Tenderness - Right , Wilde Present Extremities: No: Cold, Cool, Cyanosis Edema: Yes Edema: LLE: Trace, RLE: Trace Neurological: Yes: Alert, Oriented Problem List - Problems (1) Atrial fibrillation with rapid ventricular response Code(s): I48.91 - UNSPECIFIED ATRIAL FIBRILLATION (2) Dyspnea on exertion Code(s): R06.09 - OTHER FORMS OF DYSPNEA (3) ALEIDA (acute kidney injury) Code(s): N17.9 - ACUTE KIDNEY FAILURE, UNSPECIFIED (4) History of aortic valve replacement Code(s): Z95.2 - PRESENCE OF PROSTHETIC HEART VALVE (5) Hypothyroid Code(s): E03.9 - HYPOTHYROIDISM, UNSPECIFIED Assessment/Plan 85 year old woman with PMhx of Aortic Stenosis s/o AVR, CAD, CHF, DM, Afib on Coumaidn, Hypothyrodism, CKD stage 3 (baseline Cr 1.3 based on prior labs in [facility]) who presented with SOB and found to have AFib with RVR and ALEIDA with Cr 1.7 to 1.8. #Acute on chronic renal insufficiency Etiology likely related to hemodynamic changes in setting of Rapid AFib, diuretics Renal US done prior admission showed normal size kidneys w/o obstruction or stones Check UA, UPCR, FeUrea Continue low dose diuretics pt reports that her leg edema is much improved now, it may be possible that she is evolemic at this present time and a Cr of 1.7 could represent her true baseline Trend BUN/Cr would avoid addition of ACEi or ARB at this time as stable renal function is not established Dose all meds for Cr Cl ~30 no indication for TAX CONSULTANT #Afib with RVR rate control as per cardiology on A/C INR supratheraputic #ILD continue steroids and O2 as needed Thank you Thong Lanier DO
[2016-10-14] MEDS ORDERED: methylPREDNISolone NA SUCC 40 MG/1 ML VIAL IVPB SCH (15:00)
[2016-10-14 20:28] LABS: URINE APPEARANCE SLCLOUDY; URINE BILIRUBIN NEGATIVE (NEGATIVE); URINE COLOR YELLOW; URINE GLUCOSE (UA) NEGATIVE (NEGATIVE); URINE KETONE NEGATIVE (NEGATIVE); URINE NITRITE NEGATIVE (NEGATIVE); URINE UROBILINOGEN NEGATIVE mg/dL (0.2-1.0)
[2016-10-14 20:37] LABS: URINE BLOOD 3+ (NEGATIVE); URINE LEUK ESTERASE 1+ (NEGATIVE); URINE PROTEIN 1+ (NEGATIVE)
[2016-10-14 20:39] LABS: URINE BACTERIA RARE /hpf (NONE SEEN); URINE HYALINE CAST 6 /lpf; URINE MUCUS RARE; URINE RBC 359 /hpf (0-3); URINE WBC 36 /hpf (3-5); YEAST MANY
[2016-10-14] MEDS: ATORVASTATIN CA 40 MG TABLET (FP) PO SCH (21:35)
[2016-10-14] MEDS: DOCUSATE SODIUM 100 MG CAPSULE (FP) PO SCH (21:36)
[2016-10-15] MEDS: methylPREDNISolone NA SUCC 40 MG/1 ML VIAL IVPB SCH ×3 (03:08→21:37)
[2016-10-15] MEDS: LEVOTHYROXINE NA 88 MCG TABLET (FP) PO SCH (06:00)
[2016-10-15] MEDS: METOPROLOL TARTRATE 50 MG TABLET (FP) PO SCH ×3 (06:00→21:33)
[2016-10-15] MEDS: glipiZIDE 5 MG TABLET (FP) PO SCH ×2 (06:00→17:05)
[2016-10-15] MEDS: INSULIN SLIDING SCALE (NOVOLOG) 1 VIAL SQ SCH ×4 (06:00→21:37)
[2016-10-15] MEDS: metFORMIN HCL 500 MG TABLET (FP) PO SCH (06:00)
[2016-10-15 07:12] LABS: BASOPHIL 0.2 % (0-2.0); MCH 28.8 pg (25.7-33.7); MCHC 33.4 g/dl (32.0-36.0); MEAN CELL VOLUME 86.1 fl (80-96); MEAN PLT VOLUME 9.4 fl (7.5-11.1); NEUTROPHILS 90.5 % (42.8-82.8); PLATELET COUNT 219 K/MM3 (134-434); RDW 15.9 % (11.6-15.6); WHITE BLOOD COUNT 11.9 K/mm3 (4.0-10.0)
[2016-10-15 07:26] LABS: PROTHROMBIN TIME (PATIENT) 52.9 SEC (9.98-11.88)
[2016-10-15 07:31] LABS: ALBUMIN 2.9 g/dl (3.4-5.0); ALK PHOS 126 U/L (45-117); ANION GAP 12 (8-16); BILIRUBIN,TOTAL 0.7 mg/dL (0.2-1.0); CALCIUM 9.5 mg/dL (8.5-10.1); CO2 25 mmol/L (21-32); CREATININE 1.9 mg/dL (0.55-1.02); MAGNESIUM 2.1 mg/dL (1.8-2.4); PHOSPHOROUS 3.9 mg/dL (2.5-4.9); SGOT/AST 72 U/L (15-37); SGPT/ALT 93 U/L (12-78)
[2016-10-15 07:45] LABS: INR 4.66 (0.82-1.09)
--- NOTE | 2016-10-15 08:11 | PN ---
Progress Note (short form) - Note Progress Note: Renal Follow up for ALEIDA Pt seen and examined at the bedside awake and alert no sob, chest pain on NC O2 making less urine then usual as per pt Vital Signs Temperature 97.7 F 10/15/16 07:18 Pulse Rate 78 10/15/16 07:18 Respiratory Rate 18 10/15/16 07:21 Blood Pressure 134/70 10/15/16 07:18 O2 Sat by Pulse Oximetry (%) 98 10/15/16 07:21 Intake & Output 10/12/16 10/13/16 10/14/16 10/15/16 23:59 23:59 23:59 23:59 Intake Total 1020 400 870 300 Balance 1020 400 870 300 Weight 160 lb 2 oz 160 lb 9.6 oz 162 lb 6.4 oz 163 lb 12.8 oz Gen: NAD CVS: RRR Lungs: CTA Abd: soft NT Ext: trace edema Labs pending Current Medications Acetaminophen (Tylenol -) 650 mg PO Q4H PRN PRN Reason: FEVER OR PAIN Albuterol Sulfate (Ventolin 0.083% Nebulizer Soln -) 1 amp NEB Q4H PRN PRN Reason: SHORT OF BREATH/WHEEZING Aspirin (Ecotrin -) 81 mg PO DAILY [facility] Last Admin: 10/14/16 09:13 Dose: 81 mg Atorvastatin Calcium (Lipitor -) 40 mg PO [facility] Last Admin: 10/14/16 21:35 Dose: 40 mg Diltiazem HCl (Cardizem -) 30 mg PO QID [facility] Last Admin: 10/14/16 21:35 Dose: 30 mg Docusate Sodium (Colace -) 300 mg PO [facility] Last Admin: 10/14/16 21:36 Dose: Not Given Furosemide (Lasix -) 20 mg PO DAILY [facility] Last Admin: 10/14/16 09:13 Dose: 20 mg Glipizide (Glucotrol -) 5 mg PO BID@0700,1630 [facility] Last Admin: 10/15/16 06:00 Dose: 5 mg Guaifenesin (Diabetic Tussin Dm -) 10 ml PO Q6H PRN PRN Reason: COUGH Insulin Aspart (Novolog Vial Sliding Scale -) 1 vial SQ ACHS [facility] PRN Reason: Protocol Last Admin: 10/15/16 06:00 Dose: 6 unit Levothyroxine Sodium (Synthroid -) 88 mcg PO DAILY@0700 [facility] Last Admin: 10/15/16 06:00 Dose: 88 mcg Metformin HCl (Glucophage -) 500 mg PO DAILY@0700 [facility] Last Admin: 10/15/16 06:00 Dose: 500 mg Methylprednisolone Sodium Succinate (Solu-Medrol -) 40 mg IVPB Q8H-IV [facility] Last Admin: 10/15/16 03:08 Dose: 40 mg Metoprolol Tartrate (Lopressor -) 75 mg PO TID [facility] Last Admin: 10/15/16 06:00 Dose: 75 mg Prasugrel (Effient -) 5 mg PO DAILY [facility] Last Admin: 10/14/16 09:14 Dose: 5 mg Ranitidine HCl (Zantac -) 150 mg PO DAILY [facility] Last Admin: 10/14/16 09:13 Dose: 150 mg 85 year old woman with PMhx of Aortic Stenosis s/o AVR, CAD, CHF, DM, Afib on Coumaidn, Hypothyrodism, CKD stage 3 (baseline Cr 1.3 based on prior labs in [facility]) who presented with SOB and found to have AFib with RVR and ALEIDA with Cr 1.7 to 1.8. #Acute on chronic renal insufficiency Etiology likely related to hemodynamic changes in setting of Rapid AFib, diuretics Renal US done prior admission showed normal size kidneys w/o obstruction or stones FeUrea was 30% indicating pre-renal injury and preserved tubular function Continue low dose diuretics to maintain evolemia, if renal functio resturns to baseline around 1.3 can resume higher dose home diuretics Volume status looks stable at this time Trend BUN/Cr would avoid addition of ACEi or ARB at this time as stable renal function is not established Dose all meds for Cr Cl ~30 no indication for SNUFF MAKER #Afib with RVR rate control as per cardiology on A/C #ILD continue steroids and O2 as needed Thank you Thong Lanier DO Problem List - Problems (1) Atrial fibrillation with rapid ventricular response Code(s): I48.91 - UNSPECIFIED ATRIAL FIBRILLATION (2) Dyspnea on exertion Code(s): R06.09 - OTHER FORMS OF DYSPNEA (3) ALEIDA (acute kidney injury) Code(s): N17.9 - ACUTE KIDNEY FAILURE, UNSPECIFIED (4) History of aortic valve replacement Code(s): Z95.2 - PRESENCE OF PROSTHETIC HEART VALVE (5) Hypothyroid Code(s): E03.9 - HYPOTHYROIDISM, UNSPECIFIED
[2016-10-15] MEDS ORDERED: PT OWN MED DRAWER 7, Y5N ONE (08:20)
[2016-10-15 08:55] LABS: GLUCOSE,RANDOM 324 mg/dL (74-106)
--- NOTE | 2016-10-15 09:01 | PN ---
Progress Note, Physician History of Present Illness: PULMONARY ALERT,FEELING BETTER,LESS COUGH,LESS DYSPNEIC - Current Medication List Current Medications: Active Medications Acetaminophen (Tylenol -) 650 mg PO Q4H PRN PRN Reason: FEVER OR PAIN Albuterol Sulfate (Ventolin 0.083% Nebulizer Soln -) 1 amp NEB Q4H PRN PRN Reason: SHORT OF BREATH/WHEEZING Aspirin (Ecotrin -) 81 mg PO DAILY [facility] Last Admin: 10/14/16 09:13 Dose: 81 mg Atorvastatin Calcium (Lipitor -) 40 mg PO HS [facility] Last Admin: 10/14/16 21:35 Dose: 40 mg Diltiazem HCl (Cardizem -) 30 mg PO QID [facility] Last Admin: 10/14/16 21:35 Dose: 30 mg Docusate Sodium (Colace -) 300 mg PO HS [facility] Last Admin: 10/14/16 21:36 Dose: Not Given Furosemide (Lasix -) 20 mg PO DAILY [facility] Last Admin: 10/14/16 09:13 Dose: 20 mg Glipizide (Glucotrol -) 5 mg PO BID@0700,1630 [facility] Last Admin: 10/15/16 06:00 Dose: 5 mg Guaifenesin (Diabetic Tussin Dm -) 10 ml PO Q6H PRN PRN Reason: COUGH Insulin Aspart (Novolog Vial Sliding Scale -) 1 vial SQ ACHS [facility] PRN Reason: Protocol Last Admin: 10/15/16 06:00 Dose: 6 unit Levothyroxine Sodium (Synthroid -) 88 mcg PO DAILY@0700 [facility] Last Admin: 10/15/16 06:00 Dose: 88 mcg Metformin HCl (Glucophage -) 500 mg PO DAILY@0700 [facility] Last Admin: 10/15/16 06:00 Dose: 500 mg Methylprednisolone Sodium Succinate (Solu-Medrol -) 40 mg IVPB Q8H-IV [facility] Last Admin: 10/15/16 03:08 Dose: 40 mg Metoprolol Tartrate (Lopressor -) 75 mg PO TID [facility] Last Admin: 10/15/16 06:00 Dose: 75 mg Prasugrel (Effient -) 5 mg PO DAILY [facility] Last Admin: 10/14/16 09:14 Dose: 5 mg Ranitidine HCl (Zantac -) 150 mg PO DAILY [facility] Last Admin: 10/14/16 09:13 Dose: 150 mg - Objective Vital Signs: Vital Signs Temperature 97.7 F 10/15/16 07:18 Pulse Rate 78 10/15/16 07:18 Respiratory Rate 18 10/15/16 07:21 Blood Pressure 134/70 10/15/16 07:18 O2 Sat by Pulse Oximetry (%) 98 10/15/16 07:21 Constitutional: Yes: Well Nourished, Calm Eyes: Yes: WNL HENT: Yes: WNL Neck: Yes: WNL Respiratory: Yes: Rales (BILATERAL CRACKLES1/3 UP) Gastrointestinal: Yes: Normal Bowel Sounds, Soft Extremities: Yes: WNL Edema: Yes Labs: CBC, BMP 10/15/16 05:35 10/15/16 05:35 INR, PTT INR 4.66 (0.82-1.09) H* 10/15/16 05:35 Problem List - Problems (1) Atrial fibrillation with rapid ventricular response Code(s): I48.91 - UNSPECIFIED ATRIAL FIBRILLATION (2) CHF (congestive heart failure) Code(s): I50.9 - HEART FAILURE, UNSPECIFIED Qualifiers: Congestive heart failure type: diastolic Congestive heart failure chronicity: chronic Qualified Code(s): I50.32 - Chronic diastolic ( congestive) heart failure (3) Cough present for greater than 3 weeks Code(s): R05 - COUGH (4) Dyspnea on exertion Code(s): R06.09 - OTHER FORMS OF DYSPNEA (5) Weakness Code(s): R53.1 - WEAKNESS (6) ALEIDA (acute kidney injury) Code(s): N17.9 - ACUTE KIDNEY FAILURE, UNSPECIFIED (7) Atrial fibrillation Code(s): I48.91 - UNSPECIFIED ATRIAL FIBRILLATION Qualifiers: Atrial fibrillation type: chronic Qualified Code(s): I48.2 - Chronic atrial fibrillation (8) Coronary artery disease Code(s): I25.10 - ATHSCL HEART DISEASE OF [place] CORONARY ARTERY W/O ANG PCTRS (9) Diabetes mellitus Code(s): E11.9 - TYPE 2 DIABETES MELLITUS WITHOUT COMPLICATIONS (10) History of aortic valve replacement Code(s): Z95.2 - PRESENCE OF PROSTHETIC HEART VALVE (11) Hypothyroid Code(s): E03.9 - HYPOTHYROIDISM, UNSPECIFIED (12) Interstitial lung disease Code(s): J84.9 - INTERSTITIAL PULMONARY DISEASE, UNSPECIFIED Assessment/Plan IMP ILD AFIB CHF S/P AVR ASHD S/P STENTS HTN ALEIDA JUAN PLAN INHALED BRONCHODILATORS SOLUMEDROL TAPER LASIX O2 AC MONITOR LYTES PFTS OUTPATIENT DAILY WTS FULL SLEEP STUDIES OUTPATIENT DR [place] Problem List - Problems (1) Atrial fibrillation with rapid ventricular response Code(s): I48.91 - UNSPECIFIED ATRIAL FIBRILLATION (2) CHF (congestive heart failure) Code(s): I50.9 - HEART FAILURE, UNSPECIFIED Qualifiers: Congestive heart failure type: diastolic Congestive heart failure chronicity: chronic Qualified Code(s): I50.32 - Chronic diastolic ( congestive) heart failure (3) Cough present for greater than 3 weeks Code(s): R05 - COUGH (4) Dyspnea on exertion Code(s): R06.09 - OTHER FORMS OF DYSPNEA (5) Weakness Code(s): R53.1 - WEAKNESS (6) ALEIDA (acute kidney injury) Code(s): N17.9 - ACUTE KIDNEY FAILURE, UNSPECIFIED (7) Atrial fibrillation Code(s): I48.91 - UNSPECIFIED ATRIAL FIBRILLATION Qualifiers: Atrial fibrillation type: chronic Qualified Code(s): I48.2 - Chronic atrial fibrillation (8) Coronary artery disease Code(s): I25.10 - ATHSCL HEART DISEASE OF [place] CORONARY ARTERY W/O ANG PCTRS (9) Diabetes mellitus Code(s): E11.9 - TYPE 2 DIABETES MELLITUS WITHOUT COMPLICATIONS (10) History of aortic valve replacement Code(s): Z95.2 - PRESENCE OF PROSTHETIC HEART VALVE (11) Hypothyroid Code(s): E03.9 - HYPOTHYROIDISM, UNSPECIFIED (12) Interstitial lung disease Code(s): J84.9 - INTERSTITIAL PULMONARY DISEASE, UNSPECIFIED Problem List - Problems (1) Atrial fibrillation with rapid ventricular response Code(s): I48.91 - UNSPECIFIED ATRIAL FIBRILLATION (2) CHF (congestive heart failure) Code(s): I50.9 - HEART FAILURE, UNSPECIFIED Qualifiers: Congestive heart failure type: diastolic Congestive heart failure chronicity: chronic Qualified Code(s): I50.32 - Chronic diastolic ( congestive) heart failure (3) Cough present for greater than 3 weeks Code(s): R05 - COUGH (4) Dyspnea on exertion Code(s): R06.09 - OTHER FORMS OF DYSPNEA (5) Weakness Code(s): R53.1 - WEAKNESS (6) ALEIDA (acute kidney injury) Code(s): N17.9 - ACUTE KIDNEY FAILURE, UNSPECIFIED (7) Atrial fibrillation Code(s): I48.91 - UNSPECIFIED ATRIAL FIBRILLATION Qualifiers: Atrial fibrillation type: chronic Qualified Code(s): I48.2 - Chronic atrial fibrillation (8) Coronary artery disease Code(s): I25.10 - ATHSCL HEART DISEASE OF [place] CORONARY ARTERY W/O ANG PCTRS (9) Diabetes mellitus Code(s): E11.9 - TYPE 2 DIABETES MELLITUS WITHOUT COMPLICATIONS (10) History of aortic valve replacement Code(s): Z95.2 - PRESENCE OF PROSTHETIC HEART VALVE (11) Hypothyroid Code(s): E03.9 - HYPOTHYROIDISM, UNSPECIFIED (12) Interstitial lung disease Code(s): J84.9 - INTERSTITIAL PULMONARY DISEASE, UNSPECIFIED
[2016-10-15] MEDS: RANITIDINE HCL 150 MG TABLET (FP) PO SCH (09:38)
[2016-10-15] MEDS: FUROSEMIDE 20 MG TABLET (FP) PO SCH (09:38)
[2016-10-15] MEDS: dilTIAZem HCL 30 MG TABLET (FP) PO SCH ×4 (09:39→21:33)
[2016-10-15] MEDS: ASPIRIN COATED 81 MG TABLET.EC PO SCH (09:39)
[2016-10-15] MEDS: PRASUGREL HCL 5 MG TAB PO SCH (09:56)
--- NOTE | 2016-10-15 10:50 | PN ---
Progress Note, Physician Chief Complaint: No coughing and breathing improved. History of Present Illness: Patient better clinically but lab still shows elevated INR to 4.66, BUN 69, GBGM 325 and elevated liver chemistries. Renal MD note appreciated. He recommends no change in meds at this time. She walks to bathroom but is otherwise in bed. - Current Medication List Current Medications: Active Medications Acetaminophen (Tylenol -) 650 mg PO Q4H PRN PRN Reason: FEVER OR PAIN Albuterol Sulfate (Ventolin 0.083% Nebulizer Soln -) 1 amp NEB Q4H PRN PRN Reason: SHORT OF BREATH/WHEEZING Aspirin (Ecotrin -) 81 mg PO DAILY [facility] Last Admin: 10/15/16 09:39 Dose: 81 mg Atorvastatin Calcium (Lipitor -) 40 mg PO [facility] Last Admin: 10/14/16 21:35 Dose: 40 mg Diltiazem HCl (Cardizem -) 30 mg PO QID [facility] Last Admin: 10/15/16 09:39 Dose: 30 mg Docusate Sodium (Colace -) 300 mg PO [facility] Last Admin: 10/14/16 21:36 Dose: Not Given Furosemide (Lasix -) 20 mg PO DAILY [facility] Last Admin: 10/15/16 09:38 Dose: 20 mg Glipizide (Glucotrol -) 5 mg PO BID@0700,1630 [facility] Last Admin: 10/15/16 06:00 Dose: 5 mg Guaifenesin (Diabetic Tussin Dm -) 10 ml PO Q6H PRN PRN Reason: COUGH Insulin Aspart (Novolog Vial Sliding Scale -) 1 vial SQ ACHS [facility] PRN Reason: Protocol Last Admin: 10/15/16 06:00 Dose: 6 unit Levothyroxine Sodium (Synthroid -) 88 mcg PO DAILY@0700 [facility] Last Admin: 10/15/16 06:00 Dose: 88 mcg Metformin HCl (Glucophage -) 500 mg PO DAILY@0700 [facility] Last Admin: 10/15/16 06:00 Dose: 500 mg Methylprednisolone Sodium Succinate (Solu-Medrol -) 40 mg IVPB Q12H [facility] Last Admin: 10/15/16 09:39 Dose: 40 mg Metoprolol Tartrate (Lopressor -) 75 mg PO TID [facility] Last Admin: 10/15/16 06:00 Dose: 75 mg Prasugrel (Effient -) 5 mg PO DAILY [facility] Last Admin: 10/15/16 09:56 Dose: 5 mg Ranitidine HCl (Zantac -) 150 mg PO DAILY [facility] Last Admin: 10/15/16 09:38 Dose: 150 mg - Objective Vital Signs: Vital Signs Temperature 97.7 F 10/15/16 07:18 Pulse Rate 63 10/15/16 09:24 Respiratory Rate 18 10/15/16 07:21 Blood Pressure 134/70 10/15/16 07:18 O2 Sat by Pulse Oximetry (%) 98 10/15/16 09:24 Constitutional: Yes: Calm, Pallor Cardiovascular: Yes: Pulse Irregular Respiratory: Yes: Diminished. No: Rales, Rhonchi, Wheezes Gastrointestinal: Yes: Soft Genitourinary: No: Wilde Present Edema: LLE: 1+, RLE: 1+ Neurological: Yes: Alert, Oriented Labs: CBC, BMP 10/15/16 05:35 10/15/16 05:35 INR, PTT INR 4.66 (0.82-1.09) H* 10/15/16 05:35 Problem List - Problems (1) Cough present for greater than 3 weeks Assessment/Plan: Resolved with steroid Rx. Code(s): R05 - COUGH (2) ALEIDA (acute kidney injury) Assessment/Plan: Values are further elevated today with BUN 69 and Creatinine 1.9. Renal MD following patient. Code(s): N17.9 - ACUTE KIDNEY FAILURE, UNSPECIFIED (3) Diabetes mellitus Assessment/Plan: BGM 325. Code(s): E11.9 - TYPE 2 DIABETES MELLITUS WITHOUT COMPLICATIONS (4) Interstitial lung disease Assessment/Plan: On IV steroids but ? etiology. Code(s): J84.9 - INTERSTITIAL PULMONARY DISEASE, UNSPECIFIED (5) Atrial fibrillation with rapid ventricular response Assessment/Plan: INR 4.66; holding coumadin today. Code(s): I48.91 - UNSPECIFIED ATRIAL FIBRILLATION
--- NOTE | 2016-10-15 11:01 | PN ---
Progress Note (short form) - Note Progress Note: cc: afib with rvr S: no cp, palps, dizziness. sob improving Current Medications Generic Name Dose Route Start Last Admin Trade Name Allison PRN Reason Stop Dose Admin Acetaminophen 650 mg 10/09/16 17:03 Tylenol - PO Q4H PRN FEVER OR PAIN Albuterol Sulfate 1 amp 10/12/16 12:10 Ventolin 0.083% Nebulizer Soln - NEB Q4H PRN SHORT OF BREATH/WHEEZING Aspirin 81 mg 10/10/16 10:00 10/15/16 09:39 Ecotrin - PO 81 mg DAILY [facility] Administration Atorvastatin Calcium 40 mg 10/09/16 22:00 10/14/16 21:35 Lipitor - PO 40 mg HS [facility] Administration Diltiazem HCl 30 mg 10/10/16 21:00 10/15/16 09:39 Cardizem - PO 30 mg QID [facility] Administration Docusate Sodium 300 mg 10/09/16 22:00 10/14/16 21:36 Colace - PO Not Given HS [facility] Furosemide 20 mg 10/11/16 10:00 10/15/16 09:38 Lasix - PO 20 mg DAILY [facility] Administration Glipizide 5 mg 10/13/16 12:17 10/15/16 06:00 Glucotrol - PO 5 mg BID@0700,1630 [facility] Administration Guaifenesin 10 ml 10/09/16 17:01 Diabetic Tussin Dm - PO Q6H PRN COUGH Insulin Aspart 1 vial 10/14/16 10:52 10/15/16 06:00 Novolog Vial Sliding Scale - SQ 6 unit ACHS [facility] Administration Protocol Levothyroxine Sodium 88 mcg 10/13/16 06:35 10/15/16 06:00 Synthroid - PO 88 mcg DAILY@0700 [facility] Administration Metformin HCl 500 mg 10/12/16 11:30 10/15/16 06:00 Glucophage - PO 500 mg DAILY@0700 [facility] Administration Methylprednisolone Sodium Succinate 40 mg 10/15/16 10:00 10/15/16 09:39 Solu-Medrol - IVPB 40 mg Q12H [facility] Administration Metoprolol Tartrate 75 mg 10/10/16 06:00 10/15/16 06:00 Lopressor - PO 75 mg TID [facility] Administration Prasugrel 5 mg 10/10/16 10:00 10/15/16 09:56 Effient - PO 5 mg DAILY [facility] Administration Ranitidine HCl 150 mg 10/10/16 10:00 10/15/16 09:38 Zantac - PO 150 mg DAILY [facility] Administration Vital Signs Period Temp Pulse Resp BP Sys/Price Pulse Ox Last 24 Hr 97.4 F-98.7 F 61-78 18-20 110-150/49-86 98-98 nad, calm jvd flat, neck supple cta bl nl effort irregularly irregular nl s1, s2 2/6 murmur at lsb + bs soft nt nd ext without e/c/c aaox3 no jaundice, diaphoreiss CBC, BMP 10/15/16 05:35 10/15/16 05:35 tele: afib, rate controlled a/p: 85 yo with h/o s/p mech AVR, CAD s/p recent PCI x 2 - 05/2016, diastolic HF, CKD, DM, hypothyroidism p/w worsening, presents to ED with afib with RVR. afib, new dx last month -con't AC with coumadin per inr -on prior admit last month dilt started and bb increased but --> bradycardic -- > so dilt was stopped and toprol decreased back to 75 bid. Last week at outpatient cardiology visit developed RVR to 130's with ambulation --> toprol increased to 100 mg bid still with no improvement in heart rate. - ? whether overdiuresis contributing, + orthstatics. --> got ivfs here - now started metoprolol tartrate 75 tid and short acting dilt QID - currently HR controlled at rest and with PT so would continue same regimen - discussed option of CV with patient and family but they would like to defer. ILD, new dx last month - likely contributing to cough and worsened sob - now on iv steroids and feeling better - pulm following CAD: -had 2 stents 05/19 con't home DAPT (ASA + Effient), metopr, statin -ECG here with LBBB not new -no signs acs h/o mech AVR -cont coumadin per INR diastolic HF -stable, lasix resumed at lower dose 20 mg qd CKD - cr improved, back to baseline after ivfs HTN: -stable on current meds can dc tele
[2016-10-15] MEDS: ATORVASTATIN CA 40 MG TABLET (FP) PO SCH (21:34)
[2016-10-15] MEDS: DOCUSATE SODIUM 100 MG CAPSULE (FP) PO SCH (21:34)
[2016-10-16] MEDS: METOPROLOL TARTRATE 50 MG TABLET (FP) PO SCH ×3 (06:09→21:12)
[2016-10-16] MEDS: LEVOTHYROXINE NA 88 MCG TABLET (FP) PO SCH (06:10)
[2016-10-16] MEDS: metFORMIN HCL 500 MG TABLET (FP) PO SCH (06:10)
[2016-10-16] MEDS: INSULIN SLIDING SCALE (NOVOLOG) 1 VIAL SQ SCH ×4 (06:10→21:12)
[2016-10-16] MEDS: glipiZIDE 5 MG TABLET (FP) PO SCH ×2 (06:10→16:04)
[2016-10-16 07:11] LABS: MCHC 34.1 g/dl (32.0-36.0); MEAN CELL VOLUME 85.2 fl (80-96); MEAN PLT VOLUME 9.3 fl (7.5-11.1); PLATELET COUNT 203 K/MM3 (134-434); RDW 15.7 % (11.6-15.6); WHITE BLOOD COUNT 9.8 K/mm3 (4.0-10.0)
[2016-10-16 07:20] LABS: INR 3.94 (0.82-1.09); PROTHROMBIN TIME (PATIENT) 44.6 SEC (9.98-11.88)
[2016-10-16 07:33] LABS: ANION GAP 9 (8-16); CALCIUM 9.3 mg/dL (8.5-10.1); CO2 25 mmol/L (21-32); CREATININE 1.8 mg/dL (0.55-1.02); GLUCOSE,RANDOM 284 mg/dL (74-106); MAGNESIUM 2.1 mg/dL (1.8-2.4)
[2016-10-16] MEDS ORDERED: PT OWN MED DRAWER 7, Y5N ONE ×2 (07:51→09:38)
[2016-10-16] MEDS: FUROSEMIDE 20 MG TABLET (FP) PO SCH (09:32)
[2016-10-16] MEDS: ASPIRIN COATED 81 MG TABLET.EC PO SCH (09:32)
[2016-10-16] MEDS: dilTIAZem HCL 30 MG TABLET (FP) PO SCH (09:32)
[2016-10-16] MEDS: methylPREDNISolone NA SUCC 40 MG/1 ML VIAL IVPB SCH (09:33)
[2016-10-16] MEDS: RANITIDINE HCL 150 MG TABLET (FP) PO SCH (09:33)
--- NOTE | 2016-10-16 09:46 | PN ---
Progress Note, Physician Chief Complaint: rapid AF History of Present Illness: sob at her usual baseline she says; tolerating being off O2 no palpitations anymore no cp, wheezing, presyncope/dizzy no cigs - Current Medication List Current Medications: Active Medications Acetaminophen (Tylenol -) 650 mg PO Q4H PRN PRN Reason: FEVER OR PAIN Albuterol Sulfate (Ventolin 0.083% Nebulizer Soln -) 1 amp NEB Q4H PRN PRN Reason: SHORT OF BREATH/WHEEZING Aspirin (Ecotrin -) 81 mg PO DAILY [facility] Last Admin: 10/16/16 09:32 Dose: 81 mg Atorvastatin Calcium (Lipitor -) 40 mg PO HS [facility] Last Admin: 10/15/16 21:34 Dose: 40 mg Diltiazem HCl (Cardizem -) 30 mg PO QID [facility] Last Admin: 10/16/16 09:32 Dose: 30 mg Docusate Sodium (Colace -) 300 mg PO HS [facility] Last Admin: 10/15/16 21:34 Dose: Not Given Furosemide (Lasix -) 20 mg PO DAILY [facility] Last Admin: 10/16/16 09:32 Dose: 20 mg Glipizide (Glucotrol -) 5 mg PO BID@0700,1630 [facility] Last Admin: 10/16/16 06:10 Dose: 5 mg Guaifenesin (Diabetic Tussin Dm -) 10 ml PO Q6H PRN PRN Reason: COUGH Insulin Aspart (Novolog Vial Sliding Scale -) 1 vial SQ ACHS [facility] PRN Reason: Protocol Last Admin: 10/16/16 06:10 Dose: 4 unit Levothyroxine Sodium (Synthroid -) 88 mcg PO DAILY@0700 [facility] Last Admin: 10/16/16 06:10 Dose: 88 mcg Metformin HCl (Glucophage -) 500 mg PO DAILY@0700 [facility] Last Admin: 10/16/16 06:10 Dose: 500 mg Methylprednisolone Sodium Succinate (Solu-Medrol -) 40 mg IVPB Q12H [facility] Last Admin: 10/16/16 09:33 Dose: Not Given Metoprolol Tartrate (Lopressor -) 75 mg PO TID [facility] Last Admin: 10/16/16 06:09 Dose: 75 mg Prasugrel (Effient -) 5 mg PO DAILY [facility] Last Admin: 10/15/16 09:56 Dose: 5 mg Ranitidine HCl (Zantac -) 150 mg PO DAILY [facility] Last Admin: 10/16/16 09:33 Dose: 150 mg - Objective Vital Signs: Vital Signs Temperature 97.7 F 10/16/16 07:12 Pulse Rate 77 10/16/16 07:12 Respiratory Rate 18 10/16/16 07:16 Blood Pressure 127/70 10/16/16 07:12 O2 Sat by Pulse Oximetry (%) 100 10/16/16 07:16 Constitutional: Yes: No Distress, Calm Eyes: No: Sclera Icterus HENT: No: Nasal Congestion Cardiovascular: Yes: S1, S2, Other (PMI non diplaced). No: Regular Rate and Rhythm, Gallop, Murmur Respiratory: Yes: CTA Bilaterally. No: Accessory Muscle Use, Rales, Wheezes Gastrointestinal: Yes: Normal Bowel Sounds, Soft. No: Tenderness Musculoskeletal: Yes: Other (No kyphosis) Extremities: No: Cold Edema: Yes (nonpitting ankles) Integumentary: No: Jaundice Neurological: Yes: Alert, Oriented (x3) Psychiatric: No: Agitated Labs: CBC, BMP 10/16/16 05:35 10/16/16 05:35 INR, PTT INR 3.94 (0.82-1.09) H 10/16/16 05:35 - ....Imaging EKG: Other (tele: AF, good HRs) Assessment/Plan a/p: 85 yo with h/o s/p mech AVR, CAD s/p recent PCI x 2 - 05/2016, diastolic HF, CKD, DM, hypothyroidism p/w worsening, presents to ED with afib with RVR. afib, new dx last month -con't AC with coumadin per inr -on prior admit last month dilt started and bb increased but --> bradycardic -- > so dilt was stopped and toprol decreased back to 75 bid. Last week at outpatient cardiology visit developed RVR to 130's with ambulation --> toprol increased to 100 mg bid still with no improvement in heart rate. - ? whether overdiuresis contributing, + orthstatics. --> got ivfs here - now started metoprolol tartrate 75 tid and short acting dilt 30 QID - currently HR controlled at rest and with PT - change diltiazem to 120qd CD - discussed option of CV with patient and family but they would like to defer. - cont AC as doing ALEIDA: - baseline creat 1.3-1.4 on 09/16 admit (first time here) - bumped here to 1.9, trending down slowly today - renal following, likely etiology is fluid shifts/renal hemodynamic changes - on low dose lasix (20 qd) - observe lab trend ILD, new dx last month - likely contributing to cough and worsened sob - steroids taper per pulm - pulm following CAD: -had 2 stents 05/19 -ECG here with LBBB not new -no signs acs here -cont home meds: DAPT (ASA + Effient), metopr, statin h/o mech AVR -cont coumadin per INR diastolic HF -stable, lasix resumed at lower dose 20 mg qd - wt up 159 to 165 here - in past, labile creat with iv lasix 40mg doses - lasix PO 20 qd as doing, observe wt/sx trend CKD - cr improved, back to baseline after ivfs HTN: -stable on current meds OK FOR DISCHARGE FROM CV P.O.V.
[2016-10-16] MEDS: PRASUGREL HCL 5 MG TAB PO SCH (09:54)
--- NOTE | 2016-10-16 11:03 | PN ---
Progress Note, Physician History of Present Illness: PULMONARY ALERT,NAD,OOB-CHAIR,LESS COUGH,-SOB - Current Medication List Current Medications: Active Medications Acetaminophen (Tylenol -) 650 mg PO Q4H PRN PRN Reason: FEVER OR PAIN Albuterol Sulfate (Ventolin 0.083% Nebulizer Soln -) 1 amp NEB Q4H PRN PRN Reason: SHORT OF BREATH/WHEEZING Aspirin (Ecotrin -) 81 mg PO DAILY [facility] Last Admin: 10/16/16 09:32 Dose: 81 mg Atorvastatin Calcium (Lipitor -) 40 mg PO HS [facility] Last Admin: 10/15/16 21:34 Dose: 40 mg Diltiazem HCl (Cardizem -) 30 mg PO QID [facility] Last Admin: 10/16/16 09:32 Dose: 30 mg Docusate Sodium (Colace -) 300 mg PO HS [facility] Last Admin: 10/15/16 21:34 Dose: Not Given Furosemide (Lasix -) 20 mg PO DAILY [facility] Last Admin: 10/16/16 09:32 Dose: 20 mg Glipizide (Glucotrol -) 5 mg PO BID@0700,1630 [facility] Last Admin: 10/16/16 06:10 Dose: 5 mg Guaifenesin (Diabetic Tussin Dm -) 10 ml PO Q6H PRN PRN Reason: COUGH Insulin Aspart (Novolog Vial Sliding Scale -) 1 vial SQ ACHS [facility] PRN Reason: Protocol Last Admin: 10/16/16 06:10 Dose: 4 unit Levothyroxine Sodium (Synthroid -) 88 mcg PO DAILY@0700 [facility] Last Admin: 10/16/16 06:10 Dose: 88 mcg Metformin HCl (Glucophage -) 500 mg PO DAILY@0700 [facility] Last Admin: 10/16/16 06:10 Dose: 500 mg Methylprednisolone Sodium Succinate (Solu-Medrol -) 40 mg IVPB Q12H [facility] Last Admin: 10/16/16 09:33 Dose: Not Given Metoprolol Tartrate (Lopressor -) 75 mg PO TID [facility] Last Admin: 10/16/16 06:09 Dose: 75 mg Prasugrel (Effient -) 5 mg PO DAILY [facility] Last Admin: 10/16/16 09:54 Dose: 5 mg Ranitidine HCl (Zantac -) 150 mg PO DAILY [facility] Last Admin: 10/16/16 09:33 Dose: 150 mg - Objective Vital Signs: Vital Signs Temperature 97.7 F 10/16/16 07:12 Pulse Rate 77 10/16/16 07:12 Respiratory Rate 18 10/16/16 07:16 Blood Pressure 127/70 10/16/16 07:12 O2 Sat by Pulse Oximetry (%) 100 10/16/16 07:16 Constitutional: Yes: Well Nourished, Calm Eyes: Yes: WNL HENT: Yes: WNL Neck: Yes: WNL Cardiovascular: Yes: Pulse Irregular, S1, S2 Respiratory: Yes: Rales (BIBASILAR CRACKLES) Gastrointestinal: Yes: Normal Bowel Sounds, Soft Extremities: Yes: WNL Edema: Yes Labs: CBC, BMP 10/16/16 05:35 10/16/16 05:35 INR, PTT INR 3.94 (0.82-1.09) H 10/16/16 05:35 Problem List - Problems (1) Atrial fibrillation with rapid ventricular response Code(s): I48.91 - UNSPECIFIED ATRIAL FIBRILLATION (2) CHF (congestive heart failure) Code(s): I50.9 - HEART FAILURE, UNSPECIFIED Qualifiers: Congestive heart failure type: diastolic Congestive heart failure chronicity: chronic Qualified Code(s): I50.32 - Chronic diastolic ( congestive) heart failure (3) Cough present for greater than 3 weeks Code(s): R05 - COUGH (4) Dyspnea on exertion Code(s): R06.09 - OTHER FORMS OF DYSPNEA (5) Weakness Code(s): R53.1 - WEAKNESS (6) ALEIDA (acute kidney injury) Code(s): N17.9 - ACUTE KIDNEY FAILURE, UNSPECIFIED (7) Atrial fibrillation Code(s): I48.91 - UNSPECIFIED ATRIAL FIBRILLATION Qualifiers: Atrial fibrillation type: chronic Qualified Code(s): I48.2 - Chronic atrial fibrillation (8) Coronary artery disease Code(s): I25.10 - ATHSCL HEART DISEASE OF [place] CORONARY ARTERY W/O ANG PCTRS (9) Diabetes mellitus Code(s): E11.9 - TYPE 2 DIABETES MELLITUS WITHOUT COMPLICATIONS (10) History of aortic valve replacement Code(s): Z95.2 - PRESENCE OF PROSTHETIC HEART VALVE (11) Hypothyroid Code(s): E03.9 - HYPOTHYROIDISM, UNSPECIFIED (12) Interstitial lung disease Code(s): J84.9 - INTERSTITIAL PULMONARY DISEASE, UNSPECIFIED Assessment/Plan IMP ILD AFIB CHF S/P AVR ASHD S/P STENTS HTN ALEIDA JUAN PLAN INHALED BRONCHODILATORS PREDNISONE 40mg DAILY LASIX O2 AC MONITOR LYTES PFTS OUTPATIENT DAILY WTS FULL SLEEP STUDIES OUTPATIENT O2 SAT AT REST AND POST EXERCISE ON RA DR DAVENPORT Problem List - Problems (1) Atrial fibrillation with rapid ventricular response Code(s): I48.91 - UNSPECIFIED ATRIAL FIBRILLATION (2) CHF (congestive heart failure) Code(s): I50.9 - HEART FAILURE, UNSPECIFIED Qualifiers: Congestive heart failure type: diastolic Congestive heart failure chronicity: chronic Qualified Code(s): I50.32 - Chronic diastolic ( congestive) heart failure (3) Cough present for greater than 3 weeks Code(s): R05 - COUGH (4) Dyspnea on exertion Code(s): R06.09 - OTHER FORMS OF DYSPNEA (5) Weakness Code(s): R53.1 - WEAKNESS (6) ALEIDA (acute kidney injury) Code(s): N17.9 - ACUTE KIDNEY FAILURE, UNSPECIFIED (7) Atrial fibrillation Code(s): I48.91 - UNSPECIFIED ATRIAL FIBRILLATION Qualifiers: Atrial fibrillation type: chronic Qualified Code(s): I48.2 - Chronic atrial fibrillation (8) Coronary artery disease Code(s): I25.10 - ATHSCL HEART DISEASE OF [place] CORONARY ARTERY W/O ANG PCTRS (9) Diabetes mellitus Code(s): E11.9 - TYPE 2 DIABETES MELLITUS WITHOUT COMPLICATIONS (10) History of aortic valve replacement Code(s): Z95.2 - PRESENCE OF PROSTHETIC HEART VALVE (11) Hypothyroid Code(s): E03.9 - HYPOTHYROIDISM, UNSPECIFIED (12) Interstitial lung disease Code(s): J84.9 - INTERSTITIAL PULMONARY DISEASE, UNSPECIFIED Problem List - Problems (1) Atrial fibrillation with rapid ventricular response Code(s): I48.91 - UNSPECIFIED ATRIAL FIBRILLATION (2) CHF (congestive heart failure) Code(s): I50.9 - HEART FAILURE, UNSPECIFIED Qualifiers: Congestive heart failure type: diastolic Congestive heart failure chronicity: chronic Qualified Code(s): I50.32 - Chronic diastolic ( congestive) heart failure (3) Cough present for greater than 3 weeks Code(s): R05 - COUGH (4) Dyspnea on exertion Code(s): R06.09 - OTHER FORMS OF DYSPNEA (5) Weakness Code(s): R53.1 - WEAKNESS (6) ALEIDA (acute kidney injury) Code(s): N17.9 - ACUTE KIDNEY FAILURE, UNSPECIFIED (7) Atrial fibrillation Code(s): I48.91 - UNSPECIFIED ATRIAL FIBRILLATION Qualifiers: Atrial fibrillation type: chronic Qualified Code(s): I48.2 - Chronic atrial fibrillation (8) Coronary artery disease Code(s): I25.10 - ATHSCL HEART DISEASE OF [place] CORONARY ARTERY W/O ANG PCTRS (9) Diabetes mellitus Code(s): E11.9 - TYPE 2 DIABETES MELLITUS WITHOUT COMPLICATIONS (10) History of aortic valve replacement Code(s): Z95.2 - PRESENCE OF PROSTHETIC HEART VALVE (11) Hypothyroid Code(s): E03.9 - HYPOTHYROIDISM, UNSPECIFIED (12) Interstitial lung disease Code(s): J84.9 - INTERSTITIAL PULMONARY DISEASE, UNSPECIFIED
--- NOTE | 2016-10-16 11:25 | PN ---
Progress Note (short form) - Note Progress Note: Renal Follow up for ALEIDA Pt seen and examined at the bedside sitting in chair reports feeling fine denies any SOB, SWAN[place], Chest pain Vital Signs Temperature 97.7 F 10/16/16 07:12 Pulse Rate 77 10/16/16 07:12 Respiratory Rate 18 10/16/16 07:16 Blood Pressure 127/70 10/16/16 07:12 O2 Sat by Pulse Oximetry (%) 100 10/16/16 07:16 Intake & Output 10/13/16 10/14/16 10/15/16 10/16/16 23:59 23:59 23:59 23:59 Intake Total 400 870 380 50 Balance 400 870 380 50 Weight 160 lb 9.6 oz 162 lb 6.4 oz 163 lb 12.8 oz 165 lb Gen: NAD CVS: RRR Lungs: CTA Abd: soft NT Ext: trace edema CBC, BMP 10/16/16 05:35 10/16/16 05:35 Current Medications Acetaminophen (Tylenol -) 650 mg PO Q4H PRN PRN Reason: FEVER OR PAIN Albuterol Sulfate (Ventolin 0.083% Nebulizer Soln -) 1 amp NEB Q4H PRN PRN Reason: SHORT OF BREATH/WHEEZING Aspirin (Ecotrin -) 81 mg PO DAILY [facility] Last Admin: 10/16/16 09:32 Dose: 81 mg Atorvastatin Calcium (Lipitor -) 40 mg PO [facility] Last Admin: 10/15/16 21:34 Dose: 40 mg Diltiazem HCl (Cardizem -) 30 mg PO QID [facility] Last Admin: 10/16/16 09:32 Dose: 30 mg Docusate Sodium (Colace -) 300 mg PO HS [facility] Last Admin: 10/15/16 21:34 Dose: Not Given Furosemide (Lasix -) 20 mg PO DAILY [facility] Last Admin: 10/16/16 09:32 Dose: 20 mg Glipizide (Glucotrol -) 5 mg PO BID@0700,1630 [facility] Last Admin: 10/16/16 06:10 Dose: 5 mg Guaifenesin (Diabetic Tussin Dm -) 10 ml PO Q6H PRN PRN Reason: COUGH Insulin Aspart (Novolog Vial Sliding Scale -) 1 vial SQ ACHS [facility] PRN Reason: Protocol Last Admin: 07/17/17 06:10 Dose: 4 unit Levothyroxine Sodium (Synthroid -) 88 mcg PO DAILY@0700 [facility] Last Admin: 10/16/16 06:10 Dose: 88 mcg Metformin HCl (Glucophage -) 500 mg PO DAILY@0700 [facility] Last Admin: 10/16/16 06:10 Dose: 500 mg Methylprednisolone Sodium Succinate (Solu-Medrol -) 40 mg IVPB Q12H [facility] Last Admin: 10/16/16 09:33 Dose: Not Given Metoprolol Tartrate (Lopressor -) 75 mg PO TID [facility] Last Admin: 10/16/16 06:09 Dose: 75 mg Prasugrel (Effient -) 5 mg PO DAILY [facility] Last Admin: 10/16/16 09:54 Dose: 5 mg Ranitidine HCl (Zantac -) 150 mg PO DAILY [facility] Last Admin: 10/16/16 09:33 Dose: 150 mg 85 year old woman with PMhx of Aortic Stenosis s/o AVR, CAD, CHF, DM, Afib on Coumaidn, Hypothyrodism, CKD stage 3 (baseline Cr 1.3 based on prior labs in [facility]) who presented with SOB and found to have AFib with RVR and ALEIDA with Cr 1.7 to 1.8. #Acute on chronic renal insufficiency Etiology likely related to hemodynamic changes in setting of Rapid AFib, diuretics Renal US done prior admission showed normal size kidneys w/o obstruction or stones FeUrea was 30% indicating pre-renal injury and preserved tubular function Cr without significant improvement to date with pt gaining weight and with mild LE edema can uptitrate duretics to home dose of 40mg Daily if needed as per cardiology High BUN likely multifactorial as pt is on steroids as well Ternd BUN/Cr #Afib with RVR rate control as per cardiology on A/C #ILD continue steroids and O2 as needed #DM Type 2 Will d/c Metformin as Cr is > 1.4 Thank you Thong Lanier DO Problem List - Problems (1) Atrial fibrillation with rapid ventricular response Code(s): I48.91 - UNSPECIFIED ATRIAL FIBRILLATION (2) Dyspnea on exertion Code(s): R06.09 - OTHER FORMS OF DYSPNEA (3) ALEIDA (acute kidney injury) Code(s): N17.9 - ACUTE KIDNEY FAILURE, UNSPECIFIED (4) History of aortic valve replacement Code(s): Z95.2 - PRESENCE OF PROSTHETIC HEART VALVE (5) Hypothyroid Code(s): E03.9 - HYPOTHYROIDISM, UNSPECIFIED
[2016-10-16 11:41] LABS: METAMYELOCYTE 2 % (0-2); PLATELET ESTIMATE ADEQUATE (NORMAL)
[2016-10-16] MEDS: predniSONE 20 MG TABLET (UD) PO SCH (16:04)
--- NOTE | 2016-10-16 16:30 | PN ---
Progress Note, Physician Chief Complaint: Ms Simon says she is feeling well. No cp, sob, n/v. - Current Medication List Current Medications: Active Medications Acetaminophen (Tylenol -) 650 mg PO Q4H PRN PRN Reason: FEVER OR PAIN Albuterol Sulfate (Ventolin 0.083% Nebulizer Soln -) 1 amp NEB Q4H PRN PRN Reason: SHORT OF BREATH/WHEEZING Last Admin: 10/16/16 11:45 Dose: 1 amp Aspirin (Ecotrin -) 81 mg PO DAILY [facility] Last Admin: 10/16/16 09:32 Dose: 81 mg Atorvastatin Calcium (Lipitor -) 40 mg PO HS [facility] Last Admin: 10/15/16 21:34 Dose: 40 mg Diltiazem HCl (Cardizem Cd -) 120 mg PO DAILY [facility] Last Admin: 10/16/16 13:56 Dose: 120 mg Docusate Sodium (Colace -) 300 mg PO HS [facility] Last Admin: 10/15/16 21:34 Dose: Not Given Furosemide (Lasix -) 20 mg PO DAILY [facility] Last Admin: 10/16/16 09:32 Dose: 20 mg Glipizide (Glucotrol -) 5 mg PO BID@0700,1630 [facility] Last Admin: 10/16/16 16:04 Dose: 5 mg Guaifenesin (Diabetic Tussin Dm -) 10 ml PO Q6H PRN PRN Reason: COUGH Insulin Aspart (Novolog Vial Sliding Scale -) 1 vial SQ ACHS [facility] PRN Reason: Protocol Last Admin: 10/16/16 16:04 Dose: 12 unit Levothyroxine Sodium (Synthroid -) 88 mcg PO DAILY@0700 [facility] Last Admin: 10/16/16 06:10 Dose: 88 mcg Metoprolol Tartrate (Lopressor -) 75 mg PO TID [facility] Last Admin: 10/16/16 13:56 Dose: 75 mg Prasugrel (Effient -) 5 mg PO DAILY [facility] Last Admin: 10/16/16 09:54 Dose: 5 mg Prednisone (Deltasone -) 60 mg PO DAILY [facility] Last Admin: 10/16/16 16:04 Dose: 60 mg Ranitidine HCl (Zantac -) 150 mg PO DAILY [facility] Last Admin: 10/16/16 09:33 Dose: 150 mg - Objective Vital Signs: Vital Signs Temperature 98 F 10/16/16 14:18 Pulse Rate 69 10/16/16 14:18 Respiratory Rate 18 10/16/16 14:18 Blood Pressure 120/50 10/16/16 14:18 O2 Sat by Pulse Oximetry (%) 93 L 10/16/16 11:45 Constitutional: Yes: No Distress, Calm, Obese Cardiovascular: Yes: Pulse Irregular. No: Tachycardia, Gallop, Murmur, Rub Respiratory: Yes: Regular, Rhonchi (bibasilar, slight). No: CTA Bilaterally, Rales, Wheezes Gastrointestinal: Yes: Normal Bowel Sounds, Soft. No: Distention, Tenderness Extremities: Yes: WNL Edema: No Labs: CBC, BMP 10/16/16 05:35 10/16/16 05:35 INR, PTT INR 3.94 (0.82-1.09) H 10/16/16 05:35 Problem List - Problems (1) Atrial fibrillation with rapid ventricular response Code(s): I48.91 - UNSPECIFIED ATRIAL FIBRILLATION (2) Dyspnea on exertion Code(s): R06.09 - OTHER FORMS OF DYSPNEA (3) ALEIDA (acute kidney injury) Code(s): N17.9 - ACUTE KIDNEY FAILURE, UNSPECIFIED (4) Coronary artery disease Code(s): I25.10 - ATHSCL HEART DISEASE OF [place] CORONARY ARTERY W/O ANG PCTRS (5) Diabetes mellitus Code(s): E11.9 - TYPE 2 DIABETES MELLITUS WITHOUT COMPLICATIONS (6) History of aortic valve replacement Code(s): Z95.2 - PRESENCE OF PROSTHETIC HEART VALVE (7) Hypothyroid Code(s): E03.9 - HYPOTHYROIDISM, UNSPECIFIED (8) CHF (congestive heart failure) Code(s): I50.9 - HEART FAILURE, UNSPECIFIED Qualifiers: Congestive heart failure type: diastolic Congestive heart failure chronicity: chronic Qualified Code(s): I50.32 - Chronic diastolic ( congestive) heart failure Assessment/Plan 1. Atrial fibrillation with RVR -cardiology note reviewed -rate controlled -continue toprol xl and diltiazem at current dose 2. ILD -appreciate pulmonary assistance -on prednisone -defer to pulmonary to titrate 3. Hypertension -continue toprol and diltiazem 4. Mechanical valve with subtherapeutic INR -supratherapeutic today -hold coumadin -recheck in am 5. CAD with stents -no chest pain -continue home regimen 6. Diabetes -patient started on steroids, increasing glucose level -holding metformin secondary to renal function -continue glipizide 7. ARF on CKD -nephrology following 8. Hypothyroid -decreased synthroid to 88mcg -recheck as outpatient in 4-6 weeks 9. Chronic diastolic CHF without exacerbation -continue lasix 20mg daily Dispo -possible discharge tomorrow
[2016-10-16] MEDS ORDERED: INSULIN (NOVOLOG) ASPART 100 UNITS/ML 10ML VIAL ONE (21:09)
[2016-10-16] MEDS: ATORVASTATIN CA 40 MG TABLET (FP) PO SCH (21:12)
[2016-10-16] MEDS: DOCUSATE SODIUM 100 MG CAPSULE (FP) PO SCH (21:35)
[2016-10-17] MEDS: glipiZIDE 5 MG TABLET (FP) PO SCH ×2 (06:21→17:33)
[2016-10-17] MEDS: METOPROLOL TARTRATE 50 MG TABLET (FP) PO SCH ×2 (06:21→15:24)
[2016-10-17] MEDS: LEVOTHYROXINE NA 88 MCG TABLET (FP) PO SCH (06:21)
[2016-10-17] MEDS: INSULIN SLIDING SCALE (NOVOLOG) 1 VIAL SQ SCH ×3 (06:21→17:33)
[2016-10-17 08:17] LABS: MCH 28.8 pg (25.7-33.7); MCHC 33.6 g/dl (32.0-36.0); MEAN CELL VOLUME 85.7 fl (80-96); MEAN PLT VOLUME 9.1 fl (7.5-11.1); PLATELET COUNT 248 K/MM3 (134-434); WHITE BLOOD COUNT 13.1 K/mm3 (4.0-10.0)
[2016-10-17 08:33] LABS: ALBUMIN 2.8 g/dl (3.4-5.0); ALK PHOS 113 U/L (45-117); ANION GAP 9 (8-16); BILIRUBIN,TOTAL 0.7 mg/dL (0.2-1.0); CALCIUM 9.5 mg/dL (8.5-10.1); CO2 26 mmol/L (21-32); CREATININE 1.7 mg/dL (0.55-1.02); GLUCOSE,RANDOM 256 mg/dL (74-106); MAGNESIUM 2.2 mg/dL (1.8-2.4); PHOSPHOROUS 3.1 mg/dL (2.5-4.9); SGOT/AST 47 U/L (15-37); SGPT/ALT 100 U/L (12-78); TOT PROT 5.7 g/dl (6.4-8.2)
[2016-10-17] MEDS: PRASUGREL HCL 5 MG TAB PO SCH (09:01)
[2016-10-17] MEDS: RANITIDINE HCL 150 MG TABLET (FP) PO SCH (09:02)
[2016-10-17] MEDS: predniSONE 20 MG TABLET (UD) PO SCH (09:02)
[2016-10-17] MEDS: ASPIRIN COATED 81 MG TABLET.EC PO SCH (09:02)
[2016-10-17] MEDS: FUROSEMIDE 20 MG TABLET (FP) PO SCH (09:02)
[2016-10-17 09:09] LABS: INR 3.47 (0.82-1.09); PROTHROMBIN TIME (PATIENT) 39.2 SEC (9.98-11.88)
--- NOTE | 2016-10-17 10:44 | PN ---
Progress Note, Physician History of Present Illness: PULMONARY ALERT,FEELING BETTER,-RESP DISTRESS,COUGH SIGNIFICANTLY IMPROVED - Current Medication List Current Medications: Active Medications Acetaminophen (Tylenol -) 650 mg PO Q4H PRN PRN Reason: FEVER OR PAIN Albuterol Sulfate (Ventolin 0.083% Nebulizer Soln -) 1 amp NEB Q4H PRN PRN Reason: SHORT OF BREATH/WHEEZING Last Admin: 10/16/16 11:45 Dose: 1 amp Aspirin (Ecotrin -) 81 mg PO DAILY [facility] Last Admin: 10/17/16 09:02 Dose: 81 mg Atorvastatin Calcium (Lipitor -) 40 mg PO HS [facility] Last Admin: 10/16/16 21:12 Dose: 40 mg Diltiazem HCl (Cardizem Cd -) 120 mg PO DAILY [facility] Last Admin: 10/17/16 09:02 Dose: 120 mg Docusate Sodium (Colace -) 300 mg PO HS [facility] Last Admin: 10/16/16 21:35 Dose: Not Given Furosemide (Lasix -) 20 mg PO DAILY [facility] Last Admin: 10/17/16 09:02 Dose: 20 mg Glipizide (Glucotrol -) 5 mg PO BID@0700,1630 [facility] Last Admin: 10/17/16 06:21 Dose: 5 mg Guaifenesin (Diabetic Tussin Dm -) 10 ml PO Q6H PRN PRN Reason: COUGH Insulin Aspart (Novolog Vial Sliding Scale -) 1 vial SQ ACHS [facility] PRN Reason: Protocol Last Admin: 10/17/16 06:21 Dose: 2 unit Levothyroxine Sodium (Synthroid -) 88 mcg PO DAILY@0700 [facility] Last Admin: 10/17/16 06:21 Dose: 88 mcg Metoprolol Tartrate (Lopressor -) 75 mg PO TID [facility] Last Admin: 10/17/16 06:21 Dose: 75 mg Prasugrel (Effient -) 5 mg PO DAILY [facility] Last Admin: 10/17/16 09:01 Dose: 5 mg Prednisone (Deltasone -) 60 mg PO DAILY [facility] Last Admin: 10/17/16 09:02 Dose: 60 mg Ranitidine HCl (Zantac -) 150 mg PO DAILY [facility] Last Admin: 10/17/16 09:02 Dose: 150 mg - Objective Vital Signs: Vital Signs Temperature 97.8 F 10/17/16 08:08 Pulse Rate 81 10/17/16 08:08 Respiratory Rate 18 10/17/16 08:08 Blood Pressure 132/65 10/17/16 08:08 O2 Sat by Pulse Oximetry (%) 98 10/17/16 08:00 Constitutional: Yes: Well Nourished, Calm Eyes: Yes: WNL HENT: Yes: WNL Neck: Yes: WNL Cardiovascular: Yes: Pulse Irregular, S1, S2 Respiratory: Yes: Rales (BIBASILAR CRACKLES 1/3 UP) Gastrointestinal: Yes: Normal Bowel Sounds, Soft Extremities: Yes: WNL Edema: Yes Labs: CBC, BMP 10/17/16 07:50 10/17/16 07:50 INR, PTT INR 3.47 (0.82-1.09) H 10/17/16 07:50 Problem List - Problems (1) Atrial fibrillation with rapid ventricular response Code(s): I48.91 - UNSPECIFIED ATRIAL FIBRILLATION (2) CHF (congestive heart failure) Code(s): I50.9 - HEART FAILURE, UNSPECIFIED Qualifiers: Congestive heart failure type: diastolic Congestive heart failure chronicity: chronic Qualified Code(s): I50.32 - Chronic diastolic ( congestive) heart failure (3) Cough present for greater than 3 weeks Code(s): R05 - COUGH (4) Dyspnea on exertion Code(s): R06.09 - OTHER FORMS OF DYSPNEA (5) Weakness Code(s): R53.1 - WEAKNESS (6) ALEIDA (acute kidney injury) Code(s): N17.9 - ACUTE KIDNEY FAILURE, UNSPECIFIED (7) Atrial fibrillation Code(s): I48.91 - UNSPECIFIED ATRIAL FIBRILLATION Qualifiers: Atrial fibrillation type: chronic Qualified Code(s): I48.2 - Chronic atrial fibrillation (8) Coronary artery disease Code(s): I25.10 - ATHSCL HEART DISEASE OF [place] CORONARY ARTERY W/O ANG PCTRS (9) Diabetes mellitus Code(s): E11.9 - TYPE 2 DIABETES MELLITUS WITHOUT COMPLICATIONS (10) History of aortic valve replacement Code(s): Z95.2 - PRESENCE OF PROSTHETIC HEART VALVE (11) Hypothyroid Code(s): E03.9 - HYPOTHYROIDISM, UNSPECIFIED (12) Interstitial lung disease Code(s): J84.9 - INTERSTITIAL PULMONARY DISEASE, UNSPECIFIED Assessment/Plan IMP ILD AFIB CHF S/P AVR ASHD S/P STENTS HTN ALEIDA JUAN PLAN INHALED BRONCHODILATORS PREDNISONE 40mg DAILY LASIX O2 AC MONITOR LYTES PFTS OUTPATIENT DAILY WTS FULL SLEEP STUDIES OUTPATIENT NOCTURNAL O2 DR DAVENPORT Problem List - Problems (1) Atrial fibrillation with rapid ventricular response Code(s): I48.91 - UNSPECIFIED ATRIAL FIBRILLATION (2) CHF (congestive heart failure) Code(s): I50.9 - HEART FAILURE, UNSPECIFIED Qualifiers: Congestive heart failure type: diastolic Congestive heart failure chronicity: chronic Qualified Code(s): I50.32 - Chronic diastolic ( congestive) heart failure (3) Cough present for greater than 3 weeks Code(s): R05 - COUGH (4) Dyspnea on exertion Code(s): R06.09 - OTHER FORMS OF DYSPNEA (5) Weakness Code(s): R53.1 - WEAKNESS (6) [place] (acute kidney injury) Code(s): N17.9 - ACUTE KIDNEY FAILURE, UNSPECIFIED (7) Atrial fibrillation Code(s): I48.91 - UNSPECIFIED ATRIAL FIBRILLATION Qualifiers: Atrial fibrillation type: chronic Qualified Code(s): I48.2 - Chronic atrial fibrillation (8) Coronary artery disease Code(s): I25.10 - ATHSCL HEART DISEASE OF [place] CORONARY ARTERY W/O ANG PCTRS (9) Diabetes mellitus Code(s): E11.9 - TYPE 2 DIABETES MELLITUS WITHOUT COMPLICATIONS (10) History of aortic valve replacement Code(s): Z95.2 - PRESENCE OF PROSTHETIC HEART VALVE (11) Hypothyroid Code(s): E03.9 - HYPOTHYROIDISM, UNSPECIFIED (12) Interstitial lung disease Code(s): J84.9 - INTERSTITIAL PULMONARY DISEASE, UNSPECIFIED Problem List - Problems (1) Atrial fibrillation with rapid ventricular response Code(s): I48.91 - UNSPECIFIED ATRIAL FIBRILLATION (2) CHF (congestive heart failure) Code(s): I50.9 - HEART FAILURE, UNSPECIFIED Qualifiers: Congestive heart failure type: diastolic Congestive heart failure chronicity: chronic Qualified Code(s): I50.32 - Chronic diastolic ( congestive) heart failure (3) Cough present for greater than 3 weeks Code(s): R05 - COUGH (4) Dyspnea on exertion Code(s): R06.09 - OTHER FORMS OF DYSPNEA (5) Weakness Code(s): R53.1 - WEAKNESS (6) ALEIDA (acute kidney injury) Code(s): N17.9 - ACUTE KIDNEY FAILURE, UNSPECIFIED (7) Atrial fibrillation Code(s): I48.91 - UNSPECIFIED ATRIAL FIBRILLATION Qualifiers: Atrial fibrillation type: chronic Qualified Code(s): I48.2 - Chronic atrial fibrillation (8) Coronary artery disease Code(s): I25.10 - ATHSCL HEART DISEASE OF [place] CORONARY ARTERY W/O ANG PCTRS (9) Diabetes mellitus Code(s): E11.9 - TYPE 2 DIABETES MELLITUS WITHOUT COMPLICATIONS (10) History of aortic valve replacement Code(s): Z95.2 - PRESENCE OF PROSTHETIC HEART VALVE (11) Hypothyroid Code(s): E03.9 - HYPOTHYROIDISM, UNSPECIFIED (12) Interstitial lung disease Code(s): J84.9 - INTERSTITIAL PULMONARY DISEASE, UNSPECIFIED
--- NOTE | 2016-10-17 11:25 | PN ---
Progress Note (short form) - Note Progress Note: cc: afib with rvr S: no cp, palps, dizziness, sob Current Medications Generic Name Dose Route Start Last Admin Trade Name Freq PRN Reason Stop Dose Admin Acetaminophen 650 mg 10/09/16 17:03 Tylenol - PO Q4H PRN FEVER OR PAIN Albuterol Sulfate 1 amp 10/12/16 12:10 10/16/16 11:45 Ventolin 0.083% Nebulizer Soln - NEB 1 amp Q4H PRN Administration SHORT OF BREATH/WHEEZING Aspirin 81 mg 10/10/16 10:00 10/17/16 09:02 Ecotrin - PO 81 mg DAILY SASHA Administration Atorvastatin Calcium 40 mg 10/09/16 22:00 10/16/16 21:12 Lipitor - PO 40 mg HS SASHA Administration Diltiazem HCl 120 mg 10/16/16 12:00 10/17/16 09:02 Cardizem Cd - PO 120 mg DAILY SASHA Administration Docusate Sodium 300 mg 10/09/16 22:00 10/16/16 21:35 Colace - PO Not Given HS SASHA Furosemide 20 mg 10/11/16 10:00 10/17/16 09:02 Lasix - PO 20 mg DAILY SASHA Administration Glipizide 5 mg 10/13/16 12:17 10/17/16 06:21 Glucotrol - PO 5 mg BID@0700,1630 SASHA Administration Guaifenesin 10 ml 10/09/16 17:01 Diabetic Tussin Dm - PO Q6H PRN COUGH Insulin Aspart 1 vial 10/14/16 10:52 10/17/16 06:21 Novolog Vial Sliding Scale - SQ 2 unit ACHS SASHA Administration Protocol Levothyroxine Sodium 88 mcg 10/13/16 06:35 10/17/16 06:21 Synthroid - PO 88 mcg DAILY@0700 SASHA Administration Metoprolol Tartrate 75 mg 10/10/16 06:00 10/17/16 06:21 Lopressor - PO 75 mg TID SASHA Administration Prasugrel 5 mg 10/10/16 10:00 10/17/16 09:01 Effient - PO 5 mg DAILY SASHA Administration Prednisone 60 mg 10/16/16 14:00 10/17/16 09:02 Deltasone - PO 60 mg DAILY SASHA Administration Ranitidine HCl 150 mg 10/10/16 10:00 10/17/16 09:02 Zantac - PO 150 mg DAILY SASHA Administration Vital Signs Period Temp Pulse Resp BP Sys/Price Pulse Ox Last 24 Hr 97.5 F-98.8 F 69-86 16-18 107-145/50-79 93-98 nad, calm jvd flat, neck supple cta bl nl effort irregularly irregular nl s1, s2 2/6 murmur at lsb + bs soft nt nd ext without e/c/c aaox3 no jaundice, diaphoreiss CBC, BMP 10/17/16 07:50 10/17/16 07:50 tele: afib, rate controlled a/p: 85 yo with h/o s/p mech AVR, CAD s/p recent PCI x 2 - 05/2016, diastolic HF, CKD, DM, hypothyroidism p/w worsening, presents to ED with afib with RVR. afib, new dx last month -con't AC with coumadin per inr -on prior admit last month dilt started and bb increased but --> bradycardic -- > so dilt was stopped and toprol decreased back to 75 bid. Last week at outpatient cardiology visit developed RVR to 130's with ambulation --> toprol increased to 100 mg bid still with no improvement in heart rate. - ? whether overdiuresis contributing, + orthstatics. --> got ivfs here - now started metoprolol tartrate 75 tid and dilt 120 qd - currently HR controlled at rest and with PT - discussed option of CV with patient and family but they would like to defer. - cont AC per inr ALEIDA: - baseline creat 1.3-1.4 on 09/16 admit (first time here) - bumped here to 1.9, trending down slowly today - renal following, likely etiology is fluid shifts/renal hemodynamic changes - on low dose lasix (20 qd) ILD, new dx last month - likely contributing to cough and worsened sob - steroid taper per pulm - pulm following CAD: -had 2 stents 05/19 -ECG here with LBBB, not new -no signs acs here -cont home meds: DAPT (ASA + Effient), metopr, statin h/o mech AVR -cont coumadin per INR diastolic HF -stable, lasix resumed at lower dose 20 mg qd - wt up 159 to 165 here - in past, labile creat with iv lasix 40mg doses - lasix PO 20 qd as doing, observe wt/sx trend CKD - cr improved, back to baseline after ivfs HTN: -stable on current meds OK FOR DISCHARGE FROM CV P.O.V.
[2016-10-17 12:13] LABS: METAMYELOCYTE 3 % (0-2); PLATELET ESTIMATE ADEQUATE (NORMAL)
--- NOTE | 2016-10-17 13:10 | PN ---
Progress Note (short form) - Note Progress Note: Renal Follow up for ALEIDA Pt seen and examined at the bedside no acute complaints denies any sob, chest pain, abd pain, N/V/D Vital Signs Temperature 97.8 F 10/17/16 08:08 Pulse Rate 81 10/17/16 08:08 Respiratory Rate 18 10/17/16 08:08 Blood Pressure 132/65 10/17/16 08:08 O2 Sat by Pulse Oximetry (%) 98 10/17/16 08:00 Intake & Output 10/14/16 10/15/16 10/16/16 10/17/16 23:59 23:59 23:59 23:59 Intake Total 870 380 290 200 Balance 870 380 290 200 Weight 162 lb 6.4 oz 163 lb 12.8 oz 165 lb 164 lb 9.6 oz Gen: NAD CVS: RRR Lungs: CTA Abd: soft NT Ext: trace edema CBC, BMP 10/17/16 07:50 10/17/16 07:50 Current Medications Acetaminophen (Tylenol -) 650 mg PO Q4H PRN PRN Reason: FEVER OR PAIN Aspirin (Ecotrin -) 81 mg PO DAILY [facility] Last Admin: 10/17/16 09:02 Dose: 81 mg Atorvastatin Calcium (Lipitor -) 40 mg PO HS [facility] Last Admin: 10/16/16 21:12 Dose: 40 mg Diltiazem HCl (Cardizem Cd -) 120 mg PO DAILY [facility] Last Admin: 10/17/16 09:02 Dose: 120 mg Docusate Sodium (Colace -) 300 mg PO HS [facility] Last Admin: 10/16/16 21:35 Dose: Not Given Furosemide (Lasix -) 20 mg PO DAILY [facility] Last Admin: 10/17/16 09:02 Dose: 20 mg Glipizide (Glucotrol -) 5 mg PO BID@0700,1630 [facility] Last Admin: 10/17/16 06:21 Dose: 5 mg Guaifenesin (Diabetic Tussin Dm -) 10 ml PO Q6H PRN PRN Reason: COUGH Insulin Aspart (Novolog Vial Sliding Scale -) 1 vial SQ ACHS [facility] PRN Reason: Protocol Last Admin: 10/17/16 12:10 Dose: 6 unit Levothyroxine Sodium (Synthroid -) 88 mcg PO DAILY@0700 [facility] Last Admin: 10/17/16 06:21 Dose: 88 mcg Metoprolol Tartrate (Lopressor -) 75 mg PO TID [facility] Last Admin: 10/17/16 06:21 Dose: 75 mg Prasugrel (Effient -) 5 mg PO DAILY [facility] Last Admin: 10/17/16 09:01 Dose: 5 mg Prednisone (Deltasone -) 60 mg PO DAILY [facility] Last Admin: 10/17/16 09:02 Dose: 60 mg Ranitidine HCl (Zantac -) 150 mg PO DAILY [facility] Last Admin: 10/17/16 09:02 Dose: 150 mg 85 year old woman with PMhx of Aortic Stenosis s/o AVR, CAD, CHF, DM, Afib on Coumaidn, Hypothyrodism, CKD stage 3 (baseline Cr 1.3 [facility] who presented with SOB and found to have AFib with RVR and ALEIDA with Cr 1.7 to 1.8. #Acute on chronic renal insufficiency Etiology likely related to hemodynamic changes in setting of Rapid AFib, diuretics Renal US done prior admission showed normal size kidneys w/o obstruction or stones Renal functoin stable, slightly improved On Lasix 20mg Daily, can titarte as needed trend BUN/Cr and electrolytes #Afib with RVR rate control as per cardiology on A/C #ILD continue steroids and O2 as needed #DM Type 2 off metfomrin Thank you Thong Lanier DO Problem List - Problems (1) Atrial fibrillation with rapid ventricular response Code(s): I48.91 - UNSPECIFIED ATRIAL FIBRILLATION (2) Dyspnea on exertion Code(s): R06.09 - OTHER FORMS OF DYSPNEA (3) ALEIDA (acute kidney injury) Code(s): N17.9 - ACUTE KIDNEY FAILURE, UNSPECIFIED (4) History of aortic valve replacement Code(s): Z95.2 - PRESENCE OF PROSTHETIC HEART VALVE (5) Hypothyroid Code(s): E03.9 - HYPOTHYROIDISM, UNSPECIFIED
--- NOTE | 2016-10-17 13:40 | DS ---
Physical Examination Vital Signs: Vital Signs Temperature 97.8 F 10/17/16 08:08 Pulse Rate 81 10/17/16 08:08 Respiratory Rate 18 10/17/16 08:08 Blood Pressure 132/65 10/17/16 08:08 O2 Sat by Pulse Oximetry (%) 98 10/17/16 08:00 Constitutional: Yes: Well Nourished, No Distress, Calm Cardiovascular: Yes: Pulse Irregular. No: Tachycardia, Gallop, Murmur, Rub Respiratory: Yes: Regular, Rhonchi (bibasilar). No: Rales, Wheezes Gastrointestinal: Yes: Normal Bowel Sounds, Soft. No: Distention, Tenderness Extremities: Yes: WNL Edema: No Labs: CBC, BMP 10/17/16 07:50 10/17/16 07:50 Discharge Summary Reason For Visit: ACUTE KIDNEY INJURY; ATRIAL FIB; COUGH; WEAKNESS Current Active Problems Atrial fibrillation with rapid ventricular response (Acute) CHF (congestive heart failure) (Acute) Cough present for greater than 3 weeks (Acute) Dyspnea on exertion (Acute) Weakness (Acute) Hospital Course: (1) Atrial fibrillation with rapid ventricular response Code(s): I48.91 - UNSPECIFIED ATRIAL FIBRILLATION (2) Dyspnea on exertion Code(s): R06.09 - OTHER FORMS OF DYSPNEA (3) ALEIDA (acute kidney injury) Code(s): N17.9 - ACUTE KIDNEY FAILURE, UNSPECIFIED (4) Coronary artery disease Code(s): I25.10 - ATHSCL HEART DISEASE OF [place] CORONARY ARTERY W/O ANG PCTRS (5) Diabetes mellitus Code(s): E11.9 - TYPE 2 DIABETES MELLITUS WITHOUT COMPLICATIONS (6) History of aortic valve replacement Code(s): Z95.2 - PRESENCE OF PROSTHETIC HEART VALVE (7) Hypothyroid Code(s): E03.9 - HYPOTHYROIDISM, UNSPECIFIED (8) CHF (congestive heart failure) Code(s): I50.9 - HEART FAILURE, UNSPECIFIED Qualifiers: Congestive heart failure type: diastolic Congestive heart failure chronicity: chronic Qualified Code(s): I50.32 - Chronic diastolic ( congestive) heart failure Ms Simon is a pleasant 85 year old female who comes in with SOB secondary to both afib with rvr and ILD. She was admitted to telemetry and seen by both cardiology and pulmonary. Her heart rate was managed with toprol and diltiazem. She was found to be subtherapeutic on her coumadin and this was adjusted. She is now therapeutic. She will be discharged with alternating 2mg and 4mg with close follow up. She was started on steroids and her breathing improved. She had ALEIDA/CKD, she is to be followed by nephrology as an outpatient. Her metformin was stopped secondary to renal function. She was started on glipizide , however this may need to be adjusted as her steroids are tapered. She will also get a prescription for a sliding scale. She continued to improve and is safe for discharge home. 42 minutes spent in preparation of this discharge Condition: Stable - Instructions Diet, Activity, Other Instructions: diabetic diet. resume previous activity. Referrals: Beltran Cruz MD [Staff Physician] - Alma Delia Schneider MD [Staff Physician] - Luis Copeland MD [Staff Physician] - Disposition: HOME - Home Medications Comprehensive Discharge Medication List: Ambulatory Orders Aspirin [Aspirin EC] 81 mg PO DAILY 09/09/16 Famotidine [Pepcid] 20 mg PO DAILY 09/09/16 Prasugrel Hydrochloride [Effient -] 5 mg PO DAILY 09/09/16 Levothyroxine [Synthroid -] 100 mcg PO DAILY@0700 #30 tablet 09/18/16 Atorvastatin Ca [Lipitor] 40 mg PO HS #30 tablet 10/17/16 Blood Sugar Diagnostic [Accu-Chek Guide Test Strip] 1 each ACHS #1 box Blood-Glucose Meter [Accu-Chek Guide Monitor System] 1 each ACHS #1 each Diltiazem Cd [Cardizem Cd -] 120 mg PO DAILY #30 cap.sr 10/17/16 Furosemide [Lasix -] 20 mg PO DAILY #30 tablet 10/17/16 Glipizide [Glucotrol -] 5 mg PO BID@0700,1630 #60 tablet 10/17/16 Insulin Aspart [Novolog Flexpen] 100 unit SQ ACHS #1 insuln.pen 10/17/16 Metoprolol Tartrate 25 mg PO TID #90 tablet 10/17/16 Metoprolol Tartrate 50 mg PO TID #90 tablet 10/17/16 Prednisone [Deltasone] 20 mg PO DAILY #60 tablet 10/17/16 Warfarin Sodium [Coumadin] 2 mg PO DAILY #60 tablet 10/17/16
[2016-10-17] MEDS ORDERED: WARFARIN NA 2.5 MG TABLET (FP) PO ONE (14:00)
[2016-10-17 14:22] VITALS: BP 126/45; PULSE 68; TEMP 97.7
== END 2016-10-17 20:20 | disposition home or self-care (01) | DRG 197 ==
LOC: JER 13:03 → JERBED 16:31 → UNDOADMIN 17:05 → JERBED 17:05 → J4W 19:40
PROVIDERS: ADMIT Internal Medicine; ATTEND Internal Medicine
DX: J84.9 Interstitial pulmonary disease, unspecified (principal); N17.9 Acute kidney failure, unspecified; I13.0 Hypertensive heart and chronic kidney disease with heart failure and stage 1 through stage 4 chronic kidney disease, or unspecified chronic kidney disease; I50.32 Chronic diastolic (congestive) heart failure; I48.2 Chronic atrial fibrillation; I25.10 Atherosclerotic heart disease of native coronary artery without angina pectoris; E78.5 Hyperlipidemia, unspecified; Z95.2 Presence of prosthetic heart valve; Z79.84 Long term (current) use of oral hypoglycemic drugs; E11.22 Type 2 diabetes mellitus with diabetic chronic kidney disease; I12.9 Hypertensive chronic kidney disease with stage 1 through stage 4 chronic kidney disease, or unspecified chronic kidney disease; E03.9 Hypothyroidism, unspecified; N18.9 Chronic kidney disease, unspecified; E11.65 Type 2 diabetes mellitus with hyperglycemia; E66.9 Obesity, unspecified; N18.3 Chronic kidney disease, stage 3 (moderate); G47.33 Obstructive sleep apnea (adult) (pediatric); Z79.01 Long term (current) use of anticoagulants; Z88.0 Allergy status to penicillin; I44.7 Left bundle-branch block, unspecified; Z68.32 Body mass index [BMI] 32.0-32.9, adult
CPT/HCPCS: 36415; 71020-TC; 80048; 80053; 81003; 81015; 82550; 82570; 83036; 83735; 83880; 84100; 84156; 84300; 84439; 84443; 84484; 84540; 85025; 85610; 87086; 93005; 93010; 94640; 94761; 97116-GP; 97162-GP; 99284-25

== ENCOUNTER 2016-10-22 09:29 | Inpatient (IN) | payer BC, OTHER ==
[2016-10-22 09:51] VITALS: BMI 30.8
--- NOTE | 2016-10-22 10:18 | PDOC ---
History of Present Illness - General Chief Complaint: Pain Stated Complaint: ABDOMINAL PAIN Time Seen by Provider: 10/22/16 10:03 - History of Present Illness Initial Comments: 10/22/16 10:58 85 yo F with h/o aortic valve replacement, afib, CAD, HTN, HLD, and DM who presents wit abdominal pain. Yesterday morning experienced sharp chronic, unremitting RLQ pain. Pain not aggravated with position, or movement. Endorses nausea without vomiting. Denies constipation/diarrhea, blood in stool, fevers/ chills, SOB, chest pain, dysuria, flank pain, hematuria. Has not attempted OTC anlagesia. Reports decreased appetite and adequate PO fluid intake. Pt. spouse at bedside to assist in report. They have concern of new GI infection from recent hospitalization for interstitial lung disease. This prompted ED evaluation. Past History - Past Medical History Allergies/Adverse Reactions: Allergies Allergy/AdvReac Type Severity Reaction Status Date / Time clopidogrel bisulfate Allergy Rash Verified 10/22/16 10:22 [From Plavix] Penicillins Allergy Swelling Verified 10/22/16 10:22 quinidine Allergy Verified 10/22/16 10:22 Home Medications: Ambulatory Orders Aspirin [Aspirin EC] 81 mg PO DAILY 09/09/16 Famotidine [Pepcid] 20 mg PO HS 09/09/16 Prasugrel Hydrochloride [Effient -] 5 mg PO DAILY 09/09/16 Furosemide [Lasix -] 20 mg PO DAILY #30 tablet 10/17/16 Glipizide [Glucotrol -] 5 mg PO BID@0700,1630 #60 tablet 10/17/16 Atorvastatin Ca [Lipitor] 40 mg PO ASDIR 10/22/16 Diltiazem Cd [Cardizem Cd -] 120 mg PO HS 10/22/16 Insulin Aspart [Novolog Flexpen] 0 unit SQ AC 10/22/16 Levothyroxine [Synthroid -] 88 mcg PO DAILY@0700 10/22/16 Metoprolol Tartrate 75 mg PO TID 10/22/16 Potassium Chloride 10 meq PO MOWEFR 10/22/16 Prednisone [Deltasone] 30 mg PO DAILY 10/22/16 Warfarin Sodium [Coumadin] 2 mg PO ASDIR 10/22/16 Warfarin Sodium [Coumadin] 4 mg PO MOWEFR 07/23/17 Cancer: Yes (H/O RT BREAST) Cardiac Disorders: Yes (CAD, STENT) Diabetes: Yes HTN: Yes Hypercholesterolemia: Yes - Surgical History Cardiac Surgery: Yes (CABG, STENTS) - Immunization History Immunization Up to Date: Yes - Psycho/Social/Smoking Cessation Hx Anxiety: No Suicidal Ideation: No Smoking History: Never smoked Have you smoked in the past 12 months: No Information on smoking cessation initiated: No Hx Alcohol Use: No Drug/Substance Use Hx: No Substance Use Type: None Review of Systems - Review of Systems Comments:: 10/22/16 11:04 GENERAL/CONSTITUTIONAL: No fever or chills. No weakness. HEAD, EYES, EARS, NOSE AND THROAT: No change in vision. No ear pain or discharge. No sore throat. CARDIOVASCULAR: No chest pain or shortness of breath RESPIRATORY: No cough, wheezing, or hemoptysis. GASTROINTESTINAL: + abdominal pain and nausea. No vomiting, diarrhea or constipation. GENITOURINARY: No dysuria, frequency, or change in urination. MUSCULOSKELETAL: No joint or muscle swelling or pain. No neck or back pain. SKIN: No rash NEUROLOGIC: No headache, vertigo, loss of consciousness, or change in strength/ sensation. ENDOCRINE: No increased thirst. No abnormal weight change HEMATOLOGIC/LYMPHATIC: No anemia, easy bleeding, or history of blood clots. ALLERGIC/IMMUNOLOGIC: No hives or skin allergy. *Physical Exam - Vital Signs Last Vital Signs Temp Pulse Resp BP Pulse Ox 97.2 F L 74 17 156/70 97 10/22/16 09:49 10/22/16 09:49 10/22/16 09:49 10/22/16 09:49 10/22/16 09:49 - Physical Exam Comments: 10/22/16 11:05 GENERAL: Awake, alert, and fully oriented, in no acute distress HEAD: No signs of trauma, normocephalic, atraumatic EYES: PERRLA, EOMI, sclera anicteric, conjunctiva clear ENT: Auricles normal inspection, hearing grossly normal, nares patent, oropharynx clear without exudates. Moist mucosa NECK: Normal ROM, supple, no lymphadenopathy, JVD, or masses LUNGS: No distress, speaks full sentences, clear to auscultation bilaterally HEART: Irregular rate and rhythm, normal S1 and S2, no murmurs, rubs or gallops , peripheral pulses normal and equal bilaterally. ABDOMEN: Soft, slightly TTP in RLQ. normoactive bowel sounds. No guarding, no rebound. No masses. Absent HSP, espinosa sign, or mcburneys point tenderness. EXTREMITIES: Normal inspection, Normal range of motion, no edema. No clubbing or cyanosis. NEUROLOGICAL: Cranial nerves II through XII grossly intact. Normal speech, normal gait, no focal sensorimotor deficits SKIN: Warm, Dry, normal turgor, no rashes or lesions noted. Heart Score/ECG Review - Age Age: >/= 65 - ECG Intrepretation Rhythm: Regularly Irregular - [place]: Left [place] Deviation - QRS Widened: LBBB ED Treatment Course - LABORATORY CBC & Chemistry Diagram: 10/22/16 10:30 10/22/16 10:30 - RADIOLOGY Radiograph Interpretation: 10/22/16 15:19 EXAM#: TYPE/EXAM: RESULT: [id number] RAD/ABDOMEN FLAT UPRIGHT Abdomen: Pain There are no prior abdomen studies for comparison. There is a scoliosis, intact hips and patent SI joints. There are degenerative changes. There is retained stool but no sign of a gross obstruction, free air or ileus pattern. Organomegaly or calcifications of significance are not seen. There are sternal sutures with valve replacement, large heart, unfolded aorta and coarse lung findings. An element of congestion may be present. Since 2016, the interstitial lung markings have increased. Impression : Previous OHS. Sternal sutures with valve replacement. Increased lung markings. Large heart. No sign of a bowel obstruction or free air. If symptoms persist, further imaging with CT may be of help. Reported By: Shiraz Tapia MD 10/22/16 1422 Medical Decision Making - Medical Decision Making 10/22/16 11:06 85 yo F with h/o Afib, aortic valve replacement, HTN, HLD, and NIDDM who presents with abdominal pain. RLQ sharp abdominal pain of 24 hours duration presenting with nausea and HS. Denies other asx symtpoms. DDx: constipation, UTI, appendicitis, nephrolithiasis ED Course: CBC CMP UA ABD FLAT/UPRIGHT Morphine 2mg Ondansetron 4 mg 10/22/16 11:39 WBC: 19.8 10/22/16 11:41 Cr: 1.4 ( Baseline 1.5) 10/22/16 11:44 Urine: 3 + blood, 1629 RBC Negative Leuk Est. Neg Nitrite 10/22/16 15:16 Levaquin 750 mg IV INR: 5.59 10/22/16 15:17 Abdomen Flat/Upright: No acute abdominal pathology 10/22/16 15:23 Atrial Fib ( unchanged from previous EKG 10/09) LAD, LBBB Admission. Talked to Dr. Pedro Peralta. Admit to in medicine. *DC/Admit/Observation/Transfer Diagnosis at time of Disposition: Elevated INR (international normalized ratio) due to prior anticoagulant medication ingestion, Interstitial lung disease, Elevated INR Hematuria Qualifiers: Hematuria type: gross Qualified Code(s): R31.0 - Gross hematuria - Discharge Dispostion Condition at time of disposition: Stable Admit: Yes - Attestations Physician Attestion: 10/22/16 17:37 I, Dr. Dennis Bolanos, attest that this document has been prepared under my direction and personally reviewed by me in its entirety. I further attest, that it accurately reflects all work, treatment, procedures and medical decision -making performed by me.
--- NOTE | 2016-10-22 10:23 | PDOC ---
Attending Attestation - HPI HPI: 10/22/16 17:40 I did not evaluate the patient.
--- NOTE | 2016-10-22 10:36 | PDOC ---
Attending Attestation - ED Attending Attestation I have performed the following: I have examined & evaluated the patient, The case was reviewed & discussed with the resident, I agree w/resident's findings & plan, Exceptions are as noted - HPI HPI: 10/22/16 11:02 HPI: Sickly, elderly female with multiple medical problems comes in with for right lower quadrant pain for several hours. Mild nausea, but no other symptoms. - Physicial Exam PE: 10/22/16 11:02 PE: Diffuse tenderness right lower quad no rebound, no guarding, no peritoneal signs. Neg berneys and espinosa's sign. - Medical Decision Making 10/22/16 11:02 Agree with residents medical residents assessment and plan. Will search for UTI and constipation, and other more serious conditions. <Jong Vega - Last Filed: 10/22/16 11:02> - Resident Resident Name: Dennis Bolanos - ED Attending Attestation I have performed the following: I have examined & evaluated the patient, The case was reviewed & discussed with the resident, I agree w/resident's findings & plan, Exceptions are as noted - Medical Decision Making 10/22/16 17:[address] Kim personally and he ask that I contact the admitting resident for observation admission. <Ruben Lowe - Last Filed: 10/22/16 17:20> Discharge Disposition - Discharge Dispostion Last Admission D/C Date: 10/17/16 Admit: Yes <Ruben Lowe - Last Filed: 10/22/16 17:20> - Diagnosis Elevated INR (international normalized ratio) due to prior anticoagulant medication ingestion Hematuria Qualifiers: Hematuria type: gross Qualified Code(s): R31.0 - Gross hematuria - Discharge Dispostion Condition at time of disposition: Improved
[2016-10-22 10:44] LABS: MCH 28.3 pg (25.7-33.7); MCHC 32.8 g/dl (32.0-36.0); MEAN CELL VOLUME 86.3 fl (80-96); PLATELET COUNT 297 K/MM3 (134-434); RDW 16.2 % (11.6-15.6); WHITE BLOOD COUNT 19.8 K/mm3 (4.0-10.0)
[2016-10-22] MEDS ORDERED: morphine CARPU-JECT 2 MG/1 ML DISP.SYRIN IVPUSH ONE (10:46)
[2016-10-22] MEDS ORDERED: ONDANSETRON 4 MG/2 ML VIAL IVPB ONE (10:46)
[2016-10-22 11:05] LABS: URINE APPEARANCE SLCLOUDY; URINE BILIRUBIN NEGATIVE (NEGATIVE); URINE BLOOD 3+ (NEGATIVE); URINE COLOR YELLOW; URINE GLUCOSE (UA) 2+ (NEGATIVE); URINE KETONE NEGATIVE (NEGATIVE); URINE LEUK ESTERASE NEGATIVE (NEGATIVE); URINE NITRITE NEGATIVE (NEGATIVE); URINE UROBILINOGEN NEGATIVE mg/dL (0.2-1.0)
[2016-10-22 11:08] LABS: ALBUMIN 3.2 g/dl (3.4-5.0); ALK PHOS 152 U/L (45-117); ANION GAP 9 (8-16); BILIRUBIN,TOTAL 1.3 mg/dL (0.2-1.0); CALCIUM 9.3 mg/dL (8.5-10.1); CO2 26 mmol/L (21-32); CREATININE 1.4 mg/dL (0.55-1.02); GLUCOSE,RANDOM 278 mg/dL (74-106); SGPT/ALT 142 U/L (12-78); TOT PROT 6.4 g/dl (6.4-8.2)
[2016-10-22 11:12] LABS: SGOT/AST 68 U/L (15-37)
[2016-10-22 11:15] LABS: URINE PROTEIN 1+ (NEGATIVE)
[2016-10-22 11:18] LABS: URINE BACTERIA RARE /hpf (NONE SEEN); URINE RBC 1629 /hpf (0-3); URINE WBC 39 /hpf (3-5); YEAST MANY
[2016-10-22] MEDS ORDERED: ONDANSETRON 4 MG/2 ML VIAL ONE (11:59)
[2016-10-22] MEDS ORDERED: morphine CARPU-JECT 4 MG/1 ML DISP.SYRIN ONE (11:59)
[2016-10-22 12:21] LABS: METAMYELOCYTE 1 % (0-2); PLATELET ESTIMATE ADEQUATE (NORMAL)
[2016-10-22 14:43] LABS: PROTHROMBIN TIME (PATIENT) 63.7 SEC (9.98-11.88)
[2016-10-22 14:44] LABS: INR 5.59 (0.82-1.09)
[2016-10-22] MEDS ORDERED: LEVOFLOXACIN 750 MG IVPB 150 ML IVPB ONE ×2 (15:15→15:52)
--- NOTE | 2016-10-22 19:08 | HP ---
CHIEF COMPLAINT: Abdominal Pain HISTORY OF PRESENT ILLNESS: Patient is an 85yo F with a hx of HTN, HLD, CAD who presented with 1 day of intermittent sharp suprapubic colicky pain radiating to her groin. The pain was relieved by a dose of morphine in the ED. She attests to an episode of gross hematuria, chronic frequency/urgency, but no dysuria. Denies nausea, vomitting, diarrhea, constipation. Denies CP, palpitations, SOB, fevers, chills. Denies hx of kidney stones, denies hx of abdominal surgeries. Attests to loss of appetite. She is with her who is a Cardiac Physician's [employer] and is very involved in her healthcare. ER course was notable for: (1) Abdominal XR (2) EKG (3) Levaquin 750mg IV Recent Travel: Denies PAST MEDICAL HISTORY: Aortic Valve Replacement, Afib, CAD, HTN, HLD, DM2, Hypothyroidism, Interstitial Lung Disease PAST SURGICAL HISTORY: Social History: Smoking: Denies Alcohol: Denies Drugs: Denies Family History: Father had throat cancer Allergies clopidogrel bisulfate [From Plavix] Allergy (Verified 10/22/16 10:22) Rash Penicillins Allergy (Verified 10/22/16 10:22) Swelling quinidine Allergy (Verified 10/22/16 10:22) HOME MEDICATIONS: Home Medications Medication Instructions Recorded Aspirin [Aspirin EC] 81 mg PO DAILY 09/09/16 Famotidine [Pepcid] 20 mg PO HS 09/09/16 Prasugrel Hydrochloride [Effient -] 5 mg PO DAILY 09/09/16 Furosemide [Lasix -] 20 mg PO DAILY #30 tablet 10/17/16 Glipizide [Glucotrol -] 5 mg PO BID@0700,1630 #60 tablet 10/17/16 Atorvastatin Ca [Lipitor] 40 mg PO ASDIR 10/22/16 Diltiazem Cd [Cardizem Cd -] 120 mg PO HS 10/22/16 Insulin Aspart [Novolog Flexpen] 0 unit SQ AC 10/22/16 Levothyroxine [Synthroid -] 88 mcg PO DAILY@0700 10/22/16 Metoprolol Tartrate 75 mg PO TID 10/22/16 Potassium Chloride 10 meq PO MOWEFR 10/22/16 Prednisone [Deltasone] 30 mg PO DAILY 10/22/16 Warfarin Sodium [Coumadin] 2 mg PO ASDIR 10/22/16 Warfarin Sodium [Coumadin] 4 mg PO MOWEFR 10/22/16 REVIEW OF SYSTEMS CONSTITUTIONAL: Absent: fever, chills, diaphoresis, generalized weakness, malaise, weight change Present: loss of appetite HEENT: Absent: rhinorrhea, nasal congestion, throat pain, throat swelling, difficulty swallowing, mouth swelling, ear pain, eye pain, visual changes CARDIOVASCULAR: Absent: chest pain, syncope, palpitations, irregular heart rate, lightheadedness , peripheral edema RESPIRATORY: Absent: cough, shortness of breath, dyspnea with exertion, orthopnea, wheezing, stridor, hemoptysis GASTROINTESTINAL: Absent: abdominal pain, abdominal distension, nausea, vomiting, diarrhea, constipation, melena, hematochezia GENITOURINARY: Absent: dysuria, frequency, urgency, hesitancy, hematuria, flank pain, genital pain MUSCULOSKELETAL: Absent: myalgia, arthralgia, joint swelling, back pain, neck pain SKIN: Absent: rash, itching, pallor HEMATOLOGIC/IMMUNOLOGIC: Absent: easy bleeding, easy bruising, lymphadenopathy, frequent infections ENDOCRINE: Absent: unexplained weight gain, unexplained weight loss, heat intolerance, cold intolerance NEUROLOGIC: Absent: headache, focal weakness or paresthesias, dizziness, unsteady gait, seizure, mental status changes, bladder or bowel incontinence PSYCHIATRIC: Absent: anxiety, depression, suicidal or homicidal ideation, hallucinations. PHYSICAL EXAMINATION Vital Signs - 24 hr 10/22/16 10/22/16 09:49 16:05 Temperature 97.2 F L Pulse Rate 74 Pulse Rate [ 75 Left] Respiratory 17 16 Rate Blood Pressure 156/70 Blood Pressure 125/92 [Arm] O2 Sat by Pulse 97 98 Oximetry (%) GENERAL: Awake, alert, and fully oriented, in no acute distress. Looks pale HEAD: Normal with no signs of trauma. EYES: Pupils equal, round and reactive to light, extraocular movements intact, sclera anicteric, conjunctiva clear. No lid lag. EARS, NOSE, THROAT: Ears normal, nares patent, oropharynx clear without exudates. Moist mucous membranes. NECK: Normal range of motion, supple without lymphadenopathy, JVD, or masses. LUNGS: Breath sounds equal, clear to auscultation in upper lung jiménez. Basilar crackles. No wheezes. No accessory muscle use. HEART: Irregularly irregular rate and rhythm, normal S1 and S2 without murmur, rub or gallop. ABDOMEN: Soft, nontender, not distended, normoactive bowel sounds, no guarding, no rebound, no masses. No hepatomegaly or splenomegaly. MUSCULOSKELETAL: Normal range of motion at all joints. No bony deformities or tenderness. No CVA tenderness. UPPER EXTREMITIES: 2+ pulses, warm, well-perfused. No cyanosis. No clubbing. No peripheral edema. LOWER EXTREMITIES: 2+ pulses, warm, well-perfused. No calf tenderness. +2 pitting edema bilatearlly NEUROLOGICAL: Cranial nerves II-XII intact. Normal speech. Normal gait. PSYCHIATRIC: Cooperative. Good eye contact. Appropriate mood and affect. Laboratory Results - last 24 hr 10/22/16 10/22/16 10/22/16 10:30 10:30 10:40 WBC 19.8 H D RBC 4.48 D Hgb 12.7 D Hct 38.7 D MCV 86.3 MCH 28.3 MCHC 32.8 RDW 16.2 H Plt Count 297 MPV 9.0 Neutrophils % 87.0 H Lymphocytes % 6.0 L D Monocytes % 5.0 Band Neutrophils 1.0 Metamyelocytes 1 D Platelet Estimate Adequate Platelet Comment No clumping noted INR Sodium 139 Potassium 5.1 D Chloride 104 Carbon Dioxide 26 Anion Gap 9 BUN 47 H D Creatinine 1.4 H Creat Clearance w eGFR 35.91 Random Glucose 278 H Calcium 9.3 Total Bilirubin 1.3 H D AST 68 H D ALT 142 H D Alkaline Phosphatase 152 H D Total Protein 6.4 Albumin 3.2 L Urine Color Yellow Urine Appearance Slcloudy Urine pH 5.0 Ur Specific [place] 1.015 Urine Protein 1+ H Urine Glucose (UA) 2+ H Urine Ketones Negative Urine Blood 3+ H Urine Nitrite Negative Urine Bilirubin Negative Urine Urobilinogen Negative Ur Leukocyte Esterase Negative Urine RBC 1629 Urine WBC 39 Urine Bacteria Rare Urine Yeast Many 10/22/16 13:34 WBC RBC Hgb Hct MCV MCH MCHC RDW Plt Count MPV Neutrophils % Lymphocytes % Monocytes % Band Neutrophils Metamyelocytes Platelet Estimate Platelet Comment INR 5.59 H* D Sodium Potassium Chloride Carbon Dioxide Anion Gap BUN Creatinine Creat Clearance w eGFR Random Glucose Calcium Total Bilirubin AST ALT Alkaline Phosphatase Total Protein Albumin Urine Color Urine Appearance Urine pH Ur Specific [place] Urine Protein Urine Glucose (UA) Urine Ketones Urine Blood Urine Nitrite Urine Bilirubin Urine Urobilinogen Ur Leukocyte Esterase Urine RBC Urine WBC Urine Bacteria Urine Yeast ASSESSMENT/PLAN: Patient is an 85yo F with a hx of HTN, HLD, CAD, Aortic Valve Replacement, Afib on Coumadin who presented with 1 day of intermittent sharp suprapubic colicky pain, pain currently resolved with morphine. # Abdominal Pain - resolved - Currently resolved, no issues - Pain control PRN - KUB negative # Supratherapeutic INR - Pt normally takes Coumadin for Afib + Aortic valve replacement - Pt's dose recently changed from 5g QD --> 4mg MWF + 2mg TThSatSun - Pt had one episode of gross hematuria, per , pt never saw, UA shows 3+ Blood + RBC - No indication for Vit K or FFP, continue to monitor for any signs of bleed - Hold now - PT/INR tomorrow # Leukocytosis - Likely due to Prednisone taper from prior admission for ILD causing SOB - Pt is afebrile, not tachy, no infection source # Transaminitis - w/ hyperbilirubinemia (1.3) - Higher levels than normal - Recently started on statin, hold statin for now - Could be from hepatic congestion though pt is not volume overloaded # Asymptomatic Pyuria - Pt had recent positive UA on last admission - Will hold off on treatment for now - Pt already received Levaquin 750mg IV in ED, with low CrCl, this should cover patient for next couple of days - Otherwise, will hold off on further treatment # Hx of CKD - Cr currently at baseline, CrCl 30. - Renally dose all drugs, avoid nephrotoxic drugs # Hx of HTN - well controlled - Restart Cardizem + Metoprolol # Hx of Aortic Valve replacement - Pt on ASA 81 + Prasugrel - Currently INR supratherapeutic # Hx of Afib - Pt normally takes Coumadin 4mg MWF; 2mg other days - held now due to supratherapeutic INR # Hx of DM2 - Pt on admission presented with glucose 278 + glycosuria - Pt on home Glipizide + SSI # Hx of Hypothyroidism - Pt on Synthroid 88 # Hx of HLD - Hold Atorvastatin due to transaminitis #Hx of CAD - Hold Atorvastatin due to transaminitis # Hx of CHF - Continue home Lasix # Hx of ILD - Consult Pulmonary - Asymptomatic, no SOB - Today pt started pRednisone taper from 40 --> 30, continue 30mg - O2 as needed to keep sats >88. # FEN - Fluids: No Fluids needed - Electrolytes: No abnormalities, continue KCl 10meq MWf - Nutrition: Diabetic Diet # Prophylaxis - DVT: Supratherapeutic - GI: Pepcid + Zantac - Deconditioning: Not needed, anticipated d/c tomorrow # Disposition - Place on obs Visit type - Emergency Visit Emergency Visit: Yes Care time: The patient presented to the Emergency Department on the above date and was hospitalized for further evaluation of their emergent condition. - New Patient This patient is new to me today: Yes Date on this admission: 10/22/16 - Critical Care Critical Care patient: No
--- NOTE | 2016-10-22 19:18 | PN ---
Teaching Attending Note Name of Resident: Melissa Albrecht ATTENDING PHYSICIAN STATEMENT I saw and evaluated the patient. I reviewed the resident's note and discussed the case with the resident. I agree with the resident's findings and plan as documented. SUBJECTIVE: Patient is an 85yo F with a hx of HTN, HLD, CAD who presented with 1 day of intermittent sharp suprapubic colicky pain radiating to her groin. Her pain is relieved by morphine. Patient denies having any pain at this time. Also c/o having hematuria but resolving at this time. OBJECTIVE: Vital Signs Temperature 97.2 F L 10/22/16 09:49 Pulse Rate 75 10/22/16 16:05 Respiratory Rate 16 10/22/16 16:05 Blood Pressure 125/92 10/22/16 16:05 O2 Sat by Pulse Oximetry (%) 98 10/22/16 16:05 CBCD WBC 19.8 K/mm3 (4.0-10.0) H D 10/22/16 10:30 RBC 4.48 M/mm3 (3.60-5.2) D 10/22/16 10:30 Hgb 12.7 GM/dL (10.7-15.3) D 10/22/16 10:30 Hct 38.7 % (32.4-45.2) D 10/22/16 10:30 MCV 86.3 fl (80-96) 10/22/16 10:30 MCHC 32.8 g/dl (32.0-36.0) 10/22/16 10:30 RDW 16.2 % (11.6-15.6) H 10/22/16 10:30 Plt Count 297 K/MM3 (134-434) 10/22/16 10:30 MPV 9.0 fl (7.5-11.1) 10/22/16 10:30 CMP Sodium 139 mmol/L (136-145) 10/22/16 10:30 Potassium 5.1 mmol/L (3.5-5.1) D 10/22/16 10:30 Chloride 104 mmol/L (98-107) 10/22/16 10:30 Carbon Dioxide 26 mmol/L (21-32) 10/22/16 10:30 Anion Gap 9 (8-16) 10/22/16 10:30 BUN 47 mg/dL (7-18) H D 10/22/16 10:30 Creatinine 1.4 mg/dL (0.55-1.02) H 10/22/16 10:30 Creat Clearance w eGFR 35.91 (>60) 10/22/16 10:30 Random Glucose 278 mg/dL (74-106) H 10/22/16 10:30 Calcium 9.3 mg/dL (8.5-10.1) 10/22/16 10:30 Total Bilirubin 1.3 mg/dL (0.2-1.0) H D 10/22/16 10:30 AST 68 U/L (15-37) H D 10/22/16 10:30 ALT 142 U/L (12-78) H D 10/22/16 10:30 Alkaline Phosphatase 152 U/L (45-117) H D 10/22/16 10:30 Total Protein 6.4 g/dl (6.4-8.2) 10/22/16 10:30 Albumin 3.2 g/dl (3.4-5.0) L 10/22/16 10:30 Current Medications Generic Name Dose Route Start Last Admin Trade Name Freq PRN Reason Stop Dose Admin Aspirin 81 mg 10/23/16 10:00 Ecotrin - PO DAILY [facility] Atorvastatin Calcium 40 mg 10/22/16 22:00 Lipitor - PO HS SASHA Diltiazem HCl 120 mg 10/22/16 22:00 Cardizem Cd - PO HS SASHA Furosemide 20 mg 10/23/16 10:00 Lasix - PO DAILY [facility] Glipizide 5 mg 10/23/16 07:00 Glucotrol - PO BID@0700,1630 [facility] Insulin Aspart 1 vial 10/22/16 22:00 Novolog Vial Sliding Scale - SQ ACHS [facility] Protocol Levothyroxine Sodium 88 mcg 10/23/16 07:00 Synthroid - PO DAILY@0700 [facility] Metoprolol Tartrate 75 mg 10/22/16 22:00 Lopressor - PO TID SASHA Potassium Chloride 10 meq 10/23/16 10:00 K-Dur - PO MoWeFr@1000 [facility] Prasugrel 5 mg 10/23/16 10:00 Effient - PO DAILY SASHA Prednisone 20 mg 10/23/16 10:00 Deltasone - PO DAILY [facility] Ranitidine HCl 150 mg 10/22/16 22:00 Zantac - PO HS [facility] Home Medications Medication Instructions Recorded Aspirin [Aspirin EC] 81 mg PO DAILY 09/09/16 Famotidine [Pepcid] 20 mg PO HS 09/09/16 Prasugrel Hydrochloride [Effient -] 5 mg PO DAILY 09/09/16 Furosemide [Lasix -] 20 mg PO DAILY #30 tablet 10/17/16 Glipizide [Glucotrol -] 5 mg PO BID@0700,1630 #60 tablet 10/17/16 Atorvastatin Ca [Lipitor] 40 mg PO ASDIR 10/22/16 Diltiazem Cd [Cardizem Cd -] 120 mg PO HS 10/22/16 Insulin Aspart [Novolog Flexpen] 0 unit SQ AC 10/22/16 Levothyroxine [Synthroid -] 88 mcg PO DAILY@0700 10/22/16 Metoprolol Tartrate 75 mg PO TID 10/22/16 Potassium Chloride 10 meq PO MOWEFR 10/22/16 Prednisone [Deltasone] 30 mg PO DAILY 10/22/16 Warfarin Sodium [Coumadin] 2 mg PO ASDIR 10/22/16 Warfarin Sodium [Coumadin] 4 mg PO MOWEFR 10/22/16 PE: per resident's notes. Abdomen:soft, NT, ND, BS positive ASSESSMENT AND PLAN: Patient is an 85yo F with a hx of HTN, HLD, CAD, Aortic Valve Replacement, Afib on Coumadin who presented with 1 day of intermittent sharp suprapubic colicky pain, pain currently resolved with morphine. # Supratherapeutic INR with 5.59, not bleeding , on coumadin for Afib + Aortic valve replacement . Repeat PT/INR in am. # Hx of Afib ; on Coumadin hold now for supratherapeutic INR # Abdominal Pain - resolved; KUB negative # Acute Leukocytosis possible due to steroid use for ILD, will monitor for possible infection # Acute Transaminitis - w/ hyperbilirubinemia (1.3) on statins will hold for now , will monitor # Asymptomatic UTI ,given one dose of [id number] x 1 dose in ED # Hx of CKD # Hx of HTN controlled continue home meds. # Hx of Aortic Valve replacement on Pt on ASA 81 + Prasugrel and coumadin(on hold for now) due to supratherapeutic INR # Hx of DM2/ Afib/hypothyroidism/HLD/CAD/CHF continue meds, except hold statin due to elevated LFTs, will repeat in am # Hx of ILD Consult Pulmonary , Asymptomatic, no SOB; started on Prednisone taper from 40 --> 30, continue 30mg Keep oxygen saturation above >88. DVT PX: Supratherapeutic INR; coumadin - GI: on Zantac ( in place of pepcid) since pharmacy doesn't have po Pepcid
[2016-10-22 19:58] LABS: PHOSPHOROUS 2.9 mg/dL (2.5-4.9)
[2016-10-22] MEDS: RANITIDINE HCL 150 MG TABLET (FP) PO SCH (21:37)
[2016-10-22] MEDS: ATORVASTATIN CA 40 MG TABLET (FP) PO SCH (21:37)
[2016-10-22] MEDS: METOPROLOL TARTRATE 50 MG TABLET (FP) PO SCH (21:37)
[2016-10-22] MEDS ORDERED: INSULIN (NOVOLOG) ASPART 100 UNITS/ML 10ML VIAL SQ ONE (21:58)
[2016-10-22] MEDS ORDERED: INSULIN (NOVOLOG) ASPART 100 UNITS/ML 10ML VIAL SQ SCH ×2 (22:00)
[2016-10-22] MEDS ORDERED: HEPARIN NA (PORCINE) 5,000 UNITS/ML 1ML VIAL SQ SCH (22:00)
[2016-10-22] MEDS ORDERED: INSULIN SLIDING SCALE (NOVOLOG) 1 VIAL SQ SCH ×2 (22:00)
[2016-10-22] MEDS: INSULIN SLIDING SCALE (NOVOLOG) 1 VIAL SQ SCH (22:11)
[2016-10-23] MEDS: METOPROLOL TARTRATE 50 MG TABLET (FP) PO SCH ×3 (05:58→22:06)
[2016-10-23] MEDS: glipiZIDE 5 MG TABLET (FP) PO SCH ×2 (06:09→17:55)
[2016-10-23] MEDS: INSULIN SLIDING SCALE (NOVOLOG) 1 VIAL SQ SCH ×4 (06:09→22:09)
[2016-10-23] MEDS: LEVOTHYROXINE NA 100 MCG TABLET (FP) PO SCH (06:09)
[2016-10-23] MEDS ORDERED: LEVOTHYROXINE NA 100 MCG TABLET (FP) PO SCH (07:00)
[2016-10-23 08:20] LABS: MCH 28.7 pg (25.7-33.7); MCHC 33.3 g/dl (32.0-36.0); MEAN CELL VOLUME 86.2 fl (80-96); MEAN PLT VOLUME 9.4 fl (7.5-11.1); PLATELET COUNT 213 K/MM3 (134-434); RDW 16.8 % (11.6-15.6); WHITE BLOOD COUNT 13.2 K/mm3 (4.0-10.0)
[2016-10-23 08:30] LABS: PROTHROMBIN TIME (PATIENT) 65.1 SEC (9.98-11.88)
[2016-10-23 08:38] LABS: ALBUMIN 2.6 g/dl (3.4-5.0); ALK PHOS 118 U/L (45-117); ANION GAP 8 (8-16); BILIRUBIN,TOTAL 0.9 mg/dL (0.2-1.0); CALCIUM 9.2 mg/dL (8.5-10.1); CO2 28 mmol/L (21-32); CREATININE 1.2 mg/dL (0.55-1.02); GLUCOSE,RANDOM 195 mg/dL (74-106); MAGNESIUM 2.2 mg/dL (1.8-2.4); SGOT/AST 29 U/L (15-37); SGPT/ALT 96 U/L (12-78); TOT PROT 5.1 g/dl (6.4-8.2)
[2016-10-23 08:52] LABS: INR 5.71 (0.82-1.09)
--- NOTE | 2016-10-23 09:12 | EKG ---
Test Reason : Blood Pressure : / mmHG Vent. Rate : 071 BPM Atrial Rate : 277 BPM P-R Int : 000 ms QRS Dur : 132 ms QT Int : 466 ms P-R-T Axes : 000 -46 152 degrees QTc Int : 506 ms ATRIAL FIBRILLATION LEFT AXIS DEVIATION LEFT BUNDLE BRANCH BLOCK ABNORMAL ECG WHEN COMPARED WITH ECG OF 09-OCT-2016 14:09, VENT. RATE HAS DECREASED BY 54 BPM NONSPECIFIC T WAVE ABNORMALITY, WORSE IN INFERIOR LEADS T WAVE INVERSION MORE EVIDENT IN LATERAL LEADS Confirmed by LORENZO OSEI MD ([id number]) on 10/23/2016 9:12:33 AM Referred By: Confirmed By:LORENZO OSEI MD
--- NOTE | 2016-10-23 09:39 | CON.PULM ---
Consult Consult Specialty:: PULM/CCM Referred by:: MARIA FERNANDA Reason for Consultation:: ILD - History of Present Illness Chief Complaint: blood in the urine History of Present Illness: 85 F, known to me from a recent hospitalization. Radiographic imaging was consistent with a non-descript ILD. No clear etiology was found. She was placed on a Prednisone taper and workup was to be continued as an outpatient. Her saturations markedly improved on steroids and she did not require supplemental O2 when she was discharged. Currently she is on Prednisone 20mg OD. Suspicion of OSAS and was to be scheduled for NPSG once stable. Re-admitted due to sharp suprapubic and colicky type pain radiating to her groin. She also reported gross blood in urine. No SOB or CP. No hemoptysis. INR noted to be > 5. Currently she is comfortable on 2 L NC O2 with a saturation of 98% at rest. No chest imaging to review (none indicated). - History Source History Provided By: Patient Limitations to Obtaining History: No Limitations - Past Medical History Cardio/Vascular: Yes: Aortic Stenosis, CAD, CHF Renal/: Yes: Renal Inusuff Endocrine: Yes: Diabetes Mellitus, Hypothyroidism Additional Medical History: Breast Ca, s/p mastectomy - Past Surgical History Past Surgical History: Yes: Valve Replacement (Aortic valve replacement ([facility])) - Alcohol/Substance Use Hx Alcohol Use: No History of Substance Use: reports: None - Smoking History Smoking history: Never smoked Have you smoked in the past 12 months: No - Social History Usual Living Arrangement: With Spouse ADL: Family Assistance 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 History of Recent Travel: No Home Medications - Allergies Allergies/Adverse Reactions: Allergies Allergy/AdvReac Type Severity Reaction Status Date / Time clopidogrel bisulfate Allergy Rash Verified 10/22/16 10:22 [From Plavix] Penicillins Allergy Swelling Verified 10/22/16 10:22 quinidine Allergy Verified 10/22/16 10:22 - Home Medications Home Medications: Ambulatory Orders Aspirin [Aspirin EC] 81 mg PO DAILY 09/09/16 Famotidine [Pepcid] 20 mg PO HS 09/09/16 Prasugrel Hydrochloride [Effient -] 5 mg PO DAILY 09/09/16 Furosemide [Lasix -] 20 mg PO DAILY #30 tablet 10/17/16 Glipizide [Glucotrol -] 5 mg PO BID@0700,1630 #60 tablet 10/17/16 Atorvastatin Ca [Lipitor] 40 mg PO ASDIR 10/22/16 Diltiazem Cd [Cardizem Cd -] 120 mg PO HS 10/22/16 Insulin Aspart [Novolog Flexpen] 0 unit SQ AC 10/22/16 Levothyroxine [Synthroid -] 88 mcg PO DAILY@0700 10/22/16 Metoprolol Tartrate 75 mg PO TID 10/22/16 Potassium Chloride 10 meq PO MOWEFR 10/22/16 Prednisone [Deltasone] 30 mg PO DAILY 10/22/16 Warfarin Sodium [Coumadin] 2 mg PO ASDIR 10/22/16 Warfarin Sodium [Coumadin] 4 mg PO MOWEFR 10/22/16 Family Disease History - Family Disease History Family Disease History: Diabetes: Brother (TB), Heart Disease: Grandparent ( Grandmother w/ heart disease), Mother, CA: Father (Esophageal cancer), Other: Brother Review of Systems - Review of Systems Constitutional: reports: Malaise. denies: Chills, Fever, Night Sweats, Unintentional Wgt. Loss Eyes: reports: No Symptoms HENT: reports: No Symptoms Neck: reports: No Symptoms Cardiovascular: reports: Edema. denies: Chest Pain, Palpitations, Shortness of Breath Respiratory: reports: Cough, Snoring. denies: Hemoptysis, SOB, SOB on Exertion , Wheezing Gastrointestinal: reports: Abdominal Pain. denies: Melena, Rectal Bleeding, Vomiting, Vomiting Blood Genitourinary: reports: Hematuria Musculoskeletal: reports: No Symptoms Integumentary: reports: No Symptoms Neurological: reports: No Symptoms Endocrine: reports: No Symptoms Hematology/Lymphatic: reports: No Symptoms Psychiatric: reports: No Symptoms Physical Exam Vital Sings: Vital Signs Temperature 97.5 F L 10/23/16 04:00 Pulse Rate 69 10/23/16 04:00 Respiratory Rate 18 10/23/16 04:00 Blood Pressure 132/66 10/23/16 04:00 O2 Sat by Pulse Oximetry (%) 99 10/23/16 04:00 Constitutional: Yes: No Distress, Calm, Obese Eyes: Yes: Conjunctiva Clear, EOM Intact HENT: Yes: Atraumatic, Normocephalic Neck: Yes: Supple, Trachea Midline Cardiovascular: Yes: Pulse Irregular Respiratory: Yes: CTA Bilaterally, On Nasal O2. No: Accessory Muscle Use, Rales , Rhonchi, Stridor, Tachypnea, Wheezes ...Inspection: Yes: Surgical Scar ...Clubbing: No Gastrointestinal: Yes: Normal Bowel Sounds, Soft, Abdomen, Obese, Tenderness Renal/: Yes: Hematuria Breast(s): Yes: Other (mastectomy ) Extremities: Yes: WNL Edema: Yes Peripheral Pulses WNL: Yes Integumentary: Yes: WNL Neurological: Yes: WNL, Alert, Oriented ...Motor Strength: WNL Psychiatric: Yes: WNL, Alert, Oriented Labs: CBC, BMP 10/23/16 06:00 10/23/16 06:00 Problem List - Problems (1) Elevated INR (international normalized ratio) due to prior anticoagulant medication ingestion Code(s): R78.89 - FINDING OF OTH SUBSTANCES, NOT NORMALLY FOUND IN BLOOD (2) Interstitial lung disease Code(s): J84.9 - INTERSTITIAL PULMONARY DISEASE, UNSPECIFIED (3) Hematuria Code(s): R31.9 - HEMATURIA, UNSPECIFIED Qualifiers: Hematuria type: gross Qualified Code(s): R31.0 - Gross hematuria (4) CHF (congestive heart failure) Code(s): I50.9 - HEART FAILURE, UNSPECIFIED Qualifiers: Congestive heart failure type: diastolic Congestive heart failure chronicity: chronic Qualified Code(s): I50.32 - Chronic diastolic ( congestive) heart failure (5) Coronary artery disease Code(s): I25.10 - ATHSCL HEART DISEASE OF [place] CORONARY ARTERY W/O ANG PCTRS (6) Cough present for greater than 3 weeks Code(s): R05 - COUGH (7) Diabetes mellitus Code(s): E11.9 - TYPE 2 DIABETES MELLITUS WITHOUT COMPLICATIONS (8) History of aortic valve replacement Code(s): Z95.2 - PRESENCE OF PROSTHETIC HEART VALVE (9) Hyperlipidemia Code(s): E78.5 - HYPERLIPIDEMIA, UNSPECIFIED (10) Hypothyroid Code(s): E03.9 - HYPOTHYROIDISM, UNSPECIFIED Assessment/Plan Would continue Prednisone 20mg PO OD -> patients oxygenation and respiratory symptoms improved from recent previous admission. Would NOT taper while admitted. Will taper as an outpatient. O2 as needed Hold Coumadin Follow INR Follow H&H Patient will require PFTs and NPSG as an outpatient Patient remains on Effient due to cardiac history Will follow Thank you. Dr Jones
[2016-10-23] MEDS ORDERED: predniSONE 20 MG TABLET (UD) PO SCH (10:00)
--- NOTE | 2016-10-23 10:47 | PN ---
Progress Note (short form) - Note Progress Note: PULMONARY BACK FROM RENAL US RESULTS PENDING VSS/PALE ANICTERIC BASILAR INSP CRACKLES S1S2 IRREGULAR BS+ NONTENDER NO EDEMA LABS/MEDS/NOTES/IMAGES REVIEWED (1) Elevated INR (international normalized ratio) due to prior anticoagulant medication ingestion Code(s): R78.89 - FINDING OF OTH SUBSTANCES, NOT NORMALLY FOUND IN BLOOD (2) Interstitial lung disease Code(s): J84.9 - INTERSTITIAL PULMONARY DISEASE, UNSPECIFIED (3) Hematuria Code(s): R31.9 - HEMATURIA, UNSPECIFIED Qualifiers: Hematuria type: gross Qualified Code(s): R31.0 - Gross hematuria (4) CHF (congestive heart failure) Code(s): I50.9 - HEART FAILURE, UNSPECIFIED Qualifiers: Congestive heart failure type: diastolic Congestive heart failure chronicity: chronic Qualified Code(s): I50.32 - Chronic diastolic ( congestive) heart failure (5) Coronary artery disease Code(s): I25.10 - ATHSCL HEART DISEASE OF [place] CORONARY ARTERY W/O ANG PCTRS (6) Cough present for greater than 3 weeks Code(s): R05 - COUGH (7) Diabetes mellitus Code(s): E11.9 - TYPE 2 DIABETES MELLITUS WITHOUT COMPLICATIONS (8) History of aortic valve replacement Code(s): Z95.2 - PRESENCE OF PROSTHETIC HEART VALVE (9) Hyperlipidemia Code(s): E78.5 - HYPERLIPIDEMIA, UNSPECIFIED (10) Hypothyroid Code(s): E03.9 - HYPOTHYROIDISM, UNSPECIFIED Assessment/Plan continue prednisone current dose O2 as needed Hold Coumadin Follow INR Follow H&H Patient will require PFTs and NPSG as an outpatient Patient remains on Effient due to cardiac history Check renal us Mable THOMAS MD
[2016-10-23] MEDS: FUROSEMIDE 20 MG TABLET (FP) PO SCH (11:02)
[2016-10-23] MEDS: ASPIRIN COATED 81 MG TABLET.EC PO SCH (11:03)
[2016-10-23] MEDS: predniSONE 20 MG TABLET (UD) PO SCH (11:03)
[2016-10-23] MEDS: POTASSIUM CHLORIDE TABS 10 MEQ TABLET.ER (FP) PO SCH (11:03)
[2016-10-23] MEDS: PRASUGREL HCL 5 MG TAB PO SCH (13:56)
--- NOTE | 2016-10-23 15:17 | PN ---
Progress Note, Physician Chief Complaint: Ms Simon is without complaint. She says pain has resolved. No cp, sob, n/v. Ambulating in martel with walker. - Current Medication List Current Medications: Active Medications Acetylcysteine (Mucomyst 20 Oral / Inh Use Only*) 1,200 mg PO BID [facility] Stop: 10/25/16 10:01 Aspirin (Ecotrin -) 81 mg PO DAILY [facility] Last Admin: 10/23/16 11:03 Dose: 81 mg Atorvastatin Calcium (Lipitor -) 40 mg PO HS [facility] Last Admin: 10/22/16 21:37 Dose: 40 mg Diltiazem HCl (Cardizem Cd -) 120 mg PO HS [facility] Last Admin: 10/22/16 21:37 Dose: 120 mg Furosemide (Lasix -) 20 mg PO DAILY [facility] Last Admin: 10/23/16 11:02 Dose: 20 mg Glipizide (Glucotrol -) 5 mg PO BID@0700,1630 [facility] Last Admin: 10/23/16 06:09 Dose: 5 mg Sodium Chloride (Normal Saline -) 1,000 mls @ 42 mls/hr IV ASDIR [facility] Insulin Aspart (Novolog Vial Sliding Scale -) 1 vial SQ ACHS [facility] PRN Reason: Protocol Last Admin: 10/23/16 12:20 Dose: 1 units Levothyroxine Sodium (Synthroid -) 88 mcg PO DAILY@0700 [facility] Last Admin: 10/23/16 06:09 Dose: 88 mcg Metoprolol Tartrate (Lopressor -) 75 mg PO TID [facility] Last Admin: 10/23/16 13:49 Dose: 75 mg Potassium Chloride (K-Dur -) 10 meq PO MoWeFr@1000 [facility] Last Admin: 10/23/16 11:03 Dose: 10 meq Prasugrel (Effient -) 5 mg PO DAILY [facility] Last Admin: 10/23/16 13:56 Dose: 5 mg Prednisone (Deltasone -) 20 mg PO DAILY [facility] Last Admin: 10/23/16 11:03 Dose: 20 mg Ranitidine HCl (Zantac -) 150 mg PO [facility] Last Admin: 10/22/16 21:37 Dose: 150 mg - Objective Vital Signs: Vital Signs Temperature 98.2 F 10/23/16 10:00 Pulse Rate 80 10/23/16 10:00 Respiratory Rate 18 10/23/16 10:00 Blood Pressure 135/65 10/23/16 10:00 O2 Sat by Pulse Oximetry (%) 99 10/23/16 04:00 Constitutional: Yes: Well Nourished, No Distress, Calm Cardiovascular: Yes: Regular Rate and Rhythm. No: Gallop, Murmur, Rub Respiratory: Yes: Regular, CTA Bilaterally. No: Rales, Rhonchi, Wheezes Gastrointestinal: Yes: Normal Bowel Sounds, Soft. No: Distention, Tenderness Extremities: Yes: WNL Edema: No Labs: CBC, BMP 10/23/16 06:00 10/23/16 06:00 INR, PTT INR 5.71 (0.82-1.09) H* 10/23/16 06:00 Problem List - Problems (1) Elevated INR Assessment/Plan: -presented with elevated INR -will hold coumadin -monitor INR -may need further adjustment of coumadin (? 2mg daily) -want to maintain 2.5-3.5 considering mechanical valve Code(s): R79.1 - ABNORMAL COAGULATION PROFILE (2) Interstitial lung disease Assessment/Plan: -appreciate pulmonary assistance -on prednisone Code(s): J84.9 - INTERSTITIAL PULMONARY DISEASE, UNSPECIFIED (3) Hematuria Assessment/Plan: -ultrasound showing possible mass -CT scan recommended -will obtain CT scan with contrast -will gently hydrate for 24 hours for renal protection -mucomyst bid x4 doses Code(s): R31.9 - HEMATURIA, UNSPECIFIED Qualifiers: Hematuria type: gross Qualified Code(s): R31.0 - Gross hematuria (4) ALEIDA (acute kidney injury) Assessment/Plan: -improved and at baseline -monitor -hydration as above, but do not want to fluid overload secondary to CHF Code(s): N17.9 - ACUTE KIDNEY FAILURE, UNSPECIFIED (5) CHF (congestive heart failure) Assessment/Plan: -not in exacerbation -closely monitor since on IVF for renal protection as above Code(s): I50.9 - HEART FAILURE, UNSPECIFIED Qualifiers: Congestive heart failure type: diastolic Congestive heart failure chronicity: chronic Qualified Code(s): I50.32 - Chronic diastolic ( congestive) heart failure (6) Diabetes mellitus Assessment/Plan: -elevated secondary to steroids -suspect will improve with decreasing dose -can increase glipizide -will avoid metformin secondary to labile renal function Code(s): E11.9 - TYPE 2 DIABETES MELLITUS WITHOUT COMPLICATIONS (7) History of aortic valve replacement Assessment/Plan: -maintain INR 2.5-3.5 Code(s): Z95.2 - PRESENCE OF PROSTHETIC HEART VALVE (8) Hyperlipidemia Assessment/Plan: -continue statin Code(s): E78.5 - HYPERLIPIDEMIA, UNSPECIFIED (9) Hypothyroid Assessment/Plan: -continue levothyroxine 88mcg daily Code(s): E03.9 - HYPOTHYROIDISM, UNSPECIFIED
[2016-10-23] MEDS ORDERED: SODIUM CHLORIDE 1,000 ML IV SCH (15:30)
[2016-10-23] MEDS ORDERED: PATIENT'S OWN MEDICATION (NON-FORMULARY) (Potassium Chloride [Potassium Chloride] 10 MEQ) PO SCH (18:10)
[2016-10-23] MEDS ORDERED: INSULIN (NOVOLOG) ASPART 100 UNITS/ML 10ML VIAL ONE (21:06)
[2016-10-23] MEDS: ATORVASTATIN CA 40 MG TABLET (FP) PO SCH (22:06)
[2016-10-23] MEDS: ACETYLCYSTEINE 20% 200MG/ML 4 ML VIAL *FOR ORAL / INH USE ONLY PO SCH ×2 (22:08→22:17)
[2016-10-23] MEDS: RANITIDINE HCL 150 MG TABLET (FP) PO SCH (22:09)
[2016-10-24] MEDS: INSULIN SLIDING SCALE (NOVOLOG) 1 VIAL SQ SCH ×4 (06:33→21:44)
[2016-10-24] MEDS: METOPROLOL TARTRATE 50 MG TABLET (FP) PO SCH ×3 (06:34→21:43)
[2016-10-24] MEDS: glipiZIDE 5 MG TABLET (FP) PO SCH ×2 (06:34→17:45)
[2016-10-24] MEDS: LEVOTHYROXINE NA 100 MCG TABLET (FP) PO SCH (06:35)
[2016-10-24] MEDS ORDERED: INSULIN (NOVOLOG) ASPART 100 UNITS/ML 10ML VIAL ONE ×3 (06:48→20:49)
[2016-10-24 07:30] LABS: PROTHROMBIN TIME (PATIENT) 57.7 SEC (9.98-11.88)
[2016-10-24 07:48] LABS: MCH 29.1 pg (25.7-33.7); MCHC 33.6 g/dl (32.0-36.0); MEAN CELL VOLUME 86.6 fl (80-96); MEAN PLT VOLUME 9.5 fl (7.5-11.1); PLATELET COUNT 184 K/MM3 (134-434); RDW 16.4 % (11.6-15.6); WHITE BLOOD COUNT 12.9 K/mm3 (4.0-10.0)
[2016-10-24 07:52] LABS: ANION GAP 5 (8-16); CALCIUM 9.1 mg/dL (8.5-10.1); CO2 31 mmol/L (21-32); GLUCOSE,RANDOM 113 mg/dL (74-106); MAGNESIUM 2.2 mg/dL (1.8-2.4)
[2016-10-24 07:54] LABS: CREATININE 1.2 mg/dL (0.55-1.02); PHOSPHOROUS 2.7 mg/dL (2.5-4.9)
[2016-10-24 08:23] LABS: INR 5.07 (0.82-1.09)
--- NOTE | 2016-10-24 09:23 | PN ---
Progress Note (short form) - Note Progress Note: Resting in NAD on NC O2. No CP or SOB. No occult bleeding noted. INR remains elevated >5. Intake & Output 10/21/16 10/22/16 10/23/16 10/24/16 23:59 23:59 23:59 23:59 Intake Total 924 Balance 924 Weight 158 lb Last Vital Signs Temp Pulse Resp BP Pulse Ox 97.9 F 69 18 128/60 99 10/24/16 06:00 10/24/16 06:00 10/24/16 06:00 10/24/16 06:00 10/23/16 12:00 Active Medications Acetylcysteine (Mucomyst 20 Oral / Inh Use Only*) 1,200 mg PO BID [facility] Stop: 10/25/16 10:01 Last Admin: 10/23/16 22:17 Dose: Not Given Aspirin (Ecotrin -) 81 mg PO DAILY [facility] Last Admin: 10/23/16 11:03 Dose: 81 mg Atorvastatin Calcium (Lipitor -) 40 mg PO [facility] Last Admin: 10/23/16 22:06 Dose: 40 mg Diltiazem HCl (Cardizem Cd -) 120 mg PO [facility] Last Admin: 10/23/16 22:06 Dose: 120 mg Furosemide (Lasix -) 20 mg PO DAILY [facility] Last Admin: 10/23/16 11:02 Dose: 20 mg Glipizide (Glucotrol -) 5 mg PO BID@0700,1630 [facility] Last Admin: 10/24/16 06:34 Dose: 5 mg Sodium Chloride (Normal Saline -) 1,000 mls @ 42 mls/hr IV ASDIR [facility] Last Admin: 10/23/16 17:57 Dose: 42 mls/hr Insulin Aspart (Novolog Vial Sliding Scale -) 1 vial SQ ACHS [facility] PRN Reason: Protocol Last Admin: 10/24/16 06:33 Dose: Not Given Lactobacillus Acidophilus (Bacid -) 1 tab PO DAILY [facility] Levothyroxine Sodium (Synthroid -) 88 mcg PO DAILY@0700 [facility] Last Admin: 10/24/16 06:35 Dose: 88 mcg Metoprolol Tartrate (Lopressor -) 75 mg PO TID [facility] Last Admin: 10/24/16 06:34 Dose: 75 mg Potassium Chloride (K-Dur -) 10 meq PO MoWeFr@1000 [facility] Last Admin: 10/23/16 11:03 Dose: 10 meq Prasugrel (Effient -) 5 mg PO DAILY [facility] Last Admin: 10/23/16 13:56 Dose: 5 mg Prednisone (Deltasone -) 20 mg PO DAILY [facility] Last Admin: 10/23/16 11:03 Dose: 20 mg Ranitidine HCl (Zantac -) 150 mg PO HS [facility] Last Admin: 10/23/16 22:09 Dose: 150 mg Constitutional: Yes: No Distress, Calm, Obese Eyes: Yes: Conjunctiva Clear, EOM Intact HENT: Yes: Atraumatic, Normocephalic Neck: Yes: Supple, Trachea Midline Cardiovascular: Yes: Pulse Irregular Respiratory: Yes: CTA Bilaterally, On Nasal O2. No: Accessory Muscle Use, Rales , Rhonchi, Stridor, Tachypnea, Wheezes ...Inspection: Yes: Surgical Scar ...Clubbing: No Gastrointestinal: Yes: Normal Bowel Sounds, Soft, Abdomen, Obese, Tenderness Renal/: Yes: Hematuria Breast(s): Yes: Other (mastectomy ) Extremities: Yes: WNL Edema: Yes Peripheral Pulses WNL: Yes Integumentary: Yes: WNL Neurological: Yes: WNL, Alert, Oriented ...Motor Strength: WNL Psychiatric: Yes: WNL, Alert, Oriented Labs: Laboratory Results - last 24 hr 10/23/16 10/23/16 10/23/16 12:15 17:53 22:04 WBC RBC Hgb Hct MCV MCH MCHC RDW Plt Count MPV Neutrophils % Lymphocytes % INR Sodium Potassium Chloride Carbon Dioxide Anion Gap BUN Creatinine POC Glucometer 174 349 339 Random Glucose Calcium Phosphorus Magnesium 10/24/16 10/24/16 10/24/16 06:00 06:00 06:00 WBC 12.9 H RBC 3.67 Hgb 10.7 Hct 31.7 L MCV 86.6 MCH 29.1 MCHC 33.6 RDW 16.4 H Plt Count 184 MPV 9.5 Neutrophils % Y Lymphocytes % Y INR 5.07 H* Sodium 141 Potassium 4.5 Chloride 105 Carbon Dioxide 31 Anion Gap 5 L BUN 44 H Creatinine 1.2 H POC Glucometer Random Glucose 113 H D Calcium 9.1 Phosphorus 2.7 Magnesium 2.2 10/24/16 06:32 WBC RBC Hgb Hct MCV MCH MCHC RDW Plt Count MPV Neutrophils % Lymphocytes % INR Sodium Potassium Chloride Carbon Dioxide Anion Gap BUN Creatinine POC Glucometer 108 Random Glucose Calcium Phosphorus Magnesium Problem List - Problems (1) Elevated INR (international normalized ratio) due to prior anticoagulant medication ingestion Code(s): R78.89 - FINDING OF OTH SUBSTANCES, NOT NORMALLY FOUND IN BLOOD (2) Interstitial lung disease Code(s): J84.9 - INTERSTITIAL PULMONARY DISEASE, UNSPECIFIED (3) Hematuria Code(s): R31.9 - HEMATURIA, UNSPECIFIED Qualifiers: Hematuria type: gross Qualified Code(s): R31.0 - Gross hematuria (4) CHF (congestive heart failure) Code(s): I50.9 - HEART FAILURE, UNSPECIFIED Qualifiers: Congestive heart failure type: diastolic Congestive heart failure chronicity: chronic Qualified Code(s): I50.32 - Chronic diastolic ( congestive) heart failure (5) Coronary artery disease Code(s): I25.10 - ATHSCL HEART DISEASE OF [place] CORONARY ARTERY W/O ANG PCTRS (6) Cough present for greater than 3 weeks Code(s): R05 - COUGH (7) Diabetes mellitus Code(s): E11.9 - TYPE 2 DIABETES MELLITUS WITHOUT COMPLICATIONS (8) History of aortic valve replacement Code(s): Z95.2 - PRESENCE OF PROSTHETIC HEART VALVE (9) Hyperlipidemia Code(s): E78.5 - HYPERLIPIDEMIA, UNSPECIFIED (10) Hypothyroid Code(s): E03.9 - HYPOTHYROIDISM, UNSPECIFIED Assessment/Plan Continue Prednisone 20mg PO OD -> would NOT taper while admitted. Will taper as an outpatient. O2 as needed Follow INR Follow H&H Patient will require PFTs and NPSG as an outpatient Patient remains on Effient due to cardiac history Dr Jones Problem List - Problems (1) Elevated INR (international normalized ratio) due to prior anticoagulant medication ingestion Code(s): R78.89 - FINDING OF OTH SUBSTANCES, NOT NORMALLY FOUND IN BLOOD (2) Interstitial lung disease Code(s): J84.9 - INTERSTITIAL PULMONARY DISEASE, UNSPECIFIED (3) Hematuria Code(s): R31.9 - HEMATURIA, UNSPECIFIED Qualifiers: Hematuria type: gross Qualified Code(s): R31.0 - Gross hematuria (4) CHF (congestive heart failure) Code(s): I50.9 - HEART FAILURE, UNSPECIFIED Qualifiers: Congestive heart failure type: diastolic Congestive heart failure chronicity: chronic Qualified Code(s): I50.32 - Chronic diastolic ( congestive) heart failure (5) Coronary artery disease Code(s): I25.10 - ATHSCL HEART DISEASE OF [place] CORONARY ARTERY W/O ANG PCTRS (6) Cough present for greater than 3 weeks Code(s): R05 - COUGH (7) Diabetes mellitus Code(s): E11.9 - TYPE 2 DIABETES MELLITUS WITHOUT COMPLICATIONS (8) History of aortic valve replacement Code(s): Z95.2 - PRESENCE OF PROSTHETIC HEART VALVE (9) Hyperlipidemia Code(s): E78.5 - HYPERLIPIDEMIA, UNSPECIFIED (10) Hypothyroid Code(s): E03.9 - HYPOTHYROIDISM, UNSPECIFIED
[2016-10-24] MEDS ORDERED: CEFTRIAXONE 1 GM in DEXTROSE 5%-WATER - 50 ML IVPB SCH (10:00)
[2016-10-24 10:10] LABS: METAMYELOCYTE 2 % (0-2)
[2016-10-24 10:11] LABS: PLATELET ESTIMATE ADEQUATE (NORMAL)
[2016-10-24] MEDS: LACTOBACILLUS ACIDOPHILUS 1 EACH TAB (FP) PO SCH (11:12)
[2016-10-24] MEDS: predniSONE 20 MG TABLET (UD) PO SCH (11:13)
[2016-10-24] MEDS: FUROSEMIDE 20 MG TABLET (FP) PO SCH (11:13)
[2016-10-24] MEDS: PRASUGREL HCL 5 MG TAB PO SCH (11:14)
[2016-10-24] MEDS: ASPIRIN COATED 81 MG TABLET.EC PO SCH (11:14)
[2016-10-24] MEDS: ACETYLCYSTEINE 20% 200MG/ML 4 ML VIAL *FOR ORAL / INH USE ONLY PO SCH (11:15)
--- NOTE | 2016-10-24 12:27 | PN ---
Progress Note, Physician Chief Complaint: Ms Simon is without complaint. No cp, sob, n/v. - Current Medication List Current Medications: Active Medications Acetylcysteine (Mucomyst 20 Oral / Inh Use Only*) 1,200 mg PO BID [facility] Stop: 10/25/16 10:01 Last Admin: 10/24/16 11:15 Dose: Not Given Aspirin (Ecotrin -) 81 mg PO DAILY [facility] Last Admin: 10/24/16 11:14 Dose: 81 mg Atorvastatin Calcium (Lipitor -) 40 mg PO [facility] Last Admin: 10/23/16 22:06 Dose: 40 mg Diltiazem HCl (Cardizem Cd -) 120 mg PO [facility] Last Admin: 10/23/16 22:06 Dose: 120 mg Furosemide (Lasix -) 20 mg PO DAILY [facility] Last Admin: 10/24/16 11:13 Dose: 20 mg Glipizide (Glucotrol -) 5 mg PO BID@0700,1630 [facility] Last Admin: 10/24/16 06:34 Dose: 5 mg Sodium Chloride (Normal Saline -) 1,000 mls @ 42 mls/hr IV ASDIR [facility] Last Admin: 10/23/16 17:57 Dose: 42 mls/hr Insulin Aspart (Novolog Vial Sliding Scale -) 1 vial SQ ACHS [facility] PRN Reason: Protocol Last Admin: 10/24/16 12:07 Dose: Not Given Lactobacillus Acidophilus (Bacid -) 1 tab PO DAILY [facility] Last Admin: 10/24/16 11:12 Dose: 1 tab Levothyroxine Sodium (Synthroid -) 88 mcg PO DAILY@0700 [facility] Last Admin: 10/24/16 06:35 Dose: 88 mcg Metoprolol Tartrate (Lopressor -) 75 mg PO TID [facility] Last Admin: 10/24/16 06:34 Dose: 75 mg Potassium Chloride (K-Dur -) 10 meq PO MoWeFr@1000 [facility] Last Admin: 10/23/16 11:03 Dose: 10 meq Prasugrel (Effient -) 5 mg PO DAILY [facility] Last Admin: 10/24/16 11:14 Dose: 5 mg Prednisone (Deltasone -) 20 mg PO DAILY [facility] Last Admin: 10/24/16 11:13 Dose: 20 mg Ranitidine HCl (Zantac -) 150 mg PO [facility] Last Admin: 10/23/16 22:09 Dose: 150 mg - Objective Vital Signs: Vital Signs Temperature 97.9 F 10/24/16 06:00 Pulse Rate 67 10/24/16 09:57 Respiratory Rate 18 10/24/16 06:00 Blood Pressure 128/60 10/24/16 06:00 O2 Sat by Pulse Oximetry (%) 99 10/24/16 09:57 Constitutional: Yes: Well Nourished, No Distress, Calm Cardiovascular: Yes: Regular Rate and Rhythm. No: Gallop, Murmur, Rub Respiratory: Yes: Regular, CTA Bilaterally. No: Rales, Rhonchi, Wheezes Gastrointestinal: Yes: Normal Bowel Sounds, Soft. No: Distention, Tenderness Extremities: Yes: WNL Edema: No Labs: CBC, BMP 10/24/16 06:00 10/24/16 06:00 INR, PTT INR 5.07 (0.82-1.09) H* 10/24/16 06:00 Problem List - Problems (1) Elevated INR Code(s): R79.1 - ABNORMAL COAGULATION PROFILE (2) Interstitial lung disease Code(s): J84.9 - INTERSTITIAL PULMONARY DISEASE, UNSPECIFIED (3) Hematuria Code(s): R31.9 - HEMATURIA, UNSPECIFIED Qualifiers: Hematuria type: gross Qualified Code(s): R31.0 - Gross hematuria (4) ALEIDA (acute kidney injury) Code(s): N17.9 - ACUTE KIDNEY FAILURE, UNSPECIFIED (5) CHF (congestive heart failure) Code(s): I50.9 - HEART FAILURE, UNSPECIFIED Qualifiers: Congestive heart failure type: diastolic Congestive heart failure chronicity: chronic Qualified Code(s): I50.32 - Chronic diastolic ( congestive) heart failure (6) Diabetes mellitus Code(s): E11.9 - TYPE 2 DIABETES MELLITUS WITHOUT COMPLICATIONS (7) History of aortic valve replacement Code(s): Z95.2 - PRESENCE OF PROSTHETIC HEART VALVE (8) Hyperlipidemia Code(s): E78.5 - HYPERLIPIDEMIA, UNSPECIFIED (9) Hypothyroid Code(s): E03.9 - HYPOTHYROIDISM, UNSPECIFIED Assessment/Plan (1) Elevated INR Assessment/Plan: -continue to hold coumadin -elevated secondary to receiving levaquin in the ED -monitor Code(s): R79.1 - ABNORMAL COAGULATION PROFILE (2) Interstitial lung disease Assessment/Plan: -appreciate pulmonary assistance -on prednisone Code(s): J84.9 - INTERSTITIAL PULMONARY DISEASE, UNSPECIFIED (3) Hematuria Assessment/Plan: -unable to obtain CT scan with contrast, per patient's patient coded when she last received contrast (happened two times) -risk of contrast outweighs benefit -will obtain CT scan without contrast, will not be as elucidating and this will probably need further evaluation as an outpatient Code(s): R31.9 - HEMATURIA, UNSPECIFIED Qualifiers: Hematuria type: gross Qualified Code(s): R31.0 - Gross hematuria (4) ALEIDA (acute kidney injury) Assessment/Plan: -stop IVF -resolved Code(s): N17.9 - ACUTE KIDNEY FAILURE, UNSPECIFIED (5) CHF (congestive heart failure) Assessment/Plan: -not in exacerbation -top IVF Code(s): I50.9 - HEART FAILURE, UNSPECIFIED Qualifiers: Congestive heart failure type: diastolic Congestive heart failure chronicity: chronic Qualified Code(s): I50.32 - Chronic diastolic ( congestive) heart failure (6) Diabetes mellitus Assessment/Plan: -improved today on decreased prednisone dose Code(s): E11.9 - TYPE 2 DIABETES MELLITUS WITHOUT COMPLICATIONS (7) History of aortic valve replacement Assessment/Plan: -maintain INR 2.5-3.5 Code(s): Z95.2 - PRESENCE OF PROSTHETIC HEART VALVE (8) Hyperlipidemia Assessment/Plan: -continue statin Code(s): E78.5 - HYPERLIPIDEMIA, UNSPECIFIED (9) Hypothyroid Assessment/Plan: -continue levothyroxine 88mcg daily Code(s): E03.9 - HYPOTHYROIDISM, UNSPECIFIED
[2016-10-24] MEDS: ATORVASTATIN CA 40 MG TABLET (FP) PO SCH (21:43)
[2016-10-24] MEDS: RANITIDINE HCL 150 MG TABLET (FP) PO SCH (21:44)
[2016-10-25] MEDS: METOPROLOL TARTRATE 50 MG TABLET (FP) PO SCH ×2 (06:21→13:07)
[2016-10-25] MEDS: glipiZIDE 5 MG TABLET (FP) PO SCH (06:27)
[2016-10-25] MEDS: LEVOTHYROXINE NA 100 MCG TABLET (FP) PO SCH (06:27)
[2016-10-25] MEDS: INSULIN SLIDING SCALE (NOVOLOG) 1 VIAL SQ SCH ×2 (06:28→11:32)
[2016-10-25] MEDS ORDERED: INSULIN (NOVOLOG) ASPART 100 UNITS/ML 10ML VIAL ONE ×2 (06:52→11:31)
[2016-10-25 07:18] LABS: MCH 29.2 pg (25.7-33.7); MCHC 33.6 g/dl (32.0-36.0); MEAN CELL VOLUME 86.7 fl (80-96); MEAN PLT VOLUME 9.6 fl (7.5-11.1); PLATELET COUNT 198 K/MM3 (134-434); RDW 16.8 % (11.6-15.6); WHITE BLOOD COUNT 13.9 K/mm3 (4.0-10.0)
[2016-10-25 07:30] LABS: INR 3.11 (0.82-1.09)
[2016-10-25 07:47] LABS: ANION GAP 7 (8-16); CALCIUM 8.8 mg/dL (8.5-10.1); CO2 28 mmol/L (21-32); CREATININE 1.2 mg/dL (0.55-1.02); GLUCOSE,RANDOM 181 mg/dL (74-106); MAGNESIUM 2.1 mg/dL (1.8-2.4); PHOSPHOROUS 2.4 mg/dL (2.5-4.9)
[2016-10-25 09:00] VITALS: BP 113/54; TEMP 98.9
[2016-10-25 09:42] LABS: PLATELET ESTIMATE ADEQUATE (NORMAL)
[2016-10-25] MEDS ORDERED: PT OWN MED DRAWER 7, Y5N ONE (10:08)
[2016-10-25] MEDS: PRASUGREL HCL 5 MG TAB PO SCH (10:14)
[2016-10-25] MEDS: predniSONE 20 MG TABLET (UD) PO SCH (10:14)
[2016-10-25] MEDS: FUROSEMIDE 20 MG TABLET (FP) PO SCH (10:14)
[2016-10-25] MEDS: LACTOBACILLUS ACIDOPHILUS 1 EACH TAB (FP) PO SCH (10:14)
[2016-10-25] MEDS: POTASSIUM CHLORIDE TABS 10 MEQ TABLET.ER (FP) PO SCH (10:14)
[2016-10-25] MEDS: ASPIRIN COATED 81 MG TABLET.EC PO SCH (10:14)
--- NOTE | 2016-10-25 11:03 | PN ---
Progress Note, Physician - Current Medication List Current Medications: Active Medications Aspirin (Ecotrin -) 81 mg PO DAILY [facility] Last Admin: 10/25/16 10:14 Dose: 81 mg Atorvastatin Calcium (Lipitor -) 40 mg PO HS [facility] Last Admin: 10/24/16 21:43 Dose: 40 mg Diltiazem HCl (Cardizem Cd -) 120 mg PO HS [facility] Last Admin: 10/24/16 21:43 Dose: 120 mg Furosemide (Lasix -) 20 mg PO DAILY [facility] Last Admin: 10/25/16 10:14 Dose: 20 mg Glipizide (Glucotrol -) 5 mg PO BID@0700,1630 [facility] Last Admin: 10/25/16 06:27 Dose: 5 mg Insulin Aspart (Novolog Vial Sliding Scale -) 1 vial SQ ACHS [facility] PRN Reason: Protocol Last Admin: 10/25/16 06:28 Dose: 3 units Lactobacillus Acidophilus (Bacid -) 1 tab PO DAILY [facility] Last Admin: 10/25/16 10:14 Dose: 1 tab Levothyroxine Sodium (Synthroid -) 88 mcg PO DAILY@0700 [facility] Last Admin: 10/25/16 06:27 Dose: 88 mcg Metoprolol Tartrate (Lopressor -) 75 mg PO TID [facility] Last Admin: 10/25/16 06:21 Dose: 75 mg Potassium Chloride (K-Dur -) 10 meq PO MoWeFr@1000 [facility] Last Admin: 10/25/16 10:14 Dose: 10 meq Prasugrel (Effient -) 5 mg PO DAILY [facility] Last Admin: 10/25/16 10:14 Dose: 5 mg Prednisone (Deltasone -) 20 mg PO DAILY [facility] Last Admin: 10/25/16 10:14 Dose: 20 mg Ranitidine HCl (Zantac -) 150 mg PO [facility] Last Admin: 10/24/16 21:44 Dose: 150 mg - Objective Vital Signs: Vital Signs Temperature 98.9 F 10/25/16 09:00 Pulse Rate 76 10/25/16 09:00 Respiratory Rate 20 10/25/16 09:00 Blood Pressure 113/54 10/25/16 09:00 O2 Sat by Pulse Oximetry (%) 99 10/24/16 09:57 Labs: CBC, BMP 10/25/16 06:00 10/25/16 06:00 INR, PTT INR 3.11 (0.82-1.09) H D 10/25/16 06:00 Problem List - Problems (1) Elevated INR Code(s): R79.1 - ABNORMAL COAGULATION PROFILE (2) Interstitial lung disease Code(s): J84.9 - INTERSTITIAL PULMONARY DISEASE, UNSPECIFIED (3) Hematuria Code(s): R31.9 - HEMATURIA, UNSPECIFIED Qualifiers: Hematuria type: gross Qualified Code(s): R31.0 - Gross hematuria (4) ALEIDA (acute kidney injury) Code(s): N17.9 - ACUTE KIDNEY FAILURE, UNSPECIFIED (5) CHF (congestive heart failure) Code(s): I50.9 - HEART FAILURE, UNSPECIFIED Qualifiers: Congestive heart failure type: diastolic Congestive heart failure chronicity: chronic Qualified Code(s): I50.32 - Chronic diastolic ( congestive) heart failure (6) Diabetes mellitus Code(s): E11.9 - TYPE 2 DIABETES MELLITUS WITHOUT COMPLICATIONS (7) History of aortic valve replacement Code(s): Z95.2 - PRESENCE OF PROSTHETIC HEART VALVE (8) Hyperlipidemia Code(s): E78.5 - HYPERLIPIDEMIA, UNSPECIFIED (9) Hypothyroid Code(s): E03.9 - HYPOTHYROIDISM, UNSPECIFIED
[2016-10-25 11:23] VITALS: PULSE 51
--- NOTE | 2016-10-27 09:15 | DS ---
Physical Examination Vital Signs: Vital Signs Temperature 98.9 F 10/25/16 09:00 Pulse Rate 51 L 10/25/16 11:23 Respiratory Rate 20 10/25/16 09:00 Blood Pressure 113/54 10/25/16 09:00 O2 Sat by Pulse Oximetry (%) 97 10/25/16 11:23 Labs: CBC, BMP 10/25/16 06:00 10/25/16 06:00 Discharge Summary Reason For Visit: ELEVATED INR,(INTERNATIONAL NORMALIZED RATIO,) DUE Current Active Problems Elevated INR (Acute) Elevated INR (international normalized ratio) due to prior anticoagulant medication ingestion (Acute) Interstitial lung disease (Acute) Condition: Stable - Instructions Diet, Activity, Other Instructions: resume previous diet and activity. Take coumadin 2mg daily. Restart metformin, stop glipizide. Continue on prednisone 20mg daily, to be tapered by your lung doctors. Referrals: Beltran Cruz MD [Staff Physician] - Shaan Steiner MD [Staff Physician] - Luis Copeland MD [Staff Physician] - Disposition: HOME - Home Medications Comprehensive Discharge Medication List: Ambulatory Orders Aspirin [Aspirin EC] 81 mg PO DAILY 09/09/16 Famotidine [Pepcid] 20 mg PO HS 09/09/16 Prasugrel Hydrochloride [Effient -] 5 mg PO DAILY 09/09/16 Furosemide [Lasix -] 20 mg PO DAILY #30 tablet 10/17/16 Atorvastatin Ca [Lipitor] 40 mg PO ASDIR 10/22/16 Diltiazem Cd [Cardizem Cd -] 120 mg PO HS 10/22/16 Insulin Aspart [Novolog Flexpen] 0 unit SQ AC 10/22/16 Levothyroxine [Synthroid -] 88 mcg PO DAILY@0700 10/22/16 Metoprolol Tartrate 75 mg PO TID 10/22/16 Potassium Chloride 10 meq PO MOWEFR 10/22/16 Metformin HCl [Glucophage -] 500 mg PO BID #60 tablet 10/25/16 Prednisone [Deltasone -] 20 mg PO DAILY tablet 10/25/16 Warfarin Sodium [Coumadin] 2 mg PO DAILY #0 tablet 10/25/16
== END 2016-10-25 13:41 | disposition home or self-care (01) | DRG 813 ==
LOC: JER 09:29 → JERBED 17:21 → J8W 18:59 → OBSVTOIN 10-24 17:18
PROVIDERS: ADMIT Internal Medicine; ATTEND Internal Medicine
DX: D68.32 Hemorrhagic disorder due to extrinsic circulating anticoagulants (principal); J84.9 Interstitial pulmonary disease, unspecified; N17.9 Acute kidney failure, unspecified; I13.0 Hypertensive heart and chronic kidney disease with heart failure and stage 1 through stage 4 chronic kidney disease, or unspecified chronic kidney disease; N39.0 Urinary tract infection, site not specified; T45.515A Adverse effect of anticoagulants, initial encounter; R31.0 Gross hematuria; Z95.2 Presence of prosthetic heart valve; E78.5 Hyperlipidemia, unspecified; E03.9 Hypothyroidism, unspecified; R74.0 Nonspecific elevation of levels of transaminase and lactic acid dehydrogenase [LDH]; E11.22 Type 2 diabetes mellitus with diabetic chronic kidney disease; N18.9 Chronic kidney disease, unspecified; I50.9 Heart failure, unspecified; Z79.84 Long term (current) use of oral hypoglycemic drugs; Z79.4 Long term (current) use of insulin; Z85.3 Personal history of malignant neoplasm of breast; I48.91 Unspecified atrial fibrillation; Z79.01 Long term (current) use of anticoagulants
CPT/HCPCS: 36415; 74020-TC; 74176-TC; 76775-TC; 80048; 80053; 81003; 81015; 83735; 84100; 85025; 85027; 85610; 86850; 86900; 86901; 87077; 87086; 93005; 93010; 97116-GP; 97161-GP; 99284-25; G0378

== ENCOUNTER 2017-01-05 10:45 | Emergency (ER) | payer BC, OTHER ==
--- NOTE | 2017-01-05 11:19 | PDOC ---
History of Present Illness - General Chief Complaint: Injury Stated Complaint: FALL Time Seen by Provider: 01/05/17 10:52 History Source: Patient Exam Limitations: No Limitations - History of Present Illness Initial Comments: 01/05/17 11:46 86 y.o. F with pmh of HTN, HLD, CAD, A fib on coumadin presenting s/p fall. Patient states she was getting up from her chair to reach her walker and lost her balance. She fell and hit the back of her head on a wooden table. Patient endorses mild paraspinal tenderness and mild lumbar spinal tenderness. Patient denies LOC, Headache, blurry vision, slurred speech, chest pain, SOB, abdominal pain, dysuria, hematuria, n/v/d/c. Patient came into the ED because she is on coumadin and knows to come in after head trauma. Her INR was checked yesterday and it was 3.5. PSH: heart surgery All- plavix, penicillins, quinidine, cardizem SH- Denies alcohol, smoking, drug use PCP- Sarkis Parker Past History - Past Medical History Allergies/Adverse Reactions: Allergies Allergy/AdvReac Type Severity Reaction Status Date / Time clopidogrel bisulfate Allergy Rash Verified 10/22/16 10:22 [From Plavix] Penicillins Allergy Swelling Verified 10/22/16 10:22 quinidine Allergy Verified 10/22/16 10:22 Home Medications: Ambulatory Orders Aspirin [Aspirin EC] 81 mg PO DAILY 09/09/16 Famotidine [Pepcid] 20 mg PO HS 09/09/16 Furosemide [Lasix -] 20 mg PO DAILY #30 tablet 10/17/16 Atorvastatin Ca [Lipitor] 40 mg PO ASDIR 10/22/16 Levothyroxine [Synthroid -] 88 mcg PO DAILY@0700 10/22/16 Metoprolol Tartrate 75 mg PO TID 10/22/16 Potassium Chloride 10 meq PO MOWEFR 10/22/16 Metformin HCl [Glucophage -] 500 mg PO BID #60 tablet 10/25/16 Prednisone [Deltasone -] 20 mg PO DAILY tablet 10/25/16 Warfarin Sodium [Coumadin] 2 mg PO DAILY #0 tablet 10/25/16 Cancer: Yes (H/O RT BREAST with rt mastectomy) Cardiac Disorders: Yes (CAD, STENT) Diabetes: Yes HTN: Yes Hypercholesterolemia: Yes - Surgical History Cardiac Surgery: Yes (CABG, STENTS) - Immunization History Immunization Up to Date: Yes - Suicide/Smoking/Psychosocial Hx Smoking History: Never smoked Have you smoked in the past 12 months: No Hx Alcohol Use: No Drug/Substance Use Hx: No Substance Use Type: None Review of Systems - Review of Systems Able to Perform ROS?: Yes Comments:: 01/05/17 11:49 GENERAL/CONSTITUTIONAL: No fever or chills. No weakness. HEAD, EYES, EARS, NOSE AND THROAT: No change in vision. No ear pain or discharge. No sore throat. CARDIOVASCULAR: No chest pain or shortness of breath RESPIRATORY: No cough, wheezing, or hemoptysis. GASTROINTESTINAL: No nausea, vomiting, diarrhea or constipation. GENITOURINARY: No dysuria, frequency, or change in urination. MUSCULOSKELETAL: No joint or muscle swelling or pain. No neck or back pain. SKIN: No rash NEUROLOGIC: No headache, vertigo, loss of consciousness, or change in strength/ sensation. ENDOCRINE: No increased thirst. No abnormal weight change HEMATOLOGIC/LYMPHATIC: No anemia, easy bleeding, or history of blood clots. ALLERGIC/IMMUNOLOGIC: No hives or skin allergy. *Physical Exam - Vital Signs Last Vital Signs Temp Pulse Resp BP Pulse Ox 97.9 F 90 18 132/78 100 01/05/17 10:58 01/05/17 10:58 01/05/17 10:58 01/05/17 10:58 01/05/17 10:58 - Physical Exam Comments: 01/05/17 11:50 GENERAL: Awake, alert, and fully oriented, in no acute distress HEAD: No signs of trauma, normocephalic, mild tenderness to palpation of posterior head. EYES: PERRLA, EOMI, sclera anicteric, conjunctiva clear ENT: Auricles normal inspection, hearing grossly normal, nares patent, oropharynx clear without exudates. Moist mucosa NECK: Normal ROM, supple, no lymphadenopathy, JVD, or masses LUNGS: No distress, speaks full sentences, clear to auscultation bilaterally HEART: Irregularly Irregular, normal S1 and S2, no murmurs, rubs or gallops, peripheral pulses normal and equal bilaterally. ABDOMEN: Soft, nontender, normoactive bowel sounds. No guarding, no rebound. No masses EXTREMITIES: Normal inspection, Normal range of motion, no edema. No clubbing or cyanosis. NEUROLOGICAL: Cranial nerves II through XII grossly intact. Normal speech, no focal sensorimotor deficits, +tenderness to palpation of L paraspinal muscles and lumbar spine along L5-S1. SKIN: Warm, Dry, normal turgor, no rashes or lesions noted. ED Treatment Course - RADIOLOGY Radiology Studies Ordered: Category Date Time Status HEAD CT WITHOUT CONTRAST [CT] Stat CT Scan 01/05/17 11:06 Ordered Medical Decision Making - Medical Decision Making 01/05/17 11:53 86 y.o. F with pmh of HTN, HLD, CAD, A fib on coumadin presenting s/p fall. Plan: CT head w/o contrast, pain control, EKG, PT/INR, Pelvis and lumbosacral x- ray 01/05/17 13:[address]- no active bleed, Pelvis/lumbosacral xray- no acute fracture INR- 3.6 Patient is stable for discharge. Patient is ambulatory. *DC/Admit/Observation/Transfer Diagnosis at time of Disposition: Fall Qualifiers: Encounter type: initial encounter Qualified Code(s): W19.XXXA - Unspecified fall, initial encounter - Discharge Dispostion Disposition: HOME Condition at time of disposition: Stable - Referrals Referrals: Luis Copeland MD [Primary Care Provider] - - Patient Instructions Additional Instructions: If you have worsening headache, blurry vision, slurred speech, chest pain, shortness of breath, please come back to the hospital immediately.
[2017-01-05] MEDS ORDERED: ACETAMINOPHEN 325 MG TABLET (FP) PO ONE (11:25)
[2017-01-05 11:28] VITALS: TEMP 97.9; BMI 30.2
--- NOTE | 2017-01-05 11:54 | PDOC ---
Attending Attestation - HPI HPI: 01/05/17 11:56 Patient is a 86 year old female with a significant past medical history of Aortic Stenosis, CAD, CHF, Diabetes Mellitus, Hypothyroidism who presents to the ED s/p fall that occurred this morning. Patient reports reaching for her walker while sitting down when she tripped and fell, banging her head on a coffee table. She reports no loss of consciousness after fall. Patient reports being on coumadin prescription so thought she should come into ED for evaluation. Denies blurred vision. Denies chest pain, SOB. Denies fever, chills. Denies slurred speech. Denies any other symptoms. Allergies: Clopidogrel, Penicillin, Quinidine. Surgical history: Valve Replacement (Aortic valve replacement ([facility])) Social history: No smoking. No alcohol. No illicit drugs. PMD: Dr. Sarkis Page - Physicial Exam PE: 01/05/17 11:56 GENERAL: Patient is awake, alert and in no acute distress. Speech is clear and appropriate. HEAD: Atraumatic and nontender. HEENT: Pupils are equal round and reactive to light, extraocular movements are intact. The tympanic membranes are clear, no hemotympanum. No facial deformity. No facial bone tenderness or step-off. No nasal septal hematoma. The oropharynx is clear. NECK: The trachea is midline, there is no stridor. There is no midline cervical spine tenderness, full range of motion of neck. CHEST: Non-tender, no ecchymosis or abrasions. Equal chest wall expansion bilaterally. No flail segments. Lungs are clear to auscultation bilaterally. CARDIOVASCULAR: +Irregularly irregular. S1-S2, regular rate and rhythm. No murmurs or rubs. ABDOMEN: Soft, nontender, nondistended. Bowel sounds are normoactive. There is no abdominal or flank ecchymosis. BACK/PELVIS: +Mild tenderness to palpation to L5 and S1. There is no midline thoracic or lumbosacral spine tenderness or step-off. Pelvis is stable and nontender. EXTREMITIES: There is no extremity deformity or joint swelling. No focal bony tenderness throughout. 2+ distal pulses throughout. NEURO: Alert and oriented x3. Cranial nerves II through XII are intact. 5 out of 5 motor strength x4 extremities. No gross sensory deficits. Jwlzvu-[id number] is intact. No pronator drift. SKIN: No abrasions, hematomas, lacerations. PSYCH: Affect is appropriate - Medical Decision Making 01/05/17 11:56 Documentation prepared by Waqas Barron, acting as medical claims manager for Miguel Louis MD. <Waqas Barron - Last Filed: 01/05/17 11:56> - Resident Resident Name: Galindo Olmedo - ED Attending Attestation I have performed the following: I have examined & evaluated the patient, The case was reviewed & discussed with the resident, I agree w/resident's findings & plan, Exceptions are as noted - Medical Decision Making 01/05/17 11:46 A portion of this note was written by my scribe, under my supervision. Vital Signs Temp Pulse Resp BP Pulse Ox 97.9 F 90 18 132/78 100 01/05/17 10:58 01/05/17 10:58 01/05/17 10:58 01/05/17 10:58 01/05/17 10:58 86-year-old female with past medical history of hypertension, hyperlipidemia, coronary disease, atrial fibrillation on Coumadin presents with mechanical fall. Patient was attempting get up to a walker and had a mechanical fall head her head. No loss of conscious. No headache, nausea, vomiting, diarrhea. Patient knows that she is on an anticoagulant to came to the ED for further evaluation. She had an INR checked yesterday which was 3.5. Given that she was on Coumadin, we'll obtain a head CT. We'll check an INR level. Observe and if workup is unremarkable, patient can be discharged. The patient and her family was given instructions on rebleeding precautions. 01/05/17 14:04 Lumbar spine partial sacralization of L5 and moderate degenerative disc disease at L4-L5 and L5-S1 level. Head CT negative for acute findings. INR 3.6. Pt is ambulatory. Rebleeding precautions given. Pt would like to go home. Will go home with family. <Miguel Louis - Last Filed: 01/05/17 14:05>
[2017-01-05 13:33] LABS: INR 3.6 (0.82-1.09); PROTHROMBIN TIME (PATIENT) 40.7 SEC (9.98-11.88)
[2017-01-05 13:42] VITALS: BP 112/67; PULSE 110
== END 2017-01-05 14:22 | disposition home or self-care (01) ==
LOC: JER 10:45
DX: S09.90XA Unspecified injury of head, initial encounter (principal); W18.39XA Other fall on same level, initial encounter; Y93.89 Activity, other specified; Y92.9 Unspecified place or not applicable; I10 Essential (primary) hypertension; E78.5 Hyperlipidemia, unspecified; I25.10 Atherosclerotic heart disease of native coronary artery without angina pectoris; I48.91 Unspecified atrial fibrillation; Z79.01 Long term (current) use of anticoagulants; Z99.89 Dependence on other enabling machines and devices
CPT/HCPCS: 36415; 70450-TC; 72100-TC; 72170-TC; 85610; 99282-25

== ENCOUNTER 2017-08-19 21:01 | Inpatient (IN) | payer OTHER ==
[2017-08-19 21:09] VITALS: BMI 30.1
--- NOTE | 2017-08-19 22:58 | PDOC ---
History of Present Illness - General Chief Complaint: Pain Stated Complaint: ABDOMINAL PAIN, VOMITTING Time Seen by Provider: 08/19/17 22:57 - History of Present Illness Initial Comments: 08/19/17 22:59 Ms. Simon is an 86 yo female w/ pmh of aortic valve replacement, afib (on coumadin, last INR yesterday 3.1), CAD, HTN, HLD, DM who presents with a 1 day history of abdominal pain that started this afternoon. She reports this started around 2pm and has remained constant. Last BM was 1 day ago which is normal for her. The pain is generalized to the abdomen. She has had multiple episodes of nausea with vomiting (non-bloody). The patient denies chest pain, shortness of breath, headache and dizziness. Denies fever, chills, nausea, vomit, diarrhea and constipation. Denies dysuria, frequency, urgency and hematuria. Allergies: Clopidogrel, Penicillins, IV Contrast, quinidine Past History - Past Medical History Allergies/Adverse Reactions: Allergies Allergy/AdvReac Type Severity Reaction Status Date / Time clopidogrel bisulfate Allergy Rash Verified 08/19/17 21:09 [From Plavix] Penicillins Allergy Swelling Verified 08/19/17 21:09 quinidine Allergy Verified 08/19/17 21:09 IV CONTRAST Allergy Uncoded 08/19/17 21:10 Home Medications: Ambulatory Orders Aspirin [Aspirin EC] 81 mg PO DAILY 09/09/16 Famotidine [Pepcid] 20 mg PO HS 09/09/16 Furosemide [Lasix -] 20 mg PO DAILY #30 tablet 10/17/16 Atorvastatin Ca [Lipitor] 40 mg PO ASDIR 10/22/16 Levothyroxine [Synthroid -] 88 mcg PO DAILY@0700 10/22/16 Metoprolol Tartrate 75 mg PO TID 10/22/16 Potassium Chloride 10 meq PO MOWEFR 10/22/16 Warfarin Sodium [Coumadin] 2 mg PO DAILY #0 tablet 10/25/16 metFORMIN HCL [Glucophage -] 500 mg PO BID #60 tablet 10/25/16 predniSONE [Deltasone -] 20 mg PO DAILY tablet 10/25/16 Cancer: Yes (H/O RT BREAST with rt mastectomy) Cardiac Disorders: Yes (CAD, STENT) COPD: No Diabetes: Yes HTN: Yes Hypercholesterolemia: Yes - Surgical History Cardiac Surgery: Yes (CABG, STENTS) - Immunization History Immunization Up to Date: Yes - Suicide/Smoking/Psychosocial Hx Smoking History: Never smoked Have you smoked in the past 12 months: No Hx Alcohol Use: No Drug/Substance Use Hx: No Substance Use Type: None Review of Systems - Review of Systems Comments:: 08/20/17 02:45 GENERAL/CONSTITUTIONAL: No fever or chills. No weakness. HEAD, EYES, EARS, NOSE AND THROAT: No change in vision. No ear pain or discharge. No sore throat. CARDIOVASCULAR: No chest pain or shortness of breath RESPIRATORY: No cough, wheezing, or hemoptysis. GASTROINTESTINAL: +Nausea with vomiting as described. No diarrhea or constipation. GENITOURINARY: +Generalized abdominal pain. No dysuria, frequency, or change in urination. MUSCULOSKELETAL: No joint or muscle swelling or pain. No neck or back pain. SKIN: No rash NEUROLOGIC: No headache, vertigo, loss of consciousness, or change in strength/ sensation. ENDOCRINE: No increased thirst. No abnormal weight change HEMATOLOGIC/LYMPHATIC: No anemia, easy bleeding, or history of blood clots. ALLERGIC/IMMUNOLOGIC: No hives or skin allergy. *Physical Exam - Vital Signs Last Vital Signs Temp Pulse Resp BP Pulse Ox 97.3 F L 77 18 172/82 94 L 08/19/17 21:06 08/19/17 21:06 08/19/17 21:06 08/19/17 21:06 08/19/17 21:06 - Physical Exam Comments: 08/20/17 02:49 GENERAL: Awake, alert, and fully oriented, in no acute distress HEAD: No signs of trauma, normocephalic, atraumatic EYES: PERRLA, EOMI, sclera anicteric, conjunctiva clear ENT: Auricles normal inspection, hearing grossly normal, nares patent, oropharynx clear without exudates. Moist mucosa NECK: Normal ROM, supple, no lymphadenopathy, JVD, or masses LUNGS: No distress, speaks full sentences, clear to auscultation bilaterally HEART: Regular rate and rhythm, normal S1 and S2, no murmurs, rubs or gallops, peripheral pulses normal and equal bilaterally. ABDOMEN: +Diffusely TTP. Soft, normoactive bowel sounds. No guarding, no rebound. No masses EXTREMITIES: Normal inspection, Normal range of motion, no edema. No clubbing or cyanosis. NEUROLOGICAL: Cranial nerves II through XII grossly intact. Normal speech, normal gait, no focal sensorimotor deficits SKIN: Warm, Dry, normal turgor, no rashes or lesions noted. ED Treatment Course - LABORATORY CBC & Chemistry Diagram: 08/20/17 00:20 08/20/17 00:20 Medical Decision Making - Medical Decision Making 08/20/17 02:49 Ms. Simon is an 86 yo female w/ pmh as described who presents for evaluation of abdominal pain with nausea/vomiting with generalized abdominal pain. Broad workup started with findings concerning for UTI as below as well as elevated lactate to 2.4. IV fluids given and 5 units insulin given for elevated glucose to 532. Abdominal CT ordered for evaluation. Patient found to have 3mm ureteral stone on CT. Levoquin begun for treatment. Laboratory Results - last 24 hr 08/20/17 08/20/17 08/20/17 00:20 00:20 00:20 WBC 13.3 H RBC 5.28 H D Hgb 15.2 D Hct 46.6 H D MCV 88.3 MCH 28.9 MCHC 32.7 RDW 15.1 D Plt Count 245 D MPV 11.0 D Neutrophils % 83.9 H Lymphocytes % 10.5 D Monocytes % 4.3 Eosinophils % 0.1 D Basophils % 1.2 D PT with INR INR PTT (Actin FS) Sodium 133 L Potassium 6.1 H* Chloride 99 Carbon Dioxide 25 Anion Gap 9 BUN 35 H Creatinine 2.1 H Creat Clearance w eGFR 22.44 Random Glucose 532 H* Lactic Acid 2.4 H* Calcium 9.5 Total Bilirubin 0.9 AST 34 ALT 24 Alkaline Phosphatase 138 H Total Protein 7.1 Albumin 3.4 Lipase 326 Urine Color Urine Appearance Urine pH Ur Specific Sheridan Urine Protein Urine Glucose (UA) Urine Ketones Urine Blood Urine Nitrite Urine Bilirubin Urine Urobilinogen Ur Leukocyte Esterase Urine WBC (Auto) Urine RBC (Auto) Ur Epithelial Cells Urine Bacteria 08/20/17 08/20/17 00:20 01:08 WBC RBC Hgb Hct MCV MCH MCHC RDW Plt Count MPV Neutrophils % Lymphocytes % Monocytes % Eosinophils % Basophils % PT with INR 42.60 H INR 3.77 H PTT (Actin FS) 47.7 H Sodium Potassium Chloride Carbon Dioxide Anion Gap BUN Creatinine Creat Clearance w eGFR Random Glucose Lactic Acid Calcium Total Bilirubin AST ALT Alkaline Phosphatase Total Protein Albumin Lipase Urine Color Ltyellow Urine Appearance Cloudy Urine pH 5.0 Ur Specific [place] 1.014 Urine Protein 1+ H Urine Glucose (UA) 3+ H Urine Ketones Negative Urine Blood 2+ H Urine Nitrite Negative Urine Bilirubin Negative Urine Urobilinogen Negative Ur Leukocyte Esterase 3+ H Urine WBC (Auto) 161 Urine RBC (Auto) 17 Ur Epithelial Cells Few Urine Bacteria Many *DC/Admit/Observation/Transfer Diagnosis at time of Disposition: Ureteral stone - Discharge Dispostion Decision to Admit order: Yes - Referrals Referrals: Luis Copeland MD [Primary Care Provider] - - Patient Instructions - Post Discharge Activity
[2017-08-19] MEDS ORDERED: SODIUM CHLORIDE 1,000 ML IV STA (23:02)
[2017-08-19] MEDS ORDERED: ONDANSETRON 4 MG/2 ML VIAL IVPUSH ONE (23:02)
[2017-08-19] MEDS ORDERED: morphine CARPU-JECT 2 MG/1 ML DISP.SYRIN IVPUSH ONE (23:13)
[2017-08-20] MEDS ORDERED: ONDANSETRON 4 MG/2 ML VIAL ONE (00:15)
[2017-08-20] MEDS ORDERED: morphine CARPU-JECT 2 MG/1 ML DISP.SYRIN ONE (00:15)
[2017-08-20 00:31] LABS: BASO % 1.2 % (0-2.0); EOS % 0.1 % (0-4.5); HEMATOCRIT 46.6 % (32.4-45.2); HEMOGLOBIN 15.2 GM/dL (10.7-15.3); LYMPH % 10.5 % (8-40); MCH 28.9 pg (25.7-33.7); MCHC 32.7 g/dl (32.0-36.0); MEAN CELL VOLUME 88.3 fl (80-96); MONO % 4.3 % (3.8-10.2); NEUT % 83.9 % (42.8-82.8); PLATELET COUNT 245 K/MM3 (134-434); RBC 5.28 M/mm3 (3.60-5.2); RDW 15.1 % (11.6-15.6); WHITE BLOOD COUNT 13.3 K/mm3 (4.0-10.0)
[2017-08-20 00:43] LABS: INR 3.77 (0.82-1.09); PROTHROMBIN TIME (PATIENT) 42.6 SEC (9.7-13.0)
[2017-08-20 00:46] LABS: ACTIVATED PTT 47.7 SECONDS (26.9-34.4)
[2017-08-20 01:20] LABS: URINE APPEARANCE CLOUDY; URINE BILIRUBIN NEGATIVE (<2.0 mg/dL); URINE BLOOD 2+ (NEGATIVE); URINE COLOR LTYELLOW; URINE GLUCOSE (UA) 3+ (NEGATIVE); URINE KETONE NEGATIVE (NEGATIVE); URINE NITRITE NEGATIVE (NEGATIVE); URINE UROBILINOGEN NEGATIVE mg/dL (0.2-1.0)
[2017-08-20 01:27] LABS: URINE LEUK ESTERASE 3+ (NEGATIVE); URINE PROTEIN 1+ (NEGATIVE)
[2017-08-20 01:37] LABS: EPI CELLS FEW /HPF (FEW); URINE BACTERIA MANY /hpf (NONE SEEN)
[2017-08-20 01:48] LABS: ALBUMIN 3.4 g/dl (3.4-5.0); ANION GAP 9 (8-16); BLOOD UREA NITROGEN 35 mg/dL (7-18); CALCIUM 9.5 mg/dL (8.5-10.1); CHLORIDE 99 mmol/L (98-107); CO2 25 mmol/L (21-32); SODIUM 133 mmol/L (136-145)
[2017-08-20 01:54] LABS: ALK PHOS 138 U/L (45-117); BILIRUBIN,TOTAL 0.9 mg/dL (0.2-1.0); CREATININE 2.1 mg/dL (0.55-1.02); SGPT/ALT 24 U/L (12-78); TOT PROT 7.1 g/dl (6.4-8.2)
[2017-08-20 02:01] LABS: LIPASE 326 U/L (73-393)
[2017-08-20 02:02] LABS: SGOT/AST 34 U/L (15-37)
[2017-08-20 02:04] LABS: GLUCOSE,RANDOM 532 mg/dL (74-106)
[2017-08-20 02:07] LABS: POTASSIUM 6.1 mmol/L (3.5-5.1)
[2017-08-20] MEDS ORDERED: INSULIN REGULAR HUMAN 100 UNITS/ML *VIAL SQ ONE (02:15)
[2017-08-20] MEDS ORDERED: ATORVASTATIN CA 40 MG TABLET (FP) PO SCH (03:00)
--- NOTE | 2017-08-20 03:01 | PDOC ---
Attending Attestation - Resident Resident Name: Pelon Toribio - ED Attending Attestation I have performed the following: I have examined & evaluated the patient, The case was reviewed & discussed with the resident, I agree w/resident's findings & plan, Exceptions are as noted - HPI HPI: 08/20/17 03:23 The patient is a 86 year old female, with a significant past medical history of Afib(on coumadin, last INR yesterday 3.1), CAD, HTN, HLD, DM, who presents to the emergency department with, 1 day of abdominal pain. As per patient the pain onset at 2pm and is described as constant generalized to her abdomen. As per patients family member who is a Physician Full Time Babysitter, her last BM was 1 day ago and at her baseline. She reports multiple episodes of nausea with associated nonbloody emesis. The patient reports eating egg salad today which she believed triggered her symptoms, however, her family member reports eating the same without similar symptoms. She denies recent fevers, chills, headache or dizziness. She denies recent diarrhea or constipation. She denies recent dysuria, frequency, urgency or hematuria. She denies recent chest pain or shortness of breath. Social history: Nonsmoker. Denies EtOH use and recreational drug use. Primary Care Physician: Dr. Copeland - Physicial Exam PE: 08/20/17 03:23 agree with resident exam - Medical Decision Making 08/20/17 02:57 86-year-old female with multiple medical problems presents to the emergency Department with lower abdominal pain. Workup remarkable for white count of 13, creatinine elevated to 2, hyperglycemia with no anion gap, urinalysis with UTI, and CT scan with obstructing 3 mm midureteral stone. Symptoms are likely secondary to infected stone. Dr. Mcdaniels from urology has been consulted and recommends admission and antibiotics at this time. Levaquin ordered (pt has pcn allergy). Case discussed Dr. Crockett who accepts the patient for admission to Med/ Surg. Case discussed in detail with admitting physician including history, physical exam and ancillary studies. Admitting physician has assumed care for the patient, will follow all pending diagnostics and will complete the evaluation and treatment.
[2017-08-20] MEDS ORDERED: ONDANSETRON 4 MG/2 ML VIAL IVPUSH PRN (03:04)
[2017-08-20] MEDS ORDERED: morphine CARPU-JECT 2 MG/1 ML DISP.SYRIN IVPUSH PRN (03:04)
[2017-08-20] MEDS ORDERED: METOPROLOL TARTRATE 50 MG TABLET (FP) PO SCH (06:00)
[2017-08-20] MEDS ORDERED: METOPROLOL TARTRATE 50 MG, METOPROLOL TARTRATE 25 MG PO SCH (06:00)
[2017-08-20 06:36] LABS: BASO % 0.4 % (0-2.0); EOS % 0.1 % (0-4.5); HEMATOCRIT 47.5 % (32.4-45.2); HEMOGLOBIN 15.4 GM/dL (10.7-15.3); MCH 29.5 pg (25.7-33.7); MCHC 32.5 g/dl (32.0-36.0); MEAN CELL VOLUME 90.7 fl (80-96); MEAN PLT VOLUME 9.9 fl (7.5-11.1); MONO % 5.1 % (3.8-10.2); NEUT % 83.4 % (42.8-82.8); PLATELET COUNT 237 K/MM3 (134-434); RBC 5.23 M/mm3 (3.60-5.2); RDW 15.6 % (11.6-15.6); WHITE BLOOD COUNT 13.5 K/mm3 (4.0-10.0)
[2017-08-20 06:46] LABS: INR 3.67 (0.82-1.09); PROTHROMBIN TIME (PATIENT) 41.5 SEC (9.7-13.0)
[2017-08-20 06:58] LABS: ANION GAP 13 (8-16); BLOOD UREA NITROGEN 40 mg/dL (7-18); CALCIUM 9.9 mg/dL (8.5-10.1); CHLORIDE 98 mmol/L (98-107); CO2 26 mmol/L (21-32); CREATININE 2.6 mg/dL (0.55-1.02); POTASSIUM 5.4 mmol/L (3.5-5.1); SODIUM 137 mmol/L (136-145)
[2017-08-20] MEDS ORDERED: metFORMIN HCL 500 MG TABLET (FP) PO SCH (07:00)
[2017-08-20 07:03] LABS: GLUCOSE,RANDOM 566 mg/dL (74-106)
[2017-08-20] MEDS ORDERED: METOPROLOL TARTRATE 50 MG TABLET (FP) ONE (07:45)
[2017-08-20] MEDS ORDERED: INSULIN REGULAR HUMAN 100 UNITS/ML *VIAL ONE (07:45)
[2017-08-20] MEDS ORDERED: ATORVASTATIN CA 40 MG TABLET (FP) ONE (07:45)
[2017-08-20] MEDS ORDERED: METOPROLOL TARTRATE 25 MG TABLET (FP) ONE (07:45)
[2017-08-20] MEDS: LEVOTHYROXINE NA 88 MCG TABLET (FP) PO SCH (07:55)
[2017-08-20] MEDS: SODIUM CHLORIDE 0.45% 1,000 ML IV SCH (07:57)
[2017-08-20] MEDS: INSULIN SLIDING SCALE (NOVOLOG) 1 VIAL SQ SCH ×5 (08:09→22:42)
[2017-08-20] MEDS ORDERED: predniSONE 20 MG TABLET (UD) PO SCH (10:00)
--- NOTE | 2017-08-20 10:24 | CON.GU ---
Consult Consult Specialty:: Referred by:: Juyd Reason for Consultation:: R ureteral calculus - History of Present Illness Chief Complaint: abd pain History of Present Illness: 86 yo female w/ pmh of aortic valve replacement, afib (on coumadin, last INR yesterday 3.1), CAD, HTN, HLD, DM who presents with a 1 day history of abdominal pain that started this afternoon. She reports this started around 2pm and has remained constant. Last BM was 1 day ago which is normal for her. The pain is generalized to the abdomen. She has had multiple episodes of nausea with vomiting (non-bloody). She was found to have 3 mm R mid ureteral calculus w mod R hydronephrosis and UTI and cons req. NO fever/chills. Since admission , pain has resolved. The patient denies chest pain, shortness of breath, headache and dizziness. Denies fever, chills, nausea, vomit, diarrhea and constipation. Denies dysuria, frequency, urgency and hematuria. Allergies: Clopidogrel, Penicillins, IV Contrast, quinidine - History Source History Provided By: Patient, Medical Record Limitations to Obtaining History: No Limitations - Past Medical History Cardio/Vascular: Yes: Aortic Stenosis, CAD, CHF Renal/: Yes: Renal Inusuff Endocrine: Yes: Diabetes Mellitus, Hypothyroidism Additional Medical History: Breast Ca, s/p mastectomy - Past Surgical History Past Surgical History: Yes: Valve Replacement (Aortic valve replacement ([facility])) - Alcohol/Substance Use Hx Alcohol Use: No History of Substance Use: reports: None - Smoking History Smoking history: Never smoked Have you smoked in the past 12 months: No - Social History Usual Living Arrangement: With Spouse ADL: Family Assistance 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 History of Recent Travel: No Home Medications - Allergies Allergies/Adverse Reactions: Allergies Allergy/AdvReac Type Severity Reaction Status Date / Time clopidogrel bisulfate Allergy Rash Verified 08/19/17 21:09 [From Plavix] Penicillins Allergy Swelling Verified 08/19/17 21:09 quinidine Allergy Verified 08/19/17 21:09 IV CONTRAST Allergy Uncoded 08/19/17 21:10 - Home Medications Home Medications: Ambulatory Orders Aspirin [Aspirin EC] 81 mg PO DAILY 09/09/16 Famotidine [Pepcid] 20 mg PO HS 09/09/16 Atorvastatin Ca [Lipitor] 40 mg PO ASDIR 10/22/16 Levothyroxine [Synthroid -] 88 mcg PO DAILY@0700 10/22/16 Metoprolol Tartrate 100 mg PO TID 10/22/16 Potassium Chloride 10 meq PO MOWEFR 10/22/16 Digoxin 125 mcg PO ASDIR 08/20/17 Glipizide [Glucotrol -] 5 mg PO BID@0700,1630 08/20/17 Torsemide 20 mg PO DAILY 08/20/17 Warfarin Sodium [Coumadin] 3 mg PO ASDIR 08/20/17 Warfarin Sodium [Coumadin] 4 mg PO ASDIR 08/20/17 Family Disease History - Family Disease History Family Disease History: Diabetes: Brother (TB), Heart Disease: Grandparent ( Grandmother w/ heart disease), Mother, CA: Father (Esophageal cancer), Other: Brother Review of Systems - Review of Systems Genitourinary: reports: Flank Pain. denies: Dysuria Physical Exam- Vital Signs: Vital Signs Temperature 97.5 F L 08/20/17 07:31 Pulse Rate 103 H 08/20/17 07:31 Respiratory Rate 18 08/20/17 07:31 Blood Pressure 112/75 08/20/17 07:31 O2 Sat by Pulse Oximetry (%) 95 08/20/17 07:31 Renal/: Yes: CVA Tenderness - Right Labs: CBC, BMP 08/20/17 06:08 08/20/17 06:08 Imaging - Results Cat Scan: Report Reviewed, Image Reviewed Problem List - Problems (1) Hydronephrosis concurrent with and due to calculi of kidney and ureter Code(s): N13.2 - HYDRONEPHROSIS WITH RENAL AND URETERAL CALCULOUS OBSTRUCTION (2) Ureteral stone Assessment/Plan: ivfs, flomax, strain urine Code(s): N20.1 - CALCULUS OF URETER (3) UTI (urinary tract infection) Assessment/Plan: ur c+s, iv abxs, control DM, cysto and R JJ stent insertion after medically cleared if pt fails to improve on iv abxs Code(s): N39.0 - URINARY TRACT INFECTION, SITE NOT SPECIFIED
--- NOTE | 2017-08-20 11:54 | HP ---
Admitting History and Physical - Primary Care Physician PCP: Luis Copeland - Admission Chief Complaint: My abdomen was hurting History of Present Illness: Mrs Simon is a pleasant 86 year old female who presents with complaints of abdominal pain. It began suddenly early in the morning. It is suprapubic in location and radiated throughout her abdomen. She describes the pain as burning in nature. It was constant when it was present. At its worst it was 5-6/10. She has burning on urination which is chronic. She complains of constipation with her last bowel movement being 3 days ago. She was having nausea with clear emesis and that was when she decided to come in. She denies fevers, chills, lightheadedness, dizziness, chest pain or pressure, shortness of breath, or swelling. She says currently the pain has resolved but she is feeling weak. 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 History of Recent Travel: No Home Medications - Allergies Allergies/Adverse Reactions: Allergies Allergy/AdvReac Type Severity Reaction Status Date / Time clopidogrel bisulfate Allergy Rash Verified 08/19/17 21:09 [From Plavix] Penicillins Allergy Swelling Verified 08/19/17 21:09 quinidine Allergy Verified 08/19/17 21:09 IV CONTRAST Allergy Uncoded 08/19/17 21:10 - Home Medications Home Medications: Ambulatory Orders Aspirin [Aspirin EC] 81 mg PO DAILY 09/09/16 Famotidine [Pepcid] 20 mg PO HS 09/09/16 Atorvastatin Ca [Lipitor] 40 mg PO ASDIR 10/22/16 Levothyroxine [Synthroid -] 88 mcg PO DAILY@0700 10/22/16 Metoprolol Tartrate 100 mg PO TID 10/22/16 Potassium Chloride 10 meq PO MOWEFR 10/22/16 Digoxin 125 mcg PO ASDIR 08/20/17 Glipizide [Glucotrol -] 5 mg PO BID@0700,1630 08/20/17 Torsemide 20 mg PO DAILY 08/20/17 Warfarin Sodium [Coumadin] 3 mg PO ASDIR 08/20/17 Warfarin Sodium [Coumadin] 4 mg PO ASDIR 08/20/17 Family Disease History - Family Disease History Family Disease History: Diabetes: Brother (TB), Heart Disease: Grandparent ( Grandmother w/ heart disease), Mother, CA: Father (Esophageal cancer), Other: Brother Review of Systems Findings/Remarks: Full review of systems obtained, as per HPI and otherwise negative Physical Examination Vital Signs: Vital Signs Temperature 36.4 C L 08/20/17 07:31 Pulse Rate 103 H 08/20/17 07:31 Respiratory Rate 18 08/20/17 07:31 Blood Pressure 112/75 08/20/17 07:31 O2 Sat by Pulse Oximetry (%) 95 08/20/17 07:31 Constitutional: Yes: No Distress, Calm, Obese Eyes: Yes: Conjunctiva Clear, EOM Intact, PERRL HENT: Yes: Atraumatic, Normocephalic Cardiovascular: Yes: Regular Rate and Rhythm. No: Gallop, Murmur, Rub Respiratory: Yes: Regular, CTA Bilaterally. No: Rales, Rhonchi, Wheezes Gastrointestinal: Yes: Normal Bowel Sounds, Soft. No: Distention, Tenderness Extremities: Yes: WNL Edema: No Labs: CBC, BMP 08/20/17 06:08 08/20/17 06:08 Imaging - Results Cat Scan: Report Reviewed Problem List - Problems (1) UTI (urinary tract infection) Assessment/Plan: -urinalysis positive for UTI and symptoms consistent -however with chronic UTI vs colonization -admit to med/surg -started on levaquin, will continue -follow up urine cultures Code(s): N39.0 - URINARY TRACT INFECTION, SITE NOT SPECIFIED (2) Hydronephrosis concurrent with and due to calculi of kidney and ureter Assessment/Plan: -noted on CT scan -most likely cause of abdominal pain even though suprapubic and not flank -urology consulted and awaiting recommendations -continue IVF at this time Code(s): N13.2 - HYDRONEPHROSIS WITH RENAL AND URETERAL CALCULOUS OBSTRUCTION (3) ALEIDA (acute kidney injury) Assessment/Plan: -gentle hydration -? if secondary to renal stone with hydronephrosis -monitor for improvement Code(s): N17.9 - ACUTE KIDNEY FAILURE, UNSPECIFIED (4) CHF (congestive heart failure) Assessment/Plan: -continue torsemide -not in exacerbation Code(s): I50.9 - HEART FAILURE, UNSPECIFIED Qualifiers: Qualified Code(s): I50.32 - Chronic diastolic (congestive) heart failure (5) Coronary artery disease Assessment/Plan: -quiescent -continue home regimen Code(s): I25.10 - ATHSCL HEART DISEASE OF [place] CORONARY ARTERY W/O ANG PCTRS (6) Diabetes mellitus Assessment/Plan: -diabetic diet -SSI -continue glipizide at home dose -monitor Code(s): E11.9 - TYPE 2 DIABETES MELLITUS WITHOUT COMPLICATIONS (7) Hyperlipidemia Assessment/Plan: -continue statin Code(s): E78.5 - HYPERLIPIDEMIA, UNSPECIFIED (8) Hypothyroid Assessment/Plan: -continue levothyroxine Code(s): E03.9 - HYPOTHYROIDISM, UNSPECIFIED
[2017-08-20] MEDS ORDERED: DIGOXIN 0.125 MG TABLET (FP) PO SCH ×2 (12:00→22:00)
[2017-08-20] MEDS: METOPROLOL TARTRATE 50 MG TABLET (FP) PO SCH ×2 (14:13→22:48)
[2017-08-20] MEDS ORDERED: ZOLPIDEM TARTRATE 5 MG TABLET PO PRN (14:40)
--- NOTE | 2017-08-20 15:16 | CON.CARD ---
Cardiology Consult (text) - Consultation Consultation Note: CC: kidney stone 86 yo with h/o afib, s/p mech AVR, functional MS, CAD s/p PCI x 2 - 05/2016 , diastolic HF, DM, hypothyroidism who p/w n/v and found to have obstructing kidney stone. has been stable from cv perspective. no orthopnea, cp, worsened zurita, palps, dizziness, pnd, worsened le edema, transient neurologic sx's. + n/v. + brief hematuria. no diarrhea. no f/c/s, cough, congestion, h/a, rash , visual disturbances. pmhx/pshx: per hpi family hx: no premature cad social hx: no tob ros: per hpi Ambulatory Orders Aspirin [Aspirin EC] 81 mg PO DAILY 09/09/16 Famotidine [Pepcid] 20 mg PO HS 09/09/16 Atorvastatin Ca [Lipitor] 40 mg PO ASDIR 10/22/16 Levothyroxine [Synthroid -] 88 mcg PO DAILY@0700 10/22/16 Metoprolol Tartrate 100 mg PO TID 10/22/16 Potassium Chloride 10 meq PO MOWEFR 10/22/16 Digoxin 125 mcg PO ASDIR 08/20/17 Glipizide [Glucotrol -] 5 mg PO BID@0700,1630 08/20/17 Torsemide 20 mg PO DAILY 08/20/17 Warfarin Sodium [Coumadin] 3 mg PO ASDIR 08/20/17 Warfarin Sodium [Coumadin] 4 mg PO ASDIR 08/20/17 Current Medications Atorvastatin Calcium (Lipitor -) 40 mg PO MoTuWeThFr@HS [facility] Digoxin (Lanoxin -) 0.125 mg PO MoWeFr@1000 [facility] Docusate Sodium (Colace -) 100 mg PO BID [facility] Glipizide (Glucotrol -) 5 mg PO BID@0700,1630 [facility] Levofloxacin (Levaquin 250 Mg Premixed Ivpb -) 250 mg in 50 mls @ 50 mls/hr IVPB DAILY [facility] PRN Reason: Protocol Sodium Chloride (1/2 Normal Saline) 1,000 mls @ 75 mls/hr IV ASDIR [facility] Last Admin: 08/20/17 07:57 Dose: 75 mls/hr Insulin Aspart (Novolog Vial Sliding Scale -) 1 vial SQ ACHS [facility] PRN Reason: Protocol Last Admin: 08/20/17 12:42 Dose: 10 units Levothyroxine Sodium (Synthroid -) 88 mcg PO DAILY@0700 [facility] Last Admin: 08/20/17 07:55 Dose: 88 mcg Metoprolol Tartrate (Lopressor -) 100 mg PO TID [facility] Last Admin: 08/20/17 14:13 Dose: 100 mg Morphine Sulfate (Morphine Injection -) 2 mg IVPUSH Q4H PRN PRN Reason: PAIN LEVEL 1-5 Ondansetron HCl (Zofran Injection) 4 mg IVPUSH Q6H PRN PRN Reason: NAUSEA Last Admin: 08/20/17 12:46 Dose: 4 mg Polyethylene Glycol (Miralax (For Daily Use) -) 17 gm PO BID [facility] Ranitidine HCl (Zantac -) 150 mg PO HS [facility] Torsemide (Demadex -) 20 mg PO DAILY [facility] Warfarin Sodium (Coumadin -) 3 mg PO SuMoWeThSa@1800 [facility] Warfarin Sodium (Coumadin -) 4 mg PO TuFr@1800 [facility] Zolpidem Tartrate (Ambien -) 5 mg PO HS PRN PRN Reason: INSOMNIA Vital Signs - 24 hr 08/19/17 08/20/17 08/20/17 21:06 03:15 07:31 Temperature 97.3 F L 98.6 F 97.5 F L Pulse Rate 77 Pulse Rate [ 101 H 103 H Right Apical] Respiratory 18 19 18 Rate Blood Pressure 172/82 Blood Pressure 168/89 112/75 [Right Arm] O2 Sat by Pulse 94 L 99 95 Oximetry (%) 08/20/17 08/20/17 08/20/17 10:00 11:00 14:33 Temperature 97.6 F 97.5 F L Pulse Rate 79 80 Pulse Rate [ Right Apical] Respiratory 20 20 Rate Blood Pressure 116/73 111/64 Blood Pressure [Right Arm] O2 Sat by Pulse 94 L Oximetry (%) Intake & Output 08/18/17 08/19/17 08/20/17 08/21/17 07:59 07:59 07:59 07:59 Weight 149 lb nad, calm jvd mild elevation, neck supple cta bl nl effort irregularly irregular nl s1, mechanical s2. 2/6 murmur at apex. + bs soft nt nd ext without e/c/c aaox3 no jaundice, diaphoreiss CBC, BMP 08/20/17 06:08 08/20/17 06:08 86 yo with h/o afib, s/p mech AVR, functional MS, CAD s/p PCI x 2 - 05/2016 , diastolic HF, DM, hypothyroidism who p/w n/v and found to have obstructing kidney stone. - Based on rcri and advanced age, patient with high po-operative cv risk. however, optimized from CV perspective. no further testing needed prior to intervention. Patient and family counseled on risk. - gentle IVF as needed per pmd/urology with close monitoring of volume status. daily weights, i/o's. bmp. - check digoxin level in setting of henrry. - coumadin dosing per inr.
[2017-08-20] MEDS ORDERED: WARFARIN NA 3 MG TABLET PO SCH (18:00)
[2017-08-20] MEDS ORDERED: INSULIN (NOVOLOG) ASPART 100 UNITS/ML 10ML VIAL ONE (18:35)
[2017-08-20] MEDS: glipiZIDE 5 MG TABLET (FP) PO SCH (18:37)
[2017-08-20] MEDS: POLYETHYLENE GLYCOL 3350 119 GM BTL PO SCH (22:41)
[2017-08-20] MEDS: RANITIDINE HCL 150 MG TABLET (FP) PO SCH (22:46)
[2017-08-20] MEDS: DOCUSATE SODIUM 100 MG CAPSULE (FP) PO SCH (22:48)
[2017-08-20] MEDS: ATORVASTATIN CA 40 MG TABLET (FP) PO SCH (22:51)
[2017-08-21] MEDS: LEVOTHYROXINE NA 88 MCG TABLET (FP) PO SCH (06:04)
[2017-08-21] MEDS: INSULIN SLIDING SCALE (NOVOLOG) 1 VIAL SQ SCH ×4 (06:04→22:19)
[2017-08-21] MEDS: glipiZIDE 5 MG TABLET (FP) PO SCH ×2 (06:04→17:55)
[2017-08-21] MEDS: SODIUM CHLORIDE 0.45% 1,000 ML IV SCH (06:06)
[2017-08-21] MEDS: METOPROLOL TARTRATE 50 MG TABLET (FP) PO SCH ×3 (06:07→23:13)
[2017-08-21 07:45] LABS: BASO % 0.6 % (0-2.0); EOS % 1.4 % (0-4.5); HEMATOCRIT 36.9 % (32.4-45.2); HEMOGLOBIN 12.5 GM/dL (10.7-15.3); LYMPH % 21.8 % (8-40); MCH 29.4 pg (25.7-33.7); MEAN CELL VOLUME 86.5 fl (80-96); MONO % 8.8 % (3.8-10.2); NEUT % 67.4 % (42.8-82.8); PLATELET COUNT 154 K/MM3 (134-434); RBC 4.27 M/mm3 (3.60-5.2); RDW 14.8 % (11.6-15.6); WHITE BLOOD COUNT 10.5 K/mm3 (4.0-10.0)
--- NOTE | 2017-08-21 07:57 | PN ---
DAMIEN Lau Note History of Present Illness: pt feels better, no pain or fever, no stone passage - Objective Vital Signs: Vital Signs Temperature 98.4 F 08/21/17 06:00 Pulse Rate 78 08/21/17 06:00 Respiratory Rate 18 08/21/17 06:00 Blood Pressure 122/61 08/21/17 06:00 O2 Sat by Pulse Oximetry (%) 94 L 08/20/17 10:00 Labs/Additional Data: CBC, BMP 08/21/17 07:00 INR, PTT INR 3.67 (0.82-1.09) H 08/20/17 06:08 Problem List - Problems (1) Hydronephrosis concurrent with and due to calculi of kidney and ureter Code(s): N13.2 - HYDRONEPHROSIS WITH RENAL AND URETERAL CALCULOUS OBSTRUCTION (2) Ureteral stone Assessment/Plan: pt declines R JJ stent insertion, will rx flomax and cont med expulsive rx and iv abxs Code(s): N20.1 - CALCULUS OF URETER (3) UTI (urinary tract infection) Assessment/Plan: await ur c+s Code(s): N39.0 - URINARY TRACT INFECTION, SITE NOT SPECIFIED
[2017-08-21 08:01] LABS: PROTHROMBIN TIME (PATIENT) 47.5 SEC (9.7-13.0)
[2017-08-21 08:07] LABS: INR 4.2 (0.82-1.09)
[2017-08-21 08:14] LABS: CHLORIDE 102 mmol/L (98-107); SODIUM 135 mmol/L (136-145)
[2017-08-21 08:24] LABS: ANION GAP 8 (8-16); BLOOD UREA NITROGEN 39 mg/dL (7-18); CALCIUM 9.1 mg/dL (8.5-10.1); CO2 25 mmol/L (21-32); CREATININE 1.8 mg/dL (0.55-1.02); GLUCOSE,RANDOM 135 mg/dL (74-106); MAGNESIUM 1.9 mg/dL (1.8-2.4); PHOSPHOROUS 3.3 mg/dL (2.5-4.9)
[2017-08-21] MEDS ORDERED: TAMSULOSIN HCL 0.4 MG CAP.ER.24H (FP) PO ONE (08:32)
[2017-08-21] MEDS: DOCUSATE SODIUM 100 MG CAPSULE (FP) PO SCH ×2 (09:17→22:18)
[2017-08-21] MEDS: TORSEMIDE 20 MG TABLET (FP) PO SCH (09:17)
[2017-08-21] MEDS: POLYETHYLENE GLYCOL 3350 119 GM BTL PO SCH ×3 (09:17→22:18)
--- NOTE | 2017-08-21 12:11 | PN ---
Progress Note, Physician Chief Complaint: Ms Simon is without complaint today. No cp, sob, n/v, or abdominal pain. - Current Medication List Current Medications: Active Medications Atorvastatin Calcium (Lipitor -) 40 mg PO MoTuWeThFr@HS [facility] Last Admin: 08/20/17 22:51 Dose: 40 mg Digoxin (Lanoxin -) 0.125 mg PO MoWeFr@2200 [facility] Last Admin: 08/20/17 22:46 Dose: 0.125 mg Docusate Sodium (Colace -) 100 mg PO BID [facility] Last Admin: 08/21/17 09:17 Dose: 100 mg Glipizide (Glucotrol -) 5 mg PO BID@0700,1630 [facility] Last Admin: 08/21/17 06:04 Dose: 5 mg Sodium Chloride (1/2 Normal Saline) 1,000 mls @ 75 mls/hr IV ASDIR [facility] Last Admin: 08/21/17 06:06 Dose: 75 mls/hr Insulin Aspart (Novolog Vial Sliding Scale -) 1 vial SQ ACHS [facility] PRN Reason: Protocol Last Admin: 08/21/17 06:04 Dose: Not Given Levothyroxine Sodium (Synthroid -) 88 mcg PO DAILY@0700 [facility] Last Admin: 08/21/17 06:04 Dose: 88 mcg Metoprolol Tartrate (Lopressor -) 100 mg PO TID [facility] Last Admin: 08/21/17 06:07 Dose: 100 mg Morphine Sulfate (Morphine Injection -) 2 mg IVPUSH Q4H PRN PRN Reason: PAIN LEVEL 1-5 Ondansetron HCl (Zofran Injection) 4 mg IVPUSH Q6H PRN PRN Reason: NAUSEA Last Admin: 08/20/17 12:46 Dose: 4 mg Polyethylene Glycol (Miralax (For Daily Use) -) 17 gm PO BID [facility] Last Admin: 08/21/17 09:25 Dose: 17 grams Ranitidine HCl (Zantac -) 150 mg PO HS [facility] Last Admin: 08/20/17 22:46 Dose: 150 mg Torsemide (Demadex -) 20 mg PO DAILY [facility] Last Admin: 08/21/17 09:17 Dose: 20 mg Warfarin Sodium (Coumadin -) 3 mg PO SuMoWeThSa@1800 [facility] Last Admin: 08/20/17 18:37 Dose: 3 mg Warfarin Sodium (Coumadin -) 4 mg PO TuFr@1800 [facility] Zolpidem Tartrate (Ambien -) 5 mg PO HS PRN PRN Reason: INSOMNIA - Objective Vital Signs: Vital Signs Temperature 36.9 C 08/21/17 07:15 Pulse Rate 83 08/21/17 07:15 Respiratory Rate 18 08/21/17 07:15 Blood Pressure 124/57 08/21/17 07:15 O2 Sat by Pulse Oximetry (%) 94 L 08/20/17 10:00 Constitutional: Yes: Well Nourished, No Distress, Calm Cardiovascular: Yes: Regular Rate and Rhythm. No: Gallop, Murmur, Rub Respiratory: Yes: Regular, CTA Bilaterally. No: Rales, Rhonchi, Wheezes Gastrointestinal: Yes: Normal Bowel Sounds, Soft. No: Distention, Tenderness Extremities: Yes: WNL Edema: No Labs: CBC, BMP 08/21/17 07:00 08/21/17 07:00 INR, PTT INR 4.20 (0.82-1.09) H* 08/21/17 07:00 Problem List - Problems (1) Coumadin toxicity Code(s): T45.511A - POISONING BY ANTICOAGULANTS, ACCIDENTAL, INIT Assessment/Plan (1) UTI (urinary tract infection) Assessment/Plan: -urine cultures negative -will stop levaquin Code(s): N39.0 - URINARY TRACT INFECTION, SITE NOT SPECIFIED (2) Hydronephrosis concurrent with and due to calculi of kidney and ureter Assessment/Plan: -appreciate urology assistance -patient declines procedure -started on flomax -will stop IVF secondary to patient looking euvolemic with history of CHF Code(s): N13.2 - HYDRONEPHROSIS WITH RENAL AND URETERAL CALCULOUS OBSTRUCTION (3) ALEIDA (acute kidney injury) Assessment/Plan: -much improved Code(s): N17.9 - ACUTE KIDNEY FAILURE, UNSPECIFIED (4) CHF (congestive heart failure) Assessment/Plan: -continue torsemide -stop IVF -not in exacerbation Code(s): I50.9 - HEART FAILURE, UNSPECIFIED Qualifiers: Qualified Code(s): I50.32 - Chronic diastolic (congestive) heart failure (5) Coronary artery disease Assessment/Plan: -quiescent -continue home regimen Code(s): I25.10 - ATHSCL HEART DISEASE OF [place] CORONARY ARTERY W/O ANG PCTRS (6) Diabetes mellitus Assessment/Plan: -diabetic diet -SSI -continue glipizide at home dose -monitor Code(s): E11.9 - TYPE 2 DIABETES MELLITUS WITHOUT COMPLICATIONS (7) Hyperlipidemia Assessment/Plan: -continue statin Code(s): E78.5 - HYPERLIPIDEMIA, UNSPECIFIED (8) Hypothyroid Assessment/Plan: -continue levothyroxine Code(s): E03.9 - HYPOTHYROIDISM, UNSPECIFIED (9) Coumadin toxicity -secondary to coumadin interaction with levaquin -hold coumadin -stop levaquin
--- NOTE | 2017-08-21 14:52 | PN ---
Progress Note (short form) - Note Progress Note: CC: kidney stones/henrry S: sx's improved today, but still with poor po intake. . off ivf. no cp, palps, sob, dizziness. Current Medications Atorvastatin Calcium (Lipitor -) 40 mg PO MoTuWeThFr@HS [facility] Last Admin: 08/20/17 22:51 Dose: 40 mg Digoxin (Lanoxin -) 0.125 mg PO MoWeFr@2200 [facility] Last Admin: 08/20/17 22:46 Dose: 0.125 mg Docusate Sodium (Colace -) 100 mg PO BID [facility] Last Admin: 08/21/17 09:17 Dose: 100 mg Glipizide (Glucotrol -) 5 mg PO BID@0700,1630 [facility] Last Admin: 08/21/17 06:04 Dose: 5 mg Sodium Chloride (1/2 Normal Saline) 1,000 mls @ 75 mls/hr IV ASDIR [facility] Last Admin: 08/21/17 06:06 Dose: 75 mls/hr Insulin Aspart (Novolog Vial Sliding Scale -) 1 vial SQ ACHS [facility] PRN Reason: Protocol Last Admin: 08/21/17 12:10 Dose: 2 units Levothyroxine Sodium (Synthroid -) 88 mcg PO DAILY@0700 [facility] Last Admin: 08/21/17 06:04 Dose: 88 mcg Metoprolol Tartrate (Lopressor -) 100 mg PO TID [facility] Last Admin: 08/21/17 14:18 Dose: 100 mg Morphine Sulfate (Morphine Injection -) 2 mg IVPUSH Q4H PRN PRN Reason: PAIN LEVEL 1-5 Ondansetron HCl (Zofran Injection) 4 mg IVPUSH Q6H PRN PRN Reason: NAUSEA Last Admin: 08/20/17 12:46 Dose: 4 mg Polyethylene Glycol (Miralax (For Daily Use) -) 17 gm PO BID [facility] Last Admin: 08/21/17 09:25 Dose: 17 grams Ranitidine HCl (Zantac -) 150 mg PO HS [facility] Last Admin: 08/20/17 22:46 Dose: 150 mg Torsemide (Demadex -) 20 mg PO DAILY [facility] Last Admin: 08/21/17 09:17 Dose: 20 mg Warfarin Sodium (Coumadin -) 3 mg PO SuMoWeThSa@1800 [facility] Last Admin: 08/20/17 18:37 Dose: 3 mg Warfarin Sodium (Coumadin -) 4 mg PO TuFr@1800 [facility] Zolpidem Tartrate (Ambien -) 5 mg PO HS PRN PRN Reason: INSOMNIA Vital Signs - 24 hr 08/20/17 08/20/17 08/20/17 17:03 22:46 22:53 Temperature 97.5 F L Pulse Rate 79 80 80 Respiratory 18 20 Rate Blood Pressure 128/48 127/55 08/21/17 08/21/17 06:00 07:15 Temperature 98.4 F 98.4 F Pulse Rate 78 83 Respiratory 18 18 Rate Blood Pressure 122/61 124/57 Intake & Output 08/19/17 08/20/17 08/21/17 08/22/17 07:59 07:59 07:59 07:59 Intake Total 1300 575 Balance 1300 575 Weight 149 lb 149 lb nad, calm jvd mild elevation, neck supple cta bl nl effort irregularly irregular nl s1, mechanical s2. 2/6 murmur at apex. + bs soft nt nd ext without e/c/c aaox3 no jaundice, diaphoreiss CBC, BMP 08/21/17 07:00 08/21/17 07:00 Laboratory Tests 10/10/16 08/20/17 08/21/17 05:35 00:20 07:00 INR 1.88 H 4.20 H* Lactic Acid 2.4 H* kidney stone/henrry - henrry improving s/p IVF. patient declines intervention afib/ hx of mechanical AVR, - con't AC with coumadin per inr. (currently supratherapeutic) - rate controlled on current meds. - dig level ok CAD: -had 2 stents 05/19 con't home DAPT (ASA + Effient), metopr, statin -ECG here with LBBB not new -trop neg x 1 diastolic HF/valvular HF/functional ms. - remains euvolemic. in light of poor po intake will decrease torsemide to 20 mg alternating with 10 mg. - daily weights, i/o's stable for d/c from cv perspective.
[2017-08-21] MEDS ORDERED: WARFARIN NA 2 MG TABLET (UD) PO SCH (18:00)
[2017-08-21] MEDS: RANITIDINE HCL 150 MG TABLET (FP) PO SCH (22:18)
[2017-08-21] MEDS: ATORVASTATIN CA 40 MG TABLET (FP) PO SCH (22:19)
--- NOTE | 2017-08-22 06:37 | HOSP ---
Physical Examination Vital Signs: Vital Signs Temperature 97.8 F 08/22/17 01:55 Pulse Rate 88 08/22/17 01:55 Respiratory Rate 20 08/22/17 01:55 Blood Pressure 108/60 08/22/17 01:55 O2 Sat by Pulse Oximetry (%) 94 L 08/21/17 21:00 Labs: CBC, BMP 08/21/17 07:00 08/21/17 07:00 Hospitalist Encounter Assessment: nurse called to report that coumadin was given last night despite elevated INR. coumadin order DC, INR order in place for am, Coumadin will need to be restarted when INR less than 3.5 (mechanical AV)
[2017-08-22] MEDS: INSULIN SLIDING SCALE (NOVOLOG) 1 VIAL SQ SCH ×2 (06:39→12:18)
[2017-08-22] MEDS: LEVOTHYROXINE NA 88 MCG TABLET (FP) PO SCH (06:48)
[2017-08-22] MEDS: glipiZIDE 5 MG TABLET (FP) PO SCH (06:48)
[2017-08-22] MEDS: METOPROLOL TARTRATE 50 MG TABLET (FP) PO SCH (06:48)
[2017-08-22 08:46] LABS: BASO % 1.2 % (0-2.0); EOS % 2.3 % (0-4.5); HEMATOCRIT 39.5 % (32.4-45.2); HEMOGLOBIN 13.2 GM/dL (10.7-15.3); MCH 29.3 pg (25.7-33.7); MCHC 33.5 g/dl (32.0-36.0); MEAN CELL VOLUME 87.4 fl (80-96); MEAN PLT VOLUME 10.2 fl (7.5-11.1); NEUT % 58.5 % (42.8-82.8); PLATELET COUNT 176 K/MM3 (134-434); RBC 4.51 M/mm3 (3.60-5.2); RDW 14.8 % (11.6-15.6)
[2017-08-22] MEDS: TORSEMIDE 20 MG TABLET (FP) PO SCH (09:03)
[2017-08-22] MEDS: DOCUSATE SODIUM 100 MG CAPSULE (FP) PO SCH (09:05)
[2017-08-22] MEDS: POLYETHYLENE GLYCOL 3350 119 GM BTL PO SCH (09:05)
[2017-08-22 09:11] LABS: PROTHROMBIN TIME (PATIENT) 45.4 SEC (9.7-13.0)
[2017-08-22 09:18] LABS: INR 4.02 (0.82-1.09)
[2017-08-22 09:23] LABS: ANION GAP 10 (8-16); BLOOD UREA NITROGEN 38 mg/dL (7-18); CALCIUM 9.4 mg/dL (8.5-10.1); CHLORIDE 102 mmol/L (98-107); CO2 25 mmol/L (21-32); CREATININE 1.9 mg/dL (0.55-1.02); GLUCOSE,RANDOM 135 mg/dL (74-106); PHOSPHOROUS 3.5 mg/dL (2.5-4.9); POTASSIUM 4.2 mmol/L (3.5-5.1); SODIUM 137 mmol/L (136-145)
[2017-08-22] MEDS ORDERED: TORSEMIDE 20 MG TABLET (FP) PO SCH (10:00)
[2017-08-22 11:39] VITALS: BP 112/53; PULSE 82; TEMP 98.1
--- NOTE | 2017-08-22 13:01 | DS ---
Physical Examination Vital Signs: Vital Signs Temperature 36.7 C 08/22/17 09:00 Pulse Rate 82 08/22/17 09:00 Respiratory Rate 20 08/22/17 09:00 Blood Pressure 112/53 08/22/17 09:00 O2 Sat by Pulse Oximetry (%) 94 L 08/21/17 21:00 Labs: CBC, BMP 08/22/17 08:05 08/22/17 08:05 Discharge Summary Reason For Visit: CALCULUS OF URETER Current Active Problems Coumadin toxicity (Acute) Hydronephrosis concurrent with and due to calculi of kidney and ureter (Acute) UTI (urinary tract infection) (Acute) Ureteral stone (Acute) Condition: Good - Instructions Diet, Activity, Other Instructions: resume previous diet and activity. Hold coumadin until INR below 3.5 then restart. Referrals: Luis Copeland MD [Primary Care Provider] - Disposition: HOME - Home Medications Comprehensive Discharge Medication List: Ambulatory Orders Aspirin [Aspirin EC] 81 mg PO DAILY 09/09/16 Famotidine [Pepcid] 20 mg PO HS 09/09/16 Atorvastatin Ca [Lipitor] 40 mg PO ASDIR 10/22/16 Levothyroxine [Synthroid -] 88 mcg PO DAILY@0700 10/22/16 Metoprolol Tartrate 100 mg PO TID 10/22/16 Potassium Chloride 10 meq PO MOWEFR 10/22/16 Digoxin 125 mcg PO ASDIR 08/20/17 Glipizide [Glucotrol -] 5 mg PO BID@0700,1630 08/20/17 Torsemide 20 mg PO DAILY 08/20/17 Warfarin Sodium [Coumadin] 3 mg PO ASDIR 08/20/17 Warfarin Sodium [Coumadin] 4 mg PO ASDIR 08/20/17 Torsemide [Demadex -] 20 mg PO DAILY tablet 08/22/17
== END 2017-08-22 13:38 | disposition home or self-care (01) | DRG 683 ==
LOC: JER 21:01 → JERBED 08-20 03:00 → J6S 08-20 17:30
PROVIDERS: ADMIT Specialist; ATTEND Specialist
DX: N17.9 Acute kidney failure, unspecified (principal); N13.6 Pyonephrosis; I50.32 Chronic diastolic (congestive) heart failure; I25.10 Atherosclerotic heart disease of native coronary artery without angina pectoris; I11.0 Hypertensive heart disease with heart failure; I35.0 Nonrheumatic aortic (valve) stenosis; E11.9 Type 2 diabetes mellitus without complications; I48.91 Unspecified atrial fibrillation; E03.9 Hypothyroidism, unspecified; N28.9 Disorder of kidney and ureter, unspecified; E78.5 Hyperlipidemia, unspecified; T45.515A Adverse effect of anticoagulants, initial encounter; Z95.2 Presence of prosthetic heart valve; Z85.3 Personal history of malignant neoplasm of breast; Z88.0 Allergy status to penicillin; Z95.5 Presence of coronary angioplasty implant and graft; Z95.1 Presence of aortocoronary bypass graft
CPT/HCPCS: 36415; 72192-TC; 74150-TC; 80048; 80053; 80162; 81003; 81015; 82962; 83605; 83690; 83735; 84100; 85025; 85610; 85730; 87086; 97116-GP; 97161-GP; 99283-25; J7030

== ENCOUNTER 2018-11-24 17:15 | Inpatient (IN) | payer OTHER, MEDICARE ==
[2018-11-24 17:45] VITALS: BMI 27.7
--- NOTE | 2018-11-24 18:15 | PDOC ---
History of Present Illness - General Chief Complaint: Congestive Heart Failure Stated Complaint: PAIN Time Seen by Provider: 11/24/18 17:46 History Source: Patient Exam Limitations: No Limitations - History of Present Illness Initial Comments: 11/24/18 17:59 87 yo female pmh Afib(on coumadin), CAD, HTN, HLD, DM, CHF (on 20mg Torsimide 6 days a week) and interstitial lung disease presents to the ED from home with 1 day of shortness of breath on exertion. Pt son present at bedside, he is a Cardiology PA and provides most hx. Pt reported to be eating a lot more salt over the last 1 week. This am O2 saturation high 90s RA, after walking, O2 sat 90% RA. Bilateral legs more swollen than baseline. Primary Cardiology Dr. Parker , sees pt every 3 months, recently work up neg. No F/C/N/V, calf tenderness, recent travel, CO, back pain or changes in bowel/bladder habits. PCP Dr. Ellington Past History - Past Medical History Allergies/Adverse Reactions: Allergies Allergy/AdvReac Type Severity Reaction Status Date / Time clopidogrel bisulfate Allergy Rash Verified 08/19/17 21:09 [From Plavix] Penicillins Allergy Swelling Verified 08/19/17 21:09 quinidine Allergy Verified 08/19/17 21:09 IV CONTRAST Allergy Uncoded 08/19/17 21:10 Home Medications: Ambulatory Orders Aspirin [Aspirin EC] 81 mg PO DAILY 09/09/16 Famotidine [Pepcid] 20 mg PO HS 09/09/16 Atorvastatin Ca [Lipitor] 40 mg PO ASDIR 10/22/16 Levothyroxine [Synthroid -] 88 mcg PO DAILY@0700 10/22/16 Metoprolol Tartrate 100 mg PO BID 10/22/16 Glipizide [Glucotrol -] 5 mg PO BID 08/20/17 Warfarin Sodium [Coumadin] 3 mg PO ASDIR 08/20/17 Torsemide [Demadex -] 20 mg PO DAILY tablet 08/22/17 Potassium Chloride [K-Dur -] 40 meq PO ONCE 11/24/18 Anemia: No Asthma: No Cancer: Yes (H/O RT BREAST with rt mastectomy) Cardiac Disorders: Yes (CAD, STENT, AVR) CVA: No COPD: No CHF: No Dementia: No Diabetes: Yes GI Disorders: No Disorders: No HTN: Yes Hypercholesterolemia: Yes Liver Disease: No Seizures: No Thyroid Disease: No - Surgical History Abdominal Surgery: No Appendectomy: No Cardiac Surgery: Yes (CABG, STENTS) Cholecystectomy: No Lung Surgery: No Neurologic Surgery: No - Immunization History Immunization Up to Date: Yes - Suicide/Smoking/Psychosocial Hx Smoking History: Former smoker Have you smoked in the past 12 months: No Information on smoking cessation initiated: No Hx Alcohol Use: No Drug/Substance Use Hx: No Substance Use Type: None Hx Substance Use Treatment: No Review of Systems - Review of Systems Constitutional: No: Chills, Fever Respiratory: Yes: Shortness of Breath, SOB with Exertion. No: SOB at Rest Cardiac (ROS): Yes: Edema. No: Chest Pain ABD/GI: No: Constipated, Diarrhea, Nausea, Vomiting : No: Burning, Dysuria, Frequency, Flank Pain Musculoskeletal: No: Back Pain Integumentary: No: Change in Color Neurological: No: Headache, Numbness, Paresthesia, Weakness *Physical Exam - Vital Signs Last Vital Signs Temp Pulse Resp BP Pulse Ox 97.2 F L 80 20 118/70 97 11/24/18 17:41 11/24/18 17:41 11/24/18 17:41 11/24/18 17:41 11/24/18 17:41 - Physical Exam General Appearance: Yes: Nourished, Appropriately Dressed. No: Apparent Distress HEENT: positive: EOMI Neck: positive: Supple. negative: Carotid bruit Respiratory/Chest: positive: Crackles (RLL). negative: Respiratory Distress, Rales, Rhonchi, Stridor, Wheezing Cardiovascular: positive: Edema (bilateral pitting), Irregularly Irregular. negative: JVD, Murmur Vascular Pulses: Dorsalis-Pedis (R): 3+, Doralis-Pedis (L): 3+ Gastrointestinal/Abdominal: positive: Flat, Soft. negative: Pulsatile Mass, Protuberent, Distended, Guarding, Rebound Musculoskeletal: negative: CVA Tenderness Extremity: positive: Normal Capillary Refill, Normal Inspection, Normal Range of Motion Integumentary: positive: Normal Color, Dry, Warm Neurologic: positive: Fully Oriented, Alert, Normal Mood/Affect, Normal Response , Motor Strength 5/5 ED Treatment Course - LABORATORY CBC & Chemistry Diagram: 11/24/18 18:00 11/24/18 18:00 Medical Decision Making - Medical Decision Making 11/24/18 20:39 87 yo female pmh Afib(on coumadin), CAD, HTN, HLD, DM, CHF (on 20mg Torsemide 6 days a week) and interstitial lung disease presents to the ED from home with 1 day of shortness of breath on exertion. Pt son present at bedside, he is a Cardiology PA and provides most hx. Pt reported to be eating a lot more salt over the last 1 week. This am O2 saturation high 90s RA, after walking, O2 sat 90% RA. Bilateral legs more swollen than baseline. Primary Cardiology Dr. Parker , sees pt every 3 months, recently work up neg. No F/C/N/V, calf tenderness, recent travel, CO, back pain or changes in bowel/bladder habits. PCP Dr. Rakel powell WNL Pt saturating well on RA, NAD, non laboured breathing PE shows crackles RLL DDX INLT: ACS, CHF exacerbation, PE (not tachy, not hypoxic and therapeutic on warfarin), PNA, ILD CXR shows right sided consolidation worse than previous images, BNP above 5000 Trops neg, blood work otherwise WNL EKG baseline A fib without new changes Pt will be given 40 mg Torsemide for diuresis and admitted for further care 11/24/18 20:51 Case presented to Hospitalist team, agree to have pt admitted *DC/Admit/Observation/Transfer Diagnosis at time of Disposition: CHF exacerbation - Discharge Dispostion Condition at time of disposition: Stable Decision to Admit order: Yes - Referrals - Patient Instructions - Post Discharge Activity
[2018-11-24 18:54] LABS: EOS % 2.8 % (0-4.5); HEMATOCRIT 43.1 % (32.4-45.2); HEMOGLOBIN 14.4 GM/dL (10.7-15.3); LYMPH % 24.8 % (8-40); MCH 29.7 pg (25.7-33.7); MCHC 33.6 g/dl (32.0-36.0); MEAN CELL VOLUME 88.6 fl (80-96); MEAN PLT VOLUME 9.9 fl (7.5-11.1); MONO % 10.3 % (3.8-10.2); NEUT % 61.1 % (42.8-82.8); PLATELET COUNT 183 K/MM3 (134-434); RBC 4.86 M/mm3 (3.60-5.2); RDW 15.4 % (11.6-15.6); WHITE BLOOD COUNT 10.8 K/mm3 (4.0-10.0)
[2018-11-24 19:05] LABS: PROTHROMBIN TIME (PATIENT) 35.8 SEC (9.7-13.0)
[2018-11-24 20:13] LABS: ALBUMIN 3.3 g/dl (3.4-5.0); ALK PHOS 134 U/L (45-117); ANION GAP 7 MMOL/L (8-16); BLOOD UREA NITROGEN 34.1 mg/dL (7-18); CALCIUM 9.6 mg/dL (8.5-10.1); CHLORIDE 105 mmol/L (98-107); CO2 27 mmol/L (21-32); CREATININE 1.9 mg/dL (0.55-1.3); GLUCOSE,RANDOM 255 mg/dL (74-106); MAGNESIUM 2.1 mg/dL (1.8-2.4); N-TERMINAL BNP 5095.9 pg/ml (5-450); PHOSPHOROUS 3.3 mg/dL (2.5-4.9); POTASSIUM 5.8 mmol/L (3.5-5.1); SGOT/AST 54 U/L (15-37); SGPT/ALT 43 U/L (13-61); SODIUM 138 mmol/L (136-145); TOT PROT 6.9 g/dl (6.4-8.2)
[2018-11-24] MEDS ORDERED: TORSEMIDE 20 MG TABLET (FP) PO ONE (20:15)
--- NOTE | 2018-11-24 20:56 | PDOC ---
Documentation entered by Jose Awad SCRIBE, acting as scribe for Mary Chaidez MD. Mary Chaidez MD: This documentation has been prepared by the Ritesh chapman Daniel, SCRIBE, under my direction and personally reviewed by me in its entirety. I confirm that the documentation accurately reflects all work, treatment, procedures, and medical decision making performed by me. Attending Attestation - Resident Resident Name: Ze Almanza - ED Attending Attestation I have performed the following: I have examined & evaluated the patient, The case was reviewed & discussed with the resident, I agree w/resident's findings & plan, Exceptions are as noted - HPI HPI: 11/24/18 18:16 The patient is an 87 year old female with a past medical history of afib ( coumadin), CAD, HTN, HLD, diabetes, and CHF here today for evaluation of shortness of breath. The patient reports that she has had dyspnea on exertion with bilateral feet swelling. She notes eating an increasingly salty diet over the past week. Patient states that this feels like her typical CHF exacerbation. Patient denies headache, lightheadedness. Denies fever, chills. Denies chest pain. Denies nausea, vomiting, diarrhea, abdominal pain. Allergies: clopidogrel bisulfate, penicillins, quinidine, IV contrast PCP: Luis Copeland Windows Server Specialist: Mesha Parker - Physicial Exam PE: 11/24/18 20:42 alert 87 yo female BIBA for exertional dyspnea and LE edema head ncat eyes peter eomi neck supple lungs fine bibasilar rales b/l cvs irreg irreg rhythm abd soft,nontender extremities +++ LE edema b/l skin warm and dry neuro alert,conversant,moving her limbs 11/24/18 20:44 - Medical Decision Making 11/24/18 20:46 reviewing labs reveal increased BNP,pt has mild b/l rales,LE edema and is symptoms tic w exertional dyspnea. she denies chest pain cxr +chf INR=3 ,chronic afib labs cr=2.1 w h/o chronic renal insufficiency, negative troponin pt will be given IV diuretics and admitted for CHF exacerbation 11/24/18 20:54
[2018-11-24] MEDS ORDERED: ATORVASTATIN CA 40 MG TABLET (FP) PO SCH (22:15)
[2018-11-24] MEDS ORDERED: WARFARIN NA 3 MG TABLET PO SCH (22:15)
[2018-11-24] MEDS: INSULIN SLIDING SCALE (NOVOLOG) 1 VIAL SQ SCH (22:39)
--- NOTE | 2018-11-24 22:42 | HP ---
CHIEF COMPLAINT: SOB PCP: Dr. Ellington HISTORY OF PRESENT ILLNESS: 87 y/o F, pmh of a-fib on warfarin, CAD s/p cath, HTN, IIDM, HLD, CKD, CHF, ILD , presents to the ED c/o of intermittent sob of one day duration that started yesterday after coming home from vacationing with her family. Pt reports that she has been short of breath for a week now but she usually only gets it on moderate-severe exertion or walking a few blocks. This time she experienced her symptoms at rest, which resolved on its own. As per her , pt increased her salt intake drastically during her vacation. She also lost 30-40 Ibs of weight in the last year. She had seen a plant breeder in the past for sob, during which a cath revealed CAD in the LAD, for which stents were placed, but her SOB persisted and a second cath was done, but pt became unstable after infusion of dye, due to an allergy, after which her EF dropped to the 30s and she was diagnosed with CHF. They seen did serial Echos and her EF came back to normal range. Pt reports she has not been hospitalized for sob. Currently, pt's sob of breath has improved and pt has no c/o. Denies f/c/n/v/d, numbness or tingling, chest pain, abdominal pain. ER course was notable for: (1) torsemide 40 mg given (2) EKG- a-fib, left axis deviation, left bundle branch block (3) CXR- infiltrates in the Left lower lung and right middle and lower lungs, pending official read Recent Travel: denies PAST MEDICAL HISTORY: a-fib on warfarin, CAD s/p cath, HTN, IIDM, HLD, CHF, ILD PAST SURGICAL HISTORY: CAD s/p Cath x2 Social History: Smoking: denies Alcohol:denies Drugs: denies Family History: Father and Mother- throat cancer Allergies clopidogrel bisulfate [From Plavix] Allergy (Verified 08/19/17 21:09) Rash Penicillins Allergy (Verified 08/19/17 21:09) Swelling quinidine Allergy (Verified 08/19/17 21:09) Fever? IV CONTRAST Allergy (Uncoded 08/19/17 21:10) HOME MEDICATIONS: Home Medications Medication Instructions Recorded Aspirin [Aspirin EC] 81 mg PO DAILY 09/09/16 Famotidine [Pepcid] 20 mg PO HS 09/09/16 Atorvastatin Ca [Lipitor] 40 mg PO ASDIR 10/22/16 Levothyroxine [Synthroid -] 88 mcg PO DAILY@0700 10/22/16 Metoprolol Tartrate 100 mg PO BID 10/22/16 Glipizide [Glucotrol -] 5 mg PO BID 08/20/17 Warfarin Sodium [Coumadin] 3 mg PO ASDIR 08/20/17 Torsemide [Demadex -] 20 mg PO DAILY tablet 08/22/17 Potassium Chloride [K-Dur -] 40 meq PO ONCE 11/24/18 REVIEW OF SYSTEMS CONSTITUTIONAL: Admits- weight loss- 40 Ibs in the last one-two year Absent: fever, chills, diaphoresis, generalized weakness, loss of appetite HEENT: Absent: ear pain, eye pain, visual changes CARDIOVASCULAR: Admits: irregular heart rate, peripheral edema Absent: chest pain, syncope, palpitations, lightheadedness, RESPIRATORY: Admits: shortness of breath, dyspnea with exertion, orthopnea, Absent: cough, wheezing, stridor, hemoptysis GASTROINTESTINAL: Absent: abdominal pain, abdominal distension, nausea, vomiting, diarrhea, constipation, melena, hematochezia GENITOURINARY: Absent: dysuria, urgency, hesitancy, flank pain, HEMATOLOGIC/IMMUNOLOGIC: Absent: lymphadenopathy, frequent infections NEUROLOGIC: Absent: headache, dizziness, unsteady gait, seizure, mental status changes, bladder or bowel incontinence PSYCHIATRIC: Absent: anxiety, PHYSICAL EXAMINATION Vital Signs - 24 hr Last Vital Signs Temp Pulse Resp BP Pulse Ox 98.4 F 85 16 139/60 95 11/24/18 21:14 11/24/18 21:14 11/24/18 21:14 11/24/18 21:14 11/24/18 21:14 GENERAL: Awake, alert, and fully oriented, in no acute distress. AOx3 EYES: Pupils equal, round and reactive to light, extraocular movements intact, EARS, NOSE, THROAT: oropharynx clear without exudates. Moist mucous membranes. NECK: Supple without lymphadenopathy, JVD, or masses. No carotid bruit LUNGS: b/l Lower lobe crackles appreciated. Breath sounds equal, clear to auscultation bilaterally. No wheezes. HEART: Irregular rate and rhythm- a-fib, normal S1 and S2 without murmur, rub or gallop. ABDOMEN: Soft, nontender, not distended, normoactive bowel sounds, no guarding, no rebound, no masses. No hepatomegaly or splenomegaly. MUSCULOSKELETAL: No CVA tenderness. UPPER EXTREMITIES: 2+ pulses, warm, well-perfused. No peripheral edema. Left arm laceration, healing well and warped and dressed. LOWER EXTREMITIES: 2+ pulses, warm, well-perfused. No calf tenderness. Right leg 3+ pitting peripheral edema upto the knees, left leg 2+ non-pitting edema. NEUROLOGICAL: Normal speech. PSYCHIATRIC: Cooperative. Good eye contact. Appropriate mood and affect. Laboratory Results - last 24 hr CBC,CMP WBC 10.8 K/mm3 (4.0-10.0) H 11/24/18 18:00 RBC 4.86 M/mm3 (3.60-5.2) 11/24/18 18:00 Hgb 14.4 GM/dL (10.7-15.3) 11/24/18 18:00 Hct 43.1 % (32.4-45.2) 11/24/18 18:00 MCV 88.6 fl (80-96) 11/24/18 18:00 MCH 29.7 pg (25.7-33.7) 11/24/18 18:00 MCHC 33.6 g/dl (32.0-36.0) 11/24/18 18:00 RDW 15.4 % (11.6-15.6) 11/24/18 18:00 Plt Count 183 K/MM3 (134-434) 11/24/18 18:00 MPV 9.9 fl (7.5-11.1) 11/24/18 18:00 Absolute Neuts (auto) 6.6 K/mm3 (1.5-8.0) 11/24/18 18:00 Neutrophils % 61.1 % (42.8-82.8) 11/24/18 18:00 Lymphocytes % 24.8 % (8-40) 11/24/18 18:00 Monocytes % 10.3 % (3.8-10.2) H 11/24/18 18:00 Eosinophils % 2.8 % (0-4.5) 11/24/18 18:00 Basophils % 1.0 % (0-2.0) 11/24/18 18:00 Nucleated RBC % 0 % (0-0) 11/24/18 18:00 Sodium 138 mmol/L (136-145) 11/24/18 18:00 Potassium 4.5 mmol/L (3.5-5.1) 11/24/18 22:00 Chloride 105 mmol/L (98-107) 11/24/18 18:00 Carbon Dioxide 27 mmol/L (21-32) 11/24/18 18:00 Anion Gap 7 MMOL/L (8-16) L 11/24/18 18:00 BUN 34.1 mg/dL (7-18) H 11/24/18 18:00 Creatinine 1.9 mg/dL (0.55-1.3) H 11/24/18 18:00 Est GFR (CKD-EPI)AfAm 27.38 11/24/18 18:00 Est GFR (CKD-EPI)NonAf 23.62 11/24/18 18:00 POC Glucometer 292 UNITS (80-120) 11/24/18 22:22 Random Glucose 255 mg/dL (74-106) H 11/24/18 18:00 Calcium 9.6 mg/dL (8.5-10.1) 11/24/18 18:00 Phosphorus 3.3 mg/dL (2.5-4.9) 11/24/18 18:00 Magnesium 2.1 mg/dL (1.8-2.4) 11/24/18 18:00 Total Bilirubin 1.0 mg/dL (0.2-1) 11/24/18 18:00 AST 54 U/L (15-37) H 11/24/18 18:00 ALT 43 U/L (13-61) 11/24/18 18:00 Alkaline Phosphatase 134 U/L (45-117) H 11/24/18 18:00 Creatine Kinase 112 U/L (26-192) 11/24/18 18:00 Troponin I < 0.02 ng/ml (0.00-0.05) 11/24/18 18:00 B-Natriuretic Peptide 5095.9 pg/ml (5-450) H 11/24/18 18:00 Total Protein 6.9 g/dl (6.4-8.2) 11/24/18 18:00 Albumin 3.3 g/dl (3.4-5.0) L 11/24/18 18:00 ASSESSMENT/PLAN: 87 y/o F, pmh of a-fib on warfarin, CAD s/p cath, CHF, ILD, presents to the ED w / sob of one day duration, on CXR showed infiltrates b/l LL w/ resolution of symptoms after Torsemide 40mg in the ED #SOB likely 2/2 to CHF exacerbation vs ILD CXR shows infiltrates on b/l lower lungs, PE reveals crackles on lower lobes- could also be ILD Pt on tele Continue home meds- Torsemide 20 mg po monitor daily weight monitor I&O's Consult cardio- Dr. Parker Multiple ECHO's in the past, EF 45% as per family Next scheduled ECHO w/ Dr. Parker in a week Speak to cardio- consider echo is needed ECHO ordered Asymmetrical LE swelling, U/S ordered for DVT Wells score DVT- 2, moderate risk #Hyperkalemia magnesium ordered Potassium normalized- 4.5 monitor labs #DM BGM Insulin sliding scale Gluc at 292 will give insulin if necessary #CKD Cre 1.9, as per family this is baseline #A-fib pt has mechanical valve continue home meds- Warfarin 3mg po INR at 3 Monitor PT/INR daily #ILD CT chest ordered- compare old scans to today's to see progression of disease #CAD cont. home meds- ASA manage BP and blood sugars #HTN continue home meds- metoprolol monitor bp #HLD cont. home meds- atorvastatin #Hypothyroidism cont. home meds- synthroid FEN: Sodium controlled/Diabetic diet Dispo: monitor poc gluc and treat accordingly, f/u w/ Cardio- consider ECHO is necessary in the am, monitor weights and I&Os. Visit type - Emergency Visit Emergency Visit: Yes ED Registration Date: 11/24/18 Care time: The patient presented to the Emergency Department on the above date and was hospitalized for further evaluation of their emergent condition. - New Patient This patient is new to me today: Yes Date on this admission: 11/25/18 - Critical Care Critical Care patient: No ATTENDING PHYSICIAN STATEMENT I saw and evaluated the patient. I reviewed the resident's note and discussed the case with the resident. I agree with the resident's findings and plan as documented. SUBJECTIVE: OBJECTIVE: ASSESSMENT AND PLAN:
--- NOTE | 2018-11-24 23:05 | PN ---
Teaching Attending Note Name of Resident: Can Chaidez ATTENDING PHYSICIAN STATEMENT I saw and evaluated the patient. I reviewed the resident's note and discussed the case with the resident. I agree with the resident's findings and plan as documented. Seen and examined; please refer to resident note for further historical information. Briefly, this is an 87 y/o female presenting with SOB; she is found to have an elevated BNP with elevated Cr (higher than last visit but she has been higher than this in general in the past). Complex PMH involving severe s/p [employer] valve replacement as documented, CHF, HTN, HLD, CAD, Hypothyroidism. No hypoxia noted and she remains hemodynamically stable. I was informed CXR showed multilobar infiltrates but I do not see this; can check CT. She had findings on previous admission when she was seen by Dr. Jones for ILD and her symptoms improved with steroids. VS, labs, imaging reviewed NAD, AAO, resting in bed on RA NC AT EOMI PERRLA NT ND +BS Mild crackles noted, w/ sym exp CN2-12 wnl, no fnd Normal mood, appropriate behavior EKG reviewed; CXR reviewed ASSESSMENT AND PLAN: # Shortness of breath with hx HFpEF, ILD # Hx ILD # Hx D-CHF # CKD (around baseline) # CAD s/p PCI (2017) # Uncontrolled DM2 Hyperglycemia # Monocytosis # Functional MS # Chronically elevated alkaline phosphatase
[2018-11-25 06:40] VITALS: TEMP 97.8
[2018-11-25] MEDS ORDERED: LEVOTHYROXINE NA 88 MCG TABLET (FP) PO SCH (07:00)
[2018-11-25] MEDS: INSULIN SLIDING SCALE (NOVOLOG) 1 VIAL SQ SCH ×2 (07:05→11:45)
--- NOTE | 2018-11-25 08:15 | EKG ---
Test Reason : Blood Pressure : / mmHG Vent. Rate : 077 BPM Atrial Rate : 085 BPM P-R Int : 000 ms QRS Dur : 126 ms QT Int : 456 ms P-R-T Axes : 000 -46 082 degrees QTc Int : 516 ms ATRIAL FIBRILLATION LEFT AXIS DEVIATION LEFT BUNDLE BRANCH BLOCK ABNORMAL ECG WHEN COMPARED WITH ECG OF 22-OCT-2016 15:15, NO SIGNIFICANT CHANGE WAS FOUND Confirmed by LORENA KEITH, JOEY ([id number]) on 11/25/2018 8:14:58 AM Referred By: Confirmed By:JOEY CARRILLO MD
[2018-11-25] MEDS ORDERED: ASPIRIN COATED 81 MG TABLET.EC PO SCH (10:00)
[2018-11-25] MEDS ORDERED: predniSONE 20 MG TABLET (UD) PO SCH (10:00)
[2018-11-25] MEDS ORDERED: RANITIDINE HCL 150 MG TABLET (FP) PO SCH (10:00)
[2018-11-25] MEDS ORDERED: TORSEMIDE 20 MG TABLET (FP) PO SCH ×2 (10:00→10:53)
[2018-11-25] MEDS ORDERED: METOPROLOL TARTRATE 50 MG TABLET (FP) PO SCH (10:00)
[2018-11-25 12:09] VITALS: BP 138/69; PULSE 93
--- NOTE | 2018-11-25 14:18 | DS ---
Physical Exam: SUBJECTIVE: Patient seen and examined by Dr. Mendoza OBJECTIVE: Vital Signs Period Temp Pulse Resp BP Sys/Price Pulse Ox Last 24 Hr 97.2 F-98.4 F 80-93 16-20 115-139/56-70 92-97 PHYSICAL EXAM refer to Dr. Mendoza's note for PE LABS Laboratory Results - last 24 hr 11/24/18 11/24/18 11/24/18 18:00 18:00 18:00 WBC 10.8 H RBC 4.86 Hgb 14.4 Hct 43.1 MCV 88.6 MCH 29.7 MCHC 33.6 RDW 15.4 Plt Count 183 MPV 9.9 Absolute Neuts (auto) 6.6 Neutrophils % 61.1 Lymphocytes % 24.8 Monocytes % 10.3 H Eosinophils % 2.8 Basophils % 1.0 Nucleated RBC % 0 PT with INR 35.80 H INR 3.00 H Sodium 138 Potassium 5.8 H Chloride 105 Carbon Dioxide 27 Anion Gap 7 L BUN 34.1 H Creatinine 1.9 H Est GFR (CKD-EPI)AfAm 27.38 Est GFR (CKD-EPI)NonAf 23.62 POC Glucometer Random Glucose 255 H Calcium 9.6 Phosphorus 3.3 Magnesium 2.1 Total Bilirubin 1.0 AST 54 H ALT 43 Alkaline Phosphatase 134 H Creatine Kinase 112 Troponin I < 0.02 B-Natriuretic Peptide 5095.9 H Total Protein 6.9 Albumin 3.3 L 11/24/18 11/24/18 11/25/18 22:00 22:22 03:25 WBC RBC Hgb Hct MCV MCH MCHC RDW Plt Count MPV Absolute Neuts (auto) Neutrophils % Lymphocytes % Monocytes % Eosinophils % Basophils % Nucleated RBC % PT with INR INR Sodium Potassium 4.5 Chloride Carbon Dioxide Anion Gap BUN Creatinine Est GFR (CKD-EPI)AfAm Est GFR (CKD-EPI)NonAf POC Glucometer 292 166 Random Glucose Calcium Phosphorus Magnesium Total Bilirubin AST ALT Alkaline Phosphatase Creatine Kinase Troponin I B-Natriuretic Peptide Total Protein Albumin 11/25/18 06:55 WBC RBC Hgb Hct MCV MCH MCHC RDW Plt Count MPV Absolute Neuts (auto) Neutrophils % Lymphocytes % Monocytes % Eosinophils % Basophils % Nucleated RBC % PT with INR INR Sodium Potassium Chloride Carbon Dioxide Anion Gap BUN Creatinine Est GFR (CKD-EPI)AfAm Est GFR (CKD-EPI)NonAf POC Glucometer 215 Random Glucose Calcium Phosphorus Magnesium Total Bilirubin AST ALT Alkaline Phosphatase Creatine Kinase Troponin I B-Natriuretic Peptide Total Protein Albumin HOSPITAL COURSE: Ms. Simon is an 87yo female with s/p valve replacement on coumadin, CAD, hypothyroidism, HTN, HFpEF who presented with dyspnea and was found to be fluid overloaded initially. CT showed progression of ILD as well. Dr. Mendoza spoke with Dr. Copeland this morning and reported she was at baseline volume status. Torsemide has been titrated out pt recently and was increased today to 40mg so will be d/c home. Pt initially hyperkalemic at presentation but resolved. 5.8-- > 4.5. Coumadin was not administered in ED so spouse will check INR and administer as needed. Date of Admission:11/24/18 Date of Discharge: 11/25/18 Minutes to complete discharge: 35 Discharge Summary Reason For Visit: CONGESTIVE HEART FAILURE Condition: Stable - Instructions Diet, Activity, Other Instructions: Hosptial course: You were seen in the hospital for rapid heart rate, and shortness of breath. A duplex ultrasound of your legs revealed no blood clots. Your CT of your chest reveals progression of your interstitial lung disease. Discuss these findings with your primary care physician at your follow up appointment. Recommendations: Your Torsemide was increased to 40mg daily. Resume your other home medications. Check your INR today prior to taking your coumadin dose Follow up appointments: Follow up with your primary care provider within one- two days after hospital discharge Follow up with gear machine operator Dr. Parker within one week. A referral has been provided. Return to the nearest Emergency Department if you experience worsening symptoms , chest pain, palpitations, shortness of breath, weakness, falls, loss of consciousness. Referrals: Mesha Parker MD [Staff Physician] - Luis Copeland MD [Primary Care Provider] - Disposition: HOME - Home Medications Comprehensive Discharge Medication List: Ambulatory Orders Aspirin [Aspirin EC] 81 mg PO DAILY 09/09/16 Famotidine [Pepcid] 20 mg PO HS 09/09/16 Levothyroxine [Synthroid -] 88 mcg PO DAILY@0700 10/22/16 Metoprolol Tartrate 100 mg PO BID 10/22/16 Glipizide [Glucotrol -] 5 mg PO BID 08/20/17 Warfarin Sodium [Coumadin] 3 mg PO ASDIR 08/20/17 Atorvastatin Ca [Lipitor] 40 mg PO HS #0 tab 11/25/18 Torsemide [Demadex -] 40 mg PO DAILY 30 Days #60 tablet 11/25/18 This patient is new to me today: Yes Date on this admission: 11/25/18 Emergency Visit: Yes ED Registration Date: 11/24/18 Care time: The patient presented to the Emergency Department on the above date and was hospitalized for further evaluation of their emergent condition. Critical Care patient: No - Discharge Referral Referred to [facility] Med [facility] No ATTENDING PHYSICIAN STATEMENT I saw and evaluated the patient. I reviewed the resident's note and discussed the case with the resident. I agree with the resident's findings and plan as documented. SUBJECTIVE: OBJECTIVE: ASSESSMENT AND PLAN:
--- NOTE | 2018-11-25 15:27 | ECHO ---
Name: MARTA LÓPEZ Exam:Adult Echocardiogram Study Date: 11/25/2018 08:42 AM Age: 87 yrs Reason For Study: CHF Height: 60 in Weight: 142 lb BSA: 1.6 m2 MMode/2D Measurements & Calculations IVSd: 1.2 cm Ao root diam: 2.0 cm LVIDd: 3.2 cm LA dimension: 3.2 cm LVIDs: 2.7 cm LVPWd: 1.1 cm LVPWs: 1.0 cm EDV(Teich): 40.4 ml ESV(Teich): 26.4 ml LVOT diam: 1.3 cm LAV (MOD-bp): 53.0 ml TAPSE: 0.69 cm RV S Jatin: 7.2 cm/sec Doppler Measurements & Calculations MV V2 max: 178.1 cm/sec Ao V2 max: 212.8 cm/sec MV max P.7 mmHg Ao max P.2 mmHg MV V2 mean: 96.8 cm/sec Ao V2 mean: 140.3 cm/sec MV mean P.0 mmHg Ao mean P.5 mmHg MV V2 VTI: 28.6 cm Ao V2 VTI: 38.1 cm RODNEY(V,D): 0.44 cm2 LV V1 max P.7 mmHg TR max jatin: 276.1 cm/sec LV V1 max: 65.6 cm/sec TR max P.8 mmHg RVSP(TR): 40.8 mmHg PA V2 max: 64.0 cm/sec Med Peak E' Jatin: 4.3 cm/sec PA max P.6 mmHg Lat Peak E' Jatin: 5.6 cm/sec RAP systole: 10.0 mmHg Procedure A complete two-dimensional transthoracic echocardiogram was performed (2D, M-mode, Doppler and color flow Doppler). Technically limited study. Left Ventricle The left ventricle is normal in size. There is mild concentric left ventricular hypertrophy. Left debra tricular systolic function is moderately reduced. Ejection Fraction = 35-40%. Regional wall motion abnormality could not be accurately assessed due to poor acoustic window. Abnormal septal motion is seen. Right Ventricle The right ventricle is normal size. RV systolic TDI is estimated 7 cm/s suggests RV systolic dysfunct ion. Atria The left atrial size is normal. Right atrial size is normal. Mitral Valve There is severe mitral annular calcification. Calcified mitral apparatus. There is moderate mitral va lve thickening. There is moderate mitral regurgitation. Tricuspid Valve The tricuspid valve is normal in structure and function. There is moderate tricuspid regurgitation. P ulmonary artery systolic pressure is at least 42 mmHg assuming RA pressure of 3 mmHg. Aortic Valve There is a mechanical aortic valve. The prosthetic aortic valve is well-seated. Aortic mean pressure gradient= 9 mmHg. DI (dimensionless index) is 0.41. Mild aortic regurgitation. No evidence of paravalvular leak across mechanical aortic valve prosthesis. Pulmonic Valve The pulmonic valve is not well visualized. Great Vessels The aortic root is normal size. Pericardium/Pleura There is no pericardial effusion. Interpretation Summary Technically limited study The left ventricle is normal in size. There is mild concentric left ventricular hypertrophy. Left ventricular systolic function is moderately reduced. Regional wall motion abnormality could not be accurately assessed due to poor acoustic window. Abnorm al septal motion is seen Ejection Fraction = 35-40%. RV systolic TDI is estimated 7 cm/s suggests RV systolic dysfunction The left atrial size is normal. Right atrial size is normal. There is severe mitral annular calcification. Calcified mitral apparatus (densely calcified mitral leaflet chord) There is moderate mitral valve thickening. There is moderate mitral regurgitation. There is moderate tricuspid regurgitation. Pulmonary artery systolic pressure is at least 42 mmHg assuming RA pressure of 3 mmHg There is a mechanical aortic valve. The prosthetic aortic valve is well-seated. Aortic mean pressure gradient= 9 mmHg DI (dimensionless index) is 0.41 Mild aortic regurgitation. No evidence of paravalvular leak across mechanical aortic valve prosthesis There is no pericardial effusion. Daren Adam MD 11/25/2018 03:26 PM
--- NOTE | 2018-11-25 16:05 | PN ---
Teaching Attending Note Name of Resident: Paola Hanson ATTENDING PHYSICIAN STATEMENT I saw and evaluated the patient. I reviewed the resident's note and discussed the case with the resident. I agree with the resident's findings and plan as documented. SUBJECTIVE:asymptomatic. denies CP, SOB, fever, chills, N/V/C/D OBJECTIVE: Last Vital Signs Temp Pulse Resp BP Pulse Ox 97.8 F 93 H 18 138/69 97 11/25/18 10:58 11/25/18 11:50 11/25/18 11:50 11/25/18 11:50 11/25/18 11:50 General NAD CV S1 S2 + murmur Lungs CTA B/L no wheezing/rales/rhonchi Abdomen soft NT/ND Extremities 1+ pitting edema B/L, bruising at various stages of healing noted on all extremiteis ASSESSMENT AND PLAN: 87yo F wtih PMH severe s/p valve replacement on coumadin, CAD, hypothyroid, HTN and diastolic CHF presented to the ER wtih SOB and found to be volume overloaed 1. Acute diastolic CHF- this Am is at baseline. spoke with Dr Copeland who states she is currently at her baseline volume status. indicated that she has been titrating her diuretics and agreed that she can be discharge home on increased dose of toresmide. will d/c prednisone at htis time as no indication. 2. Hyperkalemia- resolved 3. d/c home
[2018-11-25] MEDS ORDERED: WARFARIN NA 3 MG TABLET PO SCH (18:00)
[2018-11-25] MEDS ORDERED: ATORVASTATIN CA 40 MG TABLET (FP) PO SCH (22:00)
== END 2018-11-25 12:25 | disposition home or self-care (01) | DRG 291 ==
LOC: JER 17:15 → JERBED 20:52
PROVIDERS: ADMIT Internal Medicine; ATTEND Internal Medicine
DX: I13.0 Hypertensive heart and chronic kidney disease with heart failure and stage 1 through stage 4 chronic kidney disease, or unspecified chronic kidney disease (principal); I50.33 Acute on chronic diastolic (congestive) heart failure; J84.9 Interstitial pulmonary disease, unspecified; I48.91 Unspecified atrial fibrillation; I25.10 Atherosclerotic heart disease of native coronary artery without angina pectoris; E87.5 Hyperkalemia; E03.9 Hypothyroidism, unspecified; Z98.61 Coronary angioplasty status; E87.70 Fluid overload, unspecified; E11.65 Type 2 diabetes mellitus with hyperglycemia; D72.821 Monocytosis (symptomatic)
CPT/HCPCS: 36415; 71045-TC-FY; 71250-TC; 80053; 82550; 82962; 83735; 83880; 84100; 84132; 84484; 85025; 85610; 93005; 93010; 93306-TC; 93970-TC; 99285-25

== ENCOUNTER 2019-05-01 14:17 | Emergency (ER) | payer OTHER, MEDICARE ==
--- NOTE | 2019-05-01 14:31 | PDOC ---
History of Present Illness - General Stated Complaint: Injury Time Seen by Provider: 05/01/19 14:30 Past History - Past Medical History Allergies/Adverse Reactions: Allergies Allergy/AdvReac Type Severity Reaction Status Date / Time clopidogrel bisulfate Allergy Rash Verified 11/25/18 06:44 [From Plavix] Penicillins Allergy Swelling Verified 11/25/18 06:44 quinidine Allergy Verified 11/25/18 06:44 IV CONTRAST Allergy Uncoded 11/25/18 06:44 Home Medications: Ambulatory Orders Aspirin [Aspirin EC] 81 mg PO DAILY 09/09/16 Famotidine [Pepcid] 20 mg PO HS 09/09/16 Levothyroxine [Synthroid -] 88 mcg PO DAILY@0700 10/22/16 Metoprolol Tartrate 100 mg PO BID 10/22/16 Glipizide [Glucotrol -] 5 mg PO BID 08/20/17 Warfarin Sodium [Coumadin] 3 mg PO ASDIR 08/20/17 Atorvastatin Ca [Lipitor] 40 mg PO HS #0 tab 11/25/18 Torsemide [Demadex -] 40 mg PO DAILY 30 Days #60 tablet 11/25/18 Anemia: No Asthma: No Cancer: Yes (H/O RT BREAST with rt mastectomy) Cardiac Disorders: Yes (CAD, STENT, AVR) CVA: No COPD: No CHF: No Dementia: No Diabetes: Yes GI Disorders: No Disorders: No HTN: Yes Hypercholesterolemia: Yes Liver Disease: No Seizures: No Thyroid Disease: No - Surgical History Abdominal Surgery: No Appendectomy: No Cardiac Surgery: Yes (CABG, STENTS) Cholecystectomy: No Lung Surgery: No Neurologic Surgery: No - Immunization History Immunization Up to Date: Yes - Psycho Social/Smoking Cessation Hx Smoking History: Former smoker Have you smoked in the past 12 months: No Hx Alcohol Use: No Drug/Substance Use Hx: No Substance Use Type: None Hx Substance Use Treatment: No Medical Decision Making - Medical Decision Making 05/01/19 15:16 88 y/o F hx of afib on coumadin, CAD, HTN, HLD, T2DM, CHF,presented to ED BIBEMS after a fall at home. SHe was on the toilet, when she slid to the floor, and hit her head. EMS was called by to the scene. He reports she uses oxygen at home. She was pulled out of the bathroom. She had a syncopal event after being pulled out of the bathroom. On arrival with EMS she was vomiting. on initial evaluation pt. had perioral cyanosis on nasal cannula and was switched to non-rebreather. non-arousable to sternal rub. resuscitation started after pulse could not be found. pt in cardiac arrest, in PEA on the monitor perioral cyanosis CPR commenced pt received epi, atropine, bicarb, mg, dextrose parasternal view non ultrasound showed no cardiac contractility time of : 3:07 05/01/19 15:27 initial EKG on arrival showed bradycardia 43 RBBB, left posterior fasicular block t wave abnormality consider inferolateral ischemia. 05/01/19 15:29 05/01/19 16:18 2:45PM CPR initiated secondary to PEA arrest 20 ga in the left hand placed 2:50PM Pulse check: not palpable 2:55PM Epi administered Atropine administered Calcium administered Rhythm check- Asystole Pulse check: not palpable 2:58PM Bicarb administered Shocked 200J Rhythm check- Asystole Pulse check: not palpable 2:59PM Dextrose administered Epi administered 3PM Rhythm check- Asystole Pulse check: not palpable 3:01PM 2g Magnesium administered 3:01PM Shocked 200 J Rhythm check- Asystole Pulse check: not palpable 3:02PM Epi administered 3:03PM Shocked 200 J Rhythm check- Asystole Pulse check: not palpable 3:06PM Pulse check: not palpable 3:06PM at bedside requests cessation of medical resuscitation and refused intubation. Time of : 15:07 05/01/19 16:18 -hearing examiner release number: [id number] spoke to Yesenia Hodgson Discharge - Discharge Information Problems reviewed: Yes Clinical Impression/Diagnosis: Cardiac arrest Condition: Disposition: - Follow up/Referral Referrals: Luis Copeland MD [Primary Care Provider] - - Patient Discharge Instructions - Post Discharge Activity
[2019-05-01] MEDS ORDERED: ATROPINE SULFATE 1 MG/10 ML DISP.SYRIN IVPUSH ONE (14:50)
[2019-05-01 15:40] VITALS: BP 0/0; PULSE 43; BMI 33.3
--- NOTE | 2019-05-01 15:40 | PDOC ---
Documentation entered by Armand Toribio SCRIBE, acting as scribe for Gardenia Granados MD. Gardenia Granados MD: This documentation has been prepared by the Catarino chapman Nirvannie, SCRIBE, under my direction and personally reviewed by me in its entirety. I confirm that the documentation accurately reflects all work, treatment, procedures, and medical decision making performed by me. Attending Attestation - Resident Resident Name: Tomas Garcia - ED Attending Attestation I have performed the following: I have examined & evaluated the patient, The case was reviewed & discussed with the resident, I agree w/resident's findings & plan, Exceptions are as noted - HPI HPI: 05/01/19 15:28 88 yo F h/o afib, on metoprolol, hypotension, on home Oxygen, here with lightheaded while on the toilet. per pt she usually loads up on oxygen prior to going to bathroom because she doesn't wear her oxygen in the bathroom, does become lightheaded. they recently had decreased her dose of metoprolol due to chronically low BP, found her on the floor, called EMS. difficulty in getting pt out of the bathroom back on oxygen, syncopized. on arrival to the ED pt was found lethargic and vomiting . severely hypoxic. noted to by cyanotic. unresponsive and nonverbal. 2:45PM CPR initiated secondary to PEA arrest 20 ga in the left hand placed 2:50PM Pulse check: not palpable 2:55PM Epi administered Atropine administered Calcium administered Rhythm check- Asystole Pulse check: not palpable 2:58PM Bicarb administered Shocked 200J Rhythm check- Asystole Pulse check: not palpable 2:59PM Dextrose administered Epi administered 3PM Rhythm check- Asystole Pulse check: not palpable 3:01PM 2g Magnesium administered 3:01PM Shocked 200 J Rhythm check- Asystole Pulse check: not palpable 3:02PM Epi administered 3:03PM Shocked 200 J Rhythm check- Asystole Pulse check: not palpable 3:06PM Pulse check: not palpable 3:06PM at bedside requests cessation of medical resuscitation and refused intubation. Time of : 15:07 15:[address] Copeland contacted and agreed to sign certificate. 15:47 budget examiner, Dr. Yesenia Hodgson, contacted and case was denied. - Physicial Exam PE: 05/01/19 15:33 unarousable, cyanotic. cold. lungs no active breath sounds . heart no active heart sounds. abd soft nt ext , cool, pulseless. no spont movement - Medical Decision Making 05/01/19 15:37 88 yo F here with intially hypoxic, bradycardia, syncope and likley resp arrest. with secondary cardiac arrest. CPR was intitialted with ACLS in room , mult rounds of EPE atropine, calcium bicarb and dextrose given. found to be in v fib arrest. several rounds given . focused ED TTE performed, pt in asystole no cardiac activity on us. time of called at 1507. at bedside at time of pronouncement. called pt pcp dr Copeland, who will sign certificate. 05/01/19 15:57 ME declined case. MI number [id number] Heart Score/ECG Review #1 Compared to previous ECG there are: Other (bradycardia rate 43, RBB,)
--- NOTE | 2019-05-02 15:19 | EKG ---
Test Reason : Blood Pressure : / mmHG Vent. Rate : 043 BPM Atrial Rate : 048 BPM P-R Int : 000 ms QRS Dur : 142 ms QT Int : 454 ms P-R-T Axes : 000 124 -30 degrees QTc Int : 383 ms ATRIAL FIBRILLATION WITH SLOW VENTRICULAR RESPONSE RIGHT BUNDLE BRANCH BLOCK LEFT POSTERIOR FASCICULAR BLOCK BIFASCICULAR BLOCK NONSPECIFIC ST AND T WAVE ABNORMALITY ABNORMAL ECG Confirmed by ANDRE MARTÍNEZ MD ([id number]) on 05/02/2019 3:19:07 PM Referred By: Confirmed By:ANDRE MARTÍNEZ MD
== END 2019-05-01 17:18 | disposition expired ==
LOC: JER 14:17
PROC: 5A12012 Performance of Cardiac Output, Single, Manual (ICD-10-PCS; principal; 2019-05-01)
PROC: B246ZZZ Ultrasonography of Right and Left Heart (ICD-10-PCS; 2019-05-01)
PROC: 3E033GC Introduction of Other Therapeutic Substance into Peripheral Vein, Percutaneous Approach (ICD-10-PCS; 2019-05-01)
DX: I46.9 Cardiac arrest, cause unspecified (principal); R55 Syncope and collapse; W18.12XA Fall from or off toilet with subsequent striking against object, initial encounter; Y93.89 Activity, other specified; Y92.012 Bathroom of single-family (private) house as the place of occurrence of the external cause; Y99.8 Other external cause status; I25.10 Atherosclerotic heart disease of native coronary artery without angina pectoris; Z95.2 Presence of prosthetic heart valve; I11.0 Hypertensive heart disease with heart failure; I50.9 Heart failure, unspecified; I48.91 Unspecified atrial fibrillation; Z95.1 Presence of aortocoronary bypass graft; Z95.5 Presence of coronary angioplasty implant and graft; R09.02 Hypoxemia; E78.00 Pure hypercholesterolemia, unspecified; E03.9 Hypothyroidism, unspecified; E11.9 Type 2 diabetes mellitus without complications; R00.1 Bradycardia, unspecified; I45.2 Bifascicular block; Z79.84 Long term (current) use of oral hypoglycemic drugs; Z85.3 Personal history of malignant neoplasm of breast; Z90.11 Acquired absence of right breast and nipple; Z87.891 Personal history of nicotine dependence; Z79.82 Long term (current) use of aspirin; Z79.01 Long term (current) use of anticoagulants; Z88.0 Allergy status to penicillin; Z88.8 Allergy status to other drugs, medicaments and biological substances; Z91.041 Radiographic dye allergy status; Z99.81 Dependence on supplemental oxygen
CPT/HCPCS: 93005; 93010; 99283-25